=== PATIENT | female | born 2000 | race Caucasian/White ===

== ENCOUNTER 2023-02-16 02:18 | Emergency (ER) | payer OTHER, SELFPAY ==
--- NOTE | ~2023-02-16 | XR_ITS ---
Portable chest x-ray Comparison: None Clinical History: Chest pain Findings: Lungs are clear, without focal consolidation or pleural effusion. Cardiomediastinal silho uette is unremarkable. Bones and soft tissues are unremarkable. Impression: Normal chest. Reviewed, dictated and finalized at location M. Impression: Normal chest.
[2023-02-16 02:20] VITALS: BP 134/74; PULSE 92; RESP 20; TEMP 37; O2SAT 100
[2023-02-16 02:29] VITALS: BP 122/85; PULSE 96; RESP 15; O2SAT 99
[2023-02-16 02:31] LABS: Glucose Point of Care 70 mg/dl (65-105)
--- NOTE | 2023-02-16 02:34 | ECG_ITS ---
Measurements Intervals [place] Rate: 90 P: 50 HI: 112 QRS: 29 QRSD: 97 T: 31 QT: 399 QTc: 490 Interpretive Statements SINUS RHYTHM WITH SHORT HI INTERVAL NO PREVIOUS ECG AVAILABLE FOR COMPARISON Electronically Signed On 02-16-2023 11:20:27 CDT by Trish Garduno M.D.
[2023-02-16 03:04] LABS: Basophils Percent Auto 0.4 % (0.2-1.2); Eosinophils Absolute Auto 0.2 K/mm3 (0-0.3); Eosinophils Percent Auto 1.9 % (0-4.4); Hematocrit 38.3 % (37.0-47.0); Hemoglobin 12.9 g/dL (12.0-15.0); Immature Granulocyte Absolute 0.02 K/mm3 (0.00-0.031); Immature Granulocyte Percent A 0.2 % (0-0.5); Lymphocytes Absolute Auto 2.07 K/mm3 (0.9-3.2); Lymphocytes Percent Auto 25.7 % (18.3-44.2); Mean Corpuscular HGB Conc 33.7 g/dl (32-36); Mean Corpuscular Hemoglobin 29.7 pg (26-34); Mean Corpuscular Volume 88.2 fl (80-100); Mean Platelet Volume 10.8 fl (7.4-10.4); Monocytes Percent Auto 12.2 % (2.6-8.5); Neutrophils Absolute Auto 4.8 K/mm3 (1.3-6.7); Neutrophils Percent Auto 59.6 % (45.5-73.1); Platelet Count Result 261 k/mm3 (150-375); Red Blood Count 4.34 M/mm3 (4.2-5.4); Red Cell Distribution Width 12.3 % (11.5-14.5)
[2023-02-16 03:16] LABS: Lactic Acid Reflex 2.3 mmol/L (0.7-2.0)
[2023-02-16 03:21] LABS: Alanine Aminotransferase 15 U/L (6-35); Albumin Level 4.3 g/dL (3.5-5.1); Alkaline Phosphatase 78 U/L (38-126); Anion Gap 12 mmol/L (8-16); Aspartate Amino Transferase 23 U/L (14-36); Bilirubin,Total 0.5 mg/dL (0.2-1.3); Blood Urea Nitrogen 5 mg/dL (7-17); Calcium 8.6 mg/dL (8.4-10.2); Carbon Dioxide 20 mmol/L (22-30); Chloride 107 mmol/L (98-107); Estimated CRCL calculation 148 ml/min; Estimated Glomerular Filt Rate > 60; Glucose 61 mg/dL (65-110); Potassium 2.8 mmol/L (3.4-5.0); Sodium 139 mmol/L (137-145)
--- NOTE | 2023-02-16 03:23 | ED.GENADULT ---
HPI - General Adult General Chief complaint: Unspecified Stated complaint: low blood sugar Time Seen by Provider: 02/16/23 02:29 History of Present Illness HPI narrative: Patient is a 23-year-old female who presents the emergency department with chief complaint of hyperglycemia. Patient reports that she has history of type 1 diabetes wears an insulin pump and has a continuous glucose monitor patient reports that she has been running in the 60s today and she will drink a soda. Related Data Allergies Allergy/AdvReac Type Severity Reaction Status Date / Time amoxicillin Allergy Verified 11/30/11 15:01 Review of Systems Review of Systems: A 10 system review of systems was completed on the patient and is negative except for what is stated in the HPI. Nursing and ancillary documentation was reviewed. Exam Narrative: GENERAL: Well-appearing, well-nourished, and in no acute distress. HEAD: Normocephalic, atraumatic. EYES: PERRLA and EOMI. ENT: Nares clear, no rhinorrhea or epistaxis. Mucous membranes moist. NECK: Supple. CHEST: Clear to auscultation. No respiratory distress. HEART: Regular rate and rhythm. No murmur heard. Normal peripheral pulses. ABDOMEN: Soft, nontender, nondistended, normal active bowel sounds. EXTREMITIES: Normal range of motion. No edema. SKIN: Warm, dry, no rash. NEURO: No focal deficits. Alert and oriented x3. PSYCH: Normal mood and affect. Course Vital Signs Vital signs: Vital Signs Temperature 37.0 C 02/16/23 02:20 Pulse Rate 92 02/16/23 02:20 Respiratory Rate 20 02/16/23 02:20 Blood Pressure 134/74 02/16/23 02:20 Pulse Oximetry 100 02/16/23 02:20 Temperature 37.0 C 02/16/23 02:20 Pulse Rate 88 02/16/23 04:16 Respiratory Rate 26 H 02/16/23 04:16 Blood Pressure 131/86 02/16/23 04:16 Pulse Oximetry 99 02/16/23 04:16 Medical Decision Making [facility] Narrative Medical decision making narrative: Differential diagnosis includes indiscretion, infection, electrolyte abnormality The patient was monitored in the emergency department blood sugars have improved with additional dextrose your potassium was 2.8 that was replaced in the emergency department and urinalysis showed evidence of UTI. Patient was negative for COVID and flu Chest x-ray was negative. Vital Signs Vital Signs: Vital Signs Temperature 37.0 C 02/16/23 02:20 Pulse Rate 92 02/16/23 02:20 Respiratory Rate 20 02/16/23 02:20 Blood Pressure 134/74 02/16/23 02:20 Pulse Oximetry 100 02/16/23 02:20 Temperature 37.0 C 02/16/23 02:20 Pulse Rate 88 02/16/23 04:16 Respiratory Rate 26 H 02/16/23 04:16 Blood Pressure 131/86 02/16/23 04:16 Pulse Oximetry 99 02/16/23 04:16 Lab Data 02/16/23 02:59 02/16/23 02:59 Labs: Lab Results 02/16/23 02/16/23 02/16/23 Range/Units 02:27 02:57 02:59 WBC 8.0 (4.5-10.0) K/mm3 RBC 4.34 (4.2-5.4) M/mm3 Hgb 12.9 (12.0-15.0) g/dL Hct 38.3 (37.0-47.0) % MCV 88.2 (80-100) fl MCH 29.7 (26-34) pg MCHC 33.7 (32-36) g/dl RDW 12.3 (11.5-14.5) % Plt Count 261 (150-375) k/mm3 MPV 10.8 H (7.4-10.4) fl Immature Gran % (Auto) 0.2 (0-0.5) % Neut % (Auto) 59.6 (45.5-73.1) % Lymph % (Auto) 25.7 (18.3-44.2) % Bureau % (Auto) 12.2 H (2.6-8.5) % Eos % (Auto) 1.9 (0-4.4) % Baso % (Auto) 0.4 (0.2-1.2) % Lymph # (Auto) 2.07 (0.9-3.2) K/mm3 Bureau # (Auto) 1.0 H (0.1-0.6) K/mm3 Eos # (Auto) 0.2 (0-0.3) K/mm3 Baso # (Auto) 0.0 (0.0-0.1) K/mm3 Abs Immat Gran (auto) 0.02 (0.00-0.031) K/mm3 Absolute Neuts (auto) 4.8 (1.3-6.7) K/mm3 Absolute Nucleated RBC 0.0 (0.0-0.012) K/mm3 Nucleated RBC % 0.0 (0.0-0.2) % Sodium 139 (137-145) mmol/L Potassium 2.8 L* (3.4-5.0) mmol/L Chloride 107 (98-107) mmol/L Carbon Dioxide 20 L (22-30) mmol/L Anion Gap 12 (8-16) mmol/
[2023-02-16] MEDS: POTASSIUM CHLORIDE 20 MEQ PACKET (FOR LIQUID) 40 MEQ PO (03:28)
[2023-02-16 03:33] LABS: Magnesium 2.2 mg/dL (1.6-2.3)
[2023-02-16 03:36] LABS: Appearance Urine Cloudy (Clear); Bacteria Urine 4+ /hpf; Bilirubin Urine Negative (Negative); Blood Urine Trace (Negative); Color Urine Yellow (Yellow); Glucose Urine UA 2+ mg/dL (Negative); Ketones Urine Negative (Negative); Leukocyte Esterase Ur 1+ LEU/UL (Negative); Nitrate Urine Positive (Negative); Non Pathogenic Casts 0-2; Protein Urine Trace mg/dL (Negative); RBC Urine 0-2 /hpf (0-2); Specific Grav Ur 1.019 (1.001-1.035); Squamous Epithelial Cell Urine None seen /hpf (Few); Urobilinogen Urine 0.2 mg/dL (<2.0); WBC Urine 21-50 /hpf
[2023-02-16 03:46] VITALS: BP 134/79; PULSE 91; RESP 18; O2SAT 100
[2023-02-16] MEDS: KCL 20 MEQ/SW 100 ML 100 ML 50 MEQ IVPB (03:56)
[2023-02-16 03:57] LABS: Add Urine Microscopic? YES
[2023-02-16] MEDS: SODIUM CHLORIDE 0.9% IV 1,000 ML 150 ML IV CONT (04:00)
[2023-02-16 04:01] VITALS: BP 137/89; PULSE 99; RESP 28; O2SAT 100
[2023-02-16 04:02] LABS: Glucose Point of Care 64 mg/dl (65-105)
[2023-02-16 04:10] LABS: Influenza A QL RT-PCR Negative (Negative); Influenza B QL RT-PCR Negative (Negative); SARS-CoV-2 RNA PCR Negative (Negative)
[2023-02-16 04:16] VITALS: BP 131/86; PULSE 88; RESP 26; O2SAT 99
[2023-02-16] MEDS: DEXTROSE 10% 500 ML 250 ML IV CONT (04:33)
[2023-02-16 05:51] LABS: Glucose Point of Care 221 mg/dl (65-105)
[2023-02-16 06:02] LABS: Reflex Lactic Acid Yes or No Add Lactic
[2023-02-16 06:32] VITALS: BP 123/87; PULSE 92; RESP 16; O2SAT 100
== END 2023-02-16 06:47 | disposition home or self-care (01) ==
PROVIDERS: Emergency Provider Emergency Medicine
DX: E10.649 Type 1 diabetes mellitus with hypoglycemia without coma (principal); N39.0 Urinary tract infection, site not specified; E87.6 Hypokalemia; Z11.52 Encounter for screening for COVID-19; Z96.41 Presence of insulin pump (external) (internal); Z79.4 Long term (current) use of insulin
CPT/HCPCS: 36415; 71045; 80053; 81001; 81025; 82948; 83605; 83735; 85025; 87077; 87086; 87186; 87636; 93005; 96361; 96365; 96366; 96374; 99284; A9270; J1815; J3480; J7030

== ENCOUNTER 2023-02-16 08:22 | Emergency (ER) | payer OTHER, SELFPAY ==
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
== END 2023-02-16 08:35 | disposition left against medical advice (07) ==
LOC: ANHED 09:14
DX: E16.2 Hypoglycemia, unspecified (principal)
CPT/HCPCS: 99199

== ENCOUNTER 2023-02-16 15:44 | Emergency (ER) | payer OTHER, SELFPAY ==
[2023-02-16 15:45] VITALS: BP 136/92; PULSE 103; RESP 30; TEMP 36.6; O2SAT 100
[2023-02-16 15:55] LABS: Glucose Point of Care > 500 mg/dl (65-105)
[2023-02-16] MEDS: SODIUM CHLORIDE 0.9% IV 1,000 ML 999 ML IV CONT ×2 (16:10→16:17)
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
[2023-02-16] MEDS: INSULIN HUMAN REGULAR (*BKC) 100 UNITS/ML 6 UNITS IV PUSH (16:18)
[2023-02-16 16:59] LABS: Hemoglobin 13.3 g/dL (12.0-15.0); Mean Corpuscular HGB Conc 33.3 g/dl (32-36); Mean Corpuscular Hemoglobin 30.2 pg (26-34); Mean Corpuscular Volume 90.7 fl (80-100); Mean Platelet Volume 11.3 fl (7.4-10.4); Platelet Count Result 264 k/mm3 (150-375); Red Blood Count 4.41 M/mm3 (4.2-5.4); Red Cell Distribution Width 12.5 % (11.5-14.5); White Blood Count 13.7 K/mm3 (4.5-10.0)
[2023-02-16 17:11] LABS: Lactic Acid Reflex 2.3 mmol/L (0.7-2.0)
[2023-02-16 17:13] LABS: Alanine Aminotransferase 19 U/L (6-35); Alkaline Phosphatase 110 U/L (38-126); Anion Gap 17 mmol/L (8-16); Aspartate Amino Transferase 22 U/L (14-36); Blood Urea Nitrogen 9 mg/dL (7-17); Calcium 8.1 mg/dL (8.4-10.2); Carbon Dioxide 11 mmol/L (22-30); Chloride 107 mmol/L (98-107); Estimated CRCL calculation 122 ml/min; Estimated Glomerular Filt Rate > 60; Glucose 451 mg/dL (65-110); Potassium 4.1 mmol/L (3.4-5.0); Sodium 135 mmol/L (137-145)
[2023-02-16 17:13] LABS: Glucose Point of Care 384 mg/dl (65-105)
[2023-02-16 17:22] LABS: Band Neutrophils Percent 2 % (0-6); Lymphocytes Absolute Manual 0.27 K/mm3 (1.1-4.5); Monocytes Absolute Manual 0.27 K/mm3 (0.1-0.90); Monocytes Percent Manual 2 % (3-9); Neutrophils Absolute Manual 13.15 K/mm3 (1.7-7.2); Neutrophils Percent Manual 94 % (46-73); Platelet Estimate Adequate (Adequate); Schistocytes None Seen (NORMAL); Total Cells Counted 100
[2023-02-16 18:20] LABS: Glucose Point of Care 268 mg/dl (65-105)
[2023-02-16 18:35] VITALS: BP 111/76; PULSE 105; RESP 18; O2SAT 100
[2023-02-16 19:56] LABS: Reflex Lactic Acid Yes or No Add Lactic
== END 2023-02-16 18:40 | disposition home or self-care (01) ==
PROVIDERS: Emergency Provider Emergency Medicine
DX: E10.65 Type 1 diabetes mellitus with hyperglycemia (principal); Z76.0 Encounter for issue of repeat prescription; Z79.4 Long term (current) use of insulin; Z96.41 Presence of insulin pump (external) (internal)
CPT/HCPCS: 36415; 80053; 82948; 83605; 85025; 96361; 96374; 99284; J1815; J7030

== ENCOUNTER 2023-02-16 19:42 | Emergency (ER) | payer OTHER, SELFPAY ==
[2023-02-16 19:45] VITALS: BP 129/78; PULSE 123; RESP 32; TEMP 36.3; O2SAT 100
[2023-02-16 19:50] LABS: Glucose Point of Care 312 mg/dl (65-105)
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
== END 2023-02-16 20:15 | disposition left against medical advice (07) ==
DX: F44.9 Dissociative and conversion disorder, unspecified (principal)
CPT/HCPCS: 82948; 99199

== ENCOUNTER 2023-02-28 10:01 | Emergency (ER) | payer OTHER, SELFPAY ==
--- NOTE | 2023-02-28 10:04 | ED.FEMALEGU ---
HPI - Female Genitourinary General Chief complaint: Urogenital-Female Stated complaint: UTI Time Seen by Provider: 02/28/23 10:05 Source: patient Mode of arrival: ambulatory Limitations: no limitations History of Present Illness HPI Narrative: Patient is a 23-year-old female who presents with concern for UTI. Patient was diagnosed with UTI roughly week ago and only finished 4 days of antibiotics due to being admitted into the hospital. Patient states she told the hospital and they did not finish the rest of her antibiotics. Patient also rule has concern for yeast infection. Patient is a type 1 diabetic and gets yeast infections frequently. Reports irritation and slight white thick discharge. MD elicited complaint: dysuria Related Data Home Medications Medication Instructions Recorded Confirmed blood-glucose sensor (Dexcom G6 02/28/23 02/28/23 Sensor device) blood-glucose transmitter (Dexcom 02/28/23 02/28/23 G6 Transmitter device) glucagon 1 mg/0.2 mL subcutaneous 1 mg subcut DIRECTED 02/28/23 02/28/23 auto-injector (Gvoke HypoPen 1-Pack) insulin glargine 100 unit/mL 45 unit subcut DIRECTED 02/28/23 02/28/23 subcutaneous solution (Lantus U-100 Insulin) insulin pump cart,automated,BT 02/28/23 02/28/23 (Omnipod 5 G6 Pods (Gen 5) subcutaneous cartridge) Allergies Allergy/AdvReac Type Severity Reaction Status Date / Time amoxicillin Allergy Hives Verified 02/28/23 10:05 Review of Systems Review of Systems: All systems reviewed & are unremarkable except as noted in HPI and below Constitutional: Constitutional: Denies chills, Denies fever(s), Denies headache(s), Denies malaise and Denies weakness Eyes: Eyes: Denies change in vision, Denies eye discharge and Denies irritation ENT: Denies otalgia, Denies headache(s), Denies nasal congestion, Denies nasal discharge, Denies sinus pain and Denies sore throat Cardiovascular: Cardiovascular: Denies chest pain, Denies edema, Denies palpitations and Denies dyspnea Respiratory: Respiratory: Denies cough and Denies dyspnea Gastrointestinal: Gastrointestinal: Denies abdominal pain, Denies diarrhea, Denies nausea and Denies vomiting Genitourinary: Genitourinary: Denies hematuria, Reports nocturia, Reports genital pruritis, Reports dysuria, Denies flank pain, Reports urinary urgency and Reports vaginal discharge Musculoskeletal: Musculoskeletal: Denies back pain and Denies numbness Integumentary/Breasts: Skin/Breast: Denies pruritus and Denies rash Neurologic: Denies headache(s), Denies numbness and Denies weakness Psychiatric: Psychiatric: Reports no additional psychiatric complaints Endocrine: Endocrine: Denies palpitations PMFSH Comments At time of signature, agree with nursing past medical, surgical, social and family history. There is no relevant family history pertinent to the presenting complaint. Exam Const: General: cooperative, healthy appearing, comfortable, no acute distress and well nourished Nutritional Appearance: well nourished Orientation/consciousness: patient oriented x3 HENMT: Head: normocephalic and atraumatic Ears: external ears normal Face/Nose/Sinus: Normal external nose present, Normal nares present and normal facial exam Face and sinus: normal facial exam Eyes: General: appearance normal, both eyes and all related structures Pupils: Equal, round and reactive pupils present EOM: EOMs intact bilaterally Neck: Neck: normal visual inspection, full ROM and supple Chest: Chest palpation & inspection: normal inspection of the chest Resp: Effort & Inspection: normal respiratory effort and able to speak in complete sentences Cardio: Rate: regular rate Rhythm: regular rhythm GI: Inspection: normal to inspection GI Palp: No abdominal tenderness and Yes Soft to palpation : General: Yes no CVA tenderness Back/Spine/Pelvis: Back: no CVA tenderness Skin: General skin exam: normal color and no rashes or les
[2023-02-28 10:13] VITALS: BP 130/80; PULSE 90; RESP 16; TEMP 36.9; O2SAT 100
== END 2023-02-28 11:00 | disposition home or self-care (01) ==
PROVIDERS: Emergency Provider Nurse Practitioner Family; PCP Nurse Practitioner Family
DX: B37.31 Acute candidiasis of vulva and vagina (principal); N30.00 Acute cystitis without hematuria; E10.9 Type 1 diabetes mellitus without complications
CPT/HCPCS: 81003; 81025; 87086; 87147; 87181; 87186; 99213; G0463

== ENCOUNTER 2024-09-21 14:18 | Emergency (ER) | payer OTHER, BC, SELFPAY ==
--- OUTSIDE RECORDS SUMMARY | 2024-09-21 14:21 | XMS_ITS | Patient Health Record ---
Author Organization Count includes the [facility] Address [address] [place] [address] Care Team Providers Care Cab Starter Name Role Phone Rebecca Osei Primary Care Provider Allergies Allergen (clinical drug ingredient) Drug/Non Drug Allergy documented on EMR Reaction Allergy Type Onset Date Status amoxicillin Amoxicillin Unknown Drug Allergy Act abdon Reason For Referral No Information Medications Medication SIG (Take, Route, Fr equency, Duration) Notes Start Date End Date Status lamoTRIgine 100 MG 1 tablet Orally Once a day- start after completed 25 mg script for 30 days 07/19/2022 Active lamoTRIgine 25 MG as directed Orally O nce daily for 2 weeks then increase to two tablets once daily for 28 days 07/19/2022 Active cloNIDine HCl 0.1 MG 1 tablet at night a s needed Orally Once a day for 30 days 07/19/2022 Ac tive HumaLOG Active NovoLOG Active Social History Tobacco Use: Social History Observation Description Date Details (start date - stop date) Former Smoker NA - NA Dont use, Tobacco Use/Smoking Question Answer Notes Are you a former smoker How long has it been since you last smoked? 1-5 years Problems Problem Type SNOMED Code ICD Code Onset Dates Problem Status W/U Status Risk Notes Problem Generalized anxiety disorder (14576877) Generalized anxiety disorder (F41.1) Active confirmed Problem Posttraumatic stress disorder (67910393) PTSD (post-traumati c stress disorder) (F43.10) Active confirmed Problem Bipolar affective disorder (78696209) Bipolar affective disorder (F31.9) Active confirmed likely type 1 Problem Cannabis abuse (48616464) Cannabis abuse (F12.10) Active confirmed Problem Sleep disturbance (04655954) Sleep disturbance, unspecified (G47.9) Active confirmed Plan Of Treatment No Information Insurance Providers Payer Name Payer Address Payer Phone Subscriber Number Group Number Insured Name Patient Relationship to Insured Coverage Start Date Coverage End Date [facility] Att Claims Department [address] [place] [address] [phone] [id number] Luciana Nelson Self - patient is the insured [facility] [address] [place] [address] [phone] [id number] Luciana Nelson Self - patient is the insured 3 Medical (General) History Medical History History ICD Code type I diabetes Surgical History Surgery Date(Month/Year) ablation Hospitalization History Reason Date(Month/Year) diabetic
--- OUTSIDE RECORDS SUMMARY | 2024-09-21 14:23 | XMS_ITS | Encounter Summary ---
Author Organization [facility] Address [address] [place] [address] Care Team Providers Care Water/Wastewater Project Manager Name Role Phone Cee Sharpe MD Primary Care Provider Frances Vazquez Primary Care Provider Cee Sharpe MD Primary Care Provider Frances Vazquez Primary Care Provider Graciela Marin MD Primary Care Provider Quyen Vance MD Primary Care Provider [phone] Graciela Marin MD Unavailable [phone] Encounter Details Date Type Department Care Team (Late st Contact Info) Description 04/05/2019 Telephone [facility] - Diabetes [address] [address] Demetri Longo APRN-CNP [address] [place] [address] Social History Tobacco Use Types Packs/Day Years Used Date Smoking Tobacco: Passive Smo ke Exposure - Never Smoker Smokeless Tobacco: Never Alcohol Use Standard Drinks/Week Comments No 0 (1 standard drink = 0.6 oz pur e alcohol) Comments No Sex and Gender Information Value Date Recorded Sex Assigned at Not on file Legal Sex Female 5:42 AM FIBERGLASS SKI MAKER Gender Identity Not on file Sexual Orientation Not on file documented as of this encounter Functional Status * Is person deaf or have serious hearing difficulty? Answer Date of Assessment Author No 07/21/2015 8:00 PM Andria Gonzalez RN * Is person blind or have serious difficulty seeing? Answer Date of Assessment Author No 07/21/2015 8:00 PM Andria Gonzalez RN * Does person have serious difficulty walking/climbing stairs? Answer Date of Assessment Author No 07/21/2015 8:00 PM Andria Gonzalez RN * Does person have difficulty dressing/bathing? Answer Date of Assessment Author No 07/21/2015 8:00 PM Andria Gonzalez RN * Does person have difficulty doing errands alone? Answer Date of Assessment Author No 07/21/2015 8:00 PM Andria Gonzalez RN documented as of this encounter Mental Status * Does person have difficulty concentrating/remembering/making decisions? Answer Entry Date Author No 07/21/2015 8:00 PM Andria Gonzalez RN documented in this encounter Miscellaneous Notes * Telephone Encounter - Rebecca Doshi RN - 04/05/2019 10:34 AM CST Mom called stating Luciana recently started seeing a new primary care physician ([facility], Frances Osuna MD- [phone]). When she was seen they were told about a [employer]B program that would assist her in getting lower cost medical supplies on insulin and CGM's. Mom said there is a form/letter that needs to be completed by our office to facilitate being apart of this program. I have reached out to the PCP office to see if they could fax us the form that needed to be completed. The office said we just need to write her prescriptions to [facility] and [facility] in [place], [place]. RGLASS SKI MAKER documented in this encounter Plan of Treatment Not on file documented as of this encounter Visit Diagnoses Not on filedocumented in this encounter Additional Health Concerns Infection Onset Date Last Indicated Resolved Time COVID-19 Under Investigation 03/02/2024 03/03/2024 03/03/2024 1:53 AM FIBERGLASS SKI MAKER COVID-19 Under Investigation 03/03/2024 03/03/2024 03/03/2024 2:08 PM FIBERGLASS SKI MAKER documented as of this encounter Care Teams Water/Wastewater Project Manager Relationship Specialty Start Date End Date Cee Sharpe MD [address] [place] [address] PCP - General Pediatrics 01/24/12 07/31/19 Frances Vazquez APRN-DANCE THERAPIST [address] [place], [place] [id number] PCP - General Nurse Practitioner Family 08/01/1907/24 Cee Sharpe MD [address] [place] [address] PCP - General 08/09/19 09/09/19 Frances Vazquez APRN-DANCE THERAPIST [address] [place], [place] [id number] PCP - General 07/06/22 11/21/23 Graciela Marin MD [address] [place] [id number] PCP - General Internal Medicine 11/22/23 01/09/24 Quyen Vance MD [address] DIV OF [facility] [address] [place] [phone] PCP - General Internal Medicine 01/10/24 Graciela Marin MD [address] [place] [address] Physician Internal Medicine 01/10/24 documented as of this encounter
--- OUTSIDE RECORDS SUMMARY | 2024-09-21 14:23 | XMS_ITS | Encounter Summary ---
Author Organization [facility] Address [address] [place] [address] Care Team Providers Care Diesel Trailer Mechanic Name Role Phone Frances Vazquez Primary Care Provider Graciela Marin MD Primary Care Provider [phone] Quyen Vance MD Primary Care Provider [phone]- [phone] Graciela Marin MD Unavailable [phone] Reason for Visit * Reason Comments Refill Request Encounter Details Date Type Department Care Team (Late st Contact Info) Description 12/12/2019 Refill [facility] Pediatrics - Diabetes [address] [place] [address] Demetri Longo APRN-CNP [address] [place] [address] Refill Request Social History Tobacco Use Types Packs/Day Years Used Date Smoking Tobacco: Passive Smo ke Exposure - Never Smoker Smokeless Tobacco: Never Alcohol Use Standard Drinks/Week Comments No 0 (1 standard drink = 0.6 oz pur e alcohol) Comments No Sex and Gender Information Value Date Recorded Sex Assigned at Not on file Legal Sex Female 5:42 AM VALET RUNNER Gender Identity Not on file Sexual Orientation Not on file documented as of this encounter Functional Status * Is person deaf or have serious hearing difficulty? Answer Date of Assessment Author No 08/01/2019 4:54 PM Sheyla Bolanos RN * Is person blind or have serious difficulty seeing? Answer Date of Assessment Author No 08/01/2019 4:54 PM Sheyla Bolanos RN * Does person have serious difficulty walking/climbing stairs? Answer Date of Assessment Author No 08/01/2019 4:54 PM Sheyla Bolanos RN * Does person have difficulty dressing/bathing? Answer Date of Assessment Author No 08/01/2019 4:54 PM Sheyla Bolanos RN * Does person have difficulty doing errands alone? Answer Date of Assessment Author No 08/01/2019 4:54 PM Sheyla Bolanos RN documented as of this encounter Mental Status * Does person have difficulty concentrating/remembering/making decisions? Answer Entry Date Author No 08/01/2019 4:54 PM Sheyla Bolanos RN documented in this encounter Plan of Treatment Not on file documented as of this encounter Visit Diagnoses Not on filedocumented in this encounter Additional Health Concerns Infection Onset Date Last Indicated Resolved Time COVID-19 Under Investigation 03/02/2024 03/03/2024 03/03/2024 1:53 AM VALET RUNNER COVID-19 Under Investigation 03/03/2024 03/03/2024 03/03/2024 2:08 PM VALET RUNNER documented as of this encounter Care Teams Diesel Trailer Mechanic Relationship Specialty Start Date End Date Frances Vazquez APRN-BILINGUAL SPEECH LANGUAGE PATHOLOGIST [address] [place] [phone] PCP - General 07/06/22 11/21/23 Graciela Marin MD [address] DIV OF [facility] [address] PCP - General Internal Medicine 11/22/23 01/09/24 Quyen Vance MD [address] OF [address] [address] PCP - General Internal Medicine 01/10/24 Graciela Marin MD [address] [place] [address] Physician Internal Medicine 01/10/24 documented as of this encounter
--- OUTSIDE RECORDS SUMMARY | 2024-09-21 14:23 | XMS_ITS | Encounter Summary ---
Author Organization [facility] Address [address] [place] [address] Care Team Providers Care Correctional Maintenance Technician Name Role Phone Cee Sharpe MD Primary Care Provider Frances Vazquez Primary Care Provider Cee Sharpe MD Primary Care Provider Frances Vazquez Primary Care Provider Graciela Marin MD Primary Care Provider Quyen Vance MD Primary Care Provider [phone]- [phone] Graciela Marin MD Unavailable [phone] Reason for Visit * Reason Onset Date Comments MEDICATION REFILL 08/03/2016 Encounter Details Date Type Department Care Team (Late st Contact Info) Description 08/03/2016 Refill [facility] Pediatrics - Endocrinology [address] [place] [address] Demetri Longo APRN-CNP [address] [place] [address] MEDICATION REFILL Social History Tobacco Use Types Packs/Day Years Used Date Smoking Tobacco: Passive Smo ke Exposure - Never Smoker Alcohol Use Standard Drinks/Week Comments No 0 (1 standard drink = 0.6 oz pur e alcohol) Comments No Sex and Gender Information Value Date Recorded Sex Assigned at Not on file Legal Sex Female 5:42 AM MACHINERY MOVER Gender Identity Not on file Sexual Orientation [...] Andria Gonzalez RN documented in this encounter Plan of Treatment Not on file documented as of this encounter Visit Diagnoses Not on filedocumented in this encounter Additional Health Concerns Infection Onset Date Last Indicated Resolved Time COVID-19 Under Investigation 03/02/2024 03/03/2024 03/03/2024 1:53 AM MACHINERY MOVER COVID-19 Under Investigation 03/03/2024 03/03/2024 03/03/2024 2:08 PM MACHINERY MOVER documented as of this encounter Care Teams Correctional Maintenance Technician Relationship Specialty Start Date End Date Cee Sharpe MD [address] [place] [id number] PCP - General Pediatrics 01/24/12 07/31/19 Frances Vazquez APRN-SUSPENSION CORD TIER [address] [place] [id number] PCP - General Nurse Practitioner Family 08/01/1907/24 Cee Sharpe MD [address] [place] [address] PCP - General 08/09/19 09/09/19 Frances Vazquez APRN-SUSPENSION CORD TIER [address] [id number] PCP - General 07/06/22 11/21/23 Graciela Marin MD [address] [place] [address] PCP - General Internal Medicine 11/22/23 01/09/24 Quyen Vance MD [address] [phone] PCP - General Internal Medicine 01/10/24 Graciela Marin MD [address] [place] [phone] Physician Internal Medicine 01/10/24 documented as of this encounter
--- OUTSIDE RECORDS SUMMARY | 2024-09-21 14:23 | XMS_ITS | Clinical Summary ---
Author Organization [facility] Address [address] [place] [address] Care Team Providers Care Clerk Supervisor Name Role Phone Quyen Vance MD Primary Care Provider [phone] Graciela Marin MD Unavailable Source Comments [facility],non-owned Affiliates and Associated Physician Practices is amultiple site organization consisting of ambulatory clinics and hospital sitesin [place], [place], [place] and [place]. This disclosure is being madepursuant to the Care Everywhere program and may not contain all information available regarding this patient. Last updated 18.[facility] Allergies Active Allergy Reactions Criticality Noted Date Comments Amoxicillin Urticaria 01/24/2012 Medications * Be aware that medications may not be up to date on this document. Alwaysverify current medications with the patient. B-D ULTRA-FINE 33 LANCETS MISCIndications: Type 1 diabetes mellitus without complication (HCC) Use for blood glucose monitoring 5-9 times/day. 200 Each 05/20/19 17 Active blood glucose (ONETOUCH ULTRA TEST STRIPS) test stripIndications :Type 1 diabetes mellitus without complication (HCC) Use to check blood sugars 5-9 times daily 250 strip 07/02/19 21 Active Insulin Pen Needle (BD PEN NEEDLE MARY U/F) 32G X 4 MM MISCIndications: Type 1 diabetes mellitus without complication (HCC) Use 1 Each as directed Use for injections 4-6 times daily. 200 Each 07/02/19 21 Active hydrOXYzine HCl (Atarax) 25 MG tablet Take 1 (one) tablet by mouth 3 times daily as needed (anxiety) Active Continuous Glucose Sensor (Dexcom G6 Sensor) MISCIndications: Type 1 diabetes mellitus without complication (HCC) Use 1 Each every 10 days 3 Each 4 11/28/19 24 Active Continuous Glucose Transmitter (Dexcom G6 Transmitter) MISCIndications: Type 1 diabetes mellitus without complication (HCC) Use 1 Each Every 90 days 1 Each 3 11/28/19 24 Active insulin aspart (NovoLOG) vialIndications: Type 1 diabetes mellitus without complication (HCC) Inject 200 (two hundred) Units subcutaneously every 2 days 30 mL 4 11/28/19 24 Active Insulin Disposable Pump (Omnipod 5 G6 Pods, Gen 5,) MISCIndications: Type 1 diabetes mellitus without complication (HCC) Use 1 Each every 3 days 10 Each 11 12/28/19 24 Active pantoprazole EC (Protonix) 40 MG tablet Take 1 (one) tablet by mouth once daily 02/20/20 24 Active insulin glargine (Lantus/Semglee) 100 units/mL penIndications:T ype 1 diabetes mellitus without complication (HCC) Inject 20 (twenty) Units subcutaneously at bedtime 03/06/20 24 Active Active Problems Problem Noted Date Diagnosed Date Hypokalemia 03/05/2024 Diabetic ketoacidosis withou t coma associated with other specified diabetes mellitus 03/03/2024 Type 1 diabetes mellitus with ketoacidosis witho ut coma 03/03/2024 Rhinovirus 03/03/2024 High anion gap metabolic acidosis 03/03/2024 Hypovolemia 03/03/2024 Chronic anemia 03/03/2024 Anxiety 11/08/2023 Hypophosphatemia 11/08/2023 Abdominal pain 11/08/2023 Hyperkalemia 11/08/2023 Lactic acidosis 11/08/2023 Elevated liver enzymes 11/08/2023 Nausea and vomiting, unspecified vomiting type 0 11/07/2023 Diabetic ketoacidosis withou t coma associated with type 1 diabetes mellitus 03/04/2020 Type 1 diabetes mellitus without complication Overview (09/10/2019): Diagnosed antibody positive 07/22/15 Assessment & Plan (02/08/2019 9:18 AM CDT): 1) check blood sugar 4 times daily 2) take correction doses when blood sugar is high, and always take your insulin for carbs you plan to eat 3) call when switched to [employer] insurance 4) return in 3 months Assessment & Plan (10/24/2018 1:02 PM CDT): 1) must check blood sugar upon waking and at least every 4 hours until bedtime 2) must take insulin before eating 3) call in blood sugars in one week 4) return in [address] Dozier 5) schedule appointment with adult dermatology Assessment & Plan (03/13/2018 3:01 PM SEDIMENTATIONIST): 1) no changes today 2) keep up the good work 3) call as needed to review blood sugars 4) return in [address] Dozier Assessment & Plan (11/11/2017 8:15 AM CDT): 1) increase humalog to 1 unit per 5 grams carb 2) call as needed to review blood sugars 3) return in 4 months for Loraine Assessment & Plan (02/24/2017 8:05 AM CDT): 1) no changes at this time 2) call as needed to review blood sugars 3) return in 3 months for loraine Assessment & Plan (04/30/2016 8:42 AM SEDIMENTATIONIST): 1)no changes at this time 2) keep up the good work 3) call as needed to review blood sugars Assessment & Plan (12/23/2015 1:42 PM CDT): 1) no changes 2) call as needed to review blood sugars 3) return in [address] Dozier Assessment & Plan (08/11/2015 2:34 PM CDT): 1) Decrease Lantus 31 2) decrease Humalog to 1:6 3) call in blood sugars on Tuesday 4) keep up the good work Assessment & Plan (07/23/2015 9:38 AM CDT): Assessment: Luciana is a 15 year old female who presents with new onset DM. Type 1 vs 2. C peptide 0.85 and antibody pending. Initial ED blood surgar 900. Day 2. Plan: Endocrine: - continue blood glucose checks TID before meals, qHS, 2am - Lantus 27u at bedtime - Humalog 1 per 8 CHO with meals - Humalog correction of 1u for every 50 over 150 - Continue diabetic teaching today - ketones qvoid until negative - C peptide- 0.85 -Ab testing pending FEN/GI: - encourage fluid PO intake - carb counting diet CV/Resp: - stable on room air Neuro: - no deficits, no acute issues. Assessment & Plan (07/22/2015 11:46 AM CDT): Assessment: Luciana is a 15 year old female who presents with new onset DM. Type 1 vs 2. C peptide and antibody pending. Initial ED blood surgar 900. AM glucose 255. Plan: Endocrine: - continue blood glucose checks TID before meals, qHS, 2am - Lantus 25u at bedtime - Humalog 1 per 10 CHO with meals - Humalog correction of 1u for every 50 over 150 - Start diabetic teaching today - BMP in am - ketones qvoid until negative - C peptides and Ab testing pending FEN/GI: - encourage fluid PO intake - carb counting diet CV/Resp: - stable on room air Neuro: - no deficits, no acute issues. Assessment & Plan (07/21/2015 9:05 PM CDT): 15 yo F w/ PMH borderline elevated cholesterol presents with polydipsia, polyuria, polyphagia, and weight loss, glucose 900 on BMP, normal gap. Likely type 1 DM, new onset R/o steroid disorders and hereditary hypercholesterolemia Interactive and asymptomatic apart from above symptoms PLAN -admit to Dr. Jacoby flores, -vitals w/ bedside glucose five times a day/before meals -activity as tolerated -carb counting, I/Os, daily weights, diabetes education, notfications for lab abnormalities, hypoglycemia tx protocol -diet carb count -saline lock IV, continue in case BMP becomes abnormal, for example drop in K -glargine 25 U qhs, -lispro 1 U : 10 g carbs, 1 unit for every 50 > 150 up to 5 U -C peptide pending (drawn prior to insulin) -Ketones UA -consider repeat BMP tomorrow PM Resolved Problems Problem Noted Date Diagnosed Date Resolved Date Gastroenteritis 03/03/2024 03/17/2024 Hyperglycemia 11/07/2023 03/03/2024 High blood sugar 03/04/2020 03/06/2020 Nonadherence to medication 03/04/2020 0 08/04/2020 Diabetic ketoacidosis withou t coma associated with type 1 diabetes mellitus 07/31/2019 08/01/2019 Assessment & Plan (08/01/2019 4:19 PM CDT): Assessment: Luciana is a 19 year old female with history of type 1 diabetes mellitus who presents in diabetic ketoacidosis from OSH in the setting of nausea and emesis. Labs including hyperglycemia, high anion gap metabolic acidosis and ketonuria consistent with DKA. Exam reassuring and patient awake and alert. Patient requires admission for close monitoring and management of DKA. Plan: FEN/GI/ENDO: - Allow carbohydrate counting diet - Transitioned to Lantus BID, received 27 U this AM, will receive Humalog 1 u per 5 g carb (giorgio: 2 u per 50 mg/dL over 150 mg/dL) - Off insulin gtt. - glucose check q1h - BMP q4 - Urine ketones qvoid - SW consult - Diabetes education consult - Nutrition consult - HbA1c in process ID: - afebrile - CBC in process - follow urine culture Cardio/Resp: - Vitals q2 - CR monitors Neuro/Pain: - Tylenol mg q4 PRN for pain - neuro checks q2 Access: Assessment & Plan (07/31/2019 3:51 PM CDT): Assessment: Luciana is a 19 year old female with history of type 1 diabetes mellitus who presents in diabetic ketoacidosis from OSH in the setting of nausea and emesis. Labs including hyperglycemia, high anion gap metabolic acidosis and ketonuria consistent with DKA. Exam reassuring and patient awake and alert. Patient requires admission for close monitoring and management of DKA. Plan: - Admit to blue team - Endocrine, Dr. 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 (F LUZONE; FLULAVAL; FLUARIX; AFLURIA QUADRIVALENT; 6MO+), 0.5 ML (IIV4) 01/15/2022 MENINGOCOCCAL ACWY (MCV4P) VAC IM 12/09/2017,01/2013 MMR VACCINE 08/09/2005,01/10/2002 PNEUMOCOCCAL PCV7 CONJ, PEDS 2001,05/26/19 02 POLIO IPV 08/09/2005, 2,2001,03/20 TDAP (7yrs+) 09/11/2021 TDAP, HISTORIC VACCINE 10/02/2012 VARICELLA 11/16/2006,05/19/2004 Family History Medical History Relation Name Comments Clotting Disorder Brother von carley rands Hyperlipidemia Maternal Grandfather Lupus Maternal Grandfather Hyperlipidemia Maternal Grandmother Hyperlipidemia Mother Genetic/Metabolic Disease Other co usin w/ infantile refsum disease Thyroid Disease Other hypothyroid in cousin Type 2 Diabetes Mellitus Other evan john great grandmother, diet controlled Relation Name Status Comments Brother Maternal Grandfather Maternal Grandmother Mother Other Social History Tobacco Use Types Packs/Day Years Used Date Smoking Tobacco: Never Passive Smoke Exposure: Yes Smokeless Tobacco: Never Tobacco Cessation:Counseling Given: No Alcohol Use Standard Drinks/Week Comments No 0 (1 standard drink = 0.6 oz pur e alcohol) AUDIT-C Answer Date Recorded Q1: How often do you have a drink containing alc ohol? Patient declined 03/03/2024 Q2: How many drinks containi ng alcohol do you have on a typical day when you are drinking? Patient declined 03/03/2024 Q3: How often do you have si x or more drinks on one occasion? Patient declined 03/03/2024 Overall Financial Resource Strain (CARDIA) Answe r Date Recorded How hard is it for you to pa y for the very basics like food, housing, medical care, and heating? Not very hard 03/03/2024 [facility] - Occupational Stress Questionnaire Answer Date Recorded Do you feel stress - tense, restless, nervous, or anxious, or unable to sleep at night because your mind is troubled all the time - these days? Only a little 03/03/2024 Hunger Vital Sign Answer Date Recorded Within the past 12 months, y ou worried that your food would run out before you got the money to buy more. Never true 03/03/20 24 Within the past 12 months, t he food you bought just didn't last and you didn't have money to get more. Never true 03/03/2024 PRAPARE - Transportation Answer Date Re corded In the past 12 months, has l ack of transportation kept you from medical appointments or from getting medications? Yes 12/2023 In the past 12 months, has l ack of transportation kept you from meetings, work, or from getting things needed for daily living? No 03/03/2024 Housing Stability Vital Sign Answer Nawaf e Recorded In the last 12 months, was t here a time when you were not able to pay the mortgage or rent on time? No 11/08/2023 In the last 12 months, how many places have you lived? 1 11/08/2023 In the last 12 months, was t here a time when you did not have a steady place to sleep or slept in a detention (including now)? No 11/08/2023 Housing Stability Vital Sign Answer Nawaf e Recorded In the last 12 months, was t here a time when you were not able to pay the mortgage or rent on time? No 03/03/2024 In the past 12 months, how m any times have you moved where you were living? 1 03/03/2024 At any time in the past 12 m [facility], were you homeless or living in a detention (including now)? No 03/03/2024 Comments No Sex and Gender Information Value Date Recorded Sex Assigned at Not on file Legal Sex Female 5:42 AM SEDIMENTATIONIST Gender Identity Not on file Sexual Orientation Not on file Last Filed Vital Signs Vital Sign Reading Time Taken Comments Blood Pressure 117/86 05/15/2024 6:21 AM SEDIMENTATIONIST Pulse 81 05/15/2024 6:21 AM SEDIMENTATIONIST Temperature 36.1 C (97 F) 05/15/2024 6:21 AM SEDIMENTATIONIST Respiratory Rate 18 05/15/2024 6:21 AM SEDIMENTATIONIST Oxygen Saturation 97% 05/15/2024 6:21 AM SEDIMENTATIONIST Inhaled Oxygen Concentration - - Weight 63.8 kg (140 lb 10.5 oz) 03/05/2024 4:00 AM SEDIMENTATIONIST Height 160 cm (5' 3) 03/03/2024 6:36 AM SEDIMENTATIONIST Body Mass Index 24.92 03/03/2024 6:36 AM SEDIMENTATIONIST Plan of Treatment Health Maintenance Due Date Last Done Comments PNEUMOCOCCAL VACCINE (1 of 1 - PPSV23) 2007 2001, 2001 DIABETES RETINOPATHY SCREENING 08/08/2015 MENINGOCOCCAL (Group B) VACC INE SHARED DECISION-MAKING (1 of 2 - Standard) 2017 DIABETES-FOOT EXAM WITH MONOFILAMENT 05/12/2021 05/12/2020 COVID-19 VACCINE (2 - 2023-2 5 season) 2023 09/29/2021 DEPRESSION SCREENING 04/25/2024 DIABETES - URINE PROTEIN SCREENING 04/25/2024 09/21/2023, 01/20/2023, 12/30/2022, Additional history exists DIABETES-HGB A1C 06/05/2024 03/05/2024, , 01/17/2024, Additional history exists CHLAMYDIA/GONORRHEA SCREENING 08/06/2024, 09/07/2022, 07/05/2022, Additional history exists DIABETES-SERUM CREATININE 05/15/20252024, 03/06/2024, 03/05/2024, Additional history exists PAP SMEAR 09/07/2025 09/07/2022 DTAP/TDAP/TD VACCINES (8 - T d or Tdap) 09/12/2031 09/11/2021, 10/02/2012, 08/09/2005, Additional history exists ZOSTER VACCINE (1 of 2) 2051 HEPATITIS B VACCINE Completed 01/10/2002, 2001, 2001 HIB VACCINE Completed 01/10/2002, 05/2001, 2001, Additional history exists HPV VACCINE Completed 04/04/2013, 11/23, 10/02/2012 MENINGOCOCCAL GROUPS A/C/Y/W VACCINE Completed 12/09/2017, 10/02/2012 HIV SCREENING Completed 03/04/2020 HEPATITIS C SCREENING Completed 12/04/2021, 022 INFLUENZA VACCINE Completed 02/16/2024, 01/15/2022 Procedures Procedure Name Priority Date/Time Associated Diagnosis Comments COMPREHENSIVE METABOLIC PANEL STAT 05/15/2024 4:59 AM SEDIMENTATIONIST HEMOGLOBIN A1C Routine 03/05/2024 5:51 PM SEDIMENTATIONIST HIV-1 HIV-2 ANTIGEN/ANTIBODY STAT 03/04/2020 11:44 AM SEDIMENTATIONIST CHLAMYDIA + GC AMPLIFIED PROBE Routine 08/01/2019 2:33 PM CDT MICROALB/CREAT RATIO URINE RANDOM PANEL Routine 07/24/2018 9:12 AM CDT Type 1 diabetes mellitus without complication from Last 3 Months or Most Recently Relevant to Health Maintenance Results * (ABNORMAL) COMPREHENSIVE METABOLIC PANEL (05/15/2024 4:59 AM SEDIMENTATIONIST) BUN 13 7 - 26 mg/dL 05/15/2024 6:29 AM [facility] Creatinine 0.36(L) 0.56 - 0.96 mg/dL 05/15/2024 6:29 AM [facility] Sodium 120(LL) 136 - 145 mmol/L 05/15/2024 6:29 AM [facility] Potassium 5.0(H) 3.5 - 4.5 mmol/L 05/15/2024 6:29 AM [facility] Chloride 93(L) 98 - 107 mmol/L 05/15/2024 6:29 AM [facility] CO2 18(L) 22 - 29 mmol/L 05/15/2024 6:29 AM [facility] Glucose 962(HH) 70 - 99 mg/dL 05/15/2024 6:29 AM [facility] Calcium 8.3(L) 8.4 - 10.2 mg/dL 05/15/2024 6:29 AM [facility] Protein Total 6.9 6.0 - 8.3 g/dL 05/15/2024 6:29 AM [facility] Albumin 3.4 3.4 - 5.0 g/dL 05/15/2024 6:29 AM [facility] Bilirubin Total 0.3 0.2 - 1.2 mg/dL 05/15/2024 6:29 AM [facility] Alkaline Phosphatase 121 40 - 150 U/L 05/15/2024 6:29 AM [facility] ALT 15 5 - 55 U/L 05/15/2024 6:29 AM [facility] AST 15 5 - 34 U/L 05/15/2024 6:29 AM [facility] Anion Gap 9 6 - 16 05/15/2024 6:29 AM [facility] BUN/Creatinine Ratio 36(H) 7 - 23 05/15/2024 6:29 AM [facility] Osmolality Calculated 298(H) 275 - 295 mOsm/kg 05/15/2024 6:29 AM [facility] Albumin/Globulin Ratio 1.0(L) 1.1 - 2.3 05/15/2024 6:29 AM [facility] eGFR by CKD-EPI >90 >=90 mL/min/1.7 3 m2 05/15/2024 6:29 AM [facility] Blood BLOOD SPECIMEN / Unknown Venipuncture / Unknown 05/15/2024 4:59 AM SEDIMENTATIONIST 05/15/2024 5:11 AM SEDIMENTATIONIST Sky Kimbrough MD LAB - CHEMISTRY ORDERABLES Final Result Performing Organization Address City/[facility]/ZIP Co de Phone Number [address] [address], [facility] [phone] * (ABNORMAL) HEMOGLOBIN A1C (03/05/2024 5:51 PM SEDIMENTATIONIST) Hemoglobin A1c 10.9(H) <=5.6 % 03/06/2024 8:24 AM [facility] Estimated Average Glucose 266 mg/dL 03/06/2024 8:24 AM [facility] Comment: HbA1c Interpretation: Normal : < 5.7% Pre-diabetes: 5.7-6.4% Diabetes: Equal to or greater than 6.5% Test results diagnostic of diabetes should be repeated for confirmation. Treatment target values recommended by ADA and other clinical organizations should be used to evaluate metabolic control in patients. Reference: [place] Diabetes Association, Standards of Care in Diabetes -2020 In patients 70 years and older consider HbA1c target range of 7.0-7.5% (Reference: Warren Coleman et al. JAMDA. 2012) The Sebia assay for the measurement of HbA1c is a National Glycohemoglobin Standardization Program (NGSP) certified method. Blood BLOOD SPECIMEN / Unknown Venipuncture / Unknown 03/05/2024 5:51 PM SEDIMENTATIONIST 03/05/2024 5:56 PM SEDIMENTATIONIST us Derik Raya DO LAB - CHEMISTRY ORDERABLES Final Result Performing Organization Address City/[facility]/ZIP Co de Phone Number [address] [address], [place] [phone] * HIV-1 HIV-2 ANTIGEN/ANTIBODY (03/04/2020 11:44 AM SEDIMENTATIONIST) HIV Antigen/Antibod y 1 & 2 Non-reacti ve Non-react abdon 03/04/2020 1:31 PM SEDIMENTATIONIST [facility] Comment:Neither HIV-1 p24 An tigen nor HIV-1/HIV-2 Antibodies are detected. Blood BLOOD SPECIMEN / Unknown Venipuncture / Unknown 03/04/2020 11:44 AM SEDIMENTATIONIST 03/04/2020 12:59 PM SEDIMENTATIONIST us Jay Singh MD LAB - HEMATOLOGY ORDERA BLES Final Result Performing Organization Address City/[facility]/ZIP Co de Phone Number [facility] [address] [place] [address], [facility] [phone] * CHLAMYDIA + GC AMPLIFIED PROBE (STL) (08/01/2019 2:33 PM CDT) Chlamydia Amplified Probe Negative Negative 08/02/2019 1:50 PM CDT [facility] GC Amplified Probe Negative Negative 08/02/2019 1:50 PM CDT [facility] Microbiology URINE / Unknown Collection / Unknown 08/01/2019 2:33 PM CDT 08/01/2019 5:21 PM CDT Narrative [facility] - 08/02/2019 1:50 PM CDT Results based on detection/no detection of ribosomal RNA by amplified method. us Katie Lundberg MD LAB - MICROBIOLOGY ORDERABLES F inal Result Performing Organization Address City/[facility] Co de Phone Number [facility] [address] [place] [address], [facility] [phone] * (ABNORMAL) MICROALB/CREAT RATIO URINE RANDOM PANEL (07/24/2018 9:12 AM CDT) Creatinine Urine 398.60 mg/dL 07/25/19 19 10:02 AM CDT [facility] Microalbumin Urine 2.3(H) <1.7 mg/dL 07/24/2018 10:02 AM CDT [facility] Microalbumin/Crea tinine Ratio 6 <30 mg/g 07/24/2018 10:02 AM CDT [facility] Urine URINE SPECIMEN OBTAINED BY CLEAN CATCH PROCEDURE / Unknown Collection / Unknown 07/24/2018 9:12 AM CDT 07/24/2018 9:35 AM CDT Mikal López MD LAB - URINE CHEMISTRY ORDERA VERNON Final Result [facility] [place] [address] from Last 3 Months or Most Recently Relevant to Health Maintenance Insurance MEDICAID - [place] [employer] Advance Directives * Full Code (Latest Code Status on File) Date Activated Date Inactivated Comments 03/03/2024 6:43 AM 03/06/2024 3:22 PM * Full Code Date Activated Date Inactivated Comments 03/05/2020 5:32 PM 03/07/2020 4:55 PM * Full Code Date Activated Date Inactivated Comments 08/01/2019 11:44 AM 08/01/2019 6:31 PM * Full Code Date Activated Date Inactivated Comments 07/31/2019 5:13 PM 08/01/2019 11:44 AM * Full Code Date Activated Date Inactivated Comments 07/21/2015 7:52 PM 07/24/2015 12:50 PM Care Teams Clerk Supervisor Relationship Specialty Start Date End Date Quyen Vance MD [address] OF [address] [phone] PCP - General Internal Medicine 01/10/24 Graciela Marin MD [address] [facility] [address] DIV [place] [address] Physician Internal Medicine 01/10/24
--- OUTSIDE RECORDS SUMMARY | 2024-09-21 14:23 | XMS_ITS | Encounter Summary ---
Author Organization [facility] Address [address] [place] [address] Care Team Providers Care Barrel Cooper Name Role Phone Cee Sharpe MD Primary Care Provider Frances Vazquez Primary Care Provider Cee Sharpe MD Primary Care Provider Frances Vazquez Primary Care Provider Graciela Marin MD Primary Care Provider Quyen Vance MD Primary Care Provider [phone] Graciela Marin MD Unavailable [phone] Reason for Visit * Reason Onset Date Comments MEDICATION REFILL 04/06/2019 Encounter Details Date Type Department Care Team (Late st Contact Info) Description 04/06/2019 Refill [facility] Pediatrics - Diabetes [facility] [address] [place] [address] Demetri Longo APRN-CNP [address] [place] [address] MEDICATION REFILL Social History Tobacco Use Types Packs/Day Years Used Date Smoking Tobacco: Passive Smo ke Exposure - Never Smoker Smokeless Tobacco: Never Alcohol Use Standard Drinks/Week Comments No 0 (1 standard drink = 0.6 oz pur e alcohol) Comments No Sex and Gender Information Value Date Recorded Sex Assigned at Not on file Legal Sex Female 5:42 AM BIT SANDER Gender Identity Not on file Sexual Orientation [...] Telephone Encounter - Rebecca Doshi RN - 04/06/2019 12:32 PM CST Pharmacist called from [facility] stating the admelog prescription that was placed is not the preferred brand of insulin under the 340B program she has been enlisted in. The prescription has been changed to Humalog. SANDER documented in this encounter Plan of Treatment Not on file documented as of this encounter Visit Diagnoses Not on filedocumented in this encounter Additional Health Concerns Infection Onset Date Last Indicated Resolved Time COVID-19 Under Investigation 03/02/2024 03/03/2024 03/03/2024 1:53 AM BIT SANDER COVID-19 Under Investigation 03/03/2024 03/03/2024 03/03/2024 2:08 PM BIT SANDER documented as of this encounter Care Teams Barrel Cooper Relationship Specialty Start Date End Date Cee Sharpe MD [address] [place] [address] PCP - General Pediatrics 01/24/12 07/31/19 Frances Vazquez APRN-BRANCH RENTAL MANAGER [address] [place], [place] [phone] PCP - General Nurse Practitioner Family 08/01/1907/24 Cee Sharpe MD [facility] [place] [address] PCP - General 08/09/19 09/09/19 Frances Vazquez APRN-BRANCH RENTAL MANAGER [address] [place], [place] [phone] PCP - General 07/06/22 11/21/23 Graciela Marin MD [address] [place] [address] PCP - General Internal Medicine 11/22/23 01/09/24 Quyen Vance MD [address] DIV OF INT MED [address] [place] [address] PCP - General Internal Medicine 01/10/24 Graciela Marin MD [address] [place] [address] Physician Internal Medicine 01/10/24 documented as of this encounter
--- OUTSIDE RECORDS SUMMARY | 2024-09-21 14:23 | XMS_ITS | Encounter Summary ---
Author Organization [facility] Address [address] [place] [address] Care Team Providers Care Sugar Laboratory Assistant Name Role Phone Cee Sharpe MD Primary Care Provider Frances Vazquez Primary Care Provider Cee Sharpe MD Primary Care Provider Frances Vazquez Primary Care Provider Graciela Marin MD Primary Care Provider [phone] Quyen Vance MD Primary Care Provider +- [phone] Graciela Marin MD Unavailable [phone] Encounter Details Date Type Department Care Team (Late st Contact Info) Description 03/31/2018 Telephone [facility] - Diabetes [address] [address] Barbara Mas RN Social History Tobacco Use Types Packs/Day Years Used Date Smoking Tobacco: Passive Smo ke Exposure - Never Smoker Smokeless Tobacco: Never Alcohol Use Standard Drinks/Week Comments No 0 (1 standard drink = 0.6 oz pur e alcohol) Comments No Sex and Gender Information Value Date Recorded Sex Assigned at Not on file Legal Sex Female 5:42 AM HEALTH CARE FACILITIES INSPECTOR Gender Identity Not on file Sexual Orientation Not on file documented as of this encounter Functional Status * Is person deaf or have serious hearing difficulty? Answer Date of Assessment Author No 07/21/2015 8:00 PM CDT Andria Montgomery RN * Is person blind or have [...] Under Investigation 03/02/2024 03/03/2024 03/03/2024 1:53 AM HEALTH CARE FACILITIES INSPECTOR COVID-19 Under Investigation 03/03/2024 03/03/2024 03/03/2024 2:08 PM HEALTH CARE FACILITIES INSPECTOR documented as of this encounter Care Teams Sugar Laboratory Assistant Relationship Specialty Start Date End Date Cee Sharpe MD [facility] [place] [address] PCP - General Pediatrics 01/24/12 07/31/19 Frances Vazquez APRN-LIFE SCIENCE TECHNICIAN [address] [id number] PCP - General Nurse Practitioner Family 08/01/1907/24 Cee Sharpe MD [address] [place] [address] PCP - General 08/09/19 09/09/19 George FrancesKARISHMA-LIFE SCIENCE TECHNICIAN [address] [place] [phone] PCP - General 07/06/22 11/21/23 Graciela Marin MD [address] [place] [id number] PCP - General Internal Medicine 11/22/23 01/09/24 Quyen Vance MD [address] [phone] PCP - General Internal Medicine 01/10/24 Graciela Marin MD [address] [place] [phone] Physician Internal Medicine 01/10/24 documented as of this encounter
--- OUTSIDE RECORDS SUMMARY | 2024-09-21 14:23 | XMS_ITS | Encounter Summary ---
Author Organization [facility] Address [address] [place] [address] Care Team Providers Care Cotton Farmer Name Role Phone Frances Vazquez Primary Care Provider Cee Sharpe MD Primary Care Provider Frances Vazquez Primary Care Provider Graciela Marin MD Primary Care Provider Quyen Vance MD Primary Care Provider + [phone] Graciela Marin MD Unavailable [phone] Reason for Visit * Reason Onset Date Comments Blood Sugar Problem 08/02/2019 Encounter Details Date Type Department Care Team (Late st Contact Info) Description 08/02/2019 Telephone [facility] - Diabetes [address] [address] Demetri Longo APRN-CNP [address] [place] [id number] Blood Sugar Problem Social History Tobacco Use Types Packs/Day Years Used Date Smoking Tobacco: Passive Smo ke Exposure - Never Smoker Smokeless Tobacco: Never Alcohol Use Standard Drinks/Week Comments No 0 (1 standard drink = 0.6 oz pur e alcohol) Comments No Sex and Gender Information Value Date Recorded Sex Assigned at Not on file Legal Sex Female 5:42 AM IT AUDIT MANAGER Gender Identity Not on file Sexual Orientation Not on file documented as of this encounter Functional Status * Is person deaf or have serious hearing difficulty? Answer Date of Assessment Author No 08/01/2019 4:54 PM CDT Sheyla Alfaro RN * Is person blind or have serious difficulty seeing? Answer Date of Assessment Author No 08/01/2019 4:54 PM CDT Sheyla Alfaro RN * Does person have serious difficulty walking/climbing stairs? Answer Date of Assessment Author No 08/01/2019 4:54 PM CDT Sheyla Alfaro RN * Does person have difficulty dressing/bathing? Answer Date of Assessment Author No 08/01/2019 4:54 PM CDT Sheyla Alfaro RN * Does person have difficulty doing errands alone? Answer Date of Assessment Author No 08/01/2019 4:54 PM CDT Sheyla Alfaro RN documented as of this encounter Mental Status * Does person have difficulty concentrating/remembering/making decisions? Answer Entry Date Author No 08/01/2019 4:54 PM CDT Sheyla Alfaro RN documented in this encounter Progress Notes * Olivia Van DO - 08/05/2019 12:46 PM CDT Mom called to review blood sugars: ?? 08/03 08/04 breakfast ?? 124 (no dose or food) lunch ?? 112 dinner 58, no dose, 286 - took correcton ?? bedtime 210 I recommended no change to the lantus of 45 units I recommended to decrease carb ratios to 1:7 for all meals * Olivia Van DO - 08/04/2019 12:20 PM CDT Mom called through exchange to review blood sugars: 08/02 08/03 breakfast 64, took 15 grams, 111 lunch 120 dinner 64 (no dose) bedtime 151 I recommended to decrease lantus dose tonight to 45 units. Mom VU and questions were answered. documented in this encounter Miscellaneous Notes * Telephone Encounter - Barbara Mas RN - 08/17/2019 1:41 PM CDT Mother called to review bgs. See doc flowsheet No changes per injection protocol. Was able to connect to dexcom Cycle. Mother to continue to monitor and call for assistance. * Telephone Encounter - Radha Hurd RN - 08/13/2019 2:36 PM CDT I called Luciana's mother to inquire about blood sugars and overall how she is doing. Luciana is still staying with her mother at this time. I gave mother the information for call line communicated from [employer]. Luciana started to wear her Dexcom G6 that mother was able to get through 340 B plan (reports having enough supplies for 3 months) I did invite to use [employer] ([email or web address]) Mother said that Luciana was walking at time of phone call. Mother reports improved blood sugars. I asked that mother call back on Tuesday to review blood sugars or sooner if needed. * Telephone Encounter - Barbara Mas RN - 08/07/2019 2:01 PM CDT Mother called to review bgs. See doc flowsheet No changes per injection protocol. * Telephone Encounter - Rebecca Doshi RN - 08/03/2019 4:06 PM CDT I spoke with Luciana Nelson's mom [phone] who called to report blood glucose logs. Please see doc flowsheet. Per protocol I have decreased her Lantus dose to 50 units. I told them to call back for further review tomorrow through the exchange. Current doses: Lantus 50 units Breakfast 1:5 Lunch 1:5 Dinner 1:5 * Telephone Encounter - Amadou Herzog RN - 08/02/2019 3:16 PM CDT I returned patient's call, she reports she is doing well, has not missed any insulin. She is not home and odesn't have bgs with her- reports they have been high 90's-212, feels good. She agreed to call back later today or tomorrow to read us the bgs. documented in this encounter Plan of Treatment Not on file documented as of this encounter Visit Diagnoses Not on filedocumented in this encounter Additional Health Concerns Infection Onset Date Last Indicated Resolved Time COVID-19 Under Investigation 03/02/2024 03/03/2024 03/03/2024 1:53 AM IT AUDIT MANAGER COVID-19 Under Investigation 03/03/2024 03/03/2024 03/03/2024 2:08 PM IT AUDIT MANAGER documented as of this encounter Care Teams Cotton Farmer Relationship Specialty Start Date End Date Frances Vazquez APRN-CNP [address] [place] [phone] PCP - General Nurse Practitioner Family 08/01/1907/24 Cee Sharpe MD [facility] [place] [address] PCP - General 08/09/19 09/09/19 Frances Vazquez APRN-CNP [address] [place] [phone] PCP - General 07/06/22 11/21/23 Graciela Marin MD [address] OF [facility] [place] [address] PCP - General Internal Medicine 11/22/23 01/09/24 Quyen Vance MD [address] DIV OF INT MED [address] [place] [phone] PCP - General Internal Medicine 01/10/24 Graciela Marin MD [address] [place] [address] Physician Internal Medicine 01/10/24 documented as of this encounter
--- OUTSIDE RECORDS SUMMARY | 2024-09-21 14:23 | XMS_ITS | Encounter Summary ---
Author Organization [facility] Address [address] [facility] [place] [address] Care Team Providers Care Liquid Floor And Wall Applier Name Role Phone Cee Sharpe MD Primary Care Provider Frances Vazquez Primary Care Provider Cee Sharpe MD Primary Care Provider Frances Vazquez Primary Care Provider Graciela Marin MD Primary Care Provider Quyen Vance MD Primary Care Provider [phone] Graciela Marin MD Unavailable [phone] Encounter Details Date Type Department Care Team (Late st Contact Info) Description 11/09/2018 Telephone [facility] - Diabetes [address] [address] Demetri Longo APRN-CNP [address] [place] [address] Social History Tobacco Use Types Packs/Day Years Used Date Smoking Tobacco: Passive Smo ke Exposure - Never Smoker Smokeless Tobacco: Never Alcohol Use Standard Drinks/Week Comments No 0 (1 standard drink = 0.6 oz pur e alcohol) Comments No Sex and Gender Information Value Date Recorded Sex Assigned at Not on file Legal Sex Female 5:42 AM HAND ORNAMENT MAKER Gender Identity Not on file Sexual Orientation Not on file documented as of this encounter Functional Status * Is person deaf or have serious hearing difficulty? Answer Date of Assessment Author No 07/21/2015 8:00 PM CDT Andria Montgomery RN * Is person blind or have serious difficulty seeing? Answer Date of Assessment Author No 07/21/2015 8:00 PM CDT Andria Montgomery RN * Does person have serious difficulty walking/climbing stairs? Answer Date of Assessment Author No 07/21/2015 8:00 PM CDT Andria Montgomery RN * Does person have difficulty dressing/bathing? Answer Date of Assessment Author No 07/21/2015 8:00 PM CDT Andria Montgomery RN * Does person have difficulty doing errands alone? Answer Date of Assessment Author No 07/21/2015 8:00 PM LAMONTT Andria Montgomery RN documented as of this encounter Mental Status * Does person have difficulty concentrating/remembering/making decisions? Answer Entry Date Author No 07/21/2015 8:00 PM LAMONTT Andria Montgomery RN documented in this encounter Miscellaneous Notes * Telephone Encounter - Barbara Mas RN - 01/10/2019 3:30 PM CDT Diabetes Sick Call Patient: Luciana Nelson Date: 01/10/2019 Current Blood Glucose: unsure Current Ketone result: attempting to check Symptoms: hot, skaky, shaky voice Luciana called to report symptoms. She does not have access to her bg monitor to know if bg is highor low. She does have ketostix. I asked her to check ketones and if she feels faint to eat/drink something as we can fix a high bg but cannot help if she has a severe low. She agreed. She stated that boyfriend was present with her. She was vague in her comments. Stated though, that she can't remember taking her night time insulin. She has taken her short acting today. Gave her instructions that if she cannot get the testing materials she needs to help determine what is wrong, she needs to seek medical attention immediately. She should be taken to ER or call EMS if need be. She agreed. * Telephone Encounter - Rebecca Doshi RN - 11/09/2018 12:10 PM CDT Diabetes Sick Call Patient: Luciana Nelson Date: 11/09/2018 Forgot to take Lantus last night at 9:30 pm -- normally takes 55 units. Current Blood Glucose: 281 Current Ketone result: large Last insulin given: yesterday at noon 5 units Symptoms: nausea and stomach pain Plan: Give 3 units now with syringe. Push sugar free fluid. Recheck blood glucose and urine ketones in two hours -- call back if ketones are moderate to large. Give 55 of Lantus now -- we will work with her on a schedule to get it back to the 9:30 pm timing. documented in this encounter Plan of Treatment Not on file documented as of this encounter Visit Diagnoses Not on filedocumented in this encounter Additional Health Concerns Infection Onset Date Last Indicated Resolved Time COVID-19 Under Investigation 03/02/2024 03/03/2024 03/03/2024 1:53 AM HAND ORNAMENT MAKER COVID-19 Under Investigation 03/03/2024 03/03/2024 03/03/2024 2:08 PM HAND ORNAMENT MAKER documented as of this encounter Care Teams Liquid Floor And Wall Applier Relationship Specialty Start Date End Date Cee Sharpe MD [address] [place] [address] PCP - General Pediatrics 01/24/12 07/31/19 Frances Vazquez APRN-MESSENGER OFFICE [address] [phone] PCP - General Nurse Practitioner Family 08/01/1907/24 Cee Sharpe MD [address] [place] [id number] PCP - General 08/09/19 09/09/19 George FrancesKARISHMA-MESSENGER OFFICE [address] [place] [phone] PCP - General 07/06/22 11/21/23 Graciela Marin MD [address] [place] [phone] PCP - General Internal Medicine 11/22/23 01/09/24 Quyen Vance MD [address] [place] [address] [phone] PCP - General Internal Medicine 01/10/24 Graciela Marin MD [address] [place] [phone] Physician Internal Medicine 01/10/24 documented as of this encounter
--- OUTSIDE RECORDS SUMMARY | 2024-09-21 14:23 | XMS_ITS | Encounter Summary ---
Author Organization [facility] Address [address] [facility] [place] [address] Care Team Providers Care Nib Assembler Name Role Phone Cee Sharpe MD Primary Care Provider Frances Vazquez Primary Care Provider Cee Sharpe MD Primary Care Provider Frances Vazquez Primary Care Provider Graciela Marin MD Primary Care Provider [phone] Quyen Vance MD Primary Care Provider [phone]- [phone] Graciela Marin MD Unavailable [phone] Encounter Details Date Type Department Care Team (Late st Contact Info) Description 10/12/2018 Telephone [facility] Pediatrics - Diabetes [address] [address] Mikal López MD [address] [place] [address] Social History Tobacco Use Types Packs/Day Years Used Date Smoking Tobacco: Passive Smo ke Exposure - Never Smoker Smokeless Tobacco: Never Alcohol Use Standard Drinks/Week Comments No 0 (1 standard drink = 0.6 oz pur e alcohol) Comments No Sex and Gender Information Value Date Recorded Sex Assigned at Not on file Legal Sex Female 5:42 AM LABOR UNION BUSINESS REPRESENTATIVE Gender Identity Not on file Sexual Orientation [...] 07/21/2015 8:00 PM CDT Andria Montgomery RN documented as of this encounter Mental Status * Does person have difficulty concentrating/remembering/making decisions? Answer Entry Date Author No 07/21/2015 8:00 PM CDT Andria Montgomery RN documented in this encounter Miscellaneous Notes * Telephone Encounter - Rebecca Doshi RN - 10/12/2018 12:58 PM CDT I called to follow up with Luciana per Dr. López's request as she was in the ED last evening forelevated blood sugars. LMOM for family to call back. documented in this encounter Plan of Treatment Not on file documented as of this encounter Visit Diagnoses Not on filedocumented in this encounter Additional Health Concerns Infection Onset Date Last Indicated Resolved Time COVID-19 Under Investigation 03/02/2024 03/03/2024 03/03/2024 1:53 AM LABOR UNION BUSINESS REPRESENTATIVE COVID-19 Under Investigation 03/03/2024 03/03/2024 03/03/2024 2:08 PM LABOR UNION BUSINESS REPRESENTATIVE documented as of this encounter Care Teams Nib Assembler Relationship Specialty Start Date End Date Cee Sharpe MD [address] [place] [address] PCP - General Pediatrics 01/24/12 07/31/19 Frances Vazquez APRN-SAXOPHONE PLAYER [address] [place], [place] [phone] PCP - General Nurse Practitioner Family 08/01/1907/24 Cee Sharpe MD [address] [place] [address] PCP - General 08/09/19 09/09/19 Frances Vazquez APRN-SAXOPHONE PLAYER [address] [place], [place] [phone] PCP - General 07/06/22 11/21/23 Graciela Marin MD [address] DIV [place] [address] PCP - General Internal Medicine 11/22/23 01/09/24 Quyen Vance MD [address] [address] PCP - General Internal Medicine 01/10/24 Graciela Marin MD [address] DIV [place] [address] Physician Internal Medicine 01/10/24 documented as of this encounter
--- OUTSIDE RECORDS SUMMARY | 2024-09-21 14:23 | XMS_ITS | Encounter Summary ---
Author Organization [facility] Address [address] [facility] [place] [address] Care Team Providers Care Warehouse Receiving Clerk Name Role Phone Quyen Vance MD Primary Care Provider [phone] Graciela Marin MD Unavailable [phone] Reason for Visit * Reason Onset Date Comments Question 05/17/2024 Encounter Details Date Type Department Care Team (Late st Contact Info) Description 05/17/2024 Telephone [facility] - Endocrinology [address] [place] [address] Roshni Franco APRN-SCALDER [address] [place] [address] Question Social History Tobacco Use Types Packs/Day Years Used Date Smoking Tobacco: Never Passive Smoke Exposure: Yes Smokeless Tobacco: Never Alcohol Use Standard Drinks/Week [...] care, and heating? Not very hard 03/03/2024 [facility] - Occupational Stress [...] any time in the past 12 [facility], were you homeless or living in a detention (including now)? No 03/03/2024 Comments No Sex and Gender Information Value Date Recorded Sex Assigned at Not on file Legal Sex Female 5:42 AM FUNERAL PROFESSIONAL Gender Identity Not on file Sexual Orientation Not on file documented as of this encounter Functional Status * Is person deaf or have serious hearing difficulty? Answer Date of Assessment Author No 03/03/2024 8:15 PM Chika Bearden RN * Is person blind or have serious difficulty seeing? Answer Date of Assessment Author No 03/03/2024 8:15 PM FUNERAL PROFESSIONAL Chika Garcia RN * Does person have serious difficulty walking/climbing stairs? Answer Date of Assessment Author No 03/03/2024 8:15 PM FUNERAL PROFESSIONAL Chika Garcia RN * Does person have difficulty dressing/bathing? Answer Date of Assessment Author No 03/03/2024 8:15 PM Chika Bearden RN * Does person have difficulty doing errands alone? Answer Date of Assessment Author No 03/03/2024 8:15 PM FUNERAL PROFESSIONAL Chika Garcia RN documented as of this encounter Mental Status * Does person have difficulty concentrating/remembering/making decisions? Answer Entry Date Author No 03/03/2024 8:15 PM Cihka Bearden RN documented in this encounter Miscellaneous Notes * Telephone Encounter - Nany Mueller - 05/17/2024 11:25 AM CST Called pt to reschedule 05/22/2024 appt. No asnwer left vm. RAL PROFESSIONAL documented in this encounter Plan of Treatment Not on file documented as of this encounter Visit Diagnoses Not on filedocumented in this encounter Care Teams Warehouse Receiving Clerk Relationship Specialty Start Date End Date Quyen Vance MD [address] OF [address] MED [address] [place] [address] PCP - General Internal Medicine 01/10/24 Graciela Marin MD [address] [place] [address] Physician Internal Medicine 01/10/24 documented as of this encounter
--- OUTSIDE RECORDS SUMMARY | 2024-09-21 14:24 | XMS_ITS | Encounter Summary ---
Author Organization [facility] Address [address] [place] [address] Care Team Providers Care Commercial Lease Administrator Name Role Phone Frances Vazquez Primary Care Provider Graciela Marin MD Primary Care Provider [phone] Quyen Vance MD Primary Care Provider [phone]- [phone] Graciela Marin MD Unavailable [phone] Encounter Details Date Type Department Care Team (Late st Contact Info) Description 12/12/[address] [address] Olivia Van DO [address] [place] [id number] Social History Tobacco Use Types Packs/Day Years Used Date Smoking Tobacco: Passive Smo ke Exposure - Never Smoker Smokeless Tobacco: Never Alcohol Use Standard Drinks/Week Comments No 0 (1 standard drink = 0.6 oz pur e alcohol) Comments No Sex and Gender Information Value Date Recorded Sex Assigned at Not on file 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 Answer Date of Assessment Author No 08/01/2019 4:54 PM CDT Sheyla Alfaro RN documented as of this encounter Mental Status * Does person have difficulty concentrating/remembering/making decisions? Answer Entry Date Author No 08/01/2019 4:54 PM CDT Sheyla Alfaro RN documented in this encounter Miscellaneous Notes * Telephone Encounter - Olivia Van DO - 12/12/2019 11:43 PM CDT Luciana called through the after hours exchange. Reason for Call: ketones Information provided: Luciana was hospitalized recently for DKA and discharge yesterday. She did not check her ketones until now, checked because back is hurting. Her ketones are the darkest purple. Blood sugar is 184. Last ademlog was at 9:30 PM for a meal (just over 2 hours ago) and she took lantus at that time as well. 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 If ketones are still large, call back. documented in this encounter Plan of Treatment Not on file documented as of this encounter Visit Diagnoses Not on filedocumented in this encounter Additional Health Concerns Infection Onset Date Last Indicated Resolved Time COVID-19 Under Investigation 03/02/2024 03/03/2024 03/03/2024 1:53 AM PR[employer] DE[employer]RER COVID-19 Under Investigation 03/03/2024 03/03/2024 03/03/2024 2:08 PM PR[employer] DEBURRER documented as of this encounter Care Teams Commercial Lease Administrator Relationship Specialty Start Date End Date Frances Vazquez APRN-MEENAKSHI [address] [place] [phone] PCP - General 07/06/22 11/21/23 Graciela Marin MD [address] [place] [phone] PCP - General Internal Medicine 11/22/23 01/09/24 Quyen Vance MD [address] OF [address] [phone] PCP - General Internal Medicine 01/10/24 Graciela Marin MD [address] DIV OF [facility] [place] [phone] Physician Internal Medicine 01/10/24 documented as of this encounter
--- OUTSIDE RECORDS SUMMARY | 2024-09-21 14:24 | XMS_ITS | Encounter Summary ---
Author Organization [facility] Address [address] [place] [address] Care Team Providers Care Worship Pastor Name Role Phone Cee Sharpe MD Primary Care Provider Frances Vazquez Primary Care Provider Cee Sharpe MD Primary Care Provider Frances Vazquez Primary Care Provider Graciela Marin MD Primary Care Provider Quyen Vance MD Primary Care Provider [phone]- [phone] Graciela Marin MD Unavailable [phone] Reason for Visit * Reason Onset Date Comments MEDICATION REFILL 07/22/2015 Encounter Details Date Type Department Care Team (Late st Contact Info) Description 07/22/2015 Refill [facility] Pediatrics - Diabetes Mgmt [address] [place] [address] Rosalie Dozier MD [address] [place] [phone] MEDICATION REFILL Social History Tobacco Use Types Packs/Day Years Used Date Smoking Tobacco: Passive Smo ke Exposure - Never Smoker Alcohol Use Standard Drinks/Week Comments No 0 (1 standard drink = 0.6 oz pur e alcohol) Comments No Sex and Gender Information Value Date Recorded Sex Assigned at Not on file 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 Gender Identity Not on file Sexual Orientation [...] Under Investigation 03/02/2024 03/03/2024 03/03/2024 1:53 AM LINOLEUM FLOOR LAYER COVID-19 Under Investigation 03/03/2024 03/03/2024 03/03/2024 2:08 PM LINOLEUM FLOOR LAYER documented as of this encounter Care Teams Worship Pastor Relationship Specialty Start Date End Date Cee Sharpe MD [address] [place] [phone] PCP - General Pediatrics 01/24/12 07/31/19 Frances Vazquez APRN-DAIRY FARMWORKER [address] [place] [phone] PCP - General Nurse Practitioner Family 08/01/1907/24 Cee Sharpe MD [address] [place] [address] PCP - General 08/09/19 09/09/19 Frances Vazquez APRN-DAIRY FARMWORKER [address] [phone] PCP - General 07/06/22 11/21/23 Graciela Marin MD [address] DIV [place] [address] PCP - General Internal Medicine 11/22/23 01/09/24 Quyen Vance MD [address] OF [address] [phone] PCP - General Internal Medicine 01/10/24 Graciela Marin MD [address] [place] [phone] Physician Internal Medicine 01/10/24 documented as of this encounter
--- OUTSIDE RECORDS SUMMARY | 2024-09-21 14:24 | XMS_ITS | Encounter Summary ---
Author Organization [facility] Address [address] [facility] [place] [address] Care Team Providers Care Atm Servicer Name Role Phone Cee Sharpe MD Primary Care Provider Frances Vazquez Primary Care Provider Cee Sharpe MD Primary Care Provider Frances Vazquez Primary Care Provider Graciela Marin MD Primary Care Provider [phone] Quyen Vance MD Primary Care Provider [phone]- [phone] Graciela Marin MD Unavailable [phone] Reason for Visit * Reason Onset Date Comments MEDICATION REFILL 07/22/2015 Encounter Details Date Type Department Care Team (Late st Contact Info) Description 07/22/2015 Refill [facility] Pediatrics - Diabetes Mgmt [address] [place] [phone] Rosalie Dozier MD [address] [place] [phone] MEDICATION REFILL Social History Tobacco Use Types Packs/Day Years Used Date Smoking Tobacco: Passive Smo ke Exposure - Never Smoker Alcohol Use Standard Drinks/Week Comments No 0 (1 standard drink = 0.6 oz pur e alcohol) Comments No Sex and Gender Information Value Date Recorded Sex Assigned at Not on file Legal Sex Female 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 Gender Identity Not on file Sexual Orientation [...] Under Investigation 03/02/2024 03/03/2024 03/03/2024 1:53 AM CREDIT RISK ANALYST COVID-19 Under Investigation 03/03/2024 03/03/2024 03/03/2024 2:08 PM CREDIT RISK ANALYST documented as of this encounter Care Teams Atm Servicer Relationship Specialty Start Date End Date Cee Sharpe MD [address] [place] [phone] PCP - General Pediatrics 01/24/12 07/31/19 Frances Vazquez APRN-COAT REPAIR INSPECTOR [address] [place] [phone] PCP - General Nurse Practitioner Family 08/01/1907/24 Cee Sharpe MD [address] [place] [address] PCP - General 08/09/19 09/09/19 Frances Vazquez APRN-COAT REPAIR INSPECTOR [address] [phone] PCP - General 07/06/22 11/21/23 Graciela Marin MD [address] [place] [address] PCP - General Internal Medicine 11/22/23 01/09/24 Quyen Vance MD [address] OF [address] [phone] PCP - General Internal Medicine 01/10/24 Graciela Marin MD [address] [place] [phone] Physician Internal Medicine 01/10/24 documented as of this encounter
--- OUTSIDE RECORDS SUMMARY | 2024-09-21 14:24 | XMS_ITS | Referral Summary ---
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 CDT MAGNESIUM Timed 08/09/2024 4:08 AM CDT BASIC METABOLIC PANEL Timed 08/09/2024 4:08 AM CDT URINALYSIS AND REFLEX TO MICROSCOPIC AND CULTURE STAT 08/09/2024 4:08 AM CDT XR CHEST 1 VIEW ED 08/09/2024 3:57 AM CDT POCT GLUCOSE DEVICE Routine 08/09/2024 3 :27 AM CDT POC BLOOD GAS AND CHEMISTRIES, VENOUS Routine 08/09/2024 2:29 AM CDT MAGNESIUM STAT 08/09/2024 2:24 AM CDT PHOSPHORUS STAT 08/09/2024 2:24 AM CDT EGFR STAT 08/09/2024 2:24 AM CDT ETHANOL STAT 08/09/2024 2:24 AM CDT DIFFERENTIAL AUTO STAT 08/09/2024 2:2 4 AM CDT HEMOGLOBIN A1C Add-On 08/09/2024 2:24 AM CDT SEPSIS LACTATE WITH REFLEX STAT 08/09/2024 2:24 AM CDT BETA-HYDROXYBUTYRATE STAT 08/09/2024 2:24 AM CDT LIPASE STAT 08/09/2024 2:24 AM CDT COMPREHENSIVE METABOLIC PANEL STAT 08/09/2024 2:24 AM CDT CBC WITH AUTO DIFFERENTIAL STAT 08/09/2024 2:24 AM CDT POCT GLUCOSE DEVICE Routine 08/09/2024 2 :11 AM CDT HEPATITIS C ANTIBODY Routine 12/27/2023 3:46 AM CDT LIPID PANEL Timed 12/16/2023 9:33 PM CDT from Last 3 Months or Most Recently Relevant to Health Maintenance Results * POCT glucose (09/06/2024 11:18 AM CDT) Glucose, POC 88 70 - 199 mg/dL Glucose comment 1 RN/MD Notified [facility] Blood 09/06/2024 11:1 8 AM CDT 09/06/2024 11:18 AM CDT us Mykel Barajas DO LAB POCT ORDERABLES - DEVICE Fin al Result Performing Organization Address [facility] Co de Phone Number [address] [place] [address] * POCT glucose (09/06/2024 7:29 AM CDT) Glucose, POC 151 70 - 199 mg/dL Glucose comment 1 RN/MD Notified DANIELLA Blood 09/06/2024 7:29 AM CDT 09/06/2024 7:29 AM CDT us Mykel Barajas DO LAB POCT ORDERABLES - DEVICE Fin al Result Performing Organization Address City/[facility]/ZIP Co de Phone Number [address] [place] [address] * POCT glucose (09/06/2024 4:38 AM CDT) Glucose, POC 181 70 - 199 mg/dL Glucose comment 1 RN/MD Notified [facility] Blood 09/06/2024 4:38 AM CDT 09/06/2024 4:38 AM CDT Mykel Barajas DO LAB POCT ORDERABLES - DEVICE Fin al Result Performing Organization Address [facility] Co de Phone Number [address] [place] [address] * POCT glucose (09/06/2024 12:01 AM CDT) Glucose, POC 130 70 - 199 mg/dL Glucose comment 1 RN/MD Notified [facility] Blood 09/06/2024 12:0 1 AM CDT 09/06/2024 12:01 AM CDT Mykel Barajas PWA LAB POCT ORDERABLES - DEVICE Fin al Result Performing Organization Address [facility] Co de Phone Number [address] [place] [address] * (ABNORMAL) POCT glucose (09/05/2024 8:33 PM CDT) Glucose, POC 212(H) 70 - 199 mg/dL Glucose comment 1 RN/MD Notified [facility] Blood 09/05/2024 8:33 PM CDT 09/05/2024 8:33 PM CDT Mykel Barajas DO LAB POCT ORDERABLES - DEVICE Fin al Result Performing Organization Address [facility] Co de Phone Number [address] [place] [address] * (ABNORMAL) POCT glucose (09/05/2024 4:43 PM CDT) Glucose, POC 242(H) 70 - 199 mg/dL Glucose comment 1 RN/MD Notified DANIELLA Blood 09/05/2024 4:43 PM CDT 09/05/2024 4:43 PM CDT Mykel Barajas DO LAB POCT ORDERABLES - DEVICE Fin al Result Performing Organization Address [facility] Co de Phone Number [address] [place] [address] * POCT glucose (09/05/2024 11:35 AM CDT) Glucose, POC 141 70 - 199 mg/dL Glucose comment 1 RN/MD Notified [facility] Blood 09/05/2024 11:3 5 AM CDT 09/05/2024 11:35 AM CDT Mykel Dooleym DO LAB POCT ORDERABLES - DEVICE Fin al Result Performing Organization Address [facility] de Phone Number [address] [place] [address] * POCT glucose (09/05/2024 7:25 AM CDT) Glucose, POC 127 70 - 199 mg/dL Glucose comment 1 RN/MD Notified DANIELLA Blood 09/05/2024 7:25 AM CDT 09/05/2024 7:25 AM CDT Mykel Barajas DO LAB POCT ORDERABLES - DEVICE Fin al Result Performing Organization Address [facility] de Phone Number [address] [place] [address] * eGFR (09/05/2024 5:42 AM CDT) Pathologist [facility] eGFR >90 >=60 mL/min/1. 73 m2 Comment: Interpretive Data Reference Interval Normal >/= 90 mL/min/1.73m2 Mildly decreased* 60 - 89 mL/min/1.73m2 Mildly to moderately decreased 45 - 59 mL/min/1.73m2 Moderately to severely decreased 30 - 44 mL/min/1.73m2 Severely decreased 15 - 29 mL/min/1.73m2 Kidney Failure < 15 mL/min/1.73m2 *Relative to young adult level Estimated glomerular filtration rate is determined by the 2020 CKD-EPI equation recommended by the National Kid[employer] (A Unifying Approach to GFR Estimation: Recommendations of the NKF-ASK Task Force on Reassessing the Inclusion of Race in Diagnosing Kidney Disease, JASN 2020). The CKD-EPI equation should not be used for patients with unstable renal function and has not been validated in children and those over 70. Current interpretive data was last reviewed 2021. Blood 09/05/2024 5:42 AM CDT 09/05/2024 6:06 AM CDT us Nolberto Montalvo NP LAB BLOOD ORDERABLES Final R esult [facility] [address] [facility] [place] [address] * Differential, auto (09/05/2024 5:42 AM CDT) Pathologist [facility] Neutrophil abs 2.00 1.50 - 6.50 K/cumm Imm gran abs 0.04 0.00 - 0.10 K/cumm [facility] Lymphocyte abs 2.56 0.80 - 3.30 K/cumm [facility] Monocyte abs 0.70 0.20 - 0.80 K/cumm [facility] Eosinophil abs 0.06 0.00 - 0.50 K/cumm [facility] Basophil abs 0.04 0.00 - 0.10 K/cumm [facility] Neutrophil pct 37.1 % [facility] Comment: Interpretive Data Percent cell count reference ranges are not reported, since discordance with absolute values may lead to misinterpretation of CBC data. Current Interpretive Data was last revised on 2017. Imm gran pct 0.7 % [facility] Comment: Interpretive Data Percent cell count reference ranges are not reported, since discordance with absolute values may lead to misinterpretation of CBC data. Current Interpretive Data was last revised on 2017. Lymphocyte pct 47.4 % [facility] Comment: Interpretive Data Percent cell count reference ranges are not reported, since discordance with absolute values may lead to misinterpretation of CBC data. Current Interpretive Data was last revised on 2017. Monocyte pct 13.0 % [facility] Comment: Interpretive Data Percent cell count reference ranges are not reported, since discordance with absolute values may lead to misinterpretation of CBC data. Current Interpretive Data was last revised on 2017. Eosinophil pct 1.1 % [facility] Comment: Interpretive Data Percent cell count reference ranges are not reported, since discordance with absolute values may lead to misinterpretation of CBC data. Current Interpretive Data was last revised on 2017. Basophil pct 0.7 % [facility] Comment: Interpretive Data Percent cell count reference ranges are not reported, since discordance with absolute values may lead to misinterpretation of CBC data. Current Interpretive Data was last revised on 2017. Blood 09/05/2024 5:42 AM CDT 09/05/2024 6:06 AM CDT us Nolberto Montalvo NP LAB BLOOD ORDERABLES Final R esult [facility] [address] [facility] Department [place] [address] * (ABNORMAL) CBC with auto differential (09/05/2024 5:42 AM CDT) WBC 5.40 3.80 - 9.90 K/cumm Hgb 12.1 11.9 - 15.5 g/dL [facility] Hct 38.3 35.6 - 45.5 % [facility] Plt 298 150 - 400 K/cumm [facility] MPV 9.7 9.1 - 12.3 fL [facility] RBC 4.55 3.90 - 5.20 M/cumm [facility] MCV 84.2 81.3 - 96.4 fL [facility] MCH 26.6(L) 27.1 - 33.3 pg [facility] MCHC 31.6(L) 32.3 - 35.7 g/dL [facility] RDW CV 15.4(H) 11.1 - 14.9 % [facility] RDW SD 47.0 35.7 - 48.1 fL [facility] NRBC abs 0.00 0.00 - 0.01 K/cumm [facility] Blood 09/05/2024 5:42 AM CDT 09/05/2024 6:06 AM CDT [facility] 09/05/2024 6:14 AM CDT Unable to obtain 2x per Notasha Stunson 09/04/2024 14:45:59 CDT [id number] us Nolberto Montalvo [employer] LAB BLOOD ORDERABLES Final R esult Performing Organization Address City/[facility] Co de Phone Number [address] [place] [address] * (ABNORMAL) Phosphorus (09/05/2024 5:42 AM CDT) Phosphorus, pl 1.9(L) 2.3 - 4.5 mg/dL Blood 09/05/2024 5:42 AM CDT 09/05/2024 6:06 AM CDT [facility] 09/05/2024 6:40 AM CDT Unable to obtain 2x per Notasha Stunson 09/04/2024 14:45:59 CDT [id number] Nolberto Montalvo [employer] LAB BLOOD ORDERABLES Final R esult Performing Organization Address City/[facility] Co de Phone Number [address] [place] [address] * Magnesium (09/05/2024 5:42 AM CDT) Magnesium 1.7 1.4 - 2.5 mg/dL Blood 09/05/2024 5:42 AM CDT 09/05/2024 6:06 AM CDT [facility] 09/05/2024 6:40 AM CDT Unable to obtain 2x per Radha Bates 09/04/2024 14:45:59 CDT [id number] us Nolberto Montalvo NP LAB BLOOD ORDERABLES Final R esult [facility] [address] [facility] Department [place] [address] * (ABNORMAL) Comprehensive metabolic panel (09/05/2024 5:42 AM CDT) Sodium 134(L) 135 - 145 mmol/L Potassium, pl 3.3 3.3 - 4.9 mmol/L [facility] Chloride 106 97 - 110 mmol/L [facility] CO2 15(L) 22 - 32 mmol/L [facility] Anion gap 13 2 - 15 mmol/L [facility] BUN 3(L) 6 - 25 mg/dL [facility] Creatinine 0.37(L) 0.60 - 1.10 mg/dL [facility] Glucose 175 70 - 199 mg/dL [facility] Comment: Interpretive Data Fasting glucose >/= 126 mg/dl is diagnostic for diabetes. Fasting is defined as no caloric intake for at least 8 hours. Fasting glucose between 100 mg/dl to 125 mg/dl is diagnostic of prediabetes. In a patient with classic symptoms of hyperglycemia or hyperglycemic crisis, a random glucose >/= 200 mg/dl is diagnostic for diabetes. In the absence of unequivocal hyperglycemia, results should be confirmed by repeat testing. The classification and Diagnosis of Diabetes Diabetes Care 2021; 46: S19-S40. Current interpretive data was last revised 2022. Calcium 8.4(L) 8.5 - 10.3 mg/dL [facility] Bilirubin, total 0.4 0.1 - 1.2 mg/dL [facility] Protein, pl 6.3(L) 6.5 - 8.5 g/dL [facility] Albumin 3.3(L) 3.5 - 5.0 g/dL [facility] Alk phos 94 40 - 130 Units/L [facility] ALT 15 7 - 45 Units/L [facility] AST 19 10 - 45 Units/L [facility] Blood 09/05/2024 5:42 AM CDT 09/05/2024 6:06 AM CDT Narrative DANIELLA - 09/05/2024 6:40 AM CDT Unable to obtain 2x per Radha Regaladoray 09/04/2024 14:45:59 CDT [id number] Nolberto Montalvo [employer] LAB BLOOD ORDERABLES Final R esult Performing Organization Address [facility] Co de Phone Number [address] [place] [address] * POCT glucose (09/05/2024 4:10 AM CDT) Glucose, POC 189 70 - 199 mg/dL Blood 09/05/2024 4:10 AM CDT 09/05/2024 4:10 AM CDT Mykel Barajas DO LAB POCT ORDERABLES - DEVICE Fin al Result Performing Organization Address [facility] Co de Phone Number [address] [place] [address] * POCT glucose (09/04/2024 11:44 PM CDT) Glucose, POC 160 70 - 199 mg/dL Blood 09/04/2024 11:4 4 PM CDT 09/04/2024 11:44 PM CDT Mykel Barajas DO LAB POCT ORDERABLES - DEVICE Fin al Result Performing Organization Address [facility] Co de Phone Number [address] [place] [address] * POCT glucose (09/04/2024 9:33 PM CDT) Glucose, POC 139 70 - 199 mg/dL Blood 09/04/2024 9:33 PM CDT 09/04/2024 9:33 PM CDT us Mykel Barajas DO LAB POCT ORDERABLES - DEVICE Fin al Result Performing Organization Address [facility] de Phone Number DANIELLA [address] [address] * POCT glucose (09/04/2024 8:26 PM CDT) Glucose, POC 96 70 - 199 mg/dL Blood 09/04/2024 8:26 PM CDT 09/04/2024 8:26 PM CDT us Mykel Barajas DO LAB POCT ORDERABLES - DEVICE Fin al Result Performing Organization Address [facility] de Phone Number DANIELLA [address] [place] [address] * POCT glucose (09/04/2024 4:46 PM CDT) Glucose, POC 182 70 - 199 mg/dL Glucose comment 1 RN/MD Notified DANIELLA Blood 09/04/2024 4:46 PM CDT 09/04/2024 4:46 PM CDT us Mykel Barajas DO LAB POCT ORDERABLES - DEVICE Fin al Result Performing Organization Address [facility] de Phone Number MICHEL[address] [address] * CT Abdomen Pelvis WO Contrast (09/04/2024 1:37 PM CDT) Anatomical Region Laterality Modality Body N/A Computed Tomogra phy 09/04/2024 2:41 PM CDT Narrative 09/04/2024 2:44 PM CDT EXAM DESCRIPTION: CT ABDOMEN PELVIS WO CONTRAST REASON FOR STUDY: Abdominal pain, acute, nonlocalized Abdominal pain, acute, nonlocalized TECHNIQUE: CT scan of the abdomen and pelvis performed without intravenous and without oral contrast using helical scanning technique. Reconstructed coronal and sagittal MPR images reviewed. All images stored on PACS. Automated exposure control was used as a dose optimization technique for this examination. COMPARISON: CT chest abdomen and pelvis 08/31/2024 FINDINGS: The sensitivity for detection of visceral lesions is diminished without the use of intravenous contrast. LOWER CHEST: No acute findings. LIVER: Normal length. GALLBLADDER: No radiodense gallstones. SPLEEN: Normal length. PANCREAS: No peripancreatic inflammation or fluid collection. ADRENALS: No adrenal mass. KIDNEYS/URINARY TRACT: No hydronephrosis. No urolithiasis. GI: No bowel obstruction. Normal appendix. PERITONEUM: Moderate free pelvic fluid. No free intraperitoneal air. VASCULATURE: No abdominal aortic aneurysm. MUSCULOSKELETAL: No acute skeletal abnormality. OTHER: No other abnormality. IMPRESSION: Moderate free pelvic fluid which is nonspecific and could be from a ruptured ovarian cyst or follicle. Otherwise no acute findings. THIS IS AN ELECTRONICALLY VERIFIED FINAL REPORT 09/04/2024 2:44 PM - Electronically signed by Campbell Prasad M.D. JR T: Report ID: [id number] Reading Location: [place] [address] Procedure Note Campbell Prasad MD - 09/04/2024 EXAM DESCRIPTION: CT ABDOMEN PELVIS WO CONTRAST REASON FOR STUDY: Abdominal pain, acute, nonlocalized Abdominal pain, acute, nonlocalized TECHNIQUE: CT scan of the abdomen and pelvis performed without intravenousand without oral contrast using helical scanning technique. Reconstructed coronal and sagittal MPR images reviewed. All images stored on PACS. Automated exposure control was used as a dose optimization technique forthis examination. COMPARISON: CT chest abdomen and pelvis 08/31/2024 FINDINGS: The sensitivity for detection of visceral lesions is diminished without the use of intravenous contrast. LOWER CHEST: No acute findings. LIVER: Normal length. GALLBLADDER: No radiodense gallstones. SPLEEN: Normal length. PANCREAS: No peripancreatic inflammation or fluid collection. ADRENALS: No adrenal mass. KIDNEYS/URINARY TRACT: No hydronephrosis. No urolithiasis. GI: No bowel obstruction. Normal appendix. PERITONEUM: Moderate free pelvic fluid. No free intraperitoneal air. VASCULATURE: No abdominal aortic aneurysm. MUSCULOSKELETAL: No acute skeletal abnormality. OTHER: No other abnormality. IMPRESSION: Moderate free pelvic fluid which is nonspecific and could befrom a ruptured ovarian cyst or follicle. Otherwise no acute findings. THIS IS AN ELECTRONICALLY VERIFIED FINAL REPORT 09/04/2024 2:44 PM - Electronically signed by Campbell Prasad M.D., JR T: Report ID: [id number] Reading Location: [place] [address] Mykel Barajas DO IMG CT PROCEDURES Final Result * (ABNORMAL) POCT glucose (09/04/2024 12:10 PM CDT) Glucose, POC 321(H) 70 - 199 mg/dL Glucose comment 1 RN/MD Notified [facility] Blood 09/04/2024 12:1 0 PM CDT 09/04/2024 12:10 PM CDT Mykel Barajas LAB POCT ORDERABLES - DEVICE Fin al Result Performing Organization Address [facility] Co de Phone Number [address] [place] [address] * POCT glucose (09/04/2024 7:49 AM CDT) Glucose, POC 145 70 - 199 mg/dL Glucose comment 1 RN/MD Notified [facility] Blood 09/04/2024 7:49 AM CDT 09/04/2024 7:49 AM CDT Mykel [facility] LAB POCT ORDERABLES - DEVICE Fin al Result [address] [place] [address] * (ABNORMAL) POCT glucose (09/04/2024 4:30 AM CDT) Glucose, POC 256(H) 70 - 199 mg/dL Glucose comment 1 RN/MD Notified [facility] Blood 09/04/2024 4:30 AM CDT 09/04/2024 4:30 AM CDT us Kendrick Go MD LAB POCT ORDERABLES - DEVICE Final Result DANIELLA RDZ [address] [facility] [place] [address] * (ABNORMAL) Urinalysis reflex to microscopic and culture Urine (09/04/2024 4:06 AM CDT) Color, ur Yellow Yellow Clarity, ur Clear Clear [facility] Specific gravity, ur 1.023 1.003 - 1.030 [facility] pH, urine 5.0 [facility] Comment: Interpretive Data U rine pH is affected by diet, medications, systemic acid-base disturbances, and renal tubular function. pH may affect urinary stone formation. For example, urine pH below 6.0 may help reduce the tendency for calcium phosphate stones and pH greater than 6.0 may reduce the tendency for uric acid stone formation. Source: [facility] Current Interpretive Data was last revised on 2017 Protein, ur ql Negative Negative [facility] Glucose, ur ql 4+(A) Negative [facility] Ketones, ur 4+(A) Negative [facility] Bilirubin, ur Negative Negative [facility] Blood, ur Negative Negative [facility] Urobilinogen, ur <2.0 <2.0 mg/dL [facility] Nitrite, ur Negative Negative [facility] Leukocyte esterase, ur Negative Negative [facility] UA reflex comment Reflex conditions for microscopic UA and culture not met. [facility] Urine 09/04/2024 4:06 AM CDT 09/04/2024 4:14 AM CDT us Nolberto Montalvo NP LAB MICROBIOLOGY - GENERAL O RDERABLES Final Result DANIELLA RDZ [address] [facility] [place] [address] * (ABNORMAL) POCT glucose (09/04/2024 12:33 AM CDT) Glucose, POC 212(H) 70 - 199 mg/dL Glucose comment 1 RN/MD Notified DANIELLA Blood 09/04/2024 12:3 3 AM CDT 09/04/2024 12:33 AM CDT Kendrick Go MD LAB POCT ORDERABLES - DEVICE Final Result Performing Organization Address [facility] Co de Phone Number [address] [place] [address] * (ABNORMAL) POCT glucose (09/03/2024 10:12 PM CDT) Glucose, POC 322(H) 70 - 199 mg/dL Glucose comment 1 RN/ Notified [facility] Blood 09/03/2024 10:1 2 PM CDT 09/03/2024 10:12 PM CDT Kendrick Go MD LAB POCT ORDERABLES - DEVICE Final Result Performing Organization Address [facility] Co de Phone Number [address] [place] [address] * POCT glucose (09/03/2024 4:52 PM CDT) Glucose, POC 132 70 - 199 mg/dL Glucose comment 1 RN/ Notified [facility] Blood 09/03/2024 4:52 PM CDT 09/03/2024 4:52 PM CDT Kendrick Go MD LAB POCT ORDERABLES - DEVICE Final Result Performing Organization Address City/[facility] Co de Phone Number [address] [place] [address] * POCT glucose (09/03/2024 4:29 PM CDT) Glucose, POC 145 70 - 199 mg/dL Glucose comment 1 Use This Result [facility] Glucose comment 2 RN/MD Notified [facility] Blood 09/03/2024 4:29 PM CDT 09/03/2024 4:29 PM CDT Kendrick Go MD LAB POCT ORDERABLES - DEVICE Final Result Performing Organization Address [facility] Co de Phone Number DANIELLA [address] [address] * POCT glucose (09/03/2024 3:24 PM CDT) Glucose, POC 158 70 - 199 mg/dL Glucose comment 1 Use This Result [facility] Glucose comment 2 RN/MD Notified [facility] Blood 09/03/2024 3:24 PM CDT 09/03/2024 3:24 PM CDT Kendrick Go MD LAB POCT ORDERABLES - DEVICE Final Result Performing Organization Address [facility] Co de Phone Number MICHEL[address] [address] * (ABNORMAL) POCT glucose (09/03/2024 2:01 PM CDT) Glucose, POC 248(H) 70 - 199 mg/dL Glucose comment 1 Use This Result [facility] Glucose comment 2 RN/MD Notified DANIELLA Blood 09/03/2024 2:01 PM CDT 09/03/2024 2:01 PM CDT Kendrick Go MD LAB POCT ORDERABLES - DEVICE Final Result Performing Organization Address City/[facility] Co de Phone Number [address] [address] * (ABNORMAL) POCT glucose (09/03/2024 12:46 PM CDT) Glucose, POC 269(H) 70 - 199 mg/dL Glucose comment 1 Use This Result [facility] Glucose comment 2 RN/MD Notified [facility] Blood 09/03/2024 12:4 6 PM CDT 09/03/2024 12:46 PM CDT us Ken Braxton MD LAB POCT ORDERABLES - DEVICE Fin al Result Performing Organization Address City/[facility] Co de Phone Number DANIELLA [address] [place] [address] * (ABNORMAL) POCT glucose (09/03/2024 11:47 AM CDT) Pathologist [facility] Glucose, POC 213(H) 70 - 199 mg/dL Blood 09/03/2024 11:4 7 AM CDT 09/03/2024 11:47 AM CDT Ken Braxton MD LAB POCT ORDERABLES - DEVICE Fin al Result Performing Organization Address [facility] de Phone Number [address] [place] [address] * POCT hCG, urine (09/03/2024 10:03 AM CDT) Pathologist [facility] HCG, ur, POC Negative Negative Lot Number [id number] QC Backgroud Clear Acceptable QC Control Line Acceptable Urine 09/03/2024 10:0 3 AM CDT Ken Braxton MD POINT OF CARE TEST ORDERABLES Fi nal Result * (ABNORMAL) POC Blood Gas and Chemistries, Venous - (09/03/2024 9:33 AM CDT) pH,nas POC 7.42 7.32 - 7.43 pCO2, nas POC 28(L) 40 - 50 mmHg DANIELLA pO2,nas POC 25 mmHg DANIELLA Comment: Interpretive Data No reference range established. Current interpretive data was last revised 2019. HCO3, nas (Calc) POC 18(L) 20 - 30 mmol/L DANIELLA Base excess, nas POC -5 mmol/L DANIELLA Comment: Interpretive Data No reference range established. Current interpretive data was last revised 2019. Oxy Hgb, nas POC 37.0(L) 90.0 - 95.0 % [facility] Met Hgb, nas POC 0.9 0.0 - 1.9 % [facility] Carboxy Hgb, nas POC 0.5 0.0 - 2.9 % [facility] Hemoglobin, nas POC 13.4 11.9 - 15.5 g/dL [facility] Sodium, nas POC 133(L) 135 - 145 mmol/L [facility] Potassium, nas POC 4.0 3.3 - 4.9 mmol/L [facility] Comment: Interpretive Data This method is not able to assess for hemolysis, which may falsely increase potassium concentrations. If further testing is needed to evaluate this result, consider in-laboratory plasma potassium. Current Interpretive Data was last revised on 2022. Glucose, nas POC 220(H) 70 - 199 mg/dL [facility] Ionized Calcium, nas POC 4.83 4.50 - 5.10 mg/dL [facility] Lactate, nas POC 1.6 0.7 - 2.0 mmol/L [facility] Blood 09/03/2024 9:33 AM CDT 09/03/2024 9:33 AM CDT us Notinfile Unknown LAB POCT ORDERABLES - DEVICE F inal Result [facility] [address] [facility] Department [place] [address] * eGFR (09/03/2024 9:32 AM CDT) eGFR >90 >=60 mL/min/1. 73 m2 Comment: Interpretive Data Reference Interval Normal >/= 90 mL/min/1.73m2 Mildly decreased* 60 - 89 mL/min/1.73m2 Mildly to moderately decreased 45 - 59 mL/min/1.73m2 Moderately to severely decreased 30 - 44 mL/min/1.73m2 Severely decreased 15 - 29 mL/min/1.73m2 Kidney Failure < 15 mL/min/1.73m2 *Relative to young adult level Estimated glomerular filtration rate is determined by the 2020 CKD-EPI equation recommended by the National Kidney Foundation (A Unifying Approach to GFR Estimation: Recommendations of the NKF-ASK Task Force on Reassessing the Inclusion of Race in Diagnosing Kidney Disease, JASN 2020). The CKD-EPI equation should not be used for patients with unstable renal function and has not been validated in children and those over 70. Current interpretive data was last reviewed 2021. Blood 09/03/2024 9:32 AM CDT 09/03/2024 9:34 AM CDT us Ken Braxton MD LAB BLOOD ORDERABLES Final Resul t [facility] [address] [facility] [place] [address] * (ABNORMAL) Differential, auto (09/03/2024 9:32 AM CDT) Neutrophil abs 7.81(H) 1.50 - 6.50 K/cumm Imm gran abs 0.04 0.00 - 0.10 K/cumm [facility] Lymphocyte abs 1.33 0.80 - 3.30 K/cumm [facility] Monocyte abs 0.84(H) 0.20 - 0.80 K/cumm [facility] Eosinophil abs 0.01 0.00 - 0.50 K/cumm [facility] Basophil abs 0.02 0.00 - 0.10 K/cumm [facility] Neutrophil pct 77.7 % [facility] Comment: Interpretive Data Percent cell count reference ranges are not reported, since discordance with absolute values may lead to misinterpretation of CBC data. Current Interpretive Data was last revised on 2017. Imm gran pct 0.4 % [facility] Comment: Interpretive Data Percent cell count reference ranges are not reported, since discordance with absolute values may lead to misinterpretation of CBC data. Current Interpretive Data was last revised on 2017. Lymphocyte pct 13.2 % [facility] Comment: Interpretive Data Percent cell count reference ranges are not reported, since discordance with absolute values may lead to misinterpretation of CBC data. Current Interpretive Data was last revised on 2017. Monocyte pct 8.4 % [facility] Comment: Interpretive Data Percent cell count reference ranges are not reported, since discordance with absolute values may lead to misinterpretation of CBC data. Current Interpretive Data was last revised on 2017. Eosinophil pct 0.1 % [facility] Comment: Interpretive Data Percent cell count reference ranges are not reported, since discordance with absolute values may lead to misinterpretation of CBC data. Current Interpretive Data was last revised on 2017. Basophil pct 0.2 % [facility] Comment: Interpretive Data Percent cell count reference ranges are not reported, since discordance with absolute values may lead to misinterpretation of CBC data. Current Interpretive Data was last revised on 2017. Blood 09/03/2024 9:32 AM CDT 09/03/2024 9:34 AM CDT Ken Braxton MD LAB BLOOD ORDERABLES Final Resul t Performing Organization Address [facility] de Phone Number [address] [address] * (ABNORMAL) Beta-hydroxybutyrate (09/03/2024 9:32 AM CDT) Pathologist [facility] Beta-Hydroxybut yrate 3.9(H) <=0.5 mmol/L Blood 09/03/2024 9:32 AM CDT 09/03/2024 9:51 AM CDT Ken Braxton MD LAB BLOOD ORDERABLES Final Resul t Performing Organization Address [facility] de Phone Number [address] [address] * (ABNORMAL) CBC with auto differential (09/03/2024 9:32 AM CDT) Pathologist [facility] WBC 10.05(H) 3.80 - 9.90 K/cumm Hgb 13.4 11.9 - 15.5 g/dL [facility] Hct 41.6 35.6 - 45.5 % [facility] Plt 357 150 - 400 K/cumm [facility] MPV 10.6 9.1 - 12.3 fL [facility] RBC 4.98 3.90 - 5.20 M/cumm [facility] MCV 83.5 81.3 - 96.4 fL [facility] MCH 26.9(L) 27.1 - 33.3 pg [facility] MCHC 32.2(L) 32.3 - 35.7 g/dL [facility] RDW CV 15.1(H) 11.1 - 14.9 % [facility] RDW SD 46.1 35.7 - 48.1 fL [facility] NRBC abs 0.00 0.00 - 0.01 K/cumm [facility] Blood Venous blood specimen / Unknown 09/03/2024 9:32 AM CDT 09/03/2024 9:34 AM CDT Ken Braxton MD LAB BLOOD ORDERABLES Final Resul t Performing Organization Address [facility] Co de Phone Number [address] [place] [address] * Lipase (09/03/2024 9:32 AM CDT) Pathologist [facility] Lipase 12 10 - 99 Units/L Blood Venous blood specimen / Unknown 09/03/2024 9:32 AM CDT 09/03/2024 9:34 AM CDT Ken Braxton MD LAB BLOOD ORDERABLES Final Resul t Performing Organization Address [facility] de Phone Number [address] [address] * (ABNORMAL) Comprehensive metabolic panel (09/03/2024 9:32 AM CDT) [facility] Sodium 134(L) 135 - 145 mmol/L Potassium, pl 3.7 3.3 - 4.9 mmol/L [facility] Chloride 98 97 - 110 mmol/L [facility] CO2 18(L) 22 - 32 mmol/L [facility] Anion gap 18(H) 2 - 15 mmol/L [facility] BUN 5(L) 6 - 25 mg/dL [facility] Creatinine 0.36(L) 0.60 - 1.10 mg/dL [facility] Glucose 216(H) 70 - 199 mg/dL [facility] Comment: Interpretive Data Fasting glucose >/= 126 mg/dl is diagnostic for diabetes. Fasting is defined as no caloric intake for at least 8 hours. Fasting glucose between 100 mg/dl to 125 mg/dl is diagnostic of prediabetes. In a patient with classic symptoms of hyperglycemia or hyperglycemic crisis, a random glucose >/= 200 mg/dl is diagnostic for diabetes. In the absence of unequivocal hyperglycemia, results should be confirmed by repeat testing. The classification and Diagnosis of Diabetes Diabetes Care 2021; 46: S19-S40. Current interpretive data was last revised 2022. Calcium 9.3 8.5 - 10.3 mg/dL [facility] Bilirubin, total 0.4 0.1 - 1.2 mg/dL [facility] Protein, pl 7.7 6.5 - 8.5 g/dL [facility] Albumin 4.1 3.5 - 5.0 g/dL [facility] Alk phos 108 40 - 130 Units/L [facility] ALT 23 7 - 45 Units/L [facility] AST 21 10 - 45 Units/L [facility] Blood 09/03/2024 9:32 AM CDT 09/03/2024 9:34 AM CDT us Ken Braxton MD LAB BLOOD ORDERABLES Final Resul t Performing Organization Address City/[facility]/ZIP Co de Phone Number [place] [address] [facility] Department [place] [address] * (ABNORMAL) POCT glucose (09/03/2024 8:59 AM CDT) [facility] Signature Glucose, POC 223(H) 70 - 199 mg/dL Glucose comment 1 RN/ Notified [facility] Blood 09/03/2024 8:59 AM CDT 09/03/2024 8:59 AM CDT us Notinfile Unknown LAB POCT ORDERABLES - DEVICE F inal Result [facility] [address] [facility] [place] [address] * POCT glucose (09/02/2024 7:44 PM CDT) Glucose, POC 167 70 - 199 mg/dL Blood 09/02/2024 7:44 PM CDT 09/02/2024 7:44 PM CDT Notinfile Unknown LAB POCT ORDERABLES - DEVICE F inal Result Performing Organization Address [facility] Co de Phone Number [facility] [address] [place] [address] * (ABNORMAL) Urinalysis reflex to microscopic and culture Urine (09/02/2024 3:28 PM CDT) Color, ur Yellow Yellow Clarity, ur Clear Clear [facility] Specific gravity, ur 1.024 1.003 - 1.030 [facility] pH, urine 6.5 [facility] Comment: Interpretive Data U rine pH is affected by diet, medications, systemic acid-base disturbances, and renal tubular function. pH may affect urinary stone formation. For example, urine pH below 6.0 may help reduce the tendency for calcium phosphate stones and pH greater than 6.0 may reduce the tendency for uric acid stone formation. Source: [facility] Current Interpretive Data was last revised on 2017 Protein, ur ql Negative Negative [facility] Glucose, ur ql 4+(A) Negative [facility] Ketones, ur 4+(A) Negative [facility] Bilirubin, ur Negative Negative [facility] Blood, ur Negative Negative [facility] Urobilinogen, ur <2.0 <2.0 mg/dL [facility] Nitrite, ur Negative Negative [facility] Leukocyte esterase, ur Negative Negative [facility] UA reflex comment Reflex conditions for microscopic UA and culture not met. [facility] Urine 09/02/2024 3:28 PM CDT 09/02/2024 3:31 PM CDT Daina BEAVERS LAB MICROBIOLOGY - GENERAL OR DERABLES Final Result DANIELLA [facility] Department [place] [address] * POCT hCG, urine (09/02/2024 3:28 PM CDT) HCG, ur, POC Negative Negative Lot Number 0 QC Backgroud Clear Acceptable QC Control Line Acceptable Urine 09/02/2024 3:28 PM CDT Daina BEAVERS POINT OF CARE TEST ORDERABLES Final Result * eGFR (09/02/2024 3:22 PM CDT) eGFR >90 >=60 mL/min/1. 73 m2 Comment: Interpretive Data Reference Interval Normal >/= 90 mL/min/1.73m2 Mildly decreased* 60 - 89 mL/min/1.73m2 Mildly to moderately decreased 45 - 59 mL/min/1.73m2 Moderately to severely decreased 30 - 44 mL/min/1.73m2 Severely decreased 15 - 29 mL/min/1.73m2 Kidney Failure < 15 mL/min/1.73m2 *Relative to young adult level Estimated glomerular filtration rate is determined by the 2020 CKD-EPI equation recommended by the National Kidney Foundation (A Unifying Approach to GFR Estimation: Recommendations of the NKF-ASK Task Force on Reassessing the Inclusion of Race in Diagnosing Kidney Disease, JASN 2020). The CKD-EPI equation should not be used for patients with unstable renal function and has not been validated in children and those over 70. Current interpretive data was last reviewed 2021. Blood 09/02/2024 3:22 PM CDT 09/02/2024 3:31 PM CDT Daina BEAVERS LAB BLOOD ORDERABLES Final Re sult DANIELLA [address] [facility] Department [place] [address] * (ABNORMAL) Differential, auto (09/02/2024 3:22 PM CDT) Neutrophil abs 3.02 1.50 - 6.50 K/cumm Imm gran abs 0.00 0.00 - 0.10 K/cumm [facility] Lymphocyte abs 0.57(L) 0.80 - 3.30 K/cumm [facility] Monocyte abs 0.35 0.20 - 0.80 K/cumm [facility] Eosinophil abs 0.00 0.00 - 0.50 K/cumm [facility] Basophil abs 0.01 0.00 - 0.10 K/cumm [facility] Neutrophil pct 76.4 % [facility] Comment: Interpretive Data Percent cell count reference ranges are not reported, since discordance with absolute values may lead to misinterpretation of CBC data. Current Interpretive Data was last revised on 2017. Imm gran pct 0.0 % [facility] Comment: Interpretive Data Percent cell count reference ranges are not reported, since discordance with absolute values may lead to misinterpretation of CBC data. Current Interpretive Data was last revised on 2017. Lymphocyte pct 14.4 % [facility] Comment: Interpretive Data Percent cell count reference ranges are not reported, since discordance with absolute values may lead to misinterpretation of CBC data. Current Interpretive Data was last revised on 2017. Monocyte pct 8.9 % [facility] Comment: Interpretive Data Percent cell count reference ranges are not reported, since discordance with absolute values may lead to misinterpretation of CBC data. Current Interpretive Data was last revised on 2017. Eosinophil pct 0.0 % [facility] Comment: Interpretive Data Percent cell count reference ranges are not reported, since discordance with absolute values may lead to misinterpretation of CBC data. Current Interpretive Data was last revised on 2017. Basophil pct 0.3 % [facility] Comment: Interpretive Data Percent cell count reference ranges are not reported, since discordance with absolute values may lead to misinterpretation of CBC data. Current Interpretive Data was last revised on 2017. Blood 09/02/2024 3:22 PM CDT 09/02/2024 3:31 PM CDT Daina BEAVERS LAB BLOOD ORDERABLES Final Re sult Performing Organization Address [facility]/ZIP Co de Phone Number DANIELLA [facility] [place] [address] * POCT glucose (09/02/2024 3:22 PM CDT) [facility] Glucose, POC 174 70 - 199 mg/dL Blood 09/02/2024 3:22 PM CDT 09/02/2024 3:22 PM CDT us Notinfile Unknown LAB POCT ORDERABLES - DEVICE F inal Result Performing Organization Address [facility] Co de Phone Number DANIELLA [facility] [place] [address] * (ABNORMAL) CBC with auto differential (09/02/2024 3:22 PM CDT) [facility] WBC 3.95 3.80 - 9.90 K/cumm Hgb 12.8 11.9 - 15.5 g/dL [facility] Hct 40.2 35.6 - 45.5 % [facility] Plt 308 150 - 400 K/cumm [facility] MPV 10.8 9.1 - 12.3 fL [facility] RBC 4.75 3.90 - 5.20 M/cumm [facility] MCV 84.6 81.3 - 96.4 fL [facility] MCH 26.9(L) 27.1 - 33.3 pg [facility] MCHC 31.8(L) 32.3 - 35.7 g/dL [facility] RDW CV 15.1(H) 11.1 - 14.9 % [facility] RDW SD 46.2 35.7 - 48.1 fL [facility] NRBC abs 0.00 0.00 - 0.01 K/cumm [facility] Blood Venous blood specimen / Unknown 09/02/2024 3:22 PM CDT 09/02/2024 3:31 PM CDT us Daina BEAVERS LAB BLOOD ORDERABLES Final Re sult Performing Organization Address [facility]/ZIP Co de Phone Number [place] [address] [facility] [place] [address] * Lipase (09/02/2024 3:22 PM CDT) Pathologist [facility] Lipase 14 10 - 99 Units/L Comment:Hemolyzed; result mi ght be falsely decreased Blood Venous blood specimen / Unknown 09/02/2024 3:22 PM CDT 09/02/2024 3:31 PM CDT Daina BEAVERS LAB BLOOD ORDERABLES Final Re sult [address] [address] * (ABNORMAL) Comprehensive metabolic panel (09/02/2024 3:22 PM CDT) [facility] Sodium 135 135 - 145 mmol/L Potassium, pl See Comment 3.3 - 4.9 [facility] Comment:Credited; Hemolyzed Specimen Chloride 101 97 - 110 mmol/L [facility] CO2 20(L) 22 - 32 mmol/L [facility] Anion gap 14 2 - 15 mmol/L [facility] BUN 6 6 - 25 mg/dL [facility] Creatinine 0.35(L) 0.60 - 1.10 mg/dL [facility] Glucose 190 70 - 199 mg/dL [facility] Comment: Delta - Results Reviewed Interpretive Data Fasting glucose >/= 126 mg/dl is diagnostic for diabetes. Fasting is defined as no caloric intake for at least 8 hours. Fasting glucose between 100 mg/dl to 125 mg/dl is diagnostic of prediabetes. In a patient with classic symptoms of hyperglycemia or hyperglycemic crisis, a random glucose >/= 200 mg/dl is diagnostic for diabetes. In the absence of unequivocal hyperglycemia, results should be confirmed by repeat testing. The classification and Diagnosis of Diabetes Diabetes Care 202; 46: S19-S40. Current interpretive data was last revised 2022. Calcium 8.3(L) 8.5 - 10.3 mg/dL [facility] Bilirubin, total 0.3 0.1 - 1.2 mg/dL [facility] Protein, pl 7.0 6.5 - 8.5 g/dL [facility] Albumin 3.5 3.5 - 5.0 g/dL [facility] Alk phos 97 40 - 130 Units/L [facility] ALT See Comment [facility] Comment:Credited; Hemolyzed Specimen AST See Comment [facility] Comment:Credited; Hemolyzed Specimen Blood 09/02/2024 3:22 PM CDT 09/02/2024 3:31 PM CDT Daina BEAVERS LAB BLOOD ORDERABLES Final Re sult Performing Organization Address City/[facility]/ZIP Co de Phone Number [address] [address] * (ABNORMAL) POCT glucose (09/02/2024 3:40 AM CDT) [facility] Glucose, POC 216(H) 70 - 199 mg/dL Blood 09/02/2024 3:40 AM CDT 09/02/2024 3:40 AM CDT Hung Cooper MD LAB POCT ORDERABLES - PIPER CE Final Result Performing Organization Address [facility] Co de Phone Number [address] [address] * Influenza A/B, RSV, and COVID-19 PCR Nasopharyngeal (09/02/2024 3:27 AM CDT) [facility] COVID-19 RNA Negative Negative Influenza A RNA Negative Negative [facility] Influenza B RNA Negative Negative [facility] RSV RNA Negative Negative [facility] Comment: Interpretive data: Testing performed by [facility]. This test is performed using the [employer] Xpert Xpress CoV-2/Flu/RSV plus assay. This is a multiplex, real-time reverse transcriptase PCR assay intended for the qualitative detection of nucleic acid from SARS-CoV-2, influenza A, influenza B, and respiratory syncytial virus. This assay has been cleared by the [place] Food and Drug administration. The performance characteristics have been verified by the [facility]. Results must be considered in the clinical context, and a negative result does not rule out infection. Interpretive Data last revised 2023 Nasopharyngeal 09/02/2024 3: 27 AM CDT 09/02/2024 3:32 AM CDT Narrative DANIELLA - 09/02/2024 4:12 AM CDT Is the Patient experiencing symptoms consistent with COVID?->Unknown Hung Cooper MD LAB MICROBIOLOGY - GENERAL ORDERABLES Final Result Performing Organization Address [facility] Co de Phone Number [address] [address] * (ABNORMAL) Beta-hydroxybutyrate (09/02/2024 3:27 AM CDT) Pathologist [facility] Beta-Hydroxybut yrate 1.1(H) <=0.5 mmol/L Blood 09/02/2024 3:27 AM CDT 09/02/2024 3:32 AM CDT Hung Cooper MD LAB BLOOD ORDERABLES Final Result Performing Organization Address [facility] Co de Phone Number [address] [address] * Creatine kinase (CK), total (09/02/2024 3:27 AM CDT) Pathologist [facility] CK 33 30 - 200 Units/L Blood 09/02/2024 3:27 AM CDT 09/02/2024 3:32 AM CDT Hung Cooper MD LAB BLOOD ORDERABLES Final Result Performing Organization Address [facility] Co de Phone Number [address] [address] * Sepsis Lactate w/ Reflex (09/02/2024 2:38 AM CDT) Pathologist [facility] Sepsis Lactate 1.8 0.7 - 2.0 mmol/L Blood 09/02/2024 2:38 AM CDT 09/02/2024 2:46 AM CDT us Hung Cooper MD LAB BLOOD ORDERABLES Final Result Performing Organization Address [facility] Co de Phone Number DANIELLA [address] [address] * eGFR (09/02/2024 2:38 AM CDT) Pathologist [facility] eGFR >90 >=60 mL/min/1. 73 m2 Comment: Interpretive Data Reference Interval Normal >/= 90 mL/min/1.73m2 Mildly decreased* 60 - 89 mL/min/1.73m2 Mildly to moderately decreased 45 - 59 mL/min/1.73m2 Moderately to severely decreased 30 - 44 mL/min/1.73m2 Severely decreased 15 - 29 mL/min/1.73m2 Kidney Failure < 15 mL/min/1.73m2 *Relative to young adult level Estimated glomerular filtration rate is determined by the 2020 CKD-EPI equation recommended by the National Kidney Foundation (A Unifying Approach to GFR Estimation: Recommendations of the NKF-ASK Task Force on Reassessing the Inclusion of Race in Diagnosing Kidney Disease, JASN 2020). The CKD-EPI equation should not be used for patients with unstable renal function and has not been validated in children and those over 70. Current interpretive data was last reviewed 2021. Blood 09/02/2024 2:38 AM CDT 09/02/2024 2:46 AM CDT us Annie BEAVERS LAB BLOOD ORDERABLES Final Resul t Performing Organization Address City/[facility]/ZIP Co de Phone Number MIC[address] [address] * Differential, auto (09/02/2024 2:38 AM CDT) [facility] Neutrophil abs 3.95 1.50 - 6.50 K/cumm Imm gran abs 0.02 0.00 - 0.10 K/cumm [facility] Lymphocyte abs 1.55 0.80 - 3.30 K/cumm [facility] Monocyte abs 0.80 0.20 - 0.80 K/cumm [facility] Eosinophil abs 0.03 0.00 - 0.50 K/cumm [facility] Basophil abs 0.03 0.00 - 0.10 K/cumm [facility] Neutrophil pct 61.9 % [facility] Comment: Interpretive Data Percent cell count reference ranges are not reported, since discordance with absolute values may lead to misinterpretation of CBC data. Current Interpretive Data was last revised on 2017. Imm gran pct 0.3 % [facility] Comment: Interpretive Data Percent cell count reference ranges are not reported, since discordance with absolute values may lead to misinterpretation of CBC data. Current Interpretive Data was last revised on 2017. Lymphocyte pct 24.3 % [facility] Comment: Interpretive Data Percent cell count reference ranges are not reported, since discordance with absolute values may lead to misinterpretation of CBC data. Current Interpretive Data was last revised on 2017. Monocyte pct 12.5 % [facility] Comment: Interpretive Data Percent cell count reference ranges are not reported, since discordance with absolute values may lead to misinterpretation of CBC data. Current Interpretive Data was last revised on 2017. Eosinophil pct 0.5 % [facility] Comment: Interpretive Data Percent cell count reference ranges are not reported, since discordance with absolute values may lead to misinterpretation of CBC data. Current Interpretive Data was last revised on 2017. Basophil pct 0.5 % [facility] Comment: Interpretive Data Percent cell count reference ranges are not reported, since discordance with absolute values may lead to misinterpretation of CBC data. Current Interpretive Data was last revised on 2017. Blood 09/02/2024 2:38 AM CDT 09/02/2024 2:46 AM CDT us Annie BEAVERS LAB BLOOD ORDERABLES Final Resul t [facility] [address] [facility] Department [place] [address] * (ABNORMAL) Urinalysis reflex to microscopic and culture Urine (09/02/2024 2:38 AM CDT) Color, ur Yellow Yellow Clarity, ur Clear Clear [facility] Specific gravity, ur 1.034(H) 1.003 - 1.030 [facility] pH, urine 7.5 [facility] Comment: Interpretive Data U rine pH is affected by diet, medications, systemic acid-base disturbances, and renal tubular function. pH may affect urinary stone formation. For example, urine pH below 6.0 may help reduce the tendency for calcium phosphate stones and pH greater than 6.0 may reduce the tendency for uric acid stone formation. Source: [facility] Current Interpretive Data was last revised on 2017 Protein, ur ql Negative Negative [facility] Glucose, ur ql 4+(A) Negative [facility] Ketones, ur 3+(A) Negative [facility] Bilirubin, ur Negative Negative [facility] Blood, ur Negative Negative [facility] Urobilinogen, ur <2.0 <2.0 mg/dL [facility] Nitrite, ur Negative Negative [facility] Leukocyte esterase, ur Negative Negative [facility] UA reflex comment Reflex conditions for microscopic UA and culture not met. [facility] Urine 09/02/2024 2:38 AM CDT 09/02/2024 2:46 AM CDT Hung Cooper MD LAB MICROBIOLOGY - GENERAL ORDERABLES Final Result [facility] [address] [facility] Department [place] [address] * (ABNORMAL) CBC with auto differential (09/02/2024 2:38 AM CDT) Pathologist [facility] WBC 6.38 3.80 - 9.90 K/cumm Hgb 11.4(L) 11.9 - 15.5 g/dL [facility] Hct 36.0 35.6 - 45.5 % [facility] Plt 255 150 - 400 K/cumm [facility] MPV 11.0 9.1 - 12.3 fL [facility] RBC 4.27 3.90 - 5.20 M/cumm [facility] MCV 84.3 81.3 - 96.4 fL [facility] MCH 26.7(L) 27.1 - 33.3 pg [facility] MCHC 31.7(L) 32.3 - 35.7 g/dL [facility] RDW CV 15.3(H) 11.1 - 14.9 % [facility] RDW SD 47.0 35.7 - 48.1 fL [facility] NRBC abs 0.00 0.00 - 0.01 K/cumm [facility] Blood 09/02/2024 2:38 AM CDT 09/02/2024 2:46 AM CDT us Annie BEAVERS LAB BLOOD ORDERABLES Final Resul t DANIELLA [address] [facility] Department [place] [address] * (ABNORMAL) Drugs of Abuse Screen, Urine without Confirmation (09/02/2024 2:38 AM CDT) Pathologist [facility] Amphetamine, ur Not Detected CutOff 500ng/mL Comment: Interpretive Data - Amphetamines: Samples containing greater than 500 ng/mL d-methamphetamine or other cross-reacting amphetamine compounds are reported as positive. Amphetamine immunoassays are subject to significant false positive rates due to cross-reactivity of non-amphetamine drugs. Confirmatory testing required for definitive results. Current Interpretive Data was last reviewed 2022. Barbiturates, ur Not Detected CutOff 200ng/mL [facility] Comment: Interpretive Data - Barbiturates: Samples containing greater than 200 ng/mL secobarbital or other cross-reacting barbiturate compounds are reported as positive. False positive and false negative results are possible. Confirmatory testing required for definitive results. Current Interpretive Data was last reviewed 2022. Benzodiazepines, ur Not Detected CutOff 100ng/mL [facility] Comment: Interpretive Data - Benzodiazepines: Samples containing greater than 100 ng/mL nordiazepam or other cross-reacting compounds are reported as positive. False positive and false negative results are possible. Confirmatory testing required for definitive results. Current Interpretive Data was last reviewed 2022. Cannabinoids, ur Screen Positive, presumptive (A) CutOff 50 ng/mL [facility] Comment: Interpretive Data - Cannabinoids: Samples containing greater than 50 ng/mL delta-9 THC -COOH or other cross- reacting compounds are reported as positive. False positive and false negative results are possible. Confirmatory testing required for definitive results. Current Interpretive Data was last reviewed 2022. Cocaine, ur Not Detected CutOff 150ng/mL [facility] Comment: Interpretive Data - Cocaine: Samples containing greater than 150 ng/mL benzoylecgonine or other cross- reacting compounds are reported as positive. False positive and false negative results are possible. Confirmatory testing required for definitive results. Current Interpretive Data was last reviewed 2022. Fentanyl, Ur Not Detected CutOff 5 ng/mL [facility] Comment: Interpretive Data - Fentanyl: Samples containing greater than 5 ng/mL norfentanyl, fentanyl, or other cross-reacting fentanyl compounds are reported as positive. False positive and false negative results are possible. Confirmatory testing required for definitive results. Current Interpretive Data was last reviewed 2023. Methadone, ur Not Detected CutOff 300ng/mL [facility] Comment: Interpretive Data - Methadone: Samples containing greater than 300 ng/mL d,l-methadone or other cross-reacting compounds are reported as positive. False positive and false negative results are possible. Confirmatory testing required for definitive results. Current Interpretive Data was last reviewed 2022. Opiates, ur Not Detected CutOff 300ng/mL [facility] Comment: Interpretive Data - Opiates: Samples containing greater than 300 ng/mL morphine or other cross-reacting compounds are reported as positive. False positive and false negative results are possible. Confirmatory testing required for definitive results. Current Interpretive Data was last reviewed 2022. Oxycodone, ur Not Detected CutOff 100ng/mL [facility] Comment: Interpretive Data - Oxycodone: Samples containing greater than 100 ng/mL oxycodone or other cross-reacting compounds are reported as positive. False positive and false negative results are possible. Confirmatory testing required for definitive results. Current Interpretive Data was last reviewed 2022. Phencyclidine, ur Not Detected CutOff 25 ng/mL [facility] Comment: Interpretive Data - Phencyclidine: Samples containing greater than 25 ng/mL phencyclidine or other cross-reacting compounds are reported as positive. False positive and false negative results are possible. Confirmatory testing required for definitive results. Current Interpretive Data was last reviewed 2022. Urine Creatinine 46 mg/dL [facility] Comment: Interpretive Data Urine Creatinine: < 10 mg/dL is extremely dilute = or > 10 but < 20 mg/dL is dilute = or > 20 mg/dL is normal Current Interpretive Data was last revised on 2017. Urine 09/02/2024 2:38 AM CDT 09/02/2024 2:46 AM CDT Narrative DANIELLA - 09/02/2024 3:43 AM CDT Drug of Abuse screening is performed by immunoassay for medical purposes only. This is not to be used for Pain Management purposes. Hung Cooper MD LAB URINE ORDERABLES Final Result Performing Organization Address [facility] Co de Phone Number [address] [place] [address] * Phosphorus (09/02/2024 2:38 AM CDT) Phosphorus, pl 3.5 2.3 - 4.5 mg/dL Blood 09/02/2024 2:38 AM CDT 09/02/2024 2:46 AM CDT Hung Cooper MD LAB BLOOD ORDERABLES Final Result Performing Organization Address [facility] de Phone Number [address] [place] [place] [address] * Magnesium (09/02/2024 2:38 AM CDT) Magnesium 1.7 1.4 - 2.5 mg/dL Blood 09/02/2024 2:38 AM CDT 09/02/2024 2:46 AM CDT Hung Cooper MD LAB BLOOD ORDERABLES Final Result Performing Organization Address [facility] Co de Phone Number [address] [place] [place] [address] * (ABNORMAL) Comprehensive metabolic panel (09/02/2024 2:38 AM CDT) Sodium 134(L) 135 - 145 mmol/L Potassium, pl See Comment 3.3 - 4.9 [facility] Comment:Credited; Hemolyzed Specimen Chloride 100 97 - 110 mmol/L [facility] CO2 20(L) 22 - 32 mmol/L [facility] Anion gap 14 2 - 15 mmol/L [facility] BUN 9 6 - 25 mg/dL [facility] Creatinine 0.36(L) 0.60 - 1.10 mg/dL [facility] Glucose 304(H) 70 - 199 mg/dL [facility] Comment: Interpretive Data Fasting glucose >/= 126 mg/dl is diagnostic for diabetes. Fasting is defined as no caloric intake for at least 8 hours. Fasting glucose between 100 mg/dl to 125 mg/dl is diagnostic of prediabetes. In a patient with classic symptoms of hyperglycemia or hyperglycemic crisis, a random glucose >/= 200 mg/dl is diagnostic for diabetes. In the absence of unequivocal hyperglycemia, results should be confirmed by repeat testing. The classification and Diagnosis of Diabetes Diabetes Care 2021; 46: S19-S40. Current interpretive data was last revised 2022. Calcium 8.7 8.5 - 10.3 mg/dL [facility] Bilirubin, total 0.3 0.1 - 1.2 mg/dL [facility] Protein, pl 6.4(L) 6.5 - 8.5 g/dL [facility] Albumin 3.3(L) 3.5 - 5.0 g/dL [facility] Alk phos 88 40 - 130 Units/L [facility] ALT See Comment 7 - 45 [facility] Comment:Credited; Hemolyzed Specimen AST See Comment 10 - 45 [facility] Comment:Credited; Hemolyzed Specimen Blood 09/02/2024 2:38 AM CDT 09/02/2024 2:46 AM CDT us Annie BEAVERS LAB BLOOD ORDERABLES Final Resul t [facility] [address] [facility] Department [place] [address] * ECG 12 lead (09/02/2024 1:53 AM CDT) [facility] Ventricular Rate EKG/Min 86 BPM [facility] Atrial Rate 86 BPM [facility] AZ-Interval (MSEC) 130 ms [facility] QRS-Interval (MSEC) 82 ms [facility] QT-Interval (MSEC) 360 ms [facility] QTc 430 ms [facility] P Divide 53 degrees [facility] R Divide 25 degrees [facility] T Divide 35 degrees [facility] Diagnosis Normal sinus rhythm Possible Left atrial enlargement Septal infarct , age undetermined Abnormal ECG When compared with ECG of 31-AUG-2024 09:58, No significant change was found Confirmed by MEHDI SERNA M.D. ([id number]) on 09/02/2024 1:58:31 PM [facility] 09/02/2024 1:53 AM CDT 09/02/2024 1:58 PM CDT us Hung Cooper MD ECG ORDERABLES Final Resu lt Performing Organization Address City/[facility] Co de Phone Number [facility] * POCT hCG, urine (09/02/2024 1:03 AM CDT) [facility] HCG, ur, POC Negative Negative Lot Number [id number] QC Backgroud Clear Acceptable QC Control Line Acceptable Urine 09/02/2024 1:03 AM CDT Annie BEAVERS POINT OF CARE TEST ORDERABLES Fi nal Result * (ABNORMAL) POCT glucose (09/02/2024 12:46 AM CDT) [facility] Glucose, POC 251(H) 70 - 199 mg/dL Glucose comment 1 RN/MD Notified DANIELLA RDZ Blood 09/02/2024 12:4 6 AM CDT 09/02/2024 12:46 AM CDT us Notinfile Unknown LAB POCT ORDERABLES - DEVICE F inal Result Performing Organization Address City/[facility] Co de Phone Number [address] [address] * POCT glucose (09/01/2024 2:00 PM CDT) Glucose, POC 107 70 - 199 mg/dL Blood 09/01/2024 2:00 PM CDT 09/01/2024 2:00 PM CDT Vaishnavi Noble MD LAB POCT ORDERABLES - DEVICE Fin al Result Performing Organization Address City/[facility] Co de Phone Number MICHEL[address] [address] * POCT glucose (09/01/2024 11:44 AM CDT) Glucose, POC 114 70 - 199 mg/dL Glucose comment 1 Use This Result [facility] Glucose comment 2 RN/MD Notified DANIELLA Blood 09/01/2024 11:4 4 AM CDT 09/01/2024 11:44 AM CDT Vaishnavi Noble MD LAB POCT ORDERABLES - DEVICE Fin al Result Performing Organization Address [facility] Co de Phone Number [address] [address] * POCT glucose (09/01/2024 11:25 AM CDT) Glucose, POC 81 70 - 199 mg/dL Glucose comment 1 Use This Result [facility] Glucose comment 2 RN/MD Notified DANIELLA Blood 09/01/2024 11:2 5 AM CDT 09/01/2024 11:25 AM CDT Vaishnavi Noble MD LAB POCT ORDERABLES - DEVICE Fin al Result [address] [address] * (ABNORMAL) POCT glucose (09/01/2024 7:48 AM CDT) Glucose, POC 242(H) 70 - 199 mg/dL Glucose comment 1 Use This Result [facility] Glucose comment 2 RN/MD Notified DANIELLA Blood 09/01/2024 7:48 AM CDT 09/01/2024 7:48 AM CDT Vaishnavi Noble MD LAB POCT ORDERABLES - DEVICE Fin al Result Performing Organization Address [facility] de Phone Number DANIELLA [address] [place] [address] * eGFR (09/01/2024 4:26 AM CDT) [facility] eGFR >90 >=60 mL/min/1. 73 m2 Comment: Interpretive Data Reference Interval Normal >/= 90 mL/min/1.73m2 Mildly decreased* 60 - 89 mL/min/1.73m2 Mildly to moderately decreased 45 - 59 mL/min/1.73m2 Moderately to severely decreased 30 - 44 mL/min/1.73m2 Severely decreased 15 - 29 mL/min/1.73m2 Kidney Failure < 15 mL/min/1.73m2 *Relative to young adult level Estimated glomerular filtration rate is determined by the 2020 CKD-EPI equation recommended by the National Kidney [employer] (A Unifying Approach to GFR Estimation: Recommendations of the NKF-ASK Task Force on Reassessing the Inclusion of Race in Diagnosing Kidney Disease, JASN 2020). The CKD-EPI equation should not be used for patients with unstable renal function and has not been validated in children and those over 70. Current interpretive data was last reviewed 2021. Blood 09/01/2024 4:26 AM CDT 09/01/2024 5:13 AM CDT Vaishnavi Noble MD LAB BLOOD ORDERABLES Final Resul t Performing Organization Address [facility] Co de Phone Number DANIELLA [address] [place] [address] * Differential, auto (09/01/2024 4:26 AM CDT) Pathologist [facility] Neutrophil abs 2.15 1.50 - 6.50 K/cumm Imm gran abs 0.01 0.00 - 0.10 K/cumm [facility] Lymphocyte abs 2.42 0.80 - 3.30 K/cumm [facility] Monocyte abs 0.61 0.20 - 0.80 K/cumm [facility] Eosinophil abs 0.14 0.00 - 0.50 K/cumm [facility] Basophil abs 0.03 0.00 - 0.10 K/cumm [facility] Neutrophil pct 40.1 % [facility] Comment: Interpretive Data Percent cell count reference ranges are not reported, since discordance with absolute values may lead to misinterpretation of CBC data. Current Interpretive Data was last revised on 2017. Imm gran pct 0.2 % [facility] Comment: Interpretive Data Percent cell count reference ranges are not reported, since discordance with absolute values may lead to misinterpretation of CBC data. Current Interpretive Data was last revised on 2017. Lymphocyte pct 45.1 % [facility] Comment: Interpretive Data Percent cell count reference ranges are not reported, since discordance with absolute values may lead to misinterpretation of CBC data. Current Interpretive Data was last revised on 2017. Monocyte pct 11.4 % [facility] Comment: Interpretive Data Percent cell count reference ranges are not reported, since discordance with absolute values may lead to misinterpretation of CBC data. Current Interpretive Data was last revised on 2017. Eosinophil pct 2.6 % [facility] Comment: Interpretive Data Percent cell count reference ranges are not reported, since discordance with absolute values may lead to misinterpretation of CBC data. Current Interpretive Data was last revised on 2017. Basophil pct 0.6 % [facility] Comment: Interpretive Data Percent cell count reference ranges are not reported, since discordance with absolute values may lead to misinterpretation of CBC data. Current Interpretive Data was last revised on 2017. Blood 09/01/2024 4:26 AM CDT 09/01/2024 5:13 AM CDT Vaishnavi Noble MD LAB BLOOD ORDERABLES Final Resul t [address] [place] [address] * (ABNORMAL) CBC with auto differential (09/01/2024 4:26 AM CDT) [facility] WBC 5.36 3.80 - 9.90 K/cumm Hgb 11.9 11.9 - 15.5 g/dL [facility] Hct 37.5 35.6 - 45.5 % [facility] Plt 253 150 - 400 K/cumm [facility] MPV 11.2 9.1 - 12.3 fL [facility] RBC 4.34 3.90 - 5.20 M/cumm [facility] MCV 86.4 81.3 - 96.4 fL [facility] MCH 27.4 27.1 - 33.3 pg [facility] MCHC 31.7(L) 32.3 - 35.7 g/dL [facility] RDW CV 15.5(H) 11.1 - 14.9 % [facility] RDW SD 49.1(H) 35.7 - 48.1 fL [facility] NRBC abs 0.00 0.00 - 0.01 K/cumm [facility] Blood 09/01/2024 4:26 AM CDT 09/01/2024 5:13 AM CDT Vaishnavi Noble MD LAB BLOOD ORDERABLES Final Resul t Performing Organization Address [facility] Co de Phone Number [address] Department [place] [address] * (ABNORMAL) Renal function panel (09/01/2024 4:26 AM CDT) [facility] Sodium 136 135 - 145 mmol/L Potassium, pl 3.7 3.3 - 4.9 mmol/L [facility] Chloride 104 97 - 110 mmol/L [facility] CO2 22 22 - 32 mmol/L [facility] Anion gap 10 2 - 15 mmol/L [facility] BUN 9 6 - 25 mg/dL [facility] Creatinine 0.37(L) 0.60 - 1.10 mg/dL [facility] Glucose 232(H) 70 - 199 mg/dL [facility] Comment: Delta - Results Reviewed Interpretive Data Fasting glucose >/= 126 mg/dl is diagnostic for diabetes. Fasting is defined as no caloric intake for at least 8 hours. Fasting glucose between 100 mg/dl to 125 mg/dl is diagnostic of prediabetes. In a patient with classic symptoms of hyperglycemia or hyperglycemic crisis, a random glucose >/= 200 mg/dl is diagnostic for diabetes. In the absence of unequivocal hyperglycemia, results should be confirmed by repeat testing. The classification and Diagnosis of Diabetes Diabetes Care 202; 46: S19-S40. Current interpretive data was last revised 2022. Calcium 8.6 8.5 - 10.3 mg/dL [facility] Phosphorus, pl 3.8 2.3 - 4.5 mg/dL [facility] Albumin 3.0(L) 3.5 - 5.0 g/dL [facility] Blood 09/01/2024 4:26 AM CDT 09/01/2024 5:13 AM CDT Vaishnavi Noble MD LAB BLOOD ORDERABLES Final Resul t Performing Organization Address City/[facility]/ZIP Co de Phone Number [address] [place], [place] [id number] * (ABNORMAL) POCT glucose (09/01/2024 2:00 AM CDT) Glucose, POC 260(H) 70 - 199 mg/dL Blood 09/01/2024 2:00 AM CDT 09/01/2024 2:00 AM CDT Vaishnavi Noble MD LAB POCT ORDERABLES - DEVICE Fin al Result Performing Organization Address City/[facility]/ZIP Co de Phone Number [address] [place] [address] * POCT glucose (08/31/2024 7:50 PM CDT) Glucose, POC 115 70 - 199 mg/dL Blood 08/31/2024 7:50 PM CDT 08/31/2024 7:50 PM CDT Vaishnavi Noble MD LAB POCT ORDERABLES - DEVICE Fin al Result Performing Organization Address City/[facility] Co de Phone Number DANIELLA [address] [place] [address] * eGFR (08/31/2024 7:39 PM CDT) eGFR >90 >=60 mL/min/1. 73 m2 Comment: Interpretive Data Reference Interval Normal >/= 90 mL/min/1.73m2 Mildly decreased* 60 - 89 mL/min/1.73m2 Mildly to moderately decreased 45 - 59 mL/min/1.73m2 Moderately to severely decreased 30 - 44 mL/min/1.73m2 Severely decreased 15 - 29 mL/min/1.73m2 Kidney Failure < 15 mL/min/1.73m2 *Relative to young adult level Estimated glomerular filtration rate is determined by the 2020 CKD-EPI equation recommended by the National Kidney Foundation (A Unifying Approach to GFR Estimation: Recommendations of the NKF-ASK Task Force on Reassessing the Inclusion of Race in Diagnosing Kidney Disease, JASN 2020). The CKD-EPI equation should not be used for patients with unstable renal function and has not been validated in children and those over 70. Current interpretive data was last reviewed 2021. Blood 08/31/2024 7:39 PM CDT 08/31/2024 7:47 PM CDT Vaishnavi Noble MD LAB BLOOD ORDERABLES Final Resul t Performing Organization Address City/[facility] Co de Phone Number DANIELLA [address] [place] [address] * Magnesium (08/31/2024 7:39 PM CDT) Magnesium 1.7 1.4 - 2.5 mg/dL Blood 08/31/2024 7:39 PM CDT 08/31/2024 7:47 PM CDT Mykel Diehl DO LAB BLOOD ORDERABLES Final Result Performing Organization Address [facility]/ZIP Co de Phone Number [address] [place] [address] * (ABNORMAL) Renal function panel (08/31/2024 7:39 PM CDT) Sodium 136 135 - 145 mmol/L Potassium, pl 3.9 3.3 - 4.9 mmol/L [facility] Chloride 102 97 - 110 mmol/L [facility] CO2 23 22 - 32 mmol/L [facility] Anion gap 11 2 - 15 mmol/L [facility] BUN 11 6 - 25 mg/dL [facility] Creatinine 0.34(L) 0.60 - 1.10 mg/dL [facility] Glucose 126 70 - 199 mg/dL [facility] Comment: Interpretive Data Fasting glucose >/= 126 mg/dl is diagnostic for diabetes. Fasting is defined as no caloric intake for at least 8 hours. Fasting glucose between 100 mg/dl to 125 mg/dl is diagnostic of prediabetes. In a patient with classic symptoms of hyperglycemia or hyperglycemic crisis, a random glucose >/= 200 mg/dl is diagnostic for diabetes. In the absence of unequivocal hyperglycemia, results should be confirmed by repeat testing. The classification and Diagnosis of Diabetes Diabetes Care 202; 46: S19-S40. Current interpretive data was last revised 2022. Calcium 8.3(L) 8.5 - 10.3 mg/dL [facility] Phosphorus, pl 3.5 2.3 - 4.5 mg/dL [facility] Albumin 3.1(L) 3.5 - 5.0 g/dL [facility] Blood 08/31/2024 7:39 PM CDT 08/31/2024 7:47 PM CDT Vaishnavi Noble MD LAB BLOOD ORDERABLES Final Resul t Performing Organization Address City/[facility]/ZIP Co de Phone Number MIC[address] [place] [address] * CT Chest PE (CTA) Abdomen Pelvis W Contrast (08/31/2024 6:40 PM CDT) Anatomical Region Laterality Modality Body N/A Computed Tomogra phy 08/31/2024 7:30 PM CDT Narrative 08/31/2024 7:48 PM CDT EXAM DESCRIPTION: CT CHEST PE (CTA) ABDOMEN PELVIS W CONTRAST REASON FOR STUDY: chest pain/tachycardia/abdominal pain/N/V/elevated lactate TECHNIQUE: CT angiogram of the chest with routine abdomen and pelvis performed with intravenous and without oral contrast using helical scanning technique with dynamic intravenous contrast injection. Reconstructed coronal and sagittal MPR images reviewed. All images stored on PACS. 3D MIP images of the chest rendered on scanning unit and reviewed at time of interpretation. Automated exposure control was used as a dose optimization technique for this examination. CONTRAST TYPE/DOSE: 100mL of IOVERSOL 350 MG IODINE/ML INTRAVENOUS SYRINGE injected via intravenous COMPARISON: CT abdomen pelvis 06/02/2024 FINDINGS: CHEST CHEST VASCULATURE: No acute pulmonary thromboembolism. LUNGS: No nodules or masses. No pneumonia. PLEURA: No effusion. No pneumothorax. MEDIASTINUM/CRISTINA: No identified masses or abnormal nodes. HEART: Heart size is enlarged with no pericardial effusion. AXILLA: No adenopathy. CHEST WALL: No masses. No subcutaneous air. HARDWARE/LINES/TUBES: None. MUSCULOSKELETAL CHEST: No significant abnormality. ABDOMEN/PELVIS LIVER: Normal size. No identified cystic or solid masses. GALLBLADDER: No stones, wall thickening or pericholecystic fluid BILE DUCTS: No intrahepatic or extrahepatic ductal dilatation. SPLEEN: Normal size. No focal lesions. PANCREAS: No identified cystic or solid masses. No significant calcifications. No adjacent inflammation or peripancreatic fluid collections. Pancreatic duct not dilated. ADRENALS: Normal. KIDNEYS/URINARY TRACT: No identified significant cystic or solid masses. No visualized stones. No hydronephrosis or hydroureter. Symmetric enhancement. Distended urinary bladder with circumferential wall thickening. GI: No dilated bowel loops. No obvious wall thickening. Normal appendix. No significant diverticular disease. PERITONEUM: Small free-fluid in the pelvis. No free air. RETROPERITONEUM: No mass or adenopathy. REPRODUCTIVE: No significant abnormality. VASCULATURE ABDOMEN: No abdominal aortic aneurysm. MUSCULOSKELETAL ABDOMEN PELVIS: No acute finding. OTHER: No significant abnormality. IMPRESSION: No evidence of acute pulmonary embolism. No acute findings in the chest. Circumferential wall thickening of the urinary bladder may represent acute cystitis. Correlate with urinalysis. Small free-fluid in the pelvis. THIS IS AN ELECTRONICALLY VERIFIED FINAL REPORT 08/31/2024 7:48 PM - Electronically signed by Shea Ca M.D. FT T: Report ID: [id number] Reading Location: [place] [address] Procedure Note Shea Ro MD - 08/31/2024 EXAM DESCRIPTION: CT CHEST PE (CTA) ABDOMEN PELVIS W CONTRAST REASON FOR STUDY: chest pain/tachycardia/abdominal pain/N/V/elevatedlactate TECHNIQUE: CT angiogram of the chest with routine abdomen and pelvisperformed with intravenous and without oral contrast using helical scanningtechnique with dynamic intravenous contrast injection. Reconstructed coronal and sagittal MPR images reviewed. All images stored on PACS. 3D MIP images ofthe chest rendered on scanning unit and reviewed at time of interpretation. Automated exposure control was used as a dose optimization technique forthis examination. CONTRAST TYPE/DOSE: 100mL of IOVERSOL 350 MG IODINE/ML INTRAVENOUS SYRINGE injected via intravenous COMPARISON: CT abdomen pelvis 06/02/2024 FINDINGS: CHEST CHEST VASCULATURE: No acute pulmonary thromboembolism. LUNGS: No nodules or masses. No pneumonia. PLEURA: No effusion. No pneumothorax. MEDIASTINUM/CRISTINA: No identified masses or abnormal nodes. HEART: Heart size is enlarged with no pericardial effusion. AXILLA: No adenopathy. CHEST WALL: No masses. No subcutaneous air. HARDWARE/LINES/TUBES: None. MUSCULOSKELETAL CHEST: No significant abnormality. ABDOMEN/PELVIS LIVER: Normal size. No identified cystic or solid masses. GALLBLADDER: No stones, wall thickening or pericholecystic fluid BILE DUCTS: No intrahepatic or extrahepatic ductal dilatation. SPLEEN: Normal size. No focal lesions. PANCREAS: No identified cystic or solid masses. No significant calcifications. No adjacent inflammation or peripancreatic fluidcollections. Pancreatic duct not dilated. ADRENALS: Normal. KIDNEYS/URINARY TRACT: No identified significant cystic or solid masses.No visualized stones. No hydronephrosis or hydroureter. Symmetricenhancement. Distended urinary bladder with circumferential wall thickening. GI: No dilated bowel loops. No obvious wall thickening. Normal appendix.No significant diverticular disease. PERITONEUM: Small free-fluid in the pelvis. No free air. RETROPERITONEUM: No mass or adenopathy. REPRODUCTIVE: No significant abnormality. VASCULATURE ABDOMEN: No abdominal aortic aneurysm. MUSCULOSKELETAL ABDOMEN PELVIS: No acute finding. OTHER: No significant abnormality. IMPRESSION: No evidence of acute pulmonary embolism. No acute findings in the chest. Circumferential wall thickening of the urinary bladder may representacute cystitis. Correlate with urinalysis. Small free-fluid in the pelvis. THIS IS AN ELECTRONICALLY VERIFIED FINAL REPORT 08/31/2024 7:48 PM - Electronically signed by Shea Ca M.D. FT T: Report ID: [id number] Reading Location: [place] [address] [facility] [address] PROCEDURES Final Resul t * Sepsis Lactate w/ Reflex (08/31/2024 5:21 PM CDT) Sepsis Lactate 1.2 0.7 - 2.0 mmol/L Blood 08/31/2024 5:21 PM CDT 08/31/2024 5:28 PM CDT Mykel Diehl DO LAB BLOOD ORDERABLES Final Result [facility] [address] [facility] Department [place] [address] * eGFR (08/31/2024 5:21 PM CDT) eGFR >90 >=60 mL/min/1. 73 m2 Comment: Interpretive Data Reference Interval Normal >/= 90 mL/min/1.73m2 Mildly decreased* 60 - 89 mL/min/1.73m2 Mildly to moderately decreased 45 - 59 mL/min/1.73m2 Moderately to severely decreased 30 - 44 mL/min/1.73m2 Severely decreased 15 - 29 mL/min/1.73m2 Kidney Failure < 15 mL/min/1.73m2 *Relative to young adult level Estimated glomerular filtration rate is determined by the 2020 CKD-EPI equation recommended by the National Kidney Foundation (A Unifying Approach to GFR Estimation: Recommendations of the NKF-ASK Task Force on Reassessing the Inclusion of Race in Diagnosing Kidney Disease, JASN 202). The CKD-EPI equation should not be used for patients with unstable renal function and has not been validated in children and those over 70. Current interpretive data was last reviewed 2021. Blood 08/31/2024 5:21 PM CDT 08/31/2024 5:28 PM CDT [facility] LAB BLOOD ORDERABLES Final Re sult Performing Organization Address [facility]/ZIP Co de Phone Number [address] [place] [address] * Magnesium (08/31/2024 5:21 PM CDT) Pathologist [facility] Magnesium 1.6 1.4 - 2.5 mg/dL Blood 08/31/2024 5:21 PM CDT 08/31/2024 5:28 PM CDT Mykel Diehl DO LAB BLOOD ORDERABLES Final Result Performing Organization Address [facility] Co de Phone Number [address] [address] * (ABNORMAL) Basic metabolic panel (08/31/2024 5:21 PM CDT) Sodium 137 135 - 145 mmol/L Potassium, pl 3.7 3.3 - 4.9 mmol/L [facility] Chloride 101 97 - 110 mmol/L [facility] CO2 23 22 - 32 mmol/L [facility] Anion gap 13 2 - 15 mmol/L [facility] BUN 12 6 - 25 mg/dL [facility] Creatinine 0.35(L) 0.60 - 1.10 mg/dL [facility] Glucose 207(H) 70 - 199 mg/dL [facility] Comment: Interpretive Data Fasting glucose >/= 126 mg/dl is diagnostic for diabetes. Fasting is defined as no caloric intake for at least 8 hours. Fasting glucose between 100 mg/dl to 125 mg/dl is diagnostic of prediabetes. In a patient with classic symptoms of hyperglycemia or hyperglycemic crisis, a random glucose >/= 200 mg/dl is diagnostic for diabetes. In the absence of unequivocal hyperglycemia, results should be confirmed by repeat testing. The classification and Diagnosis of Diabetes Diabetes Care 202; 46: S19-S40. Current interpretive data was last revised 2022. Calcium 8.2(L) 8.5 - 10.3 mg/dL [facility] Blood 08/31/2024 5:21 PM CDT 08/31/2024 5:28 PM CDT Mykel Diehl LAB BLOOD ORDERABLES Final Result [facility] [address] [facility] Department [place] [address] * (ABNORMAL) Urinalysis reflex to microscopic and culture Urine, bladder (08/31/2024 4:44 PM CDT) Color, ur Yellow Yellow Clarity, ur Clear Clear [facility] Specific gravity, ur 1.030 1.003 - 1.030 [facility] pH, urine 7.5 [facility] Comment: Interpretive Data U rine pH is affected by diet, medications, systemic acid-base disturbances, and renal tubular function. pH may affect urinary stone formation. For example, urine pH below 6.0 may help reduce the tendency for calcium phosphate stones and pH greater than 6.0 may reduce the tendency for uric acid stone formation. Source: [facility] Current Interpretive Data was last revised on 2017 Protein, ur ql Negative Negative [facility] Glucose, ur ql 4+(A) Negative [facility] Ketones, ur 4+(A) Negative [facility] Bilirubin, ur Negative Negative [facility] Blood, ur Negative Negative [facility] Urobilinogen, ur <2.0 <2.0 mg/dL [facility] Nitrite, ur Negative Negative [facility] Leukocyte esterase, ur Negative Negative [facility] UA reflex comment Reflex conditions for microscopic UA and culture not met. [facility] Urine, bladder 08/31/2024 4: 44 PM CDT 08/31/2024 4:52 PM CDT [facility] LAB MICROBIOLOGY - GENERAL OR DERABLES Final Result [facility]A [address] [facility] Department [place] [address] * (ABNORMAL) Drugs of Abuse Screen, Urine without Confirmation (08/31/2024 4:44 PM CDT) Amphetamine, ur Not Detected CutOff 500ng/mL Comment: Interpretive Data - Amphetamines: Samples containing greater than 500 ng/mL d-methamphetamine or other cross-reacting amphetamine compounds are reported as positive. Amphetamine immunoassays are subject to significant false positive rates due to cross-reactivity of non-amphetamine drugs. Confirmatory testing required for definitive results. Current Interpretive Data was last reviewed 2022. Barbiturates, ur Not Detected CutOff 200ng/mL [facility] Comment: Interpretive Data - Barbiturates: Samples containing greater than 200 ng/mL secobarbital or other cross-reacting barbiturate compounds are reported as positive. False positive and false negative results are possible. Confirmatory testing required for definitive results. Current Interpretive Data was last reviewed 2022. Benzodiazepines, ur Not Detected CutOff 100ng/mL [facility] Comment: Interpretive Data - Benzodiazepines: Samples containing greater than 100 ng/mL nordiazepam or other cross-reacting compounds are reported as positive. False positive and false negative results are possible. Confirmatory testing required for definitive results. Current Interpretive Data was last reviewed 2022. Cannabinoids, ur Screen Positive, presumptive (A) CutOff 50 ng/mL [facility] Comment: Interpretive Data - Cannabinoids: Samples containing greater than 50 ng/mL delta-9 THC -COOH or other cross- reacting compounds are reported as positive. False positive and false negative results are possible. Confirmatory testing required for definitive results. Current Interpretive Data was last reviewed 2022. Cocaine, ur Not Detected CutOff 150ng/mL [facility] Comment: Interpretive Data - Cocaine: Samples containing greater than 150 ng/mL benzoylecgonine or other cross- reacting compounds are reported as positive. False positive and false negative results are possible. Confirmatory testing required for definitive results. Current Interpretive Data was last reviewed 2022. Fentanyl, Ur Screen Positive, presumptive (A) CutOff 5 ng/mL [facility] Comment: Interpretive Data - Fentanyl: Samples containing greater than 5 ng/mL norfentanyl, fentanyl, or other cross-reacting fentanyl compounds are reported as positive. False positive and false negative results are possible. Confirmatory testing required for definitive results. Current Interpretive Data was last reviewed 2023. Methadone, ur Not Detected CutOff 300ng/mL [facility] Comment: Interpretive Data - Methadone: Samples containing greater than 300 ng/mL d,l-methadone or other cross-reacting compounds are reported as positive. False positive and false negative results are possible. Confirmatory testing required for definitive results. Current Interpretive Data was last reviewed 2022. Opiates, ur Screen Positive, presumptive (A) CutOff 300ng/mL [facility] Comment: Interpretive Data - Opiates: Samples containing greater than 300 ng/mL morphine or other cross-reacting compounds are reported as positive. False positive and false negative results are possible. Confirmatory testing required for definitive results. Current Interpretive Data was last reviewed 2022. Oxycodone, ur Not Detected CutOff 100ng/mL [facility] Comment: Interpretive Data - Oxycodone: Samples containing greater than 100 ng/mL oxycodone or other cross-reacting compounds are reported as positive. False positive and false negative results are possible. Confirmatory testing required for definitive results. Current Interpretive Data was last reviewed 2022. Phencyclidine, ur Not Detected CutOff 25 ng/mL [facility] Comment: Interpretive Data - Phencyclidine: Samples containing greater than 25 ng/mL phencyclidine or other cross-reacting compounds are reported as positive. False positive and false negative results are possible. Confirmatory testing required for definitive results. Current Interpretive Data was last reviewed 2022. Urine Creatinine 85 mg/dL [facility] Comment: Interpretive Data Urine Creatinine: < 10 mg/dL is extremely dilute = or > 10 but < 20 mg/dL is dilute = or > 20 mg/dL is normal Current Interpretive Data was last revised on 2017. Urine 08/31/2024 4:44 PM CDT 08/31/2024 4:52 PM CDT Narrative [facility] - 08/31/2024 5:22 PM CDT Drug of Abuse screening is performed by immunoassay for medical purposes only. This is not to be used for Pain Management purposes. Mykel Diehl DO LAB URINE ORDERABLES Final Result Performing Organization Address [facility] de Phone Number [address] [address] * (ABNORMAL) POCT glucose (08/31/2024 4:19 PM CDT) Glucose, POC 202(H) 70 - 199 mg/dL Glucose comment 1 RN/MD Notified [facility] Glucose comment 2 Use This Result [facility] Blood 08/31/2024 4:19 PM CDT 08/31/2024 4:19 PM CDT Vaishnavi Noble MD LAB POCT ORDERABLES - DEVICE Fin al Result Performing Organization Address [facility] de Phone Number [address] [address] * (ABNORMAL) POCT glucose (08/31/2024 3:44 PM CDT) Glucose, POC 202(H) 70 - 199 mg/dL Glucose comment 1 RN/MD Notified [facility] Blood 08/31/2024 3:44 PM CDT 08/31/2024 3:44 PM CDT Vaishnavi Noble MD LAB POCT ORDERABLES - DEVICE Fin al Result Performing Organization Address [facility] de Phone Number [address] [place] [address] * POCT glucose (08/31/2024 3:00 PM CDT) Glucose, POC 186 70 - 199 mg/dL Glucose comment 1 RN/MD Notified [facility] Blood 08/31/2024 3:00 PM CDT 08/31/2024 3:00 PM CDT Vaishnavi Noble MD LAB POCT ORDERABLES - DEVICE Fin al Result Performing Organization Address [facility]/ZIP Co de Phone Number [address] [place] [address] * POCT glucose (08/31/2024 2:26 PM CDT) [facility] Glucose, POC 199 70 - 199 mg/dL Glucose comment 1 RN/MD Notified [facility] Blood 08/31/2024 2:26 PM CDT 08/31/2024 2:26 PM CDT Vaishnavi Noble MD LAB POCT ORDERABLES - DEVICE Fin al Result Performing Organization Address [facility] de Phone Number [address] [place] [address] * Troponin T high-sensitivity 4-hour (08/31/2024 2:03 PM CDT) [facility] Trop T hs <6 <=14 ng/L Comment: Interpretive Data For further hscTnT resources including the diagnostic algorithm and an aid in interpretation, copy and paste this link: https://nrl.testcatalog.org/show/hsTrop Current Interpretive Data last revised 2020. Trop T hs delta 0 ng/L [facility] Trop T hs interp Insignificant [facility] Blood 08/31/2024 2:03 PM CDT 08/31/2024 2:09 PM CDT Mykel Diehl DO LAB BLOOD ORDERABLES Final Result Performing Organization Address [facility]/ZIP Co de Phone Number [address] [place] [address] * eGFR (08/31/2024 2:03 PM CDT) [facility] eGFR >90 >=60 mL/min/1. 73 m2 Comment: Interpretive Data Reference Interval Normal >/= 90 mL/min/1.73m2 Mildly decreased* 60 - 89 mL/min/1.73m2 Mildly to moderately decreased 45 - 59 mL/min/1.73m2 Moderately to severely decreased 30 - 44 mL/min/1.73m2 Severely decreased 15 - 29 mL/min/1.73m2 Kidney Failure < 15 mL/min/1.73m2 *Relative to young adult level Estimated glomerular filtration rate is determined by the 2020 CKD-EPI equation recommended by the National Kidney Foundation (A Unifying Approach to GFR Estimation: Recommendations of the NKF-ASK Task Force on Reassessing the Inclusion of Race in Diagnosing Kidney Disease, JASN 2020). The CKD-EPI equation should not be used for patients with unstable renal function and has not been validated in children and those over 70. Current interpretive data was last reviewed 2021. Blood 08/31/2024 2:03 PM CDT 08/31/2024 2:09 PM CDT us [facility] LAB BLOOD ORDERABLES Final Re sult [facility] [address] [facility] Department [place] [address] * (ABNORMAL) Basic metabolic panel (08/31/2024 2:03 PM CDT) Pathologist [facility] Sodium 138 135 - 145 mmol/L Potassium, pl 3.3 3.3 - 4.9 mmol/L [facility] Chloride 99 97 - 110 mmol/L [facility] CO2 22 22 - 32 mmol/L [facility] Anion gap 17(H) 2 - 15 mmol/L [facility] BUN 12 6 - 25 mg/dL [facility] Creatinine 0.39(L) 0.60 - 1.10 mg/dL [facility] Glucose 216(H) 70 - 199 mg/dL [facility] Comment: Interpretive Data Fasting glucose >/= 126 mg/dl is diagnostic for diabetes. Fasting is defined as no caloric intake for at least 8 hours. Fasting glucose between 100 mg/dl to 125 mg/dl is diagnostic of prediabetes. In a patient with classic symptoms of hyperglycemia or hyperglycemic crisis, a random glucose >/= 200 mg/dl is diagnostic for diabetes. In the absence of unequivocal hyperglycemia, results should be confirmed by repeat testing. The classification and Diagnosis of Diabetes Diabetes Care 2021; 46: S19-S40. Current interpretive data was last revised 2022. Calcium 8.4(L) 8.5 - 10.3 mg/dL [facility] Blood 08/31/2024 2:03 PM CDT 08/31/2024 2:09 PM CDT [facility] LAB BLOOD ORDERABLES Final Re sult Performing Organization Address City/[facility] Co de Phone Number [address] [place] [address] * (ABNORMAL) POCT glucose (08/31/2024 1:44 PM CDT) Glucose, POC 218(H) 70 - 199 mg/dL Glucose comment 1 RN/MD Notified [facility] Blood 08/31/2024 1:44 PM CDT 08/31/2024 1:44 PM CDT Keenan Palacios MD LAB POCT ORDERABLES - DE VICE Final Result Performing Organization Address [facility] Co de Phone Number [address] [place] [address] * (ABNORMAL) POCT glucose (08/31/2024 12:27 PM CDT) Glucose, POC 228(H) 70 - 199 mg/dL Blood 08/31/2024 12:2 7 PM CDT 08/31/2024 12:27 PM CDT Keenan Palacios MD LAB POCT ORDERABLES - DE VICE Final Result Performing Organization Address [facility] Co de Phone Number [address] [address] * Troponin T high-sensitivity 2-hour (08/31/2024 11:48 AM CDT) Trop T hs <6 <=14 ng/L Comment: Interpretive Data For further hscTnT resources including the diagnostic algorithm and an aid in interpretation, copy and paste this link: https://nrl.testcatalog.org/show/hsTrop Current Interpretive Data last revised 2020. Trop T hs delta 0 ng/L [facility] Trop T hs interp Insignificant [facility] Blood 08/31/2024 11:4 8 AM CDT 08/31/2024 11:54 AM CDT Mykel Choudhury [facility] LAB BLOOD ORDERABLES Final Result Performing Organization Address City/[facility]/ZIP Co de Phone Number [address] [place] [address] * (ABNORMAL) Lactate (08/31/2024 11:48 AM CDT) [facility] Lactate 2.5(H) 0.7 - 2.0 mmol/L Blood 08/31/2024 11:4 8 AM CDT 08/31/2024 11:53 AM CDT Mykel [facility] LAB BLOOD ORDERABLES Final Result Performing Organization Address [facility] Co de Phone Number [address] [address] * eGFR (08/31/2024 11:48 AM CDT) [facility] eGFR >90 >=60 mL/min/1. 73 m2 Comment: Interpretive Data Reference Interval Normal >/= 90 mL/min/1.73m2 Mildly decreased* 60 - 89 mL/min/1.73m2 Mildly to moderately decreased 45 - 59 mL/min/1.73m2 Moderately to severely decreased 30 - 44 mL/min/1.73m2 Severely decreased 15 - 29 mL/min/1.73m2 Kidney Failure < 15 mL/min/1.73m2 *Relative to young adult level Estimated glomerular filtration rate is determined by the 2020 CKD-EPI equation recommended by the National Kidney Foundation (A Unifying Approach to GFR Estimation: Recommendations of the NKF-ASK Task Force on Reassessing the Inclusion of Race in Diagnosing Kidney Disease, JASN 202). The CKD-EPI equation should not be used for patients with unstable renal function and has not been validated in children and those over 70. Current interpretive data was last reviewed 2021. Blood 08/31/2024 11:4 8 AM CDT 08/31/2024 11:54 AM CDT Mykel Choudhury [facility] LAB BLOOD ORDERABLES Final Result Performing Organization Address [facility] Co de Phone Number [address] [address] * (ABNORMAL) Beta-hydroxybutyrate (08/31/2024 11:48 AM CDT) Beta-Hydroxybut yrate 1.7(H) <=0.5 mmol/L Blood 08/31/2024 11:4 8 AM CDT 08/31/2024 11:54 AM CDT Mykel Choudhury Diehl DO LAB BLOOD ORDERABLES Final Result Performing Organization Address [facility] de Phone Number [address] [address] * (ABNORMAL) Phosphorus (08/31/2024 11:48 AM CDT) Phosphorus, pl 2.2(L) 2.3 - 4.5 mg/dL Blood 08/31/2024 11:4 8 AM CDT 08/31/2024 11:54 AM CDT [facility] Final Result Performing Organization Address [facility] Co de Phone Number MICHEL[address] [address] * Magnesium (08/31/2024 11:48 AM CDT) Magnesium 2.1 1.4 - 2.5 mg/dL Blood 08/31/2024 11:4 8 AM CDT 08/31/2024 11:54 AM CDT Mykel Choudhury [facility] LAB BLOOD ORDERABLES Final Result Performing Organization Address [facility] de Phone Number MICHEL[address] [address] * (ABNORMAL) Hemoglobin A1c (08/31/2024 11:48 AM CDT) [facility] Hgb A1C 14.7(H) 4.0 - 5.6 % Estimated Average Glucose 375 mg/dL [facility] Comment: The ADA recommends reporting an estimated Average Glucose (eAG) with all Hemoglobin A1c results using the equation derived from a study of 507 normal and diabetic adults. Minority populations were underrepresented and children were not included. (Diabetes Care 31:0930-1728, 2008). The eAG is not equivalent to a fasting glucose. Blood 08/31/2024 11:4 8 AM CDT 08/31/2024 11:54 AM CDT [facility] Final Result Performing Organization Address [facility] de Phone Number [address] [address] * (ABNORMAL) Basic metabolic panel (08/31/2024 11:48 AM CDT) [facility] Sodium 138 135 - 145 mmol/L Potassium, pl 3.3 3.3 - 4.9 mmol/L [facility] Chloride 99 97 - 110 mmol/L [facility] CO2 23 22 - 32 mmol/L [facility] Anion gap 16(H) 2 - 15 mmol/L [facility] BUN 13 6 - 25 mg/dL [facility] Creatinine 0.36(L) 0.60 - 1.10 mg/dL [facility] Glucose 210(H) 70 - 199 mg/dL [facility] Comment: Interpretive Data Fasting glucose >/= 126 mg/dl is diagnostic for diabetes. Fasting is defined as no caloric intake for at least 8 hours. Fasting glucose between 100 mg/dl to 125 mg/dl is diagnostic of prediabetes. In a patient with classic symptoms of hyperglycemia or hyperglycemic crisis, a random glucose >/= 200 mg/dl is diagnostic for diabetes. In the absence of unequivocal hyperglycemia, results should be confirmed by repeat testing. The classification and Diagnosis of Diabetes Diabetes Care 2021; 46: S19-S40. Current interpretive data was last revised 2022. Calcium 9.0 8.5 - 10.3 mg/dL DANIELLA Blood 08/31/2024 11:4 8 AM CDT 08/31/2024 11:54 AM CDT [facility] BLOOD ORDERABLES Final Result Performing Organization Address [facility]/ZIP Co de Phone Number [address] [place] [address] * (ABNORMAL) POC Blood Gas and Chemistries, Venous - (08/31/2024 10:59 AM CDT) pH,nas POC 7.40 7.32 - 7.43 pCO2, nas POC 37(L) 40 - 50 mmHg [facility] pO2,nas POC 50 mmHg [facility] Comment: Interpretive Data No reference range established. Current interpretive data was last revised 2019. HCO3, nas (Calc) POC 23 20 - 30 mmol/L [facility] Base excess, nas POC -2 mmol/L [facility] Comment: Interpretive Data No reference range established. Current interpretive data was last revised 2019. Blood 08/31/2024 10:5 9 AM CDT 08/31/2024 10:59 AM CDT Mykel Diehl LAB POCT ORDERABLES - DEVIC E Final Result Performing Organization Address [facility]/ZIP Co de Phone Number [address] [address] * XR Chest 1 Vw Portable (08/31/2024 10:08 AM CDT) Anatomical Region Laterality Modality Body, Chest N/A Computed Radiogr aphy 08/31/2024 11:1 0 AM CDT Narrative 08/31/2024 11:11 AM CDT EXAM DESCRIPTION: XR CHEST 1 VIEW REASON FOR STUDY: Abdominal pain, acute, nonlocalized Pt with onset last evening of mid upper abdo pain with nausea, weakness TECHNIQUE: Single frontal radiographic view(s) of the chest. COMPARISON: 08/09/2024 FINDINGS: The heart, mediastinum, and pulmonary vasculature are grossly stable. There is no definite evidence of a pneumothorax. There is no definite evidence of a focal consolidation or pleural effusion. The osseous structures are acutely grossly stable. IMPRESSION: No acute cardiopulmonary abnormality. THIS IS AN ELECTRONICALLY VERIFIED FINAL REPORT 08/31/2024 11:11 AM - Electronically signed by Patrick Nuñez D.O. PS T: Report ID: [id number] Reading Location: [id number] Procedure Note Patrick Nuñez DO - 08/31/2024 EXAM DESCRIPTION: XR CHEST 1 VIEW REASON FOR STUDY: Abdominal pain, acute, nonlocalized Pt with onset last evening of mid upper abdo pain with nausea, weakness TECHNIQUE: Single frontal radiographic view(s) of the chest. COMPARISON: 08/09/2024 FINDINGS: The heart, mediastinum, and pulmonary vasculature are grossly stable. There is no definite evidence of a pneumothorax. There is no definite evidence of a focal consolidation or pleural effusion. The osseous structures are acutely grossly stable. IMPRESSION: No acute cardiopulmonary abnormality. THIS IS AN ELECTRONICALLY VERIFIED FINAL REPORT 08/31/2024 11:11 AM - Electronically signed by Patrick Nuñez D.O. PS T: Report ID: [id number] Reading Location: [id number] Mykel Diehl DO IMG XR PROCEDURES Final Res ult * ECG 12 lead (08/31/2024 9:58 AM CDT) Ventricular Rate EKG/Min 82 BPM [facility] Atrial Rate 82 BPM [facility] AZ-Interval (MSEC) 122 ms [facility] QRS-Interval (MSEC) 88 ms [facility] QT-Interval (MSEC) 402 ms [facility] QTc 469 ms [facility] P Divide 66 degrees [facility] R Divide 72 degrees [facility] T Divide 64 degrees [facility] Diagnosis Normal sinus rhythm Nonspecific T wave abnormality Prolonged QT Abnormal ECG When compared with ECG of 09-AUG-2024 06:01, Nonspecific T wave abnormality now evident in Anterolateral leads Confirmed by JEIMY MIGUEL M.D. ([id number]) on 09/01/2024 8:15:14 AM [facility] 08/31/2024 9:58 AM CDT 09/01/2024 8:15 AM CDT Mykel Diehl DO ECG ORDERABLES Final Resul t Performing Organization Address City/[facility]/ZIP Co de Phone Number [facility] * Troponin T high-sensitivity series (baseline, 2hr, 4hr, 6hr) (08/31/2024 9:43 AM CDT) [facility] Trop T hs <6 <=14 ng/L Comment: Interpretive Data For further hscTnT resources including the diagnostic algorithm and an aid in interpretation, copy and paste this link: [email or web address] Current Interpretive Data last revised 2020. Blood 08/31/2024 9:43 AM CDT 08/31/2024 9:51 AM CDT Mykel Kei Diehl DO LAB BLOOD ORDERABLES Final Result DANIELLA [address] [facility] [place] [address] * (ABNORMAL) Sepsis Lactate w/ Reflex (08/31/2024 9:43 AM CDT) [facility] Sepsis Lactate 6.6(C) 0.7 - 2.0 mmol/L Comment:Critical Result call ed to and read back by [email or web address], DATE: 2024-08-31 10:10:25 BY: [id number] Blood 08/31/2024 9:43 AM CDT 08/31/2024 9:50 AM CDT Mykel Diehl DO LAB BLOOD ORDERABLES Final Result Performing Organization Address City/[facility] Co de Phone Number [address] [place] [address] * eGFR (08/31/2024 9:43 AM CDT) [facility] eGFR >90 >=60 mL/min/1. 73 m2 Comment: Interpretive Data Reference Interval Normal >/= 90 mL/min/1.73m2 Mildly decreased* 60 - 89 mL/min/1.73m2 Mildly to moderately decreased 45 - 59 mL/min/1.73m2 Moderately to severely decreased 30 - 44 mL/min/1.73m2 Severely decreased 15 - 29 mL/min/1.73m2 Kidney Failure < 15 mL/min/1.73m2 *Relative to young adult level Estimated glomerular filtration rate is determined by the 2020 CKD-EPI equation recommended by the National Kidney Foundation (A Unifying Approach to GFR Estimation: Recommendations of the NKF-ASK Task Force on Reassessing the Inclusion of Race in Diagnosing Kidney Disease, JASN 202). The CKD-EPI equation should not be used for patients with unstable renal function and has not been validated in children and those over 70. Current interpretive data was last reviewed 2021. Blood 08/31/2024 9:43 AM CDT 08/31/2024 9:51 AM CDT Mykel Kei Renehu DO LAB BLOOD ORDERABLES Final Result Performing Organization Address City/[facility] Co de Phone Number [address] [place] [address] * Differential, auto (08/31/2024 9:43 AM CDT) Neutrophil abs 5.47 1.50 - 6.50 K/cumm Imm gran abs 0.02 0.00 - 0.10 K/cumm [facility] Lymphocyte abs 1.41 0.80 - 3.30 K/cumm [facility] Monocyte abs 0.54 0.20 - 0.80 K/cumm [facility] Eosinophil abs 0.09 0.00 - 0.50 K/cumm [facility] Basophil abs 0.03 0.00 - 0.10 K/cumm [facility] Neutrophil pct 72.3 % [facility] Comment: Interpretive Data Percent cell count reference ranges are not reported, since discordance with absolute values may lead to misinterpretation of CBC data. Current Interpretive Data was last revised on 2017. Imm gran pct 0.3 % [facility] Comment: Interpretive Data Percent cell count reference ranges are not reported, since discordance with absolute values may lead to misinterpretation of CBC data. Current Interpretive Data was last revised on 2017. Lymphocyte pct 18.7 % [facility] Comment: Interpretive Data Percent cell count reference ranges are not reported, since discordance with absolute values may lead to misinterpretation of CBC data. Current Interpretive Data was last revised on 2017. Monocyte pct 7.1 % [facility] Comment: Interpretive Data Percent cell count reference ranges are not reported, since discordance with absolute values may lead to misinterpretation of CBC data. Current Interpretive Data was last revised on 2017. Eosinophil pct 1.2 % [facility] Comment: Interpretive Data Percent cell count reference ranges are not reported, since discordance with absolute values may lead to misinterpretation of CBC data. Current Interpretive Data was last revised on 2017. Basophil pct 0.4 % [facility] Comment: Interpretive Data Percent cell count reference ranges are not reported, since discordance with absolute values may lead to misinterpretation of CBC data. Current Interpretive Data was last revised on 2017. Blood 08/31/2024 9:43 AM CDT 08/31/2024 9:50 AM CDT Mykel Diehl DO LAB BLOOD ORDERABLES Final Result [address] [place] [address] * (ABNORMAL) Beta-hydroxybutyrate (08/31/2024 9:43 AM CDT) [facility] Beta-Hydroxybut yrate 2.7(H) <=0.5 mmol/L Blood 08/31/2024 9:43 AM CDT 08/31/2024 11:12 AM CDT Mykel Diehl LAB BLOOD ORDERABLES Final Result Performing Organization Address City/[facility]/ZIP Co de Phone Number [address] [address] * (ABNORMAL) CBC with auto differential (08/31/2024 9:43 AM CDT) [facility] WBC 7.56 3.80 - 9.90 K/cumm Hgb 14.1 11.9 - 15.5 g/dL [facility] Hct 43.6 35.6 - 45.5 % [facility] Plt 336 150 - 400 K/cumm [facility] MPV 11.0 9.1 - 12.3 fL [facility] RBC 5.26(H) 3.90 - 5.20 M/cumm [facility] MCV 82.9 81.3 - 96.4 fL [facility] MCH 26.8(L) 27.1 - 33.3 pg [facility] MCHC 32.3 32.3 - 35.7 g/dL [facility] RDW CV 15.5(H) 11.1 - 14.9 % [facility] RDW SD 46.0 35.7 - 48.1 fL [facility] NRBC abs 0.00 0.00 - 0.01 K/cumm [facility] Blood 08/31/2024 9:43 AM CDT 08/31/2024 9:50 AM CDT Mykel Diehl LAB BLOOD ORDERABLES Final Result Performing Organization Address City/[facility]/ZIP Co de Phone Number [address] [place] [address] * hCG, blood, quantitative (08/31/2024 9:43 AM CDT) Pathologist [facility] hCG, quant <5.0 0.0 - 5.0 IUnits/L Comment: Interpretive Data Male: < 5 IU/L Non- premenopausal Female: <5 IU/L The [employer] hCG Beta Quant assay procedure was used. Results from different manufacturers or methods may not be comparable. Serial testing should be performed using the same method. Interpretive Data was last revised on 2023 Blood 08/31/2024 9:43 AM CDT 08/31/2024 9:51 AM CDT [facility] BLOOD [facility]LES Final Result Performing Organization Address [facility] Co de Phone Number [address] [address] * Creatine kinase (CK), total (08/31/2024 9:43 AM CDT) [facility] CK 41 30 - 200 Units/L Blood 08/31/2024 9:43 AM CDT 08/31/2024 9:51 AM CDT [facility] BLOOD ORDERABLES Final Result Performing Organization Address City/[facility] Co de Phone Number [address] [address] * Ethanol (08/31/2024 9:43 AM CDT) [facility] Ethanol <10 <=10 mg/dL Comment: Interpretive Data Legal limit of intoxication > or = 80 mg/dL Levels > or = 400 mg/dL are potentially TOXIC. Current interpretive data was last revised on 2018. Blood 08/31/2024 9:43 AM CDT 08/31/2024 9:51 AM CDT us [facility] BLOOD ORDERABLES Final Result [facility] [address] [facility] Department [place] [address] * (ABNORMAL) Comprehensive metabolic panel (08/31/2024 9:43 AM CDT) Sodium 138 135 - 145 mmol/L Potassium, pl 3.5 3.3 - 4.9 mmol/L [facility] Comment:Hemolyzed; Potassium value may be falsely elevated by as much as 1.0 mmol/L. Suggest redraw and reanalysis. Chloride 93(L) 97 - 110 mmol/L [facility] CO2 20(L) 22 - 32 mmol/L [facility] Anion gap 25(H) 2 - 15 mmol/L [facility] BUN 14 6 - 25 mg/dL [facility] Creatinine 0.45(L) 0.60 - 1.10 mg/dL [facility] Glucose 282(H) 70 - 199 mg/dL [facility] Comment: Interpretive Data Fasting glucose >/= 126 mg/dl is diagnostic for diabetes. Fasting is defined as no caloric intake for at least 8 hours. Fasting glucose between 100 mg/dl to 125 mg/dl is diagnostic of prediabetes. In a patient with classic symptoms of hyperglycemia or hyperglycemic crisis, a random glucose >/= 200 mg/dl is diagnostic for diabetes. In the absence of unequivocal hyperglycemia, results should be confirmed by repeat testing. The classification and Diagnosis of Diabetes Diabetes Care 2021; 46: S19-S40. Current interpretive data was last revised 2022. Calcium 10.3 8.5 - 10.3 mg/dL [facility] Bilirubin, total 0.3 0.1 - 1.2 mg/dL [facility] Protein, pl 8.0 6.5 - 8.5 g/dL [facility] Albumin 4.2 3.5 - 5.0 g/dL [facility] Alk phos 124 40 - 130 Units/L [facility] ALT 37 7 - 45 Units/L [facility] AST See Comment 10 - 45 [facility] Comment:Credited; Hemolyzed Specimen Blood 08/31/2024 9:43 AM CDT 08/31/2024 9:51 AM CDT Mykel Kei Diehl DO LAB BLOOD ORDERABLES Final Result Performing Organization Address [facility] Co de Phone Number [address] [address] * eGFR (08/10/2024 12:13 PM CDT) eGFR >90 >=60 mL/min/1. 73 m2 Comment: Interpretive Data Reference Interval Normal >/= 90 mL/min/1.73m2 Mildly decreased* 60 - 89 mL/min/1.73m2 Mildly to moderately decreased 45 - 59 mL/min/1.73m2 Moderately to severely decreased 30 - 44 mL/min/1.73m2 Severely decreased 15 - 29 mL/min/1.73m2 Kidney Failure < 15 mL/min/1.73m2 *Relative to young adult level Estimated glomerular filtration rate is determined by the 2020 CKD-EPI equation recommended by the National Kidney Foundation (A Unifying Approach to GFR Estimation: Recommendations of the NKF-ASK Task Force on Reassessing the Inclusion of Race in Diagnosing Kidney Disease, JASN 2020). The CKD-EPI equation should not be used for patients with unstable renal function and has not been validated in children and those over 70. Current interpretive data was last reviewed 2021. Blood 08/10/2024 12:1 3 PM CDT 08/10/2024 12:25 PM CDT Mykel BEAVERS LAB BLOOD ORDERABLES Fi nal Result Performing Organization Address [facility]/ZIP Co de Phone Number DANIELLA [address] [place] [address] * Phosphorus (08/10/2024 12:13 PM CDT) Phosphorus, pl 2.5 2.3 - 4.5 mg/dL Blood 08/10/2024 12:1 3 PM CDT 08/10/2024 12:25 PM CDT Mykel BEAVERS LAB BLOOD ORDERABLES Fi nal Result Performing Organization Address City/[facility]/ZIP Co de Phone Number [facility] [address] [place] [address] * Magnesium (08/10/2024 12:13 PM CDT) [facility] Magnesium 1.7 1.4 - 2.5 mg/dL Blood 08/10/2024 12:1 3 PM CDT 08/10/2024 12:25 PM CDT Mykel Philippe Manning [place] LAB BLOOD ORDERABLES Fi nal Result Performing Organization Address [facility] de Phone Number [address] [address] * (ABNORMAL) Basic metabolic panel (08/10/2024 12:13 PM CDT) [facility] Sodium 136 135 - 145 mmol/L Potassium, pl 3.4 3.3 - 4.9 mmol/L [facility] Chloride 105 97 - 110 mmol/L [facility] CO2 21(L) 22 - 32 mmol/L [facility] Anion gap 10 2 - 15 mmol/L [facility] BUN 9 6 - 25 mg/dL [facility] Creatinine 0.38(L) 0.60 - 1.10 mg/dL [facility] Glucose 262(H) 70 - 199 mg/dL [facility] Comment: Interpretive Data Fasting glucose >/= 126 mg/dl is diagnostic for diabetes. Fasting is defined as no caloric intake for at least 8 hours. Fasting glucose between 100 mg/dl to 125 mg/dl is diagnostic of prediabetes. In a patient with classic symptoms of hyperglycemia or hyperglycemic crisis, a random glucose >/= 200 mg/dl is diagnostic for diabetes. In the absence of unequivocal hyperglycemia, results should be confirmed by repeat testing. The classification and Diagnosis of Diabetes Diabetes Care 2021; 46: S19-S40. Current interpretive data was last revised 2022. Calcium 9.0 8.5 - 10.3 mg/dL [facility] Blood 08/10/2024 12:1 3 PM CDT 08/10/2024 12:25 PM CDT Mykel BEAVERS LAB BLOOD ORDERABLES Fi nal Result Performing Organization Address [facility] Co de Phone Number [address] [address] * (ABNORMAL) POCT glucose (08/10/2024 11:00 AM CDT) Glucose, POC 237(H) 70 - 199 mg/dL Glucose comment 1 Use This Result [facility] Glucose comment 2 RN/MD Notified [facility] Blood 08/10/2024 11:0 0 AM CDT 08/10/2024 11:00 AM CDT Carroll Tony MD LAB POCT ORDERABLES - DEVICE Final Result Performing Organization Address [facility] Co de Phone Number [address] [place] [address] * POCT glucose (08/10/2024 7:57 AM CDT) [facility] Glucose, POC 170 70 - 199 mg/dL Glucose comment 1 Use This Result [facility] Glucose comment 2 RN/MD Notified [facility] Blood 08/10/2024 7:57 AM CDT 08/10/2024 7:57 AM CDT Carroll Tony MD LAB POCT ORDERABLES - DEVICE Final Result Performing Organization Address [facility] Co de Phone Number [address] [place] [address] * eGFR (08/10/2024 7:46 AM CDT) Pathologist [facility] eGFR >90 >=60 mL/min/1. 73 m2 Comment: Interpretive Data Reference Interval Normal >/= 90 mL/min/1.73m2 Mildly decreased* 60 - 89 mL/min/1.73m2 Mildly to moderately decreased 45 - 59 mL/min/1.73m2 Moderately to severely decreased 30 - 44 mL/min/1.73m2 Severely decreased 15 - 29 mL/min/1.73m2 Kidney Failure < 15 mL/min/1.73m2 *Relative to young adult level Estimated glomerular filtration rate is determined by the 2020 CKD-EPI equation recommended by the National Kidney Foundation (A Unifying Approach to GFR Estimation: Recommendations of the NKF-ASK Task Force on Reassessing the Inclusion of Race in Diagnosing Kidney Disease, JASN 2020). The CKD-EPI equation should not be used for patients with unstable renal function and has not been validated in children and those over 70. Current interpretive data was last reviewed 2021. Blood 08/10/2024 7:46 AM CDT 08/10/2024 7:52 AM CDT Mykel BEAVERS LAB BLOOD ORDERABLES Fi nal Result Performing Organization Address [facility] Co de Phone Number [address] [place] [address] * Phosphorus (08/10/2024 7:46 AM CDT) Phosphorus, pl 2.4 2.3 - 4.5 mg/dL Blood 08/10/2024 7:46 AM CDT 08/10/2024 7:52 AM CDT Mykel BEAVERS LAB BLOOD ORDERABLES Fi nal Result Performing Organization Address City/[facility] Co de Phone Number [address] [place] [address] * Magnesium (08/10/2024 7:46 AM CDT) Magnesium 1.7 1.4 - 2.5 mg/dL Blood 08/10/2024 7:46 AM CDT 08/10/2024 7:52 AM CDT Mykel BEAVERS LAB BLOOD ORDERABLES Fi nal Result Performing Organization Address [facility]/ZIP Co de Phone Number DANIELLA [address] [place] [address] * (ABNORMAL) Basic metabolic panel (08/10/2024 7:46 AM CDT) [facility] Sodium 137 135 - 145 mmol/L Potassium, pl 3.6 3.3 - 4.9 mmol/L [facility] Chloride 107 97 - 110 mmol/L [facility] CO2 21(L) 22 - 32 mmol/L [facility] Anion gap 9 2 - 15 mmol/L [facility] BUN 8 6 - 25 mg/dL [facility] Creatinine 0.37(L) 0.60 - 1.10 mg/dL [facility] Glucose 185 70 - 199 mg/dL [facility] Comment: Interpretive Data Fasting glucose >/= 126 mg/dl is diagnostic for diabetes. Fasting is defined as no caloric intake for at least 8 hours. Fasting glucose between 100 mg/dl to 125 mg/dl is diagnostic of prediabetes. In a patient with classic symptoms of hyperglycemia or hyperglycemic crisis, a random glucose >/= 200 mg/dl is diagnostic for diabetes. In the absence of unequivocal hyperglycemia, results should be confirmed by repeat testing. The classification and Diagnosis of Diabetes Diabetes Care 2021; 46: S19-S40. Current interpretive data was last revised 2022. Calcium 8.9 8.5 - 10.3 mg/dL [facility] Blood 08/10/2024 7:46 AM CDT 08/10/2024 7:52 AM CDT Mykel BEAVERS LAB BLOOD ORDERABLES Fi nal Result Performing Organization Address [facility] Co de Phone Number MICHEL[address] [place] [address] * eGFR (08/10/2024 4:14 AM CDT) [facility] eGFR >90 >=60 mL/min/1. 73 m2 Comment: Interpretive Data Reference Interval Normal >/= 90 mL/min/1.73m2 Mildly decreased* 60 - 89 mL/min/1.73m2 Mildly to moderately decreased 45 - 59 mL/min/1.73m2 Moderately to severely decreased 30 - 44 mL/min/1.73m2 Severely decreased 15 - 29 mL/min/1.73m2 Kidney Failure < 15 mL/min/1.73m2 *Relative to young adult level Estimated glomerular filtration rate is determined by the 2020 CKD-EPI equation recommended by the National Kidney Foundation (A Unifying Approach to GFR Estimation: Recommendations of the NKF-ASK Task Force on Reassessing the Inclusion of Race in Diagnosing Kidney Disease, JASN 2020). The CKD-EPI equation should not be used for patients with unstable renal function and has not been validated in children and those over 70. Current interpretive data was last reviewed 2021. Blood 08/10/2024 4:14 AM CDT 08/10/2024 4:50 AM CDT us Demetrio Nichols MD LAB BLOOD ORDERABLES Final R esult [place] [id number] [facility] [place] [address] * Differential, auto (08/10/2024 4:14 AM CDT) Pathologist [facility] Neutrophil abs 2.31 1.50 - 6.50 K/cumm Imm gran abs 0.01 0.00 - 0.10 K/cumm [facility] Lymphocyte abs 1.70 0.80 - 3.30 K/cumm [facility] Monocyte abs 0.45 0.20 - 0.80 K/cumm [facility] Eosinophil abs 0.08 0.00 - 0.50 K/cumm [facility] Basophil abs 0.02 0.00 - 0.10 K/cumm [facility] Neutrophil pct 50.6 % [facility] Comment: Interpretive Data Percent cell count reference ranges are not reported, since discordance with absolute values may lead to misinterpretation of CBC data. Current Interpretive Data was last revised on 2017. Imm gran pct 0.2 % [facility] Comment: Interpretive Data Percent cell count reference ranges are not reported, since discordance with absolute values may lead to misinterpretation of CBC data. Current Interpretive Data was last revised on 2017. Lymphocyte pct 37.2 % [facility] Comment: Interpretive Data Percent cell count reference ranges are not reported, since discordance with absolute values may lead to misinterpretation of CBC data. Current Interpretive Data was last revised on 2017. Monocyte pct 9.8 % [facility] Comment: Interpretive Data Percent cell count reference ranges are not reported, since discordance with absolute values may lead to misinterpretation of CBC data. Current Interpretive Data was last revised on 2017. Eosinophil pct 1.8 % [facility] Comment: Interpretive Data Percent cell count reference ranges are not reported, since discordance with absolute values may lead to misinterpretation of CBC data. Current Interpretive Data was last revised on 2017. Basophil pct 0.4 % [facility] Comment: Interpretive Data Percent cell count reference ranges are not reported, since discordance with absolute values may lead to misinterpretation of CBC data. Current Interpretive Data was last revised on 2017. Blood 08/10/2024 4:14 AM CDT 08/10/2024 4:50 AM CDT Mykel BEAVERS LAB BLOOD ORDERABLES Fi nal Result Performing Organization Address City/[facility]/ZIP Co de Phone Number [address] [address] * Thyroid Function [place] (08/10/2024 4:14 AM CDT) Pathologist [facility] TSH 1.66 0.30 - 4.20 mcIUnit/mL Blood 08/10/2024 4:14 AM CDT 08/10/2024 4:50 AM CDT Carroll Tony MD LAB BLOOD ORDERABLES Final Result Performing Organization Address City/[facility]/ZIP Co de Phone Number [address] [address] * Calcium, ionized (08/10/2024 4:14 AM CDT) Pathologist [facility] Calcium, Ionized 4.85 4.50 - 5.10 mg/dL Blood 08/10/2024 4:14 AM CDT 08/10/2024 4:50 AM CDT Mykel BEAVERS LAB BLOOD ORDERABLES Fi nal Result Performing Organization Address [facility] Co de Phone Number [facility] [address] [place] [address] * (ABNORMAL) CBC with auto differential (08/10/2024 4:14 AM CDT) [facility] WBC 4.57 3.80 - 9.90 K/cumm Hgb 11.9 11.9 - 15.5 g/dL [facility] Comment:This result [place] been called [place] [id number] by [email or web address] on 08/10/2024 05:08:04. Results Called. Hct 37.4 35.6 - 45.5 % [facility] Plt 260 150 - 400 K/cumm [facility] MPV 11.0 9.1 - 12.3 fL [facility] RBC 4.47 3.90 - 5.20 M/cumm [facility] MCV 83.7 81.3 - 96.4 fL [facility] MCH 26.6(L) 27.1 - 33.3 pg [facility] MCHC 31.8(L) 32.3 - 35.7 g/dL [facility] RDW CV 14.2 11.1 - 14.9 % [facility] RDW SD 43.1 35.7 - 48.1 fL [facility] NRBC abs 0.00 0.00 - 0.01 K/cumm [facility] Blood 08/10/2024 4:14 AM CDT 08/10/2024 4:50 AM CDT Mykel BEAVERS LAB BLOOD ORDERABLES Fi nal Result Performing Organization Address City/[facility]/ZIP Co de Phone Number [facility] [address] [place] [address] * Phosphorus (08/10/2024 4:14 AM CDT) [facility] Phosphorus, pl 2.4 2.3 - 4.5 mg/dL Blood 08/10/2024 4:14 AM CDT 08/10/2024 4:50 AM CDT Mykel Philippe Manning [place] LAB BLOOD ORDERABLES Fi nal Result Performing Organization Address [facility] de Phone Number [address] [place] [address] * Magnesium (08/10/2024 4:14 AM CDT) [facility] Magnesium 1.7 1.4 - 2.5 mg/dL Blood 08/10/2024 4:14 AM CDT 08/10/2024 4:50 AM CDT [facility]kel [facility] LAB BLOOD ORDERABLES Fi nal Result Performing Organization Address [facility] Phone Number [address] [address] * (ABNORMAL) Basic metabolic panel (08/10/2024 4:14 AM CDT) [facility] Sodium 135 135 - 145 mmol/L Potassium, pl 3.8 3.3 - 4.9 mmol/L [facility] Chloride 106 97 - 110 mmol/L [facility] CO2 19(L) 22 - 32 mmol/L [facility] Anion gap 10 2 - 15 mmol/L [facility] BUN 10 6 - 25 mg/dL [facility] Creatinine 0.39(L) 0.60 - 1.10 mg/dL [facility] Glucose 233(H) 70 - 199 mg/dL [facility] Comment: Interpretive Data Fasting glucose >/= 126 mg/dl is diagnostic for diabetes. Fasting is defined as no caloric intake for at least 8 hours. Fasting glucose between 100 mg/dl to 125 mg/dl is diagnostic of prediabetes. In a patient with classic symptoms of hyperglycemia or hyperglycemic crisis, a random glucose >/= 200 mg/dl is diagnostic for diabetes. In the absence of unequivocal hyperglycemia, results should be confirmed by repeat testing. The classification and Diagnosis of Diabetes Diabetes Care 2021; 46: S19-S40. Current interpretive data was last revised 2022. Calcium 8.7 8.5 - 10.3 mg/dL DANIELLA Blood 08/10/2024 4:14 AM CDT 08/10/2024 4:50 AM CDT Mykel BEAVERS LAB BLOOD ORDERABLES Fi nal Result Performing Organization Address [facility]/ZIP Co de Phone Number [address] [place] [address] * eGFR (08/09/2024 11:46 PM CDT) eGFR >90 >=60 mL/min/1. 73 m2 Comment: Interpretive Data Reference Interval Normal >/= 90 mL/min/1.73m2 Mildly decreased* 60 - 89 mL/min/1.73m2 Mildly to moderately decreased 45 - 59 mL/min/1.73m2 Moderately to severely decreased 30 - 44 mL/min/1.73m2 Severely decreased 15 - 29 mL/min/1.73m2 Kidney Failure < 15 mL/min/1.73m2 *Relative to young adult level Estimated glomerular filtration rate is determined by the 2020 CKD-EPI equation recommended by the National Kidney Foundation (A Unifying Approach to GFR Estimation: Recommendations of the NKF-ASK Task Force on Reassessing the Inclusion of Race in Diagnosing Kidney Disease, JASN 2020). The CKD-EPI equation should not be used for patients with unstable renal function and has not been validated in children and those over 70. Current interpretive data was last reviewed 2021. Blood 08/09/2024 11:4 6 PM CDT 08/09/2024 11:58 PM CDT Demetrio Nichols MD LAB BLOOD ORDERABLES Final R esult Performing Organization Address City/[facility]/ZIP Co de Phone Number [address] [place] [address] * Phosphorus (08/09/2024 11:46 PM CDT) [facility] Phosphorus, pl 2.8 2.3 - 4.5 mg/dL Blood 08/09/2024 11:4 6 PM CDT 08/09/2024 11:58 PM CDT Mykel Manning [place] LAB BLOOD ORDERABLES Fi nal Result Performing Organization Address [facility] de Phone Number [address] [place] [address] * Magnesium (08/09/2024 11:46 PM CDT) [facility] Magnesium 1.9 1.4 - 2.5 mg/dL Blood 08/09/2024 11:4 6 PM CDT 08/09/2024 11:58 PM CDT Mykel Manning [place] LAB BLOOD ORDERABLES Fi nal Result Performing Organization Address [facility] Phone Number [address] [place] [address] * (ABNORMAL) Basic metabolic panel (08/09/2024 11:46 PM CDT) [facility] Sodium 135 135 - 145 mmol/L Potassium, pl 4.2 3.3 - 4.9 mmol/L [facility] Chloride 106 97 - 110 mmol/L [facility] CO2 19(L) 22 - 32 mmol/L [facility] Anion gap 10 2 - 15 mmol/L [facility] BUN 10 6 - 25 mg/dL [facility] Creatinine 0.47(L) 0.60 - 1.10 mg/dL [facility] Glucose 270(H) 70 - 199 mg/dL [facility] Comment: Delta - Results Reviewed Interpretive Data Fasting glucose >/= 126 mg/dl is diagnostic for diabetes. Fasting is defined as no caloric intake for at least 8 hours. Fasting glucose between 100 mg/dl to 125 mg/dl is diagnostic of prediabetes. In a patient with classic symptoms of hyperglycemia or hyperglycemic crisis, a random glucose >/= 200 mg/dl is diagnostic for diabetes. In the absence of unequivocal hyperglycemia, results should be confirmed by repeat testing. The classification and Diagnosis of Diabetes Diabetes Care 202; 46: S19-S40. Current interpretive data was last revised 2022. Calcium 8.8 8.5 - 10.3 mg/dL MICHELLANA Blood 08/09/2024 11:4 6 PM CDT 08/09/2024 11:58 PM CDT us Mykel BEAVERS LAB BLOOD ORDERABLES Fi nal Result Performing Organization Address [facility]/ZIP Co de Phone Number [facility] [address] [facility] [place] [address] * eGFR (08/09/2024 9:11 PM CDT) eGFR >90 >=60 mL/min/1. 73 m2 Comment: Interpretive Data Reference Interval Normal >/= 90 mL/min/1.73m2 Mildly decreased* 60 - 89 mL/min/1.73m2 Mildly to moderately decreased 45 - 59 mL/min/1.73m2 Moderately to severely decreased 30 - 44 mL/min/1.73m2 Severely decreased 15 - 29 mL/min/1.73m2 Kidney Failure < 15 mL/min/1.73m2 *Relative to young adult level Estimated glomerular filtration rate is determined by the 2020 CKD-EPI equation recommended by the National Kidney Foundation (A Unifying Approach to GFR Estimation: Recommendations of the NKF-ASK Task Force on Reassessing the Inclusion of Race in Diagnosing Kidney Disease, JASN 2020). The CKD-EPI equation should not be used for patients with unstable renal function and has not been validated in children and those over 70. Current interpretive data was last reviewed 2021. Blood 08/09/2024 9:11 PM CDT 08/09/2024 9:18 PM CDT Demetrio Nichols MD LAB BLOOD ORDERABLES Final R esult Performing Organization Address City/[facility]/ZIP Co de Phone Number [address] [address] * Phosphorus (08/09/2024 9:11 PM CDT) [facility] Phosphorus, pl 2.6 2.3 - 4.5 mg/dL Blood 08/09/2024 9:11 PM CDT 08/09/2024 9:18 PM CDT Mykel BEAVERS LAB BLOOD ORDERABLES Fi nal Result Performing Organization Address City/[facility] Co de Phone Number [address] [address] * Magnesium (08/09/2024 9:11 PM CDT) [facility] Magnesium 1.8 1.4 - 2.5 mg/dL Blood 08/09/2024 9:11 PM CDT 08/09/2024 9:18 PM CDT Mykel BEAVERS LAB BLOOD ORDERABLES Fi nal Result Performing Organization Address City/[facility] Co de Phone Number [address] [address] * (ABNORMAL) Basic metabolic panel (08/09/2024 9:11 PM CDT) [facility] Sodium 137 135 - 145 mmol/L Potassium, pl 4.3 3.3 - 4.9 mmol/L [facility] Chloride 108 97 - 110 mmol/L [facility] CO2 17(L) 22 - 32 mmol/L [facility] Anion gap 12 2 - 15 mmol/L [facility] BUN 9 6 - 25 mg/dL [facility] Creatinine 0.51(L) 0.60 - 1.10 mg/dL [facility] Glucose 164 70 - 199 mg/dL [facility] Comment: Interpretive Data Fasting glucose >/= 126 mg/dl is diagnostic for diabetes. Fasting is defined as no caloric intake for at least 8 hours. Fasting glucose between 100 mg/dl to 125 mg/dl is diagnostic of prediabetes. In a patient with classic symptoms of hyperglycemia or hyperglycemic crisis, a random glucose >/= 200 mg/dl is diagnostic for diabetes. In the absence of unequivocal hyperglycemia, results should be confirmed by repeat testing. The classification and Diagnosis of Diabetes Diabetes Care 2021; 46: S19-S40. Current interpretive data was last revised 2022. Calcium 8.6 8.5 - 10.3 mg/dL [facility] Blood 08/09/2024 9:11 PM CDT 08/09/2024 9:18 PM CDT Mykel BEAVERS LAB BLOOD ORDERABLES Fi nal Result Performing Organization Address [facility] Co de Phone Number [address] [place] [address] * POCT glucose (08/09/2024 7:45 PM CDT) Glucose, POC 171 70 - 199 mg/dL Glucose comment 1 Use This Result [facility] Glucose comment 2 RN/MD Notified [facility] Blood 08/09/2024 7:45 PM CDT 08/09/2024 7:45 PM CDT Kinga Hayes MD LAB POCT ORDERABLES - DEV ICE Final Result Performing Organization Address [facility] de Phone Number [address] [address] * (ABNORMAL) POCT glucose (08/09/2024 6:04 PM CDT) Glucose, POC 203(H) 70 - 199 mg/dL Glucose comment 1 RN/MD Notified [facility] Blood 08/09/2024 6:04 PM CDT 08/09/2024 6:04 PM CDT Mykel Alvarez MD LAB POCT ORDERABLES - DEVICE Fi nal Result Performing Organization Address [facility] de Phone Number [address] [address] * eGFR (08/09/2024 4:04 PM CDT) eGFR >90 >=60 mL/min/1. 73 m2 Comment: Interpretive Data Reference Interval Normal >/= 90 mL/min/1.73m2 Mildly decreased* 60 - 89 mL/min/1.73m2 Mildly to moderately decreased 45 - 59 mL/min/1.73m2 Moderately to severely decreased 30 - 44 mL/min/1.73m2 Severely decreased 15 - 29 mL/min/1.73m2 Kidney Failure < 15 mL/min/1.73m2 *Relative to young adult level Estimated glomerular filtration rate is determined by the 2020 CKD-EPI equation recommended by the National Kidney Foundation (A Unifying Approach to GFR Estimation: Recommendations of the NKF-ASK Task Force on Reassessing the Inclusion of Race in Diagnosing Kidney Disease, JASN 2020). The CKD-EPI equation should not be used for patients with unstable renal function and has not been validated in children and those over 70. Current interpretive data was last reviewed 2021. Blood 08/09/2024 4:04 PM CDT 08/09/2024 4:17 PM CDT us Demetrio Nichols MD LAB BLOOD ORDERABLES Final R esult [address] [address] * (ABNORMAL) Phosphorus (08/09/2024 4:04 PM CDT) Pathologist [facility] Phosphorus, pl 1.9(L) 2.3 - 4.5 mg/dL Blood 08/09/2024 4:04 PM CDT 08/09/2024 4:17 PM CDT Mykel BEAVERS LAB BLOOD ORDERABLES Fi nal Result [address] [place] [address] * Magnesium (08/09/2024 4:04 PM CDT) [facility] Magnesium 2.1 1.4 - 2.5 mg/dL Blood 08/09/2024 4:04 PM CDT 08/09/2024 4:17 PM CDT Mykel BEAVERS LAB BLOOD ORDERABLES Fi nal Result [facility] [address] [facility] Department [place] [address] * (ABNORMAL) Basic metabolic panel (08/09/2024 4:04 PM CDT) [facility] Sodium 133(L) 135 - 145 mmol/L Potassium, pl 3.4 3.3 - 4.9 mmol/L [facility] Chloride 108 97 - 110 mmol/L [facility] CO2 17(L) 22 - 32 mmol/L [facility] Anion gap 8 2 - 15 mmol/L [facility] BUN 6 6 - 25 mg/dL [facility] Creatinine 0.42(L) 0.60 - 1.10 mg/dL [facility] Glucose 110 70 - 199 mg/dL [facility] Comment: Interpretive Data Fasting glucose >/= 126 mg/dl is diagnostic for diabetes. Fasting is defined as no caloric intake for at least 8 hours. Fasting glucose between 100 mg/dl to 125 mg/dl is diagnostic of prediabetes. In a patient with classic symptoms of hyperglycemia or hyperglycemic crisis, a random glucose >/= 200 mg/dl is diagnostic for diabetes. In the absence of unequivocal hyperglycemia, results should be confirmed by repeat testing. The classification and Diagnosis of Diabetes Diabetes Care 2021; 46: S19-S40. Current interpretive data was last revised 2022. Calcium 8.7 8.5 - 10.3 mg/dL [facility] Blood 08/09/2024 4:04 PM CDT 08/09/2024 4:17 PM CDT Mykel BEAVERS LAB BLOOD ORDERABLES Fi nal Result [place] [address] [place] [address] * POCT glucose (08/09/2024 4:01 PM CDT) [facility] Glucose, POC 128 70 - 199 mg/dL Glucose comment 1 Will Repeat Test [facility] Blood 08/09/2024 4:01 PM CDT 08/09/2024 4:01 PM CDT Mykel Alvarez MD LAB POCT ORDERABLES - DEVICE Fi nal Result Performing Organization Address [facility] de Phone Number [address] [address] * N. gonorrhoeae/C. trachomatis Amplification Urine (08/09/2024 1:45 PM CDT) [facility] C. trachomatis Not Detected Not Detected N. gonorrhoeae Not Detected Not Detected [facility] Comment: Interpretive Data This assay detects Chlamydia trachomatis and Neisseria gonorrhoeae by nucleic acid amplification testing (NAAT). This assay has been cleared by the [place] Food and Drug administration. The performance characteristics of this test have been verified by the [facility]. The performance characteristics of this test have not been evaluated in individuals less than 14 years of age. Current Interpretive Data last revised 2023. Urine (None) 08/09/2024 1:45 PM CDT 08/09/2024 2:22 PM CDT Mykel BEAVERS LAB MICROBIOLOGY - GENE RAL ORDERABLES Final Result Performing Organization Address City/[facility] Co de Phone Number [place] [address] [place] [address] * Trichomonas vaginalis PCR Urine (08/09/2024 1:45 PM CDT) [facility] Trichomonas DNA Not Detected Not Detected Urine 08/09/2024 1:45 PM CDT 08/09/2024 2:22 PM CDT Narrative DANIELLA - 08/09/2024 3:35 PM CDT Interpretive Data: This assay detects Trichomonas vaginalis by nucleic acid amplification testing (NAAT). This assay has been cleared by the [place] Food and Drug administration. The performance characteristics of this test have been verified by the [facility] laboratory. Excess blood in specimens may be inhibitory and result in false negative results. The performance of this test has not been evaluated in women or individuals less than 18 years of age. Mykel BEAVERS LAB MICROBIOLOGY - GENE RAL ORDERABLES Final Result Performing Organization Address City/[facility]/ZIP Co de Phone Number [address] [address] * POCT glucose (08/09/2024 1:06 PM CDT) Pathologist [facility] Glucose, POC 176 70 - 199 mg/dL Blood 08/09/2024 1:06 PM CDT 08/09/2024 1:06 PM CDT Mykel Alvarez MD LAB POCT ORDERABLES - DEVICE Fi nal Result Performing Organization Address [facility] Co de Phone Number [address] [address] * eGFR (08/09/2024 12:00 PM CDT) [facility] eGFR >90 >=60 mL/min/1. 73 m2 Comment: Interpretive Data Reference Interval Normal >/= 90 mL/min/1.73m2 Mildly decreased* 60 - 89 mL/min/1.73m2 Mildly to moderately decreased 45 - 59 mL/min/1.73m2 Moderately to severely decreased 30 - 44 mL/min/1.73m2 Severely decreased 15 - 29 mL/min/1.73m2 Kidney Failure < 15 mL/min/1.73m2 *Relative to young adult level Estimated glomerular filtration rate is determined by the 2020 CKD-EPI equation recommended by the National Kidney Foundation (A Unifying Approach to GFR Estimation: Recommendations of the NKF-ASK Task Force on Reassessing the Inclusion of Race in Diagnosing Kidney Disease, JASN 2020). The CKD-EPI equation should not be used for patients with unstable renal function and has not been validated in children and those over 70. Current interpretive data was last reviewed 2021. Blood 08/09/2024 12:0 0 PM CDT 08/09/2024 12:05 PM CDT Demetrio Nichols MD LAB BLOOD ORDERABLES Final R esult Performing Organization Address City/[facility] Co de Phone Number [address] [place] [address] * (ABNORMAL) Phosphorus (08/09/2024 12:00 PM CDT) Phosphorus, pl 1.5(L) 2.3 - 4.5 mg/dL Blood 08/09/2024 12:0 0 PM CDT 08/09/2024 12:05 PM CDT Mykel BEAVERS LAB BLOOD ORDERABLES Fi nal Result Performing Organization Address [facility] Co de Phone Number [address] [place] [address] * Magnesium (08/09/2024 12:00 PM CDT) Magnesium 1.7 1.4 - 2.5 mg/dL Blood 08/09/2024 12:0 0 PM CDT 08/09/2024 12:05 PM CDT Mykel BEAVERS LAB BLOOD ORDERABLES Fi nal Result Performing Organization Address City/[facility] Co de Phone Number [address] [place] [place] [address] * (ABNORMAL) Basic metabolic panel (08/09/2024 12:00 PM CDT) Sodium 131(L) 135 - 145 mmol/L Potassium, pl 3.4 3.3 - 4.9 mmol/L [facility] Chloride 104 97 - 110 mmol/L [facility] CO2 14(L) 22 - 32 mmol/L [facility] Anion gap 13 2 - 15 mmol/L [facility] BUN 6 6 - 25 mg/dL [facility] Creatinine 0.32(L) 0.60 - 1.10 mg/dL [facility] Glucose 204(H) 70 - 199 mg/dL [facility] Comment: Interpretive Data Fasting glucose >/= 126 mg/dl is diagnostic for diabetes. Fasting is defined as no caloric intake for at least 8 hours. Fasting glucose between 100 mg/dl to 125 mg/dl is diagnostic of prediabetes. In a patient with classic symptoms of hyperglycemia or hyperglycemic crisis, a random glucose >/= 200 mg/dl is diagnostic for diabetes. In the absence of unequivocal hyperglycemia, results should be confirmed by repeat testing. The classification and Diagnosis of Diabetes Diabetes Care 2021; 46: S19-S40. Current interpretive data was last revised 2022. Calcium 7.7(L) 8.5 - 10.3 mg/dL [facility] Blood 08/09/2024 12:0 0 PM CDT 08/09/2024 12:05 PM CDT Mykel BEAVERS LAB BLOOD ORDERABLES Fi nal Result Performing Organization Address [facility]/ZIP Co de Phone Number [address] [place] [address] * POCT glucose (08/09/2024 11:56 AM CDT) [facility] Glucose, POC 182 70 - 199 mg/dL Glucose comment 1 Will Repeat Test [facility] Blood 08/09/2024 11:5 6 AM CDT 08/09/2024 11:56 AM CDT Mykel Alvarez MD LAB POCT ORDERABLES - DEVICE Fi nal Result Performing Organization Address City/[facility] Co de Phone Number CERNER MH [address] [place] [address] [place] [address] * POCT glucose (08/09/2024 11:05 AM CDT) Glucose, POC 198 70 - 199 mg/dL Glucose comment 1 Will Repeat Test [facility] Blood 08/09/2024 11:0 5 AM CDT 08/09/2024 11:05 AM CDT us Mykel Alvarez MD LAB POCT ORDERABLES - DEVICE Fi nal Result Performing Organization Address City/[facility]/ZIP Co de Phone Number [address] [address] * (ABNORMAL) POCT glucose (08/09/2024 10:10 AM CDT) Glucose, POC 209(H) 70 - 199 mg/dL Glucose comment 1 Will Repeat Test [facility] Blood 08/09/2024 10:1 0 AM CDT 08/09/2024 10:10 AM CDT us Mykel Alvarez MD LAB POCT ORDERABLES - DEVICE Fi nal Result Performing Organization Address [facility] Center/[facility] Co de Phone Number [address] [place] [address] * POCT glucose (08/09/2024 9:04 AM CDT) Glucose, POC 133 70 - 199 mg/dL Glucose comment 1 Will Repeat Test [facility] Blood 08/09/2024 9:04 AM CDT 08/09/2024 9:04 AM CDT us Mykel Alvarez MD LAB POCT ORDERABLES - DEVICE Fi nal Result Performing Organization Address City/[facility]/ZIP Co de Phone Number [address] [place] [address] * POCT glucose (08/09/2024 8:07 AM CDT) Pathologist [facility] Glucose, POC 158 70 - 199 mg/dL Blood 08/09/2024 8:07 AM CDT 08/09/2024 8:07 AM CDT Mykel Alvarez MD LAB POCT ORDERABLES - DEVICE Fi nal Result Performing Organization Address City/[facility] Co de Phone Number DANIELLA [address] [place] [address] * eGFR (08/09/2024 7:44 AM CDT) [facility] eGFR >90 >=60 mL/min/1. 73 m2 Comment: Interpretive Data Reference Interval Normal >/= 90 mL/min/1.73m2 Mildly decreased* 60 - 89 mL/min/1.73m2 Mildly to moderately decreased 45 - 59 mL/min/1.73m2 Moderately to severely decreased 30 - 44 mL/min/1.73m2 Severely decreased 15 - 29 mL/min/1.73m2 Kidney Failure < 15 mL/min/1.73m2 *Relative to young adult level Estimated glomerular filtration rate is determined by the 2020 CKD-EPI equation recommended by the National Kidney Foundation (A Unifying Approach to GFR Estimation: Recommendations of the NKF-ASK Task Force on Reassessing the Inclusion of Race in Diagnosing Kidney Disease, JASN 2020). The CKD-EPI equation should not be used for patients with unstable renal function and has not been validated in children and those over 70. Current interpretive data was last reviewed 2021. Blood 08/09/2024 7:44 AM CDT 08/09/2024 7:55 AM CDT us Demetrio Nichols MD LAB BLOOD ORDERABLES Final R esult Performing Organization Address City/[facility]/ZIP Co de Phone Number DANIELLA [address] [place] [address] * Phosphorus (08/09/2024 7:44 AM CDT) [facility] Phosphorus, pl 3.0 2.3 - 4.5 mg/dL Blood 08/09/2024 7:44 AM CDT 08/09/2024 7:55 AM CDT Mykel Philippe Manning [place] LAB BLOOD ORDERABLES Fi nal Result Performing Organization Address [facility] Co de Phone Number [address] [address] * Magnesium (08/09/2024 7:44 AM CDT) [facility] Magnesium 2.3 1.4 - 2.5 mg/dL Blood 08/09/2024 7:44 AM CDT 08/09/2024 7:55 AM CDT Mykel Philippe Nigel [place] LAB BLOOD ORDERABLES Fi nal Result Performing Organization Address [facility] de Phone Number [address] [address] * (ABNORMAL) Basic metabolic panel (08/09/2024 7:44 AM CDT) [facility] Sodium 135 135 - 145 mmol/L Potassium, pl 4.1 3.3 - 4.9 mmol/L [facility] Chloride 106 97 - 110 mmol/L [facility] CO2 6(L) 22 - 32 mmol/L [facility] Anion gap 23(H) 2 - 15 mmol/L [facility] BUN 11 6 - 25 mg/dL [facility] Creatinine 0.42(L) 0.60 - 1.10 mg/dL [facility] Glucose 170 70 - 199 mg/dL [facility] Comment: Interpretive Data Fasting glucose >/= 126 mg/dl is diagnostic for diabetes. Fasting is defined as no caloric intake for at least 8 hours. Fasting glucose between 100 mg/dl to 125 mg/dl is diagnostic of prediabetes. In a patient with classic symptoms of hyperglycemia or hyperglycemic crisis, a random glucose >/= 200 mg/dl is diagnostic for diabetes. In the absence of unequivocal hyperglycemia, results should be confirmed by repeat testing. The classification and Diagnosis of Diabetes Diabetes Care 202; 46: S19-S40. Current interpretive data was last revised 2022. Calcium 8.4(L) 8.5 - 10.3 mg/dL DANIELLA RDZ Blood 08/09/2024 7:44 AM CDT 08/09/2024 7:55 AM CDT Mykel BEAVERS LAB BLOOD ORDERABLES Fi nal Result DANIELLA RDZ [address] [facility] [place] [address] * Critical Care (08/09/2024 7:42 AM CDT) Narrative Mykel Alvarez MD - 08/09/2024 7:42 AM CDT Mykel Alvarez MD 08/09/2024 6:10 PM Critical Care Performed by: Mykel Manning PA Authorized by: Mykel Manning PA CRITICAL CARE: Team: [facility] Shift: AM Level of Billing: Critical Care My time spent with this patient was 45 minutes: Critical Provider Statement: I have seen and examined the patient on this day of service. I have reviewed and confirmed the history, physical exam, laboratory and radiologic data as documented in the signed ICU note. I have reviewed and discussed my treatment plan with the ICU team and other medical/sap consultant staff, making frequent assessments and decisions regarding this patient's complex medical care. Critical Care time was exclusive of time spent performing separately billed procedures, treating other patients, and teaching. This time was in addition to and separate from critical care provided by other practitioners in my group on this day of service. Critical Care was necessary to treat or prevent imminent or life-threatening deterioration of the following conditions: Mykel BEAVERS IN CLINIC/BEDSIDE ORDER ALEA Final Result * POCT glucose (08/09/2024 7:09 AM CDT) Glucose, POC 171 70 - 199 mg/dL Blood 08/09/2024 7:09 AM CDT 08/09/2024 7:09 AM CDT Mykel Alvarez MD LAB POCT ORDERABLES - DEVICE Fi nal Result Performing Organization Address City/[facility]/ZIP Co de Phone Number [address] [place] [address] * POCT glucose (08/09/2024 6:07 AM CDT) [facility] Glucose, POC 159 70 - 199 mg/dL Glucose comment 1 RN/MD Notified [facility] Blood 08/09/2024 6:07 AM CDT 08/09/2024 6:07 AM CDT Demetrio Nichols MD LAB POCT ORDERABLES - DEVICE Final Result Performing Organization Address [facility] de Phone Number [address] [address] * ECG 12 lead (08/09/2024 6:01 AM CDT) [facility] Ventricular Rate EKG/Min 112 BPM [facility] Atrial Rate 112 BPM [facility] [place]-Interval (MSEC) 128 ms [facility] QRS-Interval (MSEC) 80 ms [facility] QT-Interval (MSEC) 370 ms [facility] QTc 505 ms [facility] P Divide 65 degrees [facility] R Divide 20 degrees [facility] T Divide 66 degrees [facility] Diagnosis Sinus tachycardia Otherwise normal ECG When compared with ECG of 02-JUN-2024 21:45, No significant change was found Confirmed by NICHOLAS SCHWARTZ M.D. ([id number]) on 08/09/2024 11:14:19 AM [facility] 08/09/2024 6:01 AM CDT 08/09/2024 11:14 AM CDT Demetrio Nichols MD ECG ORDERABLES Final Result Performing Organization Address [facility] Co de Phone Number [facility] * Infection Prevention MRSA Only (Staphylococcus aureus) PCR Nasal (08/09/2024 5:27 AM CDT) [facility] PCR Scrn, Methicillin resistant Staphylococcus aureus (MRSA) Not Detected Not Detected Comment: Interpretive Data Testing performed using Nucleic Acid Amplification with the [employer] Xpert MRSA NxG Assay. This assay detects target DNA from mecA, mecC and the SCCmec insertion site of Staphylococcus aureus using Real-Time PCR and has been cleared by the FDA. Performance characteristics have been verified by the [facility]. Current Interpretive Data was last revised on 2022 Nasal 08/09/2024 5:27 AM CDT 08/09/2024 5:29 AM CDT Demetrio Nichols MD LAB MICROBIOLOGY - GENERAL O RDERABLES Final Result Performing Organization Address City/[facility]/ZIP Co de Phone Number [address] [place] [address] * (ABNORMAL) POCT glucose (08/09/2024 4:58 AM CDT) [facility] Glucose, POC 213(H) 70 - 199 mg/dL Glucose comment 1 RN/MD Notified [facility] Blood 08/09/2024 4:58 AM CDT 08/09/2024 4:58 AM CDT Demetrio Nichols MD LAB POCT ORDERABLES - DEVICE Final Result Performing Organization Address City/[facility]/ZIP Co de Phone Number [address] [place] [address] * Critical Care (08/09/2024 4:57 AM CDT) Narrative Demetrio Nichols MD - 08/09/2024 4:57 AM CDT Demetrio Nichols MD 08/09/2024 5:44 AM Critical Care Performed by: Demetrio Nichols MD Authorized by: Demetrio Nichols MD CRITICAL CARE: Team: [facility] Shift: PM Level of Billing: Critical Care My time spent with this patient was 30 minutes: Critical Provider Statement: I have seen and examined the patient on this day of service. I have reviewed and confirmed the history, physical exam, laboratory and radiologic data as documented in the signed ICU note. I have reviewed and discussed my treatment plan with the ICU team and other medical/sap consultant staff, making frequent assessments and decisions regarding this patient's complex medical care. Critical Care time was exclusive of time spent performing separately billed procedures, treating other patients, and teaching. This time was in addition to and separate from critical care provided by other practitioners in my group on this day of service. Critical Care was necessary to treat or prevent imminent or life-threatening deterioration of the following conditions: Diabetic Ketoacidosis and Acid-base disturbance This time was spent by me doing the following: Resuscitation with fluids Glycemic control I spent time reviewing and interpreting data from bedside monitors, laboratory results, and imaging, I spent time documenting in the medical record and I spent time discussing the management of this critically ill patient with consultants and the medical staff us Demetrio Nichols MD IN CLINIC/BEDSIDE ORDERABLES Final Result * eGFR (08/09/2024 4:08 AM CDT) eGFR >90 >=60 mL/min/1. 73 m2 Comment: Interpretive Data Reference Interval Normal >/= 90 mL/min/1.73m2 Mildly decreased* 60 - 89 mL/min/1.73m2 Mildly to moderately decreased 45 - 59 mL/min/1.73m2 Moderately to severely decreased 30 - 44 mL/min/1.73m2 Severely decreased 15 - 29 mL/min/1.73m2 Kidney Failure < 15 mL/min/1.73m2 *Relative to young adult level Estimated glomerular filtration rate is determined by the 2020 CKD-EPI equation recommended by the National Kidney Foundation (A Unifying Approach to GFR Estimation: Recommendations of the NKF-ASK Task Force on Reassessing the Inclusion of Race in Diagnosing Kidney Disease, JASN 202). The CKD-EPI equation should not be used for patients with unstable renal function and has not been validated in children and those over 70. Current interpretive data was last reviewed 2021. Blood 08/09/2024 4:08 AM CDT 08/09/2024 4:14 AM CDT us Nicholas BEAVERS LAB BLOOD ORDERABLES Final R esult DANIELLA RDZ [address] [facility] [place] [address] * (ABNORMAL) Urinalysis reflex to microscopic and culture Urine (08/09/2024 4:08 AM CDT) Color, ur Yellow Yellow Clarity, ur Clear Clear [facility] Specific gravity, ur 1.026 1.003 - 1.030 [facility] pH, urine 5.5 [facility] Comment: Interpretive Data U rine pH is affected by diet, medications, systemic acid-base disturbances, and renal tubular function. pH may affect urinary stone formation. For example, urine pH below 6.0 may help reduce the tendency for calcium phosphate stones and pH greater than 6.0 may reduce the tendency for uric acid stone formation. Source: [facility] Current Interpretive Data was last revised on 2017 Protein, ur ql 2+(A) Negative [facility] Glucose, ur ql 4+(A) Negative [facility] Ketones, ur 4+(A) Negative [facility] Bilirubin, ur Negative Negative [facility] Blood, ur Negative Negative [facility] Urobilinogen, ur <2.0 <2.0 mg/dL [facility] Nitrite, ur Negative Negative [facility] Leukocyte esterase, ur Negative Negative [facility] UA reflex comment Reflex to microscopic UA will be performed. [facility] Urine 08/09/2024 4:08 AM CDT 08/09/2024 4:14 AM CDT Demetrio Nichols MD LAB MICROBIOLOGY - GENERAL O RDERABLES Final Result DANIELLA RDZ [address] [facility] Department [place] [address] * (ABNORMAL) Drugs of Abuse Screen, Urine without Confirmation (08/09/2024 4:08 AM CDT) Amphetamine, ur Not Detected CutOff 500ng/mL Comment: Interpretive Data - Amphetamines: Samples containing greater than 500 ng/mL d-methamphetamine or other cross-reacting amphetamine compounds are reported as positive. Amphetamine immunoassays are subject to significant false positive rates due to cross-reactivity of non-amphetamine drugs. Confirmatory testing required for definitive results. Current Interpretive Data was last reviewed 2022. Barbiturates, ur Not Detected CutOff 200ng/mL [facility] Comment: Interpretive Data - Barbiturates: Samples containing greater than 200 ng/mL secobarbital or other cross-reacting barbiturate compounds are reported as positive. False positive and false negative results are possible. Confirmatory testing required for definitive results. Current Interpretive Data was last reviewed 2022. Benzodiazepines, ur Not Detected CutOff 100ng/mL [facility] Comment: Interpretive Data - Benzodiazepines: Samples containing greater than 100 ng/mL nordiazepam or other cross-reacting compounds are reported as positive. False positive and false negative results are possible. Confirmatory testing required for definitive results. Current Interpretive Data was last reviewed 2022. Cannabinoids, ur Screen Positive, presumptive (A) CutOff 50 ng/mL [facility] Comment: Interpretive Data - Cannabinoids: Samples containing greater than 50 ng/mL delta-9 THC -COOH or other cross- reacting compounds are reported as positive. False positive and false negative results are possible. Confirmatory testing required for definitive results. Current Interpretive Data was last reviewed 2022. Cocaine, ur Screen Positive, presumptive (A) CutOff 150ng/mL [facility] Comment: Interpretive Data - Cocaine: Samples containing greater than 150 ng/mL benzoylecgonine or other cross- reacting compounds are reported as positive. False positive and false negative results are possible. Confirmatory testing required for definitive results. Current Interpretive Data was last reviewed 2022. Fentanyl, Ur Not Detected CutOff 5 ng/mL [facility] Comment: Interpretive Data - Fentanyl: Samples containing greater than 5 ng/mL norfentanyl, fentanyl, or other cross-reacting fentanyl compounds are reported as positive. False positive and false negative results are possible. Confirmatory testing required for definitive results. Current Interpretive Data was last reviewed 2023. Methadone, ur Not Detected CutOff 300ng/mL [facility] Comment: Interpretive Data - Methadone: Samples containing greater than 300 ng/mL d,l-methadone or other cross-reacting compounds are reported as positive. False positive and false negative results are possible. Confirmatory testing required for definitive results. Current Interpretive Data was last reviewed 2022. Opiates, ur Screen Positive, presumptive (A) CutOff 300ng/mL DANIELLA Comment: Interpretive Data - Opiates: Samples containing greater than 300 ng/mL morphine or other cross-reacting compounds are reported as positive. False positive and false negative results are possible. Confirmatory testing required for definitive results. Current Interpretive Data was last reviewed 2022. Oxycodone, ur Not Detected CutOff 100ng/mL [facility] Comment: Interpretive Data - Oxycodone: Samples containing greater than 100 ng/mL oxycodone or other cross-reacting compounds are reported as positive. False positive and false negative results are possible. Confirmatory testing required for definitive results. Current Interpretive Data was last reviewed 2022. Phencyclidine, ur Not Detected CutOff 25 ng/mL DANIELLA Comment: Interpretive Data - Phencyclidine: Samples containing greater than 25 ng/mL phencyclidine or other cross-reacting compounds are reported as positive. False positive and false negative results are possible. Confirmatory testing required for definitive results. Current Interpretive Data was last reviewed 2022. Urine Creatinine 23 mg/dL DANIELLA Comment: Interpretive Data Urine Creatinine: < 10 mg/dL is extremely dilute = or > 10 but < 20 mg/dL is dilute = or > 20 mg/dL is normal Current Interpretive Data was last revised on 2017. Urine 08/09/2024 4:08 AM CDT 08/09/2024 4:14 AM CDT Narrative [facility] - 08/09/2024 4:49 AM CDT Drug of Abuse screening is performed by immunoassay for medical purposes only. This is not to be used for Pain Management purposes. us Nicholas BEAVERS LAB URINE ORDERABLES Final R esult DANIELLA [address] [facility] Department [place] [address] * (ABNORMAL) Urinalysis, microscopic only (08/09/2024 4:08 AM CDT) WBC, ur 0-5 0 - 5 /HPF RBC, ur 0-2 0 - 2 /HPF [facility] Epithelial cells, squamous, ur 1-5 0 - 5 /HPF [facility] Mucous, ur Present(A) [facility] Hyaline casts, ur 1-5 0 - 10 /LPF [facility] Culture Reflex Comment Reflex conditions for urine culture (WBC >10) not met. [facility] Urine 08/09/2024 4:08 AM CDT 08/09/2024 4:15 AM CDT Arvin Iglesias Jr., MD LAB URINE ORDERABLES Fi nal Result Performing Organization Address [facility] [place] [place] de Phone Number [address] [address] * hCG, blood, quantitative (08/09/2024 4:08 AM CDT) hCG, quant <5.0 0.0 - 5.0 IUnits/L Comment: Interpretive Data Male: < 5 IU/L Non- premenopausal Female: <5 IU/L The [employer] hCG Beta Quant assay procedure was used. Results from different manufacturers or methods may not be comparable. Serial testing should be performed using the same method. Interpretive Data was last revised on 2023 Blood 08/09/2024 4:08 AM CDT 08/09/2024 5:46 AM CDT Demetrio Nichols MD LAB BLOOD ORDERABLES Final R esult Performing Organization Address City/[facility] Co de Phone Number [address] [place] [address] * Phosphorus (08/09/2024 4:08 AM CDT) Phosphorus, pl 3.1 2.3 - 4.5 mg/dL Blood 08/09/2024 4:08 AM CDT 08/09/2024 4:14 AM CDT Nicholas BEAVERS LAB BLOOD ORDERABLES Final R esult Performing Organization Address City/[facility] Co de Phone Number MICHEL[address] [place] [address] * (ABNORMAL) Magnesium (08/09/2024 4:08 AM CDT) Pathologist [facility] Magnesium 3.0(H) 1.4 - 2.5 mg/dL Blood 08/09/2024 4:08 AM CDT 08/09/2024 4:14 AM CDT Nicholas Raphael Amos [place] LAB BLOOD ORDERABLES Final R esult Performing Organization Address [facility] de Phone Number MICHEL[address] [address] * (ABNORMAL) Basic metabolic panel (08/09/2024 4:08 AM CDT) [facility] Sodium 135 135 - 145 mmol/L Potassium, pl 3.8 3.3 - 4.9 mmol/L [facility] Chloride 105 97 - 110 mmol/L [facility] CO2 6(L) 22 - 32 mmol/L [facility] Anion gap 24(H) 2 - 15 mmol/L [facility] BUN 12 6 - 25 mg/dL [facility] Creatinine 0.46(L) 0.60 - 1.10 mg/dL [facility] Glucose 252(H) 70 - 199 mg/dL [facility] Comment: Delta - Results Reviewed Interpretive Data Fasting glucose >/= 126 mg/dl is diagnostic for diabetes. Fasting is defined as no caloric intake for at least 8 hours. Fasting glucose between 100 mg/dl to 125 mg/dl is diagnostic of prediabetes. In a patient with classic symptoms of hyperglycemia or hyperglycemic crisis, a random glucose >/= 200 mg/dl is diagnostic for diabetes. In the absence of unequivocal hyperglycemia, results should be confirmed by repeat testing. The classification and Diagnosis of Diabetes Diabetes Care 2021; 46: S19-S40. Current interpretive data was last revised 2022. Calcium 8.3(L) 8.5 - 10.3 mg/dL [facility] Blood 08/09/2024 4:08 AM CDT 08/09/2024 4:14 AM CDT us Nicholas BEAVERS LAB BLOOD ORDERABLES Final R esult CERNER MH [address] [facility] Department [place] [address] * XR Chest 1 Vw Portable (08/09/2024 3:57 AM CDT) Anatomical Region Laterality Modality Body, Chest N/A Computed Radiogr aphy 08/09/2024 4:14 AM CDT Narrative 08/09/2024 4:16 AM CDT EXAM DESCRIPTION: XR CHEST 1 VIEW REASON FOR STUDY: dyspnea 24 y.o. female past medical history of type 1 diabetes, SVT presenting to the ED c/o hyperglycemia. Patient believes she is in DKA. Patient last took her insulin yesterday morning around 10:00 a.m.. Patient states she was at a [employer] last night and was not feeling well. She endorses nausea and vomiting and pain from head to toe. TECHNIQUE: Single radiographic view of the chest. COMPARISON: Chest x-ray of June 02, 2024. FINDINGS: LUNGS/PLEURA: No focal consolidation or pneumothorax. No pleural effusion. There is no significant change as compared to previous study. HEART/MEDIASTINUM: Cardiac silhouette is normal. Remaining mediastinal silhouettes are unremarkable. HARDWARE/LINES/TUBES: EKG leads overlie the film. BONES: No acute findings. IMPRESSION: No acute cardiopulmonary abnormality. THIS IS AN ELECTRONICALLY VERIFIED FINAL REPORT 08/09/2024 4:16 AM - Electronically signed by Shu Gong M.D. SN T: Report ID: [id number] Reading Location: [id number] Procedure Note Shu Gong MD - 08/09/2024 EXAM DESCRIPTION: XR CHEST 1 VIEW REASON FOR STUDY: dyspnea 24 y.o. female past medical history of type 1 diabetes, SVT presenting tothe ED c/o hyperglycemia. Patient believes she is in DKA. Patient last tookher insulin yesterday morning around 10:00 a.m.. Patient states she was at [employer] last night and was not feeling well. She endorses nausea and vomitingand pain from head to toe. TECHNIQUE: Single radiographic view of the chest. COMPARISON: Chest x-ray of June 02, 2024. FINDINGS: LUNGS/PLEURA: No focal consolidation or pneumothorax. Nopleural effusion. There is no significant change as compared to previous study. HEART/MEDIASTINUM: Cardiac silhouette is normal. Remaining mediastinal silhouettes are unremarkable. HARDWARE/LINES/TUBES: EKG leads overlie the film. BONES: No acute findings. IMPRESSION: No acute cardiopulmonary abnormality. THIS IS AN ELECTRONICALLY VERIFIED FINAL REPORT 08/09/2024 4:16 AM - Electronically signed by Shu Gong M.D. SN T: Report ID: [id number] Reading Location: [place] [address] Nicholas BEAVERS IMG XR PROCEDURES Final Resu lt * (ABNORMAL) POCT glucose (08/09/2024 3:27 AM CDT) Glucose, POC 349(H) 70 - 199 mg/dL Glucose comment 1 Use This Result DANIELLA Glucose comment 2 RN/MD Notified DANIELLA Glucose comment 3 Follow Protocol DANIELLA Blood 08/09/2024 3:27 AM CDT 08/09/2024 3:27 AM CDT Notinfile Unknown LAB POCT ORDERABLES - DEVICE F inal Result DANIELLA [address] [facility] Department [place] [address] * (ABNORMAL) POC Blood Gas and Chemistries, Venous - (08/09/2024 2:29 AM CDT) pH,nas POC 7.02(C) 7.32 - 7.43 pCO2, nas POC 23(L) 40 - 50 mmHg DANIELLA pO2,nas POC 27 mmHg [facility] Comment: Interpretive Data No reference range established. Current interpretive data was last revised 2019. HCO3, nas (Calc) POC 6(C) 20 - 30 mmol/L [facility] Base excess, nas POC -24 mmol/L [facility] Comment: Interpretive Data No reference range established. Current interpretive data was last revised 2019. Oxy Hgb, nas POC 39.7(L) 90.0 - 95.0 % [facility] Met Hgb, nas POC 0.9 0.0 - 1.9 % [facility] Carboxy Hgb, nas POC 0.3 0.0 - 2.9 % [facility] Hemoglobin, nas POC 16.3(H) 11.9 - 15.5 g/dL [facility] Sodium, nas POC 130(L) 135 - 145 mmol/L [facility] Potassium, nas POC 5.2(H) 3.3 - 4.9 mmol/L [facility] Comment: Interpretive Data This method is not able to assess for hemolysis, which may falsely increase potassium concentrations. If further testing is needed to evaluate this result, consider in-laboratory plasma potassium. Current Interpretive Data was last revised on 2022. Glucose, nas POC Incalculable 70 - 199 mg/dL [facility] Ionized Calcium, nas POC 4.82 4.50 - 5.10 mg/dL [facility] Lactate, nas POC 1.8 0.7 - 2.0 mmol/L [facility] Blood 08/09/2024 2:29 AM CDT 08/09/2024 2:29 AM CDT us Notinfile Unknown LAB POCT ORDERABLES - DEVICE F inal Result [facility] [address] [facility] Department [place] [address] * Sepsis Lactate w/ Reflex (08/09/2024 2:24 AM CDT) Sepsis Lactate 1.7 0.7 - 2.0 mmol/L Blood 08/09/2024 2:24 AM CDT 08/09/2024 2:35 AM CDT us Demetrio Nichols MD LAB BLOOD ORDERABLES Final R esult Performing Organization Address [facility] de Phone Number DANIELLA [address] [place] [address] * eGFR (08/09/2024 2:24 AM CDT) Pathologist [facility] eGFR >90 >=60 mL/min/1. 73 m2 Comment: Interpretive Data Reference Interval Normal >/= 90 mL/min/1.73m2 Mildly decreased* 60 - 89 mL/min/1.73m2 Mildly to moderately decreased 45 - 59 mL/min/1.73m2 Moderately to severely decreased 30 - 44 mL/min/1.73m2 Severely decreased 15 - 29 mL/min/1.73m2 Kidney Failure < 15 mL/min/1.73m2 *Relative to young adult level Estimated glomerular filtration rate is determined by the 2020 CKD-EPI equation recommended by the National Kidney Foundation (A Unifying Approach to GFR Estimation: Recommendations of the NKF-ASK Task Force on Reassessing the Inclusion of Race in Diagnosing Kidney Disease, JASN 2020). The CKD-EPI equation should not be used for patients with unstable renal function and has not been validated in children and those over 70. Current interpretive data was last reviewed 2021. Blood 08/09/2024 2:24 AM CDT 08/09/2024 3:07 AM CDT Nicholas BEAVERS LAB BLOOD ORDERABLES Final R esult Performing Organization Address City/[facility] Co de Phone Number DANIELLA [address] Department [place] [address] * Differential, auto (08/09/2024 2:24 AM CDT) Pathologist [facility] Neutrophil abs 5.48 1.50 - 6.50 K/cumm Imm gran abs 0.07 0.00 - 0.10 K/cumm [facility] Lymphocyte abs 0.91 0.80 - 3.30 K/cumm [facility] Monocyte abs 0.31 0.20 - 0.80 K/cumm [facility] Eosinophil abs 0.01 0.00 - 0.50 K/cumm [facility] Basophil abs 0.04 0.00 - 0.10 K/cumm [facility] Neutrophil pct 80.5 % [facility] Comment: Interpretive Data Percent cell count reference ranges are not reported, since discordance with absolute values may lead to misinterpretation of CBC data. Current Interpretive Data was last revised on 2017. Imm gran pct 1.0 % [facility] Comment: Interpretive Data Percent cell count reference ranges are not reported, since discordance with absolute values may lead to misinterpretation of CBC data. Current Interpretive Data was last revised on 2017. Lymphocyte pct 13.3 % [facility] Comment: Interpretive Data Percent cell count reference ranges are not reported, since discordance with absolute values may lead to misinterpretation of CBC data. Current Interpretive Data was last revised on 2017. Monocyte pct 4.5 % [facility] Comment: Interpretive Data Percent cell count reference ranges are not reported, since discordance with absolute values may lead to misinterpretation of CBC data. Current Interpretive Data was last revised on 2017. Eosinophil pct 0.1 % [facility] Comment: Interpretive Data Percent cell count reference ranges are not reported, since discordance with absolute values may lead to misinterpretation of CBC data. Current Interpretive Data was last revised on 2017. Basophil pct 0.6 % [facility] Comment: Interpretive Data Percent cell count reference ranges are not reported, since discordance with absolute values may lead to misinterpretation of CBC data. Current Interpretive Data was last revised on 2017. Blood 08/09/2024 2:24 AM CDT 08/09/2024 2:35 AM CDT us Nicholas BEAVERS LAB BLOOD ORDERABLES Final R esult DANIELLA RDZ [address] [facility] Department [place] [address] * Beta-hydroxybutyrate (08/09/2024 2:24 AM CDT) Beta-Hydroxybut yrate 10.02 <=0.5 mmol/L Comment: Dilution of 1:6 08/09/2024 04:08:03 CDT by [email or web address] Blood 08/09/2024 2:24 AM CDT 08/09/2024 2:35 AM CDT Nicholas BEAVERS LAB BLOOD ORDERABLES Final R esult Performing Organization Address City/[facility]/ZIP Co de Phone Number [address] [address] * (ABNORMAL) CBC with auto differential (08/09/2024 2:24 AM CDT) WBC 6.82 3.80 - 9.90 K/cumm Hgb 15.7(H) 11.9 - 15.5 g/dL [facility] Hct 53.0(H) 35.6 - 45.5 % [facility] Plt 507(H) 150 - 400 K/cumm [facility] MPV 10.9 9.1 - 12.3 fL [facility] RBC 6.04(H) 3.90 - 5.20 M/cumm [facility] MCV 87.7 81.3 - 96.4 fL [facility] MCH 26.0(L) 27.1 - 33.3 pg [facility] MCHC 29.6(L) 32.3 - 35.7 g/dL [facility] RDW CV 14.3 11.1 - 14.9 % [facility] RDW SD 45.3 35.7 - 48.1 fL [facility] NRBC abs 0.00 0.00 - 0.01 K/cumm [facility] Blood 08/09/2024 2:24 AM CDT 08/09/2024 2:35 AM CDT Nicholas BEAVERS LAB BLOOD ORDERABLES Final R esult Performing Organization Address City/[facility]/ZIP Co de Phone Number DANIELLA [address] [place] [address] * (ABNORMAL) Phosphorus (08/09/2024 2:24 AM CDT) [facility] Phosphorus, pl 5.1(H) 2.3 - 4.5 mg/dL Blood 08/09/2024 2:24 AM CDT 08/09/2024 2:35 AM CDT Nicholas BEAVERS LAB BLOOD ORDERABLES Final R esult Performing Organization Address City/[facility] Co de Phone Number [address] [place] [address] * Magnesium (08/09/2024 2:24 AM CDT) [facility] Magnesium 1.9 1.4 - 2.5 mg/dL Blood 08/09/2024 2:24 AM CDT 08/09/2024 2:35 AM CDT Nicholas BEAVERS LAB BLOOD ORDERABLES Final R esult Performing Organization Address City/[facility] de Phone Number [address] [place] [address] * Lipase (08/09/2024 2:24 AM CDT) [facility] Lipase 13 10 - 99 Units/L Blood 08/09/2024 2:24 AM CDT 08/09/2024 2:35 AM CDT Nicholas BEAVERS LAB BLOOD ORDERABLES Final R esult Performing Organization Address [facility] de Phone Number [address] [place] [address] * (ABNORMAL) Hemoglobin A1c (08/09/2024 2:24 AM CDT) [facility] Hgb A1C 13.5(H) 4.0 - 5.6 % Estimated Average Glucose 341 mg/dL [facility] Comment: The ADA recommends reporting an estimated Average Glucose (eAG) with all Hemoglobin A1c results using the equation derived from a study of 507 normal and diabetic adults. Minority populations were underrepresented and children were not included. (Diabetes Care 31:4874-5468, 2008). The eAG is not equivalent to a fasting glucose. Blood 08/09/2024 2:24 AM CDT 08/09/2024 2:40 AM CDT Nicholas BEAVERS LAB BLOOD ORDERABLES Final R esult Performing Organization Address [facility] de Phone Number MICHEL[address] [place] [address] * Ethanol (08/09/2024 2:24 AM CDT) Pathologist [facility] Ethanol <10 <=10 mg/dL Comment: Interpretive Data Legal limit of intoxication > or = 80 mg/dL Levels > or = 400 mg/dL are potentially TOXIC. Current interpretive data was last revised on 2018. Blood 08/09/2024 2:24 AM CDT 08/09/2024 3:07 AM CDT Nicholas BEAVERS LAB BLOOD ORDERABLES Final R [facility] Performing Organization Address [facility] de Phone Number [address] [address] * (ABNORMAL) Comprehensive metabolic panel (08/09/2024 2:24 AM CDT) Sodium 131(L) 135 - 145 mmol/L Potassium, pl 5.2(H) 3.3 - 4.9 mmol/L [facility] Chloride 93(L) 97 - 110 mmol/L [facility] CO2 5(C) 22 - 32 mmol/L [facility] Comment:Critical Result call ed to and read back by [email or web address], DATE: 2024-08-09 04:06:30 BY: [email or web address] Anion gap 33(H) 2 - 15 mmol/L [facility] BUN 12 6 - 25 mg/dL [facility] Creatinine 0.57(L) 0.60 - 1.10 mg/dL [facility] Glucose 502(C) 70 - 199 mg/dL [facility] Comment: Critical Result called to and read back by [id number], DATE: 2024-08-09 04:06:30 BY: [email or web address] Interpretive Data Fasting glucose >/= 126 mg/dl is diagnostic for diabetes. Fasting is defined as no caloric intake for at least 8 hours. Fasting glucose between 100 mg/dl to 125 mg/dl is diagnostic of prediabetes. In a patient with classic symptoms of hyperglycemia or hyperglycemic crisis, a random glucose >/= 200 mg/dl is diagnostic for diabetes. In the absence of unequivocal hyperglycemia, results should be confirmed by repeat testing. The classification and Diagnosis of Diabetes Diabetes Care 2021; 46: S19-S40. Current interpretive data was last revised 2022. Calcium 9.8 8.5 - 10.3 mg/dL [facility] Bilirubin, total 0.4 0.1 - 1.2 mg/dL [facility] Protein, pl 9.9(H) 6.5 - 8.5 g/dL [facility] Albumin 5.0 3.5 - 5.0 g/dL [facility] Alk phos 190(H) 40 - 130 Units/L [facility] ALT 27 7 - 45 Units/L [facility] AST 30 10 - 45 Units/L [facility] Blood 08/09/2024 2:24 AM CDT 08/09/2024 2:35 AM CDT us Nicholas BEAVERS LAB BLOOD ORDERABLES Final R esult Performing Organization Address City/[facility]/ZIP Co de Phone Number [facility] [address] [facility] Department [place] [address] * (ABNORMAL) POCT glucose (08/09/2024 2:11 AM CDT) [facility] Glucose, POC 436(H) 70 - 199 mg/dL Glucose comment 1 RN/MD Notified [facility] Glucose comment 2 Will Repeat Test [facility] Blood 08/09/2024 2:11 AM CDT 08/09/2024 2:11 AM CDT us Notinfile Unknown LAB POCT ORDERABLES - DEVICE F inal Result DANIELLA [address] [facility] [place] [address] * Hepatitis C antibody Blood (12/27/2023 3:46 AM CDT) Hep C Ab Nonreactive Nonreactive Comment: Antibodies to HCV not detected. Does NOT exclude the possibility of recent exposure to HCV. Current interpretive data was last revised on 21 Interpretive Data Nonreactive: Antibodies to HCV not detected. Does NOT exclude the possibility of recent exposure to HCV. Equivocal: Equivocal for HCV antibodies. Supplemental molecular testing will be automatically performed to determine infection status in accordance with current CDC screening recommendations. Reactive: Positive for HCV antibodies. This may represent current or past HCV infection. Supplemental molecular testing will be automatically performed to determine current infection status in accordance with current CDC screening recommendations. Interpretive data was last revised on 2019. Blood 12/27/2023 3:46 AM CDT 12/27/2023 3:54 AM CDT Richard BEAVERS LAB MICROBIOLOGY - GENERAL ORDERABLES Final Result Performing Organization Address [facility] Co de Phone Number DANIELLA [facility] [place] [address] * Lipid panel (12/16/2023 9:33 PM CDT) Cholesterol 173 30 - 199 mg/dL Comment: Interpretive Data Ages < or = 19 years Acceptable: <170 mg/dL Borderline high: 170-199 mg/dL High: >or= 200 mg/dL Ages > or = 20 years Desirable: <200 mg/dL Borderline high: 200-239 mg/dL High: >or= 240 mg/dL Literature References: 1. Expert Panel on Integrated Guidelines for Cardiovascular Health and Risk Reduction in Children and Adolescents. Pediatrics 2011;128:S213 2. NCEP Expert Panel. Circulation 2004;110:227 Current Interpretive Data was last revised on 2017. Triglycerides 75 <=149 mg/dL DANIELLA [facility] Comment: Interpretive Data Ages < or = 9 years Acceptable: <75 mg/dL Borderline high: 75-99 mg/dL High: >or= 100 mg/dL Ages 10 to 20 years Acceptable: <90 mg/dL Borderline high: 90-129 mg/dL High: >or= 130 mg/dL Ages > or = 20 years Desirable: <150 mg/dL Borderline high: 150-199 mg/dL High: 200-499 mg/dL Very high: >or= 499 mg/dL Literature References: 1. Expert Panel on Integrated Guidelines for Cardiovascular Health and Risk Reduction in Children and Adolescents. Pediatrics 2011;128:S213 2. NCEP Expert Panel. Circulation 2004;110:227 Current Interpretive Data was last revised on 2017. HDL 51 >=40 mg/dL [facility] Comment: Interpretive Data Ages < or = 19 years Acceptable: >45 mg/dL Borderline low: 40-45 mg/dL Low: <40 mg/dL Ages > or = 20 years Desirable: >or= 60 mg/dL Low: <40 mg/dL Literature References: 1. Expert Panel on Integrated Guidelines for Cardiovascular Health and Risk Reduction in Children and Adolescents. Pediatrics 2011;128:S213 2. NCEP Expert Panel. Circulation 2004;110:227 Current Interpretive Data was last revised on 2017. LDL, calculated 108 <=129 mg/dL [facility] Comment: Interpretive Data Ages < or = 19 years Acceptable: <110 mg/dL Borderline high: 110-129 mg/dL High: >or= 130 mg/dL Ages > or = 20 years Optimal: <100 mg/dL Near optimal: 100-129 mg/dL Borderline high: 130-159 mg/dL High: >160 mg/dL Calculated using the Aldo LDL-C estimating equation. This equation was implemented on 2023. Prior to this date LDL-C was estimated using the Friedewald equation. Literature References: 1. Expert Panel on Integrated Guidelines for Cardiovascular Health and Risk Reduction in Children and Adolescents. Pediatrics 2011;128:S213 2. NCEP Expert Panel. Circulation 2004;110:227 3. Aldo Pond al. SHARLA Cardiol. 2020 August 23;5(5):540-548. doi: 10.1001/[email or web address].2020.0013 Current Interpretive Data was last revised on 2023. Non-HDL Cholesterol 122 mg/dL [facility] Comment: Interpretive Data Ages < or = 19 years Acceptable: <120 mg/dL Borderline high: 120-144 mg/dL High: >145 mg/dL Ages > or = 20 years When triglycerides are >200 mg/dL, Non-HDL cholesterol is a secondary target of therapy with treatment goals that are 30 mg/dL greater than the LDL cholesterol target. Literature References: 1. Expert Panel on Integrated Guidelines for Cardiovascular Health and Risk Reduction in Children and Adolescents. Pediatrics 2011;128:S213 2. NCEP Expert Panel. Circulation 2004;110:227 Current Interpretive Data was last revised on 2017. Chol/HDL ratio 3 [facility] Blood 12/16/2023 9:33 PM CDT 12/16/2023 9:45 PM CDT Narrative [facility] - 12/17/2023 8:09 AM CDT Reflex us Yoli Christensen MD LAB BLOOD ORDERABLES Fin al Result [facility] Department of Laboratories [place], [place] [id number] from Last 3 Months or Most Recently Relevant to Health Maintenance Insurance [employer] OPEN [place] [address] Member Subscriber Plan / Payer (Ef fective 2022-Present) Name:Luciana Holloway Relation to Subscriber:Self Name:Luciana Holloway Payer ID:[id number] (NAIC) Group ID:Not on file Type:MEDICAID RISK OTHER Address: ATTN: CLAIMS DEPT [address] [place] [id number] [employer] OPEN ACCESS [employer] OPEN ACCESS Member Subscriber Plan / Payer (Ef fective 2021-Present) Name:Luciana Holloway Relation to Subscriber:Child Name:JAREK HOLLOWAY Date of :1898 (Home) Address: [address] [place] [id number] Payer ID:[id number] Type:[employer] HMO/PPO Address: [address] PLAN NIMESH RAMIREZ [address] Advance Directives For more information, please contact: [phone] * Full Code (Latest Code Status on File) Date Activated Date Inactivated Comments 09/03/2024 5:13 PM 09/06/2024 6:55 PM * Full Code Date Activated Date Inactivated Comments 08/31/2024 4:18 PM 09/01/2024 7:57 PM * Full Code Date Activated Date Inactivated Comments 08/09/2024 5:24 AM 08/10/2024 5:59 PM * Full Code Date Activated Date Inactivated Comments 01/17/2024 1:41 PM 01/19/2024 9:31 PM * Full Code Date Activated Date Inactivated Comments 12/26/2023 3:24 PM 12/28/2023 6:16 PM Care Teams Photo Equipment Technician Relationship Specialty Start Date End Date Vianca Rosario NP [facility] [place] [address] PCP - General Family Medicine 08/29/24 Rolan Mello MD [address] [place] [address] [place] [address] Consulting Physician Endocrinology Diabetes & Metabolism 06/20/22 [place] [address] [place] [address] [address] [place] [address] Consulting Physician Endocrinology Diabetes & Metabolism 09/06/24
--- OUTSIDE RECORDS SUMMARY | 2024-09-21 14:25 | XMS_ITS | Clinical Summary ---
Author Organization [place] [address] [facility] Address [address] [place] [address] Care Team Providers Care Sales And Marketing Specialist Name Role Phone Funmilayo Rolan Khan MD Unavailable [phone] Vianca Rosario NP Primary Care Provider [phone] Philly Calderon MD Unavailable Allergies Active Allergy Reactions Criticality Noted Date [...] a day for 14 days 28 tablet Active ondansetron ODT (ZOFRAN-ODT) 4 mg disintegrating [...] and 9:00 p.m. daily 45 mL 3 2024 Discontinued insulin lispro (HumaLOG, ADMELOG) 100 [...] units daily as needed 30 mL 3 2024 Discontinued PARoxetine (PAXIL) 10 mg tabletIndication s:Generalized Anxiety Disorder Take 1 tablet (10 mg total) by mouth every morning 30 tablet 3 2024 Discontinued(T herapy completed) glucagon 1 mg kitIndications:H ypoglycemia associated type 1 diabetes mellitus Inject 1 mL (1 mg total) under the skin as needed (Hypoglycemia with blood sugar less than 70) Inject 1 mL subcutaneously as needed for low blood sugar if less than 70 1 kit 3 2024 Discontinued insulin glargine 100 unit/mL (3 [...] Discontinued(A lternate therapy) blood-glucose,re ceiver,cont (Dexcom G7 It Sales Representative) miscIndications: Type 1 diabetes mellitus without complication (HCC) Dexcom G7 clinical account manager use daily to monitor blood sugar. 1 [...] 2023 per the patient. She has her sail maker at [facility] with the scheduled appointment on December [...] diet - Follow up with endocrinology at [facility] as scheduled on 12/29/2023 10:00 [...] labs for K alone. Cough 09/22/2011 12/26/2023 Encounters Date Type Department Care Team Description 09/05/[address] [phone] Vianca Rosario NP MANJIT Questions 09/03/2024 9:41 AM CDT - 09/06/2024 2:40 PM CDT Hospital Encounter [address] [address] Ken Braxton MD Potluri, MD Ethan Montreroso Bushra, MD Pham, Kevin, DO Nausea and vomiting, unspecified vomiting type (Primary Dx); Type 1 diabetes mellitus with other specified complication (HCC) Discharge Disposition: Discharge to home or self care 09/03/2024 Nurse Triage [address] [address] Vianca oRsario NP 09/02/2024 4:42 PM CDT - 09/02/2024 9:19 PM CDT Emergency [address] [address] Abdominal pain (Primary Dx); Nausea and vomiting, unspecified vomiting type Discharge Disposition: Discharge to home or self care 09/02/2024 1:42 AM CDT - 09/02/2024 4:51 AM CDT Emergency [address] [address] Hung Cooper MD Type 1 diabetes mellitus with hyperglycemia (HCC) (Primary Dx); Abdominal pain; Marijuana use Discharge Disposition: Discharge to home or self care 08/31/2024 9:38 AM CDT - 09/01/2024 3:52 PM CDT Hospital Encounter [address] [address] Mykel Diehl DO Kurtz, Brendan Joseph, MD Lun, Yu, MD Hyperglycemia (Primary Dx); Narrow anion gap; Nausea and vomiting, unspecified vomiting type Discharge Disposition: Discharge to home or self care 08/29/2024 12:30 PM CDT Office Visit [facility] [address] [place] [phone] Vianca Rosario NP Type 1 diabetes mellitus without complication (HCC) (Primary Dx); Nonadherence to medication; Toenail deformity; Annual physical exam; PTSD (post-traumatic stress disorder); YESY (generalized anxiety disorder); Bipolar affective disorder, remission status unspecified (HCC); Recurrent major depressive disorder, in partial remission; Schizophrenia, unspecified type (HCC); Illicit drug use 08/09/2024 2:34 AM CDT - 08/10/2024 1:53 PM CDT Hospital Encounter [address] [address] Demetrio Nichols MD Yuan, Kevin Z., MD [...] or self care from Last 3 Months Immunizations Immunization Administration Dates Next Due Tdap 09/11/2021 Surgical History Surgery Date Site/Laterality Comments OR ABLATE HEART DYSRHYTHM FOCUS Cath Ablation Arrhythmogenic Bypass Tracts - RF - Echo Guidance - (Added by TW Conv) Medical History Medical History Date Comments Diabetes mellitus (HCC) SVT (supraventricular tachycardia) Family History Medical History Relation Name Comments COPD Father No Known Problems Mother Relation Name Status Comments Father Alive Mother Alive Social History Tobacco Use Types Packs/Day Years Used Date Smoking Tobacco: Former Cigarettes 0.3 2 Smokeless Tobacco: Never Tobacco Cessation:Counseling Given: Not Answered Alcohol Use Standard Drinks/Week Comments Not Currently 0 (1 standard drink = 0.6 oz pur e alcohol) [facility] Utilities Answer Date Recorded In the past 12 months has th e electric, gas, oil, or water [employer] threatened to shut off services in your [...] often do you attend chur ch or sabianist services? Never 09/04/2024 Do you belong to any clubs o r organizations such as buddhism groups, unions, fraternal or athletic groups, or [...] place to sleep or slept in a half-way (including now)? No 10/04/2022 PHQ-9 Answer Date [...] any time in the past 12 m [facility], were you homeless or living in a half-way (including now)? Yes 09/04/2024 Personal Safety Answer Date Recorded Have you ever been in or are you currently in a harmful physical or emotional relationship or is someone making you feel afraid or unsafe? 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 Not on file Not on file Obstetrics History Last Filed Vital Signs Vital Sign Reading [...] 09/03/2024 4:49 PM CDT Plan of Treatment Health Maintenance Due Date Last Done Comments Albumin Creatinine Ratio, Urine 2001 Foot Exam 2001 Pneumococcal vaccine <65 (1 of 1 - PPSV23) 2007 2001, 2001 Dilated Eye Exam 2011 Meningococcal B Vaccine (1 o f 2 - Standard) 2017 Regular Well Visit/Exam 18-64 2019 Cervical Cancer Screening 09/08/2023 09/07/2022 Lipid Panel 12/15/2024 12/16/2023, 11/23, 02/17/2023, Additional history exists Hemoglobin A1C 03/03/2025 08/31/2024, 07/24, 06/03/2024, Additional history exists TSH Level 08/10/2025 08/10/2024, 01/24, 12/08/2023, Additional history exists Depression Screening 09/03/2025 09/03/2024, 09/03/2024, 08/09/2024, Additional history exists eGFR 09/05/2025 09/05/2024, 08/23, 09/02/2024, Additional history exists DTaP/Tdap/Td Vaccine (8 - Td or Tdap) 09/12/2031 09/11/2021, 10/02/2012, 08/09/2005, Additional history exists Varicella Vaccines Completed 11/16/2006, 05/19/2004 HPV Vaccines Completed 04/04/2013, 11/23, 10/02/2012 Hepatitis B Screening Completed 12/04/2021 , 01/10/2002, 2001, Additional history exists Hepatitis C Screening Completed 12/27/2023, 022 Influenza Vaccine Completed 02/16/2024, , 02/02/2020, Additional history exists Procedures Procedure Name Priority Date/Time Associated Diagnosis [...] PM CDT POCT GLUCOSE DEVICE Routine 08/31/2024 4 :19 PM CDT POCT GLUCOSE DEVICE Routine 08/31/2024 [...] 199 mg/dL Glucose comment 1 RN/MD Notified [facility] Blood 09/06/2024 11:1 8 AM CDT 09/06/2024 11:18 AM CDT Mykel Barajas DO LAB POCT ORDERABLES - DEVICE Fin al Result Performing Organization Address [facility]/ZIP Co de Phone Number [address] [place] [place] [place] [address] * POCT glucose (09/06/2024 7:29 AM CDT) Glucose, POC 151 70 - 199 mg/dL Glucose comment 1 RN/MD Notified [facility] Blood 09/06/2024 7:29 AM CDT 09/06/2024 7:29 AM CDT Mykel Barajas DO LAB POCT ORDERABLES - DEVICE Fin al Result Performing Organization Address [facility]/ZIP Co de Phone Number [address] [place] [employer] [place] [address] * POCT glucose (09/06/2024 4:38 AM CDT) Glucose, POC 181 70 - 199 mg/dL Glucose comment 1 RN/MD Notified [facility] Blood 09/06/2024 4:38 AM CDT 09/06/2024 4:38 AM CDT Mykel Barajas DO LAB POCT ORDERABLES - DEVICE Fin al Result Performing Organization Address [facility] Co de Phone Number [address] [place] [employer] [place] [address] * POCT glucose (09/06/2024 12:01 AM CDT) Glucose, POC 130 70 - 199 mg/dL Glucose comment 1 RN/MD Notified [facility] Blood 09/06/2024 12:0 1 AM CDT 09/06/2024 12:01 AM CDT Mykel Barajas DO LAB POCT ORDERABLES - DEVICE Fin al Result Performing Organization Address [facility] de Phone Number [address] [place] [employer] [place] [address] * (ABNORMAL) POCT glucose (09/05/2024 8:33 PM CDT) Glucose, POC 212(H) 70 - 199 mg/dL Glucose comment 1 RN/MD Notified [facility] Blood 09/05/2024 8:33 PM CDT 09/05/2024 8:33 PM CDT Mykel Barajas DO LAB POCT ORDERABLES - DEVICE Fin al Result Performing Organization Address [facility] de Phone Number [address] [place] [employer] [place] [address] * (ABNORMAL) POCT glucose (09/05/2024 4:43 PM CDT) Glucose, POC 242(H) 70 - 199 mg/dL Glucose comment 1 RN/MD Notified [facility] Blood 09/05/2024 4:43 PM CDT 09/05/2024 4:43 PM CDT Mykel Barajas DO LAB POCT ORDERABLES - DEVICE Fin al Result Performing Organization Address [facility] de Phone Number DANIELLA [address] [place] [employer] [place] [address] * POCT glucose (09/05/2024 11:35 AM CDT) Glucose, POC 141 70 - 199 mg/dL Glucose comment 1 RN/MD Notified [facility] Blood 09/05/2024 11:3 5 AM CDT 09/05/2024 11:35 AM CDT Mykel Barajas DO LAB POCT ORDERABLES - DEVICE Fin al Result Performing Organization Address [facility] de Phone Number [address] [place] [employer] [place] [address] * POCT glucose (09/05/2024 7:25 AM CDT) Glucose, POC 127 70 - 199 mg/dL Glucose comment 1 RN/MD Notified [facility] Blood 09/05/2024 7:25 AM CDT 09/05/2024 7:25 AM CDT Mykel Barajas DO LAB POCT ORDERABLES - DEVICE Fin al Result Performing Organization Address [facility] de Phone Number [address] [place] [employer] [place] [address] * eGFR (09/05/2024 5:42 AM CDT) eGFR >90 >=60 mL/min/1. 73 [...] NP LAB BLOOD ORDERABLES Final R esult [facility] [address] [place] [address] * Differential, auto (09/05/2024 5:42 AM CDT) Pathologist [facility] Neutrophil abs 2.00 1.50 - 6.50 K/cumm Imm gran abs 0.04 0.00 - 0.10 K/cumm [facility] Lymphocyte abs 2.56 0.80 - 3.30 K/cumm [facility] Monocyte abs 0.70 0.20 - 0.80 K/cumm [facility] Eosinophil abs 0.06 0.00 - 0.50 K/cumm [facility] Basophil abs 0.04 0.00 - 0.10 K/cumm [facility] Neutrophil pct 37.1 % [facility] Comment: Interpretive Data Percent cell count reference ranges are not reported, since discordance with absolute values may lead to misinterpretation of CBC data. Current Interpretive Data was last revised on 2017. Imm gran pct 0.7 % [facility] Comment: Interpretive Data Percent cell count reference ranges are not reported, since discordance with absolute values may lead to misinterpretation of CBC data. Current Interpretive Data was last revised on 2017. Lymphocyte pct 47.4 % [facility] Comment: Interpretive Data Percent cell count reference ranges are not reported, since discordance with absolute values may lead to misinterpretation of CBC data. Current Interpretive Data was last revised on 2017. Monocyte pct 13.0 % [facility] Comment: Interpretive Data Percent cell count reference ranges are not reported, since discordance with absolute values may lead to misinterpretation of CBC data. Current Interpretive Data was last revised on 2017. Eosinophil pct 1.1 % [facility] Comment: Interpretive Data Percent cell count reference ranges are not reported, since discordance with absolute values may lead to misinterpretation of CBC data. Current Interpretive Data was last revised on 2017. Basophil pct 0.7 % [facility] Comment: Interpretive Data Percent cell count reference ranges are not reported, since discordance with absolute values may lead to misinterpretation of CBC data. Current Interpretive Data was last revised on 2017. Blood 09/05/2024 5:42 AM CDT 09/05/2024 6:06 AM CDT us Nolberto Montalvo CLINICAL SOCIAL WORKER LAB BLOOD ORDERABLES Final R esult [facility] [address] Department [place] [address] * (ABNORMAL) CBC with auto differential (09/05/2024 5:42 AM CDT) WBC 5.40 3.80 - 9.90 K/cumm Hgb 12.1 11.9 - 15.5 g/dL [facility] Hct 38.3 35.6 - 45.5 % [facility] Plt 298 150 - 400 K/cumm [facility] MPV 9.7 9.1 - 12.3 fL [facility] RBC 4.55 3.90 - 5.20 M/cumm [facility] MCV 84.2 81.3 - 96.4 fL [facility] MCH 26.6(L) 27.1 - 33.3 pg [facility] MCHC 31.6(L) 32.3 - 35.7 g/dL [facility] RDW CV 15.4(H) 11.1 - 14.9 % [facility] RDW SD 47.0 35.7 - 48.1 fL [facility] NRBC abs 0.00 0.00 - 0.01 K/cumm [facility] Blood 09/05/2024 5:42 AM CDT 09/05/2024 6:06 AM CDT Narrative [facility] - 09/05/2024 6:14 AM CDT Unable to obtain 2x per Notasha Stunson 09/04/2024 14:45:59 CDT [id number] Nolberto Montalvo CLINICAL SOCIAL WORKER LAB BLOOD ORDERABLES Final R esult Performing Organization Address City/[facility] Co de Phone Number [address] [place] [address] * (ABNORMAL) Phosphorus (09/05/2024 5:42 AM CDT) Phosphorus, pl 1.9(L) 2.3 - 4.5 mg/dL Blood 09/05/2024 5:42 AM CDT 09/05/2024 6:06 AM CDT Narrative [facility] 09/05/2024 6:40 AM CDT Unable to obtain 2x per Notasha Stunson 09/04/2024 14:45:59 CDT [id number] Nolberto Montalvo CLINICAL SOCIAL WORKER LAB BLOOD ORDERABLES Final R esult Performing Organization Address [facility] Co de Phone Number [address] [place] [address] * Magnesium (09/05/2024 5:42 AM CDT) Magnesium 1.7 1.4 - 2.5 mg/dL Blood 09/05/2024 5:42 AM CDT 09/05/2024 6:06 AM CDT Hanh [facility] 09/05/2024 6:40 AM CDT Unable to obtain 2x per Notasha Stray 09/04/2024 14:45:59 CDT [id number] us Nolberto Montalvo NP LAB BLOOD ORDERABLES Final R esult [facility] [address] [place] [address] * (ABNORMAL) Comprehensive metabolic panel (09/05/2024 5:42 AM CDT) Sodium 134(L) 135 - 145 mmol/L Potassium, pl 3.3 3.3 - 4.9 mmol/L [facility] Chloride 106 97 - 110 mmol/L [facility] CO2 15(L) 22 - 32 mmol/L [facility] Anion gap 13 2 - 15 mmol/L [facility] BUN 3(L) 6 - 25 mg/dL [facility] Creatinine 0.37(L) 0.60 - 1.10 mg/dL [facility] Glucose 175 70 - 199 mg/dL [facility] Comment: Interpretive Data Fasting glucose >/= 126 [...] 2022. Calcium 8.4(L) 8.5 - 10.3 mg/dL [facility] Bilirubin, total 0.4 0.1 - 1.2 mg/dL [facility] Protein, pl 6.3(L) 6.5 - 8.5 g/dL [facility] Albumin 3.3(L) 3.5 - 5.0 g/dL [facility] Alk phos 94 40 - 130 Units/L [facility] ALT 15 7 - 45 Units/L [facility] AST 19 10 - 45 Units/L [facility] Blood 09/05/2024 5:42 AM CDT 09/05/2024 6:06 AM CDT Narrative [facility] - 09/05/2024 6:40 AM CDT Unable to obtain 2x per Radha Rodríguezcamille 09/04/2024 14:45:59 CDT [id number] Nolberto Montalvo CLINICAL SOCIAL WORKER LAB BLOOD ORDERABLES Final R esult Performing Organization Address [facility] Co de Phone Number [address] [place] [employer] [place] [address] * POCT glucose (09/05/2024 4:10 AM CDT) Glucose, POC 189 70 - 199 mg/dL Blood 09/05/2024 4:10 AM CDT 09/05/2024 4:10 AM CDT Mykel Barajas DO LAB POCT ORDERABLES - DEVICE Fin al Result Performing Organization Address [facility] Co de Phone Number [address] [place] [employer] [place] [address] * POCT glucose (09/04/2024 11:44 PM CDT) Glucose, POC 160 70 - 199 mg/dL Blood 09/04/2024 11:4 4 PM CDT 09/04/2024 11:44 PM CDT Mykel Barajas DO LAB POCT ORDERABLES - DEVICE Fin al Result Performing Organization Address [facility] Co de Phone Number [address] [place] [employer] [place] [address] * POCT glucose (09/04/2024 9:33 PM CDT) Glucose, POC 139 70 - 199 mg/dL Blood 09/04/2024 9:33 PM CDT 09/04/2024 9:33 PM CDT Mykel Barajas DO LAB POCT ORDERABLES - DEVICE Fin al Result Performing Organization Address [facility] de Phone Number DANIELLA [address] [place] [employer] [address] * POCT glucose (09/04/2024 8:26 PM CDT) Glucose, POC 96 70 - 199 mg/dL Blood 09/04/2024 8:26 PM CDT 09/04/2024 8:26 PM CDT us Mykel Barajas DO LAB POCT ORDERABLES - DEVICE Fin al Result Performing Organization Address [facility] de Phone Number MICHEL[address] [place] [employer] [address] * POCT glucose (09/04/2024 4:46 PM CDT) Glucose, POC 182 70 - 199 mg/dL Glucose comment 1 RN/MD Notified [facility] Blood 09/04/2024 4:46 PM CDT 09/04/2024 4:46 PM CDT us Mykel Barajas DO LAB POCT ORDERABLES - DEVICE Fin al Result Performing Organization Address [facility] de Phone Number [address] [address] * CT Abdomen Pelvis WO Contrast (09/04/2024 [...] Campbell Prasad M.D. JR T: Report ID: [id number] Reading Location: [place] [address] Procedure Note Campbell Prasad MD - 09/04/2024 [...] Campbell Prasad M.D. JR T: Report ID: [id number] Reading Location: [place] [address] us Mykel Barajas DO IMG CT PROCEDURES Final Result * (ABNORMAL) POCT glucose (09/04/2024 12:10 PM CDT) Glucose, POC 321(H) 70 - 199 mg/dL Glucose comment 1 RN/MD Notified [facility] Blood 09/04/2024 12:1 0 PM CDT 09/04/2024 12:10 PM CDT Mykel Barajas DO LAB POCT ORDERABLES - DEVICE Fin al Result Performing Organization Address [facility] Co de Phone Number [address] [place] [address] * POCT glucose (09/04/2024 7:49 AM CDT) Glucose, POC 145 70 - 199 mg/dL Glucose comment 1 RN/MD Notified [facility] Blood 09/04/2024 7:49 AM CDT 09/04/2024 7:49 AM CDT Mykel Barajas DO LAB POCT ORDERABLES - DEVICE Fin al Result Performing Organization Address [facility] Co de Phone Number [address] [place] [employer] [place] [address] * (ABNORMAL) POCT glucose (09/04/2024 4:30 AM CDT) Glucose, POC 256(H) 70 - 199 mg/dL Glucose comment 1 RN/MD Notified [facility] Blood 09/04/2024 4:30 AM CDT 09/04/2024 4:30 AM CDT us Kendrick Go MD LAB POCT ORDERABLES - DEVICE Final Result DANIELLA RDZ [address] [facility] [place] [address] * (ABNORMAL) Urinalysis reflex to microscopic and culture Urine (09/04/2024 4:06 AM CDT) Color, ur Yellow Yellow Clarity, ur Clear Clear [facility] Specific gravity, ur 1.023 1.003 - 1.030 [facility] pH, urine 5.0 [facility] Comment: Interpretive Data U rine pH is affected by diet, medications, systemic acid-base disturbances, and renal tubular function. pH may affect urinary stone formation. For example, urine pH below 6.0 may help reduce the tendency for calcium phosphate stones and pH greater than 6.0 may reduce the tendency for uric acid stone formation. Source: [facility] Current Interpretive Data was last revised on 2017 Protein, ur ql Negative Negative [facility] Glucose, ur ql 4+(A) Negative [facility] Ketones, ur 4+(A) Negative [facility] Bilirubin, ur Negative Negative [facility] Blood, ur Negative Negative [facility] Urobilinogen, ur <2.0 <2.0 mg/dL [facility] Nitrite, ur Negative Negative [facility] Leukocyte esterase, ur Negative Negative [facility] UA reflex comment Reflex conditions for microscopic UA and culture not met. [facility] Urine 09/04/2024 4:06 AM CDT 09/04/2024 4:14 AM CDT us Nolberto Montalvo NP LAB MICROBIOLOGY - GENERAL O RDERABLES Final Result DANIELLA RDZ [address] [facility] [place] [address] * (ABNORMAL) POCT glucose (09/04/2024 12:33 AM CDT) Glucose, POC 212(H) 70 - 199 mg/dL Glucose comment 1 RN/MD Notified [facility] Blood 09/04/2024 12:3 3 AM CDT 09/04/2024 12:33 AM CDT Kendrick Go MD LAB POCT ORDERABLES - DEVICE Final Result Performing Organization Address [facility] Co de Phone Number [address] [place] [employer] [place] [address] * (ABNORMAL) POCT glucose (09/03/2024 10:12 PM CDT) Glucose, POC 322(H) 70 - 199 mg/dL Glucose comment 1 RN/MD Notified [facility] Blood 09/03/2024 10:1 2 PM CDT 09/03/2024 10:12 PM CDT Kendrick Go MD LAB POCT ORDERABLES - DEVICE Final Result Performing Organization Address [facility] Co de Phone Number [address] [place] [address] * POCT glucose (09/03/2024 4:52 PM CDT) Glucose, POC 132 70 - 199 mg/dL Glucose comment 1 RN/MD Notified [facility] Blood 09/03/2024 4:52 PM CDT 09/03/2024 4:52 PM CDT Kendrick Go MD LAB POCT ORDERABLES - DEVICE Final Result Performing Organization Address City/[facility] Co de Phone Number [address] [place] [employer] [place] [address] * POCT glucose (09/03/2024 4:29 PM CDT) Glucose, POC 145 70 - 199 mg/dL Glucose comment 1 Use This Result [facility] Glucose comment 2 RN/MD Notified [facility] Blood 09/03/2024 4:29 PM CDT 09/03/2024 4:29 PM CDT Kendrick Go MD LAB POCT ORDERABLES - DEVICE Final Result Performing Organization Address [facility] Co de Phone Number [address] [address] * POCT glucose (09/03/2024 3:24 PM CDT) Glucose, POC 158 70 - 199 mg/dL Glucose comment 1 Use This Result [facility] Glucose comment 2 RN/MD Notified [facility] Blood 09/03/2024 3:24 PM CDT 09/03/2024 3:24 PM CDT Kendrick Go MD LAB POCT ORDERABLES - DEVICE Final Result Performing Organization Address [facility] Co de Phone Number [address] [place] [employer] [address] * (ABNORMAL) POCT glucose (09/03/2024 2:01 PM CDT) Glucose, POC 248(H) 70 - 199 mg/dL Glucose comment 1 Use This Result [facility] Glucose comment 2 RN/MD Notified [facility] Blood 09/03/2024 2:01 PM CDT 09/03/2024 2:01 PM CDT Kendrick Go MD LAB POCT ORDERABLES - DEVICE Final Result Performing Organization Address City/[facility] Co de Phone Number [address] [place] [employer] [place] [address] * (ABNORMAL) POCT glucose (09/03/2024 12:46 PM CDT) Glucose, POC 269(H) 70 - 199 mg/dL Glucose comment 1 Use This Result [facility] Glucose comment 2 RN/MD Notified [facility] Blood 09/03/2024 12:4 6 PM CDT 09/03/2024 12:46 PM CDT Ken Braxton MD LAB POCT ORDERABLES - DEVICE Fin al Result Performing Organization Address City/[facility] Co de Phone Number [address] [place] [employer] [place] [address] * (ABNORMAL) POCT glucose (09/03/2024 11:47 AM CDT) Pathologist [facility] Glucose, POC 213(H) 70 - 199 mg/dL Blood 09/03/2024 11:4 7 AM CDT 09/03/2024 11:47 AM CDT Ken Braxton MD LAB POCT ORDERABLES - DEVICE Fin al Result Performing Organization Address [facility] de Phone Number [address] [place] [address] * POCT hCG, urine (09/03/2024 10:03 AM CDT) [facility] HCG, ur, POC Negative Negative Lot Number [id number] QC Backgroud Clear Acceptable QC Control Line Acceptable Urine 09/03/2024 10:[address] [facility] Ken Braxton MD POINT OF CARE TEST [...] nas POC 37.0(L) 90.0 - 95.0 % [facility] Met Hgb, nas POC 0.9 0.0 - 1.9 % [facility] Carboxy Hgb, nas POC 0.5 0.0 - 2.9 % [facility] Hemoglobin, nas POC 13.4 11.9 - 15.5 g/dL [facility] Sodium, nas POC 133(L) 135 - 145 mmol/L [facility] Potassium, nas POC 4.0 3.3 - 4.9 mmol/L [facility] Comment: Interpretive Data This method is not able to assess for hemolysis, which may falsely increase potassium concentrations. If further testing is needed to evaluate this result, consider in-laboratory plasma potassium. Current Interpretive Data was last revised on 2022. Glucose, nas POC 220(H) 70 - 199 mg/dL [facility] Ionized Calcium, nas POC 4.83 4.50 - 5.10 mg/dL [facility] Lactate, nas POC 1.6 0.7 - 2.0 mmol/L [facility] Blood 09/03/2024 9:33 AM CDT 09/03/2024 9:33 AM CDT us Notinfile Unknown LAB POCT ORDERABLES - DEVICE F inal Result DANIELLA [address] [facility] Department [place] [address] * eGFR (09/03/2024 9:32 AM CDT) eGFR [...] MD LAB BLOOD ORDERABLES Final Resul t [facility] [address] [facility] [place] [address] * (ABNORMAL) Differential, auto (09/03/2024 9:32 AM CDT) Neutrophil abs 7.81(H) 1.50 - 6.50 K/cumm Imm gran abs 0.04 0.00 - 0.10 K/cumm [facility] Lymphocyte abs 1.33 0.80 - 3.30 K/cumm [facility] Monocyte abs 0.84(H) 0.20 - 0.80 K/cumm [facility] Eosinophil abs 0.01 0.00 - 0.50 K/cumm [facility] Basophil abs 0.02 0.00 - 0.10 K/cumm [facility] Neutrophil pct 77.7 % [facility] Comment: Interpretive Data Percent cell count reference ranges are not reported, since discordance with absolute values may lead to misinterpretation of CBC data. Current Interpretive Data was last revised on 2017. Imm gran pct 0.4 % [facility] Comment: Interpretive Data Percent cell count reference ranges are not reported, since discordance with absolute values may lead to misinterpretation of CBC data. Current Interpretive Data was last revised on 2017. Lymphocyte pct 13.2 % [facility] Comment: Interpretive Data Percent cell count reference ranges are not reported, since discordance with absolute values may lead to misinterpretation of CBC data. Current Interpretive Data was last revised on 2017. Monocyte pct 8.4 % [facility] Comment: Interpretive Data Percent cell count reference ranges are not reported, since discordance with absolute values may lead to misinterpretation of CBC data. Current Interpretive Data was last revised on 2017. Eosinophil pct 0.1 % [facility] Comment: Interpretive Data Percent cell count reference ranges are not reported, since discordance with absolute values may lead to misinterpretation of CBC data. Current Interpretive Data was last revised on 2017. Basophil pct 0.2 % [facility] Comment: Interpretive Data Percent cell count reference ranges are not reported, since discordance with absolute values may lead to misinterpretation of CBC data. Current Interpretive Data was last revised on 2017. Blood 09/03/2024 9:32 AM CDT 09/03/2024 9:34 AM CDT Ken Braxton MD LAB BLOOD ORDERABLES Final Resul t Performing Organization Address [facility] de Phone Number [address] [address] * (ABNORMAL) Beta-hydroxybutyrate (09/03/2024 9:32 AM CDT) Pathologist [facility] Beta-Hydroxybut yrate 3.9(H) <=0.5 mmol/L Blood 09/03/2024 9:32 AM CDT 09/03/2024 9:51 AM CDT Ken Braxton MD LAB BLOOD ORDERABLES Final Resul t Performing Organization Address [facility] de Phone Number [address] [address] * (ABNORMAL) CBC with auto differential (09/03/2024 9:32 AM CDT) WBC 10.05(H) 3.80 - 9.90 K/cumm Hgb 13.4 11.9 - 15.5 g/dL [facility] Hct 41.6 35.6 - 45.5 % [facility] Plt 357 150 - 400 K/cumm [facility] MPV 10.6 9.1 - 12.3 fL [facility] RBC 4.98 3.90 - 5.20 M/cumm [facility] MCV 83.5 81.3 - 96.4 fL [facility] MCH 26.9(L) 27.1 - 33.3 pg [facility] MCHC 32.2(L) 32.3 - 35.7 g/dL [facility] RDW CV 15.1(H) 11.1 - 14.9 % [facility] RDW SD 46.1 35.7 - 48.1 fL [facility] NRBC abs 0.00 0.00 - 0.01 K/cumm [facility] Blood Venous blood specimen / Unknown 09/03/2024 9:32 AM CDT 09/03/2024 9:34 AM CDT Ken Braxton MD LAB BLOOD ORDERABLES Final Resul t Performing Organization Address [facility] Co de Phone Number [address] [place] [address] * Lipase (09/03/2024 9:32 AM CDT) Pathologist [facility] Lipase 12 10 - 99 Units/L Blood Venous blood specimen / Unknown 09/03/2024 9:32 AM CDT 09/03/2024 9:34 AM CDT Ken Braxton MD LAB BLOOD ORDERABLES Final Resul t Performing Organization Address [facility] de Phone Number [address] [place] [employer] [place] [address] * (ABNORMAL) Comprehensive metabolic panel (09/03/2024 9:32 AM CDT) Pathologist [facility] Sodium 134(L) 135 - 145 mmol/L Potassium, pl 3.7 3.3 - 4.9 mmol/L [facility] Chloride 98 97 - 110 mmol/L [facility] CO2 18(L) 22 - 32 mmol/L [facility] Anion gap 18(H) 2 - 15 mmol/L [facility] BUN 5(L) 6 - 25 mg/dL [facility] Creatinine 0.36(L) 0.60 - 1.10 mg/dL [facility] Glucose 216(H) 70 - 199 mg/dL [facility] Comment: Interpretive Data Fasting glucose >/= 126 [...] 2022. Calcium 9.3 8.5 - 10.3 mg/dL [facility] Bilirubin, total 0.4 0.1 - 1.2 mg/dL [facility] Protein, pl 7.7 6.5 - 8.5 g/dL [facility] Albumin 4.1 3.5 - 5.0 g/dL [facility] Alk phos 108 40 - 130 Units/L [facility] ALT 23 7 - 45 Units/L [facility] AST 21 10 - 45 Units/L [facility] Blood 09/03/2024 9:32 AM CDT 09/03/2024 9:34 AM CDT us Ken Braxton MD LAB BLOOD ORDERABLES Final Resul t Performing Organization Address City/[facility] Co de Phone Number [address] [place] [address] * (ABNORMAL) POCT glucose (09/03/2024 8:59 AM CDT) [facility] Signature Glucose, POC 223(H) 70 - 199 mg/dL Glucose comment 1 RN/MD Notified [facility] Blood 09/03/2024 8:59 AM CDT 09/03/2024 8:59 AM CDT us Notinfile Unknown LAB POCT ORDERABLES - DEVICE F inal Result Performing Organization Address City/[facility] Co de Phone Number CERNER [address] [place] [address] * POCT glucose (09/02/2024 7:44 PM CDT) Glucose, POC 167 70 - 199 mg/dL Blood 09/02/2024 7:44 PM CDT 09/02/2024 7:44 PM CDT Notinfile Unknown LAB POCT ORDERABLES - DEVICE F inal Result Performing Organization Address [facility] Co de Phone Number [address] [address] * (ABNORMAL) Urinalysis reflex to microscopic and culture Urine (09/02/2024 3:28 PM CDT) Color, ur Yellow Yellow Clarity, ur Clear Clear [facility] Specific gravity, ur 1.024 1.003 - 1.030 [facility] pH, urine 6.5 [facility] Comment: Interpretive Data U rine pH is affected by diet, medications, systemic acid-base disturbances, and renal tubular function. pH may affect urinary stone formation. For example, urine pH below 6.0 may help reduce the tendency for calcium phosphate stones and pH greater than 6.0 may reduce the tendency for uric acid stone formation. Source: [facility] Current Interpretive Data was last revised on 2017 Protein, ur ql Negative Negative [facility] Glucose, ur ql 4+(A) Negative [facility] Ketones, ur 4+(A) Negative [facility] Bilirubin, ur Negative Negative [facility] Blood, ur Negative Negative [facility] Urobilinogen, ur <2.0 <2.0 mg/dL [facility] Nitrite, ur Negative Negative [facility] Leukocyte esterase, ur Negative Negative [facility] UA reflex comment Reflex conditions for microscopic UA and culture not met. [facility] Urine 09/02/2024 3:28 PM CDT 09/02/2024 3:31 PM CDT Daina BEAVERS LAB MICROBIOLOGY - GENERAL OR DERABLES Final Result Performing Organization Address City/[facility]/ZIP Co de Phone Number DANIELLA [address] [facility] Department [place] [address] * POCT hCG, urine (09/02/2024 3:28 PM CDT) [facility] HCG, ur, POC Negative Negative Lot Number [id number] QC Backgroud Clear Acceptable QC Control Line Acceptable Urine 09/02/2024 3:28 PM CDT Daina BEAVERS POINT OF CARE TEST ORDERABLES Final Result * eGFR (09/02/2024 3:22 PM CDT) [facility] eGFR >90 >=60 mL/min/1. 73 m2 Comment: [...] BLOOD ORDERABLES Final Re sult DANIELLA [address] [facility] Department [place] [address] * (ABNORMAL) Differential, auto (09/02/2024 3:22 PM CDT) Neutrophil abs 3.02 1.50 - 6.50 K/cumm Imm gran abs 0.00 0.00 - 0.10 K/cumm [facility] Lymphocyte abs 0.57(L) 0.80 - 3.30 K/cumm [facility] Monocyte abs 0.35 0.20 - 0.80 K/cumm [facility] Eosinophil abs 0.00 0.00 - 0.50 K/cumm [facility] Basophil abs 0.01 0.00 - 0.10 K/cumm [facility] Neutrophil pct 76.4 % [facility] Comment: Interpretive Data Percent cell count reference ranges are not reported, since discordance with absolute values may lead to misinterpretation of CBC data. Current Interpretive Data was last revised on 2017. Imm gran pct 0.0 % [facility] Comment: Interpretive Data Percent cell count reference ranges are not reported, since discordance with absolute values may lead to misinterpretation of CBC data. Current Interpretive Data was last revised on 2017. Lymphocyte pct 14.4 % [facility] Comment: Interpretive Data Percent cell count reference ranges are not reported, since discordance with absolute values may lead to misinterpretation of CBC data. Current Interpretive Data was last revised on 2017. Monocyte pct 8.9 % [facility] Comment: Interpretive Data Percent cell count reference ranges are not reported, since discordance with absolute values may lead to misinterpretation of CBC data. Current Interpretive Data was last revised on 2017. Eosinophil pct 0.0 % [facility] Comment: Interpretive Data Percent cell count reference ranges are not reported, since discordance with absolute values may lead to misinterpretation of CBC data. Current Interpretive Data was last revised on 2017. Basophil pct 0.3 % [facility] Comment: Interpretive Data Percent cell count reference ranges are not reported, since discordance with absolute values may lead to misinterpretation of CBC data. Current Interpretive Data was last revised on 2017. Blood 09/02/2024 3:22 PM CDT 09/02/2024 3:31 PM CDT Daina BEAVERS LAB BLOOD ORDERABLES Final Re sult DANIELLA [address] [place] [employer] [place] [address] * POCT glucose (09/02/2024 3:22 PM CDT) [facility] Glucose, POC 174 70 - 199 mg/dL Blood 09/02/2024 3:22 PM CDT 09/02/2024 3:22 PM CDT us Notinfile Unknown LAB POCT ORDERABLES - DEVICE F inal Result Performing Organization Address [facility] Co de Phone Number [address] [place] [employer] [place] [address] * (ABNORMAL) CBC with auto differential (09/02/2024 3:22 PM CDT) [facility] WBC 3.95 3.80 - 9.90 K/cumm Hgb 12.8 11.9 - 15.5 g/dL [facility] Hct 40.2 35.6 - 45.5 % [facility] Plt 308 150 - 400 K/cumm [facility] MPV 10.8 9.1 - 12.3 fL [facility] RBC 4.75 3.90 - 5.20 M/cumm [facility] MCV 84.6 81.3 - 96.4 fL [facility] MCH 26.9(L) 27.1 - 33.3 pg [facility] MCHC 31.8(L) 32.3 - 35.7 g/dL [facility] RDW CV 15.1(H) 11.1 - 14.9 % [facility] RDW SD 46.2 35.7 - 48.1 fL [facility] NRBC abs 0.00 0.00 - 0.01 K/cumm [facility] Blood Venous blood specimen / Unknown 09/02/2024 3:22 PM CDT 09/02/2024 3:31 PM CDT us Daina BEAVERS LAB BLOOD ORDERABLES Final Re sult Performing Organization Address City/[facility]/ZIP Co de Phone Number DANIELLA [address] [place] [employer] [place] [address] * Lipase (09/02/2024 3:22 PM CDT) Pathologist [facility] Lipase 14 10 - 99 Units/L Comment:Hemolyzed; result mi ght be falsely decreased Blood Venous blood specimen / Unknown 09/02/2024 3:22 PM CDT 09/02/2024 3:31 PM CDT Daina BEAVERS LAB BLOOD ORDERABLES Final Re sult [place] [id number] [place] [address] * (ABNORMAL) Comprehensive metabolic panel (09/02/2024 3:22 PM CDT) Pathologist [facility] Sodium 135 135 - 145 mmol/L Potassium, pl See Comment 3.3 - 4.9 [facility] Comment:Credited; Hemolyzed Specimen Chloride 101 97 - 110 mmol/L [facility] CO2 20(L) 22 - 32 mmol/L [facility] Anion gap 14 2 - 15 mmol/L [facility] BUN 6 6 - 25 mg/dL [facility] Creatinine 0.35(L) 0.60 - 1.10 mg/dL [facility] Glucose 190 70 - 199 mg/dL [facility] Comment: Delta - Results Reviewed Interpretive Data [...] 2022. Calcium 8.3(L) 8.5 - 10.3 mg/dL [facility] Bilirubin, total 0.3 0.1 - 1.2 mg/dL [facility] Protein, pl 7.0 6.5 - 8.5 g/dL [facility] Albumin 3.5 3.5 - 5.0 g/dL [facility] Alk phos 97 40 - 130 Units/L [facility] ALT See Comment [facility] Comment:Credited; Hemolyzed Specimen AST See Comment [facility] Comment:Credited; Hemolyzed Specimen Blood 09/02/2024 3:22 PM CDT 09/02/2024 3:31 PM CDT Daina BEAVERS LAB BLOOD ORDERABLES Final Re sult Performing Organization Address [facility] Co de Phone Number [address] [address] * (ABNORMAL) POCT glucose (09/02/2024 3:40 AM CDT) [facility] Glucose, POC 216(H) 70 - 199 mg/dL Blood 09/02/2024 3:40 AM CDT 09/02/2024 3:40 AM CDT Hung Cooper MD LAB POCT ORDERABLES - PIPER CE Final Result Performing Organization Address [facility] Co de Phone Number [address] [address] * Influenza A/B, RSV, and COVID-19 PCR Nasopharyngeal (09/02/2024 3:27 AM CDT) [facility] COVID-19 RNA Negative Negative Influenza A RNA Negative Negative [facility] Influenza B RNA Negative Negative [facility] RSV RNA Negative Negative [facility] Comment: Interpretive data: Testing performed by [facility]. This test is performed using the [employer] Xpert Xpress CoV-2/Flu/RSV plus assay. This is a multiplex, real-time reverse transcriptase PCR assay intended for the qualitative detection of nucleic acid from SARS-CoV-2, influenza A, influenza B, and respiratory syncytial virus. This assay has been cleared by the [place] Food and Drug administration. The performance characteristics have been verified by the [facility]. Results must be considered in the clinical context, and a negative result does not rule out infection. Interpretive Data last revised 2023 Nasopharyngeal 09/02/2024 3: 27 AM CDT 09/02/2024 3:32 AM CDT Narrative DANIELLA - 09/02/2024 4:12 AM CDT Is the Patient experiencing symptoms consistent with COVID?->Unknown Hung Cooper MD LAB MICROBIOLOGY - GENERAL ORDERABLES Final Result Performing Organization Address City/[facility] Co de Phone Number [address] [place] [employer] [place] [address] * (ABNORMAL) Beta-hydroxybutyrate (09/02/2024 3:27 AM CDT) Pathologist [facility] Beta-Hydroxybut yrate 1.1(H) <=0.5 mmol/L Blood 09/02/2024 3:27 AM CDT 09/02/2024 3:32 AM CDT Hung Cooper MD LAB BLOOD ORDERABLES Final Result Performing Organization Address [facility] Co de Phone Number [address] [place] [employer] [address] * Creatine kinase (CK), total (09/02/2024 3:27 AM CDT) Pathologist [facility] CK 33 30 - 200 Units/L Blood 09/02/2024 3:27 AM CDT 09/02/2024 3:32 AM CDT Hung Cooper MD LAB BLOOD ORDERABLES Final Result Performing Organization Address [facility] Co de Phone Number [address] [place] [employer] [place] [address] * Sepsis Lactate w/ Reflex (09/02/2024 2:38 AM CDT) Pathologist [facility] Sepsis Lactate 1.8 0.7 - 2.0 mmol/L Blood 09/02/2024 2:38 AM CDT 09/02/2024 2:46 AM CDT Hung Cooper MD LAB BLOOD ORDERABLES Final Result Performing Organization Address [facility] de Phone Number DANIELLA [address] [address] * eGFR (09/02/2024 2:38 AM CDT) Pathologist [...] ORDERABLES Final Resul t Performing Organization Address [facility] Co de Phone Number DANIELLA [address] [place] [employer] [address] * Differential, auto (09/02/2024 2:38 AM CDT) Pathologist [facility] Neutrophil abs 3.95 1.50 - 6.50 K/cumm Imm gran abs 0.02 0.00 - 0.10 K/cumm [facility] Lymphocyte abs 1.55 0.80 - 3.30 K/cumm [facility] Monocyte abs 0.80 0.20 - 0.80 K/cumm [facility] Eosinophil abs 0.03 0.00 - 0.50 K/cumm [facility] Basophil abs 0.03 0.00 - 0.10 K/cumm [facility] Neutrophil pct 61.9 % [facility] Comment: Interpretive Data Percent cell count reference ranges are not reported, since discordance with absolute values may lead to misinterpretation of CBC data. Current Interpretive Data was last revised on 2017. Imm gran pct 0.3 % [facility] Comment: Interpretive Data Percent cell count reference ranges are not reported, since discordance with absolute values may lead to misinterpretation of CBC data. Current Interpretive Data was last revised on 2017. Lymphocyte pct 24.3 % [facility] Comment: Interpretive Data Percent cell count reference ranges are not reported, since discordance with absolute values may lead to misinterpretation of CBC data. Current Interpretive Data was last revised on 2017. Monocyte pct 12.5 % [facility] Comment: Interpretive Data Percent cell count reference ranges are not reported, since discordance with absolute values may lead to misinterpretation of CBC data. Current Interpretive Data was last revised on 2017. Eosinophil pct 0.5 % [facility] Comment: Interpretive Data Percent cell count reference ranges are not reported, since discordance with absolute values may lead to misinterpretation of CBC data. Current Interpretive Data was last revised on 2017. Basophil pct 0.5 % [facility] Comment: Interpretive Data Percent cell count reference ranges are not reported, since discordance with absolute values may lead to misinterpretation of CBC data. Current Interpretive Data was last revised on 2017. Blood 09/02/2024 2:38 AM CDT 09/02/2024 2:46 AM CDT us Annie BEAVERS LAB BLOOD ORDERABLES Final Resul t DANIELLA [address] [facility] [place] [address] * (ABNORMAL) Urinalysis reflex to microscopic and culture Urine (09/02/2024 2:38 AM CDT) Pathologist [facility] Color, ur Yellow Yellow Clarity, ur Clear Clear [facility] Specific gravity, ur 1.034(H) 1.003 - 1.030 [facility] pH, urine 7.5 [facility] Comment: Interpretive Data U rine pH is affected by diet, medications, systemic acid-base disturbances, and renal tubular function. pH may affect urinary stone formation. For example, urine pH below 6.0 may help reduce the tendency for calcium phosphate stones and pH greater than 6.0 may reduce the tendency for uric acid stone formation. Source: [facility] Current Interpretive Data was last revised on 2017 Protein, ur ql Negative Negative [facility] Glucose, ur ql 4+(A) Negative [facility] Ketones, ur 3+(A) Negative [facility] Bilirubin, ur Negative Negative [facility] Blood, ur Negative Negative [facility] Urobilinogen, ur <2.0 <2.0 mg/dL [facility] Nitrite, ur Negative Negative [facility] Leukocyte esterase, ur Negative Negative [facility] UA reflex comment Reflex conditions for microscopic UA and culture not met. [facility] Urine 09/02/2024 2:38 AM CDT 09/02/2024 2:46 AM CDT Hung Cooper MD LAB MICROBIOLOGY - GENERAL ORDERABLES Final Result [facility] [address] [facility] Department [place] [address] * (ABNORMAL) CBC with auto differential (09/02/2024 2:38 AM CDT) [facility] WBC 6.38 3.80 - 9.90 K/cumm Hgb 11.4(L) 11.9 - 15.5 g/dL [facility] Hct 36.0 35.6 - 45.5 % [facility] Plt 255 150 - 400 K/cumm [facility] MPV 11.0 9.1 - 12.3 fL [facility] RBC 4.27 3.90 - 5.20 M/cumm [facility] MCV 84.3 81.3 - 96.4 fL [facility] MCH 26.7(L) 27.1 - 33.3 pg [facility] MCHC 31.7(L) 32.3 - 35.7 g/dL [facility] RDW CV 15.3(H) 11.1 - 14.9 % [facility] RDW SD 47.0 35.7 - 48.1 fL [facility] NRBC abs 0.00 0.00 - 0.01 K/cumm [facility] Blood 09/02/2024 2:38 AM CDT 09/02/2024 2:46 AM CDT us Annie BEAVERS LAB BLOOD ORDERABLES Final Resul t DANIELLA [address] [facility] Department [place] [address] * (ABNORMAL) Drugs of Abuse Screen, Urine [...] 2022. Barbiturates, ur Not Detected CutOff 200ng/mL [facility] Comment: Interpretive Data - Barbiturates: Samples containing greater than 200 ng/mL secobarbital or other cross-reacting barbiturate compounds are reported as positive. False positive and false negative results are possible. Confirmatory testing required for definitive results. Current Interpretive Data was last reviewed 2022. Benzodiazepines, ur Not Detected CutOff 100ng/mL [facility] Comment: Interpretive Data - Benzodiazepines: Samples containing greater than 100 ng/mL nordiazepam or other cross-reacting compounds are reported as positive. False positive and false negative results are possible. Confirmatory testing required for definitive results. Current Interpretive Data was last reviewed 2022. Cannabinoids, ur Screen Positive, presumptive (A) CutOff 50 ng/mL [facility] Comment: Interpretive Data - Cannabinoids: Samples containing greater than 50 ng/mL delta-9 THC -COOH or other cross- reacting compounds are reported as positive. False positive and false negative results are possible. Confirmatory testing required for definitive results. Current Interpretive Data was last reviewed 2022. Cocaine, ur Not Detected CutOff 150ng/mL [facility] Comment: Interpretive Data - Cocaine: Samples containing greater than 150 ng/mL benzoylecgonine or other cross- reacting compounds are reported as positive. False positive and false negative results are possible. Confirmatory testing required for definitive results. Current Interpretive Data was last reviewed 2022. Fentanyl, Ur Not Detected CutOff 5 ng/mL [facility] Comment: Interpretive Data - Fentanyl: Samples containing greater than 5 ng/mL norfentanyl, fentanyl, or other cross-reacting fentanyl compounds are reported as positive. False positive and false negative results are possible. Confirmatory testing required for definitive results. Current Interpretive Data was last reviewed 2023. Methadone, ur Not Detected CutOff 300ng/mL [facility] Comment: Interpretive Data - Methadone: Samples containing greater than 300 ng/mL d,l-methadone or other cross-reacting compounds are reported as positive. False positive and false negative results are possible. Confirmatory testing required for definitive results. Current Interpretive Data was last reviewed 2022. Opiates, ur Not Detected CutOff 300ng/mL [facility] Comment: Interpretive Data - Opiates: Samples containing greater than 300 ng/mL morphine or other cross-reacting compounds are reported as positive. False positive and false negative results are possible. Confirmatory testing required for definitive results. Current Interpretive Data was last reviewed 2022. Oxycodone, ur Not Detected CutOff 100ng/mL [facility] Comment: Interpretive Data - Oxycodone: Samples containing greater than 100 ng/mL oxycodone or other cross-reacting compounds are reported as positive. False positive and false negative results are possible. Confirmatory testing required for definitive results. Current Interpretive Data was last reviewed 2022. Phencyclidine, ur Not Detected CutOff 25 ng/mL [facility] Comment: Interpretive Data - Phencyclidine: Samples containing greater than 25 ng/mL phencyclidine or other cross-reacting compounds are reported as positive. False positive and false negative results are possible. Confirmatory testing required for definitive results. Current Interpretive Data was last reviewed 2022. Urine Creatinine 46 mg/dL [facility] Comment: Interpretive Data Urine Creatinine: < 10 mg/dL is extremely dilute = or > 10 but < 20 mg/dL is dilute = or > 20 mg/dL is normal Current Interpretive Data was last revised on 2017. Urine 09/02/2024 2:38 AM CDT 09/02/2024 2:46 AM CDT Narrative [facility] - 09/02/2024 3:43 AM CDT Drug of Abuse screening is performed by immunoassay for medical purposes only. This is not to be used for Pain Management purposes. Hung Cooper MD LAB URINE ORDERABLES Final Result Performing Organization Address [facility] Co de Phone Number [address] [place] [employer] [place] [address] * Phosphorus (09/02/2024 2:38 AM CDT) Phosphorus, pl 3.5 2.3 - 4.5 mg/dL Blood 09/02/2024 2:38 AM CDT 09/02/2024 2:46 AM CDT Hung Cooper MD LAB BLOOD ORDERABLES Final Result Performing Organization Address [facility] de Phone Number [address] [place] [employer] [place] [address] * Magnesium (09/02/2024 2:38 AM CDT) Magnesium 1.7 1.4 - 2.5 mg/dL Blood 09/02/2024 2:38 AM CDT 09/02/2024 2:46 AM CDT Hung Cooper MD LAB BLOOD ORDERABLES Final Result Performing Organization Address [facility] Co de Phone Number [address] [place] [employer] [place] [address] * (ABNORMAL) Comprehensive metabolic panel (09/02/2024 2:38 AM CDT) Sodium 134(L) 135 - 145 mmol/L Potassium, pl See Comment 3.3 - 4.9 [facility] Comment:Credited; Hemolyzed Specimen Chloride 100 97 - 110 mmol/L [facility] CO2 20(L) 22 - 32 mmol/L [facility] Anion gap 14 2 - 15 mmol/L [facility] BUN 9 6 - 25 mg/dL [facility] Creatinine 0.36(L) 0.60 - 1.10 mg/dL [facility] Glucose 304(H) 70 - 199 mg/dL [facility] Comment: Interpretive Data Fasting glucose >/= 126 [...] 2022. Calcium 8.7 8.5 - 10.3 mg/dL [facility] Bilirubin, total 0.3 0.1 - 1.2 mg/dL [facility] Protein, pl 6.4(L) 6.5 - 8.5 g/dL [facility] Albumin 3.3(L) 3.5 - 5.0 g/dL [facility] Alk phos 88 40 - 130 Units/L [facility] ALT See Comment 7 - 45 [facility] Comment:Credited; Hemolyzed Specimen AST See Comment 10 - 45 [facility] Comment:Credited; Hemolyzed Specimen Blood 09/02/2024 2:38 AM CDT 09/02/2024 2:46 AM CDT us Annie BEAVERS LAB BLOOD ORDERABLES Final Resul t [facility] [address] [facility] Department [place] [address] * ECG 12 lead (09/02/2024 1:53 AM CDT) [facility] Ventricular Rate EKG/Min 86 BPM [facility] Atrial Rate 86 BPM [facility] OR-Interval (MSEC) 130 ms [facility] QRS-Interval (MSEC) 82 ms [facility] QT-Interval (MSEC) 360 ms [facility] QTc 430 ms [facility] P [place] 53 degrees [facility] R [place] 25 degrees [facility] T [place] 35 degrees [facility] Diagnosis Normal sinus rhythm Possible Left atrial enlargement Septal infarct , age undetermined Abnormal ECG When compared with ECG of 31-AUG-2024 09:58, No significant change was found Confirmed by MEHDI SERNA M.D. ([id number]) on 09/02/2024 1:58:31 PM [facility] 09/02/2024 1:53 AM CDT 09/02/2024 1:58 PM CDT us Hung Cooper MD ECG ORDERABLES Final Resu lt Performing Organization Address [facility] Co de Phone Number [facility] * POCT hCG, urine (09/02/2024 1:03 AM CDT) [facility] HCG, ur, POC Negative Negative Lot Number [id number] QC Backgroud Clear Acceptable QC Control Line Acceptable Urine 09/02/2024 1:03 AM CDT Annie BEAVERS POINT OF CARE TEST ORDERABLES Fi nal Result * (ABNORMAL) POCT glucose (09/02/2024 12:46 AM CDT) [facility] Glucose, POC 251(H) 70 - 199 mg/dL Glucose comment 1 RN/MD Notified DANIELLA RDZ Blood 09/02/2024 12:4 6 AM CDT 09/02/2024 12:46 AM CDT us Notinfile Unknown LAB POCT ORDERABLES - DEVICE F inal Result Performing Organization Address [facility] Co de Phone Number DANIELLA RDZ [address] [place] [address] * POCT glucose (09/01/2024 2:00 PM CDT) Glucose, POC 107 70 - 199 mg/dL Blood 09/01/2024 2:00 PM CDT 09/01/2024 2:00 PM CDT Vaishnavi Noble MD LAB POCT ORDERABLES - DEVICE Fin al Result Performing Organization Address City/[facility]/ZIP Co de Phone Number [address] [address] * POCT glucose (09/01/2024 11:44 AM CDT) Glucose, POC 114 70 - 199 mg/dL Glucose comment 1 Use This Result [facility] Glucose comment 2 RN/MD Notified [facility] Blood 09/01/2024 11:4 4 AM CDT 09/01/2024 11:44 AM CDT Vaishnavi Noble MD LAB POCT ORDERABLES - DEVICE Fin al Result Performing Organization Address City/[facility] Co de Phone Number [address] [address] * POCT glucose (09/01/2024 11:25 AM CDT) Glucose, POC 81 70 - 199 mg/dL Glucose comment 1 Use This Result [facility] Glucose comment 2 RN/MD Notified [facility] Blood 09/01/2024 11:2 5 AM CDT 09/01/2024 11:25 AM CDT Vaishnavi Noble MD LAB POCT ORDERABLES - DEVICE Fin al Result Performing Organization Address City/[facility]/ZIP Co de Phone Number [address] [address] * (ABNORMAL) POCT glucose (09/01/2024 7:48 AM CDT) [facility] Glucose, POC 242(H) 70 - 199 mg/dL Glucose comment 1 Use This Result [facility] Glucose comment 2 RN/MD Notified [facility] Blood 09/01/2024 7:48 AM CDT 09/01/2024 7:48 AM CDT Vaishnavi Noble MD LAB POCT ORDERABLES - DEVICE Fin al Result Performing Organization Address [facility] Co de Phone Number [address] [place] [employer] [place] [address] * eGFR (09/01/2024 4:26 AM CDT) [facility] eGFR >90 >=60 mL/min/1. 73 m2 Comment: [...] ORDERABLES Final Resul t Performing Organization Address [facility] Co de Phone Number [address] [place] [employer] [place] [address] * Differential, auto (09/01/2024 4:26 AM CDT) Neutrophil abs 2.15 1.50 - 6.50 K/cumm Imm gran abs 0.01 0.00 - 0.10 K/cumm [facility] Lymphocyte abs 2.42 0.80 - 3.30 K/cumm [facility] Monocyte abs 0.61 0.20 - 0.80 K/cumm [facility] Eosinophil abs 0.14 0.00 - 0.50 K/cumm [facility] Basophil abs 0.03 0.00 - 0.10 K/cumm [facility] Neutrophil pct 40.1 % [facility] Comment: Interpretive Data Percent cell count reference ranges are not reported, since discordance with absolute values may lead to misinterpretation of CBC data. Current Interpretive Data was last revised on 2017. Imm gran pct 0.2 % [facility] Comment: Interpretive Data Percent cell count reference ranges are not reported, since discordance with absolute values may lead to misinterpretation of CBC data. Current Interpretive Data was last revised on 2017. Lymphocyte pct 45.1 % [facility] Comment: Interpretive Data Percent cell count reference ranges are not reported, since discordance with absolute values may lead to misinterpretation of CBC data. Current Interpretive Data was last revised on 2017. Monocyte pct 11.4 % [facility] Comment: Interpretive Data Percent cell count reference ranges are not reported, since discordance with absolute values may lead to misinterpretation of CBC data. Current Interpretive Data was last revised on 2017. Eosinophil pct 2.6 % [facility] Comment: Interpretive Data Percent cell count reference ranges are not reported, since discordance with absolute values may lead to misinterpretation of CBC data. Current Interpretive Data was last revised on 2017. Basophil pct 0.6 % [facility] Comment: Interpretive Data Percent cell count reference ranges are not reported, since discordance with absolute values may lead to misinterpretation of CBC data. Current Interpretive Data was last revised on 2017. Blood 09/01/2024 4:26 AM CDT 09/01/2024 5:13 AM CDT Vaishnavi Noble MD LAB BLOOD ORDERABLES Final Resul t [place] [id number] [facility] [place] [address] * (ABNORMAL) CBC with auto differential (09/01/2024 4:26 AM CDT) [facility] WBC 5.36 3.80 - 9.90 K/cumm Hgb 11.9 11.9 - 15.5 g/dL [facility] Hct 37.5 35.6 - 45.5 % [facility] Plt 253 150 - 400 K/cumm [facility] MPV 11.2 9.1 - 12.3 fL [facility] RBC 4.34 3.90 - 5.20 M/cumm [facility] MCV 86.4 81.3 - 96.4 fL [facility] MCH 27.4 27.1 - 33.3 pg [facility] MCHC 31.7(L) 32.3 - 35.7 g/dL [facility] RDW CV 15.5(H) 11.1 - 14.9 % [facility] RDW SD 49.1(H) 35.7 - 48.1 fL [facility] NRBC abs 0.00 0.00 - 0.01 K/cumm [facility] Blood 09/01/2024 4:26 AM CDT 09/01/2024 5:13 AM CDT Vaishnavi Noble MD LAB BLOOD ORDERABLES Final [facility]ul t [facility] [address] [place] [address] * (ABNORMAL) Renal function panel (09/01/2024 4:26 AM CDT) [facility] Sodium 136 135 - 145 mmol/L Potassium, pl 3.7 3.3 - 4.9 mmol/L [facility] Chloride 104 97 - 110 mmol/L [facility] CO2 22 22 - 32 mmol/L [facility] Anion gap 10 2 - 15 mmol/L [facility] BUN 9 6 - 25 mg/dL [facility] Creatinine 0.37(L) 0.60 - 1.10 mg/dL [facility] Glucose 232(H) 70 - 199 mg/dL [facility] Comment: Delta - Results Reviewed Interpretive Data [...] 2022. Calcium 8.6 8.5 - 10.3 mg/dL [facility] Phosphorus, pl 3.8 2.3 - 4.5 mg/dL [facility] Albumin 3.0(L) 3.5 - 5.0 g/dL [facility] Blood 09/01/2024 4:26 AM CDT 09/01/2024 5:13 AM CDT Vaishnavi Noble MD LAB BLOOD ORDERABLES Final Resul t Performing Organization Address [facility]/ZIP Co de Phone Number [address] [place] [address] * (ABNORMAL) POCT glucose (09/01/2024 2:00 AM CDT) Glucose, POC 260(H) 70 - 199 mg/dL Blood 09/01/2024 2:00 AM CDT 09/01/2024 2:00 AM CDT Vaishnavi Noble MD LAB POCT ORDERABLES - DEVICE Fin al Result Performing Organization Address [facility] Co de Phone Number [address] [place] [address] * POCT glucose (08/31/2024 7:50 PM CDT) Glucose, POC 115 70 - 199 mg/dL Blood 08/31/2024 7:50 PM CDT 08/31/2024 7:50 PM CDT Vaishnavi Noble MD LAB POCT ORDERABLES - DEVICE Fin al Result Performing Organization Address [facility] Co de Phone Number MICHEL[address] [place] [employer] [place] [address] * eGFR (08/31/2024 7:39 PM CDT) eGFR [...] ORDERABLES Final Resul t Performing Organization Address [facility] Co de Phone Number MICHEL[address] [place] [address] * Magnesium (08/31/2024 7:39 PM CDT) Magnesium 1.7 1.4 - 2.5 mg/dL Blood 08/31/2024 7:39 PM CDT 08/31/2024 7:47 PM CDT Mykel Diehl DO LAB BLOOD ORDERABLES Final Result Performing Organization Address City/[facility]/ZIP Co de Phone Number DANIELLA [address] [place] [address] * (ABNORMAL) Renal function panel (08/31/2024 7:39 PM CDT) Sodium 136 135 - 145 mmol/L Potassium, pl 3.9 3.3 - 4.9 mmol/L [facility] Chloride 102 97 - 110 mmol/L [facility] CO2 23 22 - 32 mmol/L [facility] Anion gap 11 2 - 15 mmol/L [facility] BUN 11 6 - 25 mg/dL [facility] Creatinine 0.34(L) 0.60 - 1.10 mg/dL [facility] Glucose 126 70 - 199 mg/dL [facility] Comment: Interpretive Data Fasting glucose >/= 126 [...] 2022. Calcium 8.3(L) 8.5 - 10.3 mg/dL [facility] Phosphorus, pl 3.5 2.3 - 4.5 mg/dL [facility] Albumin 3.1(L) 3.5 - 5.0 g/dL [facility] Blood 08/31/2024 7:39 PM CDT 08/31/2024 7:47 PM CDT us Vaishnavi Noble MD LAB BLOOD ORDERABLES Final Resul t DANIELLA [address] Department [place] [address] * CT Chest PE (CTA) Abdomen Pelvis [...] Shea Ca M.D. FT T: Report ID: [id number] Reading Location: [place] [address] Procedure Note Shea Ro MD - 08/31/2024 [...] Shea Ca M.D. FT T: Report ID: [id number] Reading Location: [place] [address] PROCEDURES Final Resul t * Sepsis Lactate w/ Reflex (08/31/2024 5:21 PM CDT) Sepsis Lactate 1.2 0.7 - 2.0 mmol/L Blood 08/31/2024 5:21 PM CDT 08/31/2024 5:28 PM CDT Mykel Diehl DO LAB BLOOD ORDERABLES Final Result [facility] [address] [facility] Department [place] [address] * eGFR (08/31/2024 5:21 PM [...] ORDERABLES Final Re sult Performing Organization Address City/[facility] Co de Phone Number [address] [place] [employer] [place] [address] * Magnesium (08/31/2024 5:21 PM CDT) Pathologist [facility] Magnesium 1.6 1.4 - 2.5 mg/dL Blood 08/31/2024 5:21 PM CDT 08/31/2024 5:28 PM CDT Mykel Diehl DO LAB BLOOD ORDERABLES Final Result Performing Organization Address [facility] de Phone Number [address] [address] * (ABNORMAL) Basic metabolic panel (08/31/2024 5:21 PM CDT) Pathologist [facility] Sodium 137 135 - 145 mmol/L Potassium, pl 3.7 3.3 - 4.9 mmol/L [facility] Chloride 101 97 - 110 mmol/L [facility] CO2 23 22 - 32 mmol/L [facility] Anion gap 13 2 - 15 mmol/L [facility] BUN 12 6 - 25 mg/dL [facility] Creatinine 0.35(L) 0.60 - 1.10 mg/dL [facility] Glucose 207(H) 70 - 199 mg/dL [facility] Comment: Interpretive Data Fasting glucose >/= 126 [...] 2022. Calcium 8.2(L) 8.5 - 10.3 mg/dL [facility] Blood 08/31/2024 5:21 PM CDT 08/31/2024 5:28 PM CDT Mykel Diehl DO LAB BLOOD ORDERABLES Final Result [facility] [address] [facility] Department [place] [address] * (ABNORMAL) Urinalysis reflex to microscopic and culture Urine, bladder (08/31/2024 4:44 PM CDT) Color, ur Yellow Yellow Clarity, ur Clear Clear [facility] Specific gravity, ur 1.030 1.003 - 1.030 [facility] pH, urine 7.5 [facility] Comment: Interpretive Data U rine pH is affected by diet, medications, systemic acid-base disturbances, and renal tubular function. pH may affect urinary stone formation. For example, urine pH below 6.0 may help reduce the tendency for calcium phosphate stones and pH greater than 6.0 may reduce the tendency for uric acid stone formation. Source: [facility] Current Interpretive Data was last revised on 2017 Protein, ur ql Negative Negative [facility] Glucose, ur ql 4+(A) Negative [facility] Ketones, ur 4+(A) Negative [facility] Bilirubin, ur Negative Negative [facility] Blood, ur Negative Negative [facility] Urobilinogen, ur <2.0 <2.0 mg/dL [facility] Nitrite, ur Negative Negative [facility] Leukocyte esterase, ur Negative Negative [facility] UA reflex comment Reflex conditions for microscopic UA and culture not met. [facility] Urine, bladder 08/31/2024 4: 44 PM CDT 08/31/2024 4:52 PM CDT Sena BEAVERS LAB MICROBIOLOGY - GENERAL OR DERABLES Final Result [facility] [address] [facility] Department [place] [address] * (ABNORMAL) Drugs of Abuse Screen, Urine [...] 2022. Barbiturates, ur Not Detected CutOff 200ng/mL [facility] Comment: Interpretive Data - Barbiturates: Samples containing greater than 200 ng/mL secobarbital or other cross-reacting barbiturate compounds are reported as positive. False positive and false negative results are possible. Confirmatory testing required for definitive results. Current Interpretive Data was last reviewed 2022. Benzodiazepines, ur Not Detected CutOff 100ng/mL [facility] [facility] Comment: Interpretive Data - Benzodiazepines: Samples containing greater than 100 ng/mL nordiazepam or other cross-reacting compounds are reported as positive. False positive and false negative results are possible. Confirmatory testing required for definitive results. Current Interpretive Data was last reviewed 2022. Cannabinoids, ur Screen Positive, presumptive (A) CutOff 50 ng/mL [facility] Comment: Interpretive Data - Cannabinoids: Samples containing greater than 50 ng/mL delta-9 THC -COOH or other cross- reacting compounds are reported as positive. False positive and false negative results are possible. Confirmatory testing required for definitive results. Current Interpretive Data was last reviewed 2022. Cocaine, ur Not Detected CutOff 150ng/mL [facility] Comment: Interpretive Data - Cocaine: Samples containing greater than 150 ng/mL benzoylecgonine or other cross- reacting compounds are reported as positive. False positive and false negative results are possible. Confirmatory testing required for definitive results. Current Interpretive Data was last reviewed 2022. Fentanyl, Ur Screen Positive, presumptive (A) CutOff 5 ng/mL [facility] Comment: Interpretive Data - Fentanyl: Samples containing greater than 5 ng/mL norfentanyl, fentanyl, or other cross-reacting fentanyl compounds are reported as positive. False positive and false negative results are possible. Confirmatory testing required for definitive results. Current Interpretive Data was last reviewed 2023. Methadone, ur Not Detected CutOff 300ng/mL [facility] Comment: Interpretive Data - Methadone: Samples containing greater than 300 ng/mL d,l-methadone or other cross-reacting compounds are reported as positive. False positive and false negative results are possible. Confirmatory testing required for definitive results. Current Interpretive Data was last reviewed 2022. Opiates, ur Screen Positive, presumptive (A) CutOff 300ng/mL [facility] Comment: Interpretive Data - Opiates: Samples containing greater than 300 ng/mL morphine or other cross-reacting compounds are reported as positive. False positive and false negative results are possible. Confirmatory testing required for definitive results. Current Interpretive Data was last reviewed 2022. Oxycodone, ur Not Detected CutOff 100ng/mL [facility] Comment: Interpretive Data - Oxycodone: Samples containing greater than 100 ng/mL oxycodone or other cross-reacting compounds are reported as positive. False positive and false negative results are possible. Confirmatory testing required for definitive results. Current Interpretive Data was last reviewed 2022. Phencyclidine, ur Not Detected CutOff 25 ng/mL [facility] Comment: Interpretive Data - Phencyclidine: Samples containing [...] PM CDT 08/31/2024 4:52 PM CDT Narrative [facility] - 08/31/20[facility] 5:22 PM CDT Drug of Abuse screening is performed by immunoassay for medical purposes only. This is not to be used for Pain Management purposes. Mykel Diehl DO LAB URINE ORDERABLES Final Result Performing Organization Address [facility] de Phone Number [address] [address] * (ABNORMAL) POCT glucose (08/31/2024 4:19 PM CDT) Glucose, POC 202(H) 70 - 199 mg/dL Glucose comment 1 RN/MD Notified [facility] Glucose comment 2 Use This Result [facility] Blood 08/31/2024 4:19 PM CDT 08/31/2024 4:19 PM CDT Vaishnavi Noble MD LAB POCT ORDERABLES - DEVICE Fin al Result Performing Organization Address [facility] de Phone Number [address] [address] * (ABNORMAL) POCT glucose (08/31/2024 3:44 PM CDT) Glucose, POC 202(H) 70 - 199 mg/dL Glucose comment 1 RN/MD Notified [facility] Blood 08/31/2024 3:44 PM CDT 08/31/2024 3:44 PM CDT Vaishnavi Noble MD LAB POCT ORDERABLES - DEVICE Fin al Result Performing Organization Address [facility] de Phone Number [address] [address] * POCT glucose (08/31/2024 3:00 PM CDT) Glucose, POC 186 70 - 199 mg/dL Glucose comment 1 RN/MD Notified [facility] Blood 08/31/2024 3:00 PM CDT 08/31/2024 3:00 PM CDT Vaishnavi Noble MD LAB POCT ORDERABLES - DEVICE Fin al Result Performing Organization Address [facility]/ZIP Co de Phone Number [address] [place] [employer] [place] [address] * POCT glucose (08/31/2024 2:26 PM CDT) [facility] Glucose, POC 199 70 - 199 mg/dL Glucose comment 1 RN/MD Notified [facility] Blood 08/31/2024 2:26 PM CDT 08/31/2024 2:26 PM CDT Vaishnavi Noble MD LAB POCT ORDERABLES - DEVICE Fin al Result Performing Organization Address [facility] Co de Phone Number [address] [address] * Troponin T high-sensitivity 4-hour (08/31/2024 2:03 PM CDT) [facility] Trop T hs <6 <=14 ng/L Comment: Interpretive Data For further hscTnT resources including the diagnostic algorithm and an aid in interpretation, copy and paste this link: https://nrl.testcatalog.org/show/hsTrop Current Interpretive Data last revised 2020. Trop T hs delta 0 ng/L [facility] Trop T hs interp Insignificant [facility] Blood 08/31/2024 2:03 PM CDT 08/31/2024 2:09 PM CDT Mykel Diehl DO LAB BLOOD ORDERABLES Final Result Performing Organization Address City/[facility]/ZIP Co de Phone Number [address] [place] [employer] [place] [address] * eGFR (08/31/2024 2:03 PM CDT) [facility] eGFR >90 >=60 mL/min/1. 73 m2 Comment: [...] [facility] LAB BLOOD ORDERABLES Final Re sult [facility] [address] [facility] Department [place] [address] * (ABNORMAL) Basic metabolic panel (08/31/2024 2:03 PM CDT) Sodium 138 135 - 145 mmol/L Potassium, pl 3.3 3.3 - 4.9 mmol/L [facility] Chloride 99 97 - 110 mmol/L [facility] CO2 22 22 - 32 mmol/L [facility] Anion gap 17(H) 2 - 15 mmol/L [facility] BUN 12 6 - 25 mg/dL [facility] Creatinine 0.39(L) 0.60 - 1.10 mg/dL [facility] Glucose 216(H) 70 - 199 mg/dL [facility] Comment: Interpretive Data Fasting glucose >/= 126 [...] 2022. Calcium 8.4(L) 8.5 - 10.3 mg/dL [facility] Blood 08/31/2024 2:03 PM CDT 08/31/2024 2:09 PM CDT us Sena [facility] LAB BLOOD ORDERABLES Final Re sult Performing Organization Address City/[facility] Co de Phone Number [address] [place] [employer] [place] [address] * (ABNORMAL) POCT glucose (08/31/2024 1:44 PM CDT) Glucose, POC 218(H) 70 - 199 mg/dL Glucose comment 1 RN/MD Notified [facility] Blood 08/31/2024 1:44 PM CDT 08/31/2024 1:44 PM CDT us Keenan Palacios MD LAB POCT ORDERABLES - DE VICE Final Result Performing Organization Address [facility] Co de Phone Number [address] [address] * (ABNORMAL) POCT glucose (08/31/2024 12:27 PM CDT) Glucose, POC 228(H) 70 - 199 mg/dL Blood 08/31/2024 12:2 7 PM CDT 08/31/2024 12:27 PM CDT Keenan Palacios MD LAB POCT ORDERABLES - DE VICE Final Result Performing Organization Address [facility] Co de Phone Number [address] [address] * Troponin T high-sensitivity 2-hour (08/31/2024 11:48 AM CDT) Trop T hs <6 <=14 ng/L Comment: Interpretive Data For further hscTnT resources including the diagnostic algorithm and an aid in interpretation, copy and paste this link: https://nrl.testcatalog.org/show/hsTrop Current Interpretive Data last revised 2020. Trop T hs delta 0 ng/L [facility] Trop T hs interp Insignificant [facility] Blood 08/31/2024 11:4 8 AM CDT 08/31/2024 11:54 AM CDT Mykel Choudhury Diehl DO LAB BLOOD ORDERABLES Final Result Performing Organization Address [facility]/ZIP Co de Phone Number [address] [address] * (ABNORMAL) Lactate (08/31/2024 11:48 AM CDT) Lactate 2.5(H) 0.7 - 2.0 mmol/L Blood 08/31/2024 11:4 8 AM CDT 08/31/2024 11:53 AM CDT [facility] Final Result Performing Organization Address [facility] Co de Phone Number [address] [address] * eGFR (08/31/2024 11:48 AM CDT) eGFR >90 >=60 mL/min/1. 73 [...] AM CDT 08/31/2024 11:54 AM CDT Mykel Renehu DO LAB BLOOD ORDERABLES Final Result Performing Organization Address [facility] Co de Phone Number [address] [place] [employer] [place] [address] * (ABNORMAL) Beta-hydroxybutyrate (08/31/2024 11:48 AM CDT) Beta-Hydroxybut yrate 1.7(H) <=0.5 mmol/L Blood 08/31/2024 11:4 8 AM CDT 08/31/2024 11:54 AM CDT [facility] BLOOD ORDERABLES Final Result Performing Organization Address [facility] de Phone Number [address] [address] * (ABNORMAL) Phosphorus (08/31/2024 11:48 AM CDT) Phosphorus, pl 2.2(L) 2.3 - 4.5 mg/dL Blood 08/31/2024 11:4 8 AM CDT 08/31/2024 11:54 AM CDT [facility] BLOOD ORDERABLES Final Result Performing Organization Address [facility] de Phone Number [address] [place] [employer] [place] [address] * Magnesium (08/31/2024 11:48 AM CDT) Magnesium 2.1 1.4 - 2.5 mg/dL Blood 08/31/2024 11:4 8 AM CDT 08/31/2024 11:54 AM CDT Mykel Choudhury [facility] LAB BLOOD ORDERABLES Final Result Performing Organization Address [facility] de Phone Number DANIELLA [address] [address] * (ABNORMAL) Hemoglobin A1c (08/31/2024 11:48 AM CDT) [facility] Hgb A1C 14.7(H) 4.0 - 5.6 % Estimated Average Glucose 375 mg/dL [facility] Comment: The ADA recommends reporting an estimated Average Glucose (eAG) with all Hemoglobin A1c results using the equation derived from a study of 507 normal and diabetic adults. Minority populations were underrepresented and children were not included. (Diabetes Care 31:5584-9641, 2008). The eAG is not equivalent to a fasting glucose. Blood 08/31/2024 11:4 8 AM CDT 08/31/2024 11:54 AM CDT [facility] BLOOD ORDERABLES Final Result Performing Organization Address [facility] de Phone Number [address] [address] * (ABNORMAL) Basic metabolic panel (08/31/2024 11:48 AM CDT) [facility] Sodium 138 135 - 145 mmol/L Potassium, pl 3.3 3.3 - 4.9 mmol/L [facility] Chloride 99 97 - 110 mmol/L [facility] CO2 23 22 - 32 mmol/L [facility] Anion gap 16(H) 2 - 15 mmol/L [facility] BUN 13 6 - 25 mg/dL [facility] Creatinine 0.36(L) 0.60 - 1.10 mg/dL [facility] Glucose 210(H) 70 - 199 mg/dL [facility] Comment: Interpretive Data Fasting glucose >/= 126 [...] AM CDT 08/31/2024 11:54 AM CDT Mykel Diehl LAB BLOOD ORDERABLES Final Result Performing Organization Address City/[facility]/ZIP Co de Phone Number DANIELLA [address] Department [place] [address] * (ABNORMAL) POC Blood Gas and Chemistries, Venous - (08/31/2024 10:59 AM CDT) pH,nas POC 7.40 7.32 - 7.43 pCO2, nas POC 37(L) 40 - 50 mmHg [facility] pO2,nas POC 50 mmHg [facility] Comment: Interpretive Data No reference range established. Current interpretive data was last revised 2019. HCO3, nas (Calc) POC 23 20 - 30 mmol/L [facility] Base excess, nas POC -2 mmol/L [facility] Comment: Interpretive Data No reference range established. Current interpretive data was last revised 2019. Blood 08/31/2024 10:5 9 AM CDT 08/31/2024 10:59 AM CDT Mykel Diehl DO LAB POCT ORDERABLES - DEVIC E Final Result Performing Organization Address [facility]/ZIP Co de Phone Number DANIELLA [address] Department [place] [address] * XR Chest 1 Vw Portable (08/31/2024 [...] Patrick Nuñez D.O. PS T: Report ID: [id number] Reading Location: [id number] Procedure Note Patrick Nuñez DO - 08/31/2024 [...] Patrick Nuñez D.O. PS T: Report ID: [id number] Reading Location: [id number] Mykel Diehl DO IMG XR PROCEDURES Final Res ult * ECG 12 lead (08/31/2024 9:58 AM CDT) Ventricular Rate EKG/Min 82 BPM [facility] Atrial Rate 82 BPM [facility] OR-Interval (MSEC) 122 ms [facility] QRS-Interval (MSEC) 88 ms [facility] QT-Interval (MSEC) 402 ms [facility] QTc 469 ms [facility] P [place] 66 degrees [facility] R [place] 72 degrees [facility] T [place] 64 degrees [facility] Diagnosis Normal sinus rhythm Nonspecific T wave abnormality Prolonged QT Abnormal ECG When compared with ECG of 09-AUG-2024 06:01, Nonspecific T wave abnormality now evident in Anterolateral leads Confirmed by JEIMY MIGUEL M.D. ([id number]) on 09/01/2024 8:15:14 AM [facility] 08/31/2024 9:58 AM CDT 09/01/2024 8:15 AM CDT Mykel Diehl DO ECG ORDERABLES Final Resul t Performing Organization Address City/[facility]/ZIP Co de Phone Number [facility] * Troponin T high-sensitivity series (baseline, 2hr, 4hr, 6hr) (08/31/2024 9:43 AM CDT) Trop T hs <6 <=14 ng/L Comment: Interpretive Data For further hscTnT resources including the diagnostic algorithm and an aid in interpretation, copy and paste this link: https://nrl.testcatalog.org/show/hsTrop Current Interpretive Data last revised 2020. Blood 08/31/2024 9:43 AM CDT 08/31/2024 9:51 AM CDT Mykel Diehl DO LAB BLOOD ORDERABLES Final Result DANIELLA [address] [facility] Department [place] [address] * (ABNORMAL) Sepsis Lactate w/ Reflex (08/31/2024 9:43 AM CDT) Sepsis Lactate 6.6(C) 0.7 - 2.0 mmol/L Comment:Critical Result call ed to and read back by [id number], DATE: 2024-08-31 10:10:25 BY: [id number] Blood 08/31/2024 9:43 AM CDT 08/31/2024 9:50 AM CDT Mykel Kei Diehl DO LAB BLOOD ORDERABLES Final Result DANIELLA [address] [address] * eGFR (08/31/2024 9:43 AM CDT) eGFR >90 >=60 mL/min/1. 73 [...] AM CDT 08/31/2024 9:51 AM CDT Mykel Diehl DO LAB BLOOD ORDERABLES Final Result DANIELLA [address] [place] [address] * Differential, auto (08/31/2024 9:43 AM CDT) Neutrophil abs 5.47 1.50 - 6.50 K/cumm Imm gran abs 0.02 0.00 - 0.10 K/cumm [facility] Lymphocyte abs 1.41 0.80 - 3.30 K/cumm [facility] Monocyte abs 0.54 0.20 - 0.80 K/cumm [facility] Eosinophil abs 0.09 0.00 - 0.50 K/cumm [facility] Basophil abs 0.03 0.00 - 0.10 K/cumm [facility] Neutrophil pct 72.3 % [facility] Comment: Interpretive Data Percent cell count reference ranges are not reported, since discordance with absolute values may lead to misinterpretation of CBC data. Current Interpretive Data was last revised on 2017. Imm gran pct 0.3 % [facility] Comment: Interpretive Data Percent cell count reference ranges are not reported, since discordance with absolute values may lead to misinterpretation of CBC data. Current Interpretive Data was last revised on 2017. Lymphocyte pct 18.7 % [facility] Comment: Interpretive Data Percent cell count reference ranges are not reported, since discordance with absolute values may lead to misinterpretation of CBC data. Current Interpretive Data was last revised on 2017. Monocyte pct 7.1 % [facility] Comment: Interpretive Data Percent cell count reference ranges are not reported, since discordance with absolute values may lead to misinterpretation of CBC data. Current Interpretive Data was last revised on 2017. Eosinophil pct 1.2 % [facility] Comment: Interpretive Data Percent cell count reference ranges are not reported, since discordance with absolute values may lead to misinterpretation of CBC data. Current Interpretive Data was last revised on 2017. Basophil pct 0.4 % [facility] Comment: Interpretive Data Percent cell count reference ranges are not reported, since discordance with absolute values may lead to misinterpretation of CBC data. Current Interpretive Data was last revised on 2017. Blood 08/31/2024 9:43 AM CDT 08/31/2024 9:50 AM CDT Mykel Diehl DO LAB BLOOD ORDERABLES Final Result DANIELLA [address] [facility] [place] [address] * (ABNORMAL) Beta-hydroxybutyrate (08/31/2024 9:43 AM CDT) Pathologist [facility] Beta-Hydroxybut yrate 2.7(H) <=0.5 mmol/L Blood 08/31/2024 9:43 AM CDT 08/31/2024 11:12 AM CDT [facility] BLOOD ORDERABLES Final Result [address] [address] * (ABNORMAL) CBC with auto differential (08/31/2024 9:43 AM CDT) [facility] WBC 7.56 3.80 - 9.90 K/cumm Hgb 14.1 11.9 - 15.5 g/dL [facility] Hct 43.6 35.6 - 45.5 % [facility] Plt 336 150 - 400 K/cumm [facility] MPV 11.0 9.1 - 12.3 fL [facility] RBC 5.26(H) 3.90 - 5.20 M/cumm [facility] MCV 82.9 81.3 - 96.4 fL [facility] MCH 26.8(L) 27.1 - 33.3 pg [facility] MCHC 32.3 32.3 - 35.7 g/dL [facility] RDW CV 15.5(H) 11.1 - 14.9 % [facility] RDW SD 46.0 35.7 - 48.1 fL [facility] NRBC abs 0.00 0.00 - 0.01 K/cumm [facility] Blood 08/31/2024 9:43 AM CDT 08/31/2024 9:50 AM CDT Mykel Diehl LAB BLOOD ORDERABLES Final Result [facility] [address] [address] * hCG, blood, quantitative (08/31/2024 9:43 AM [...] AM CDT 08/31/2024 9:51 AM CDT Mykel Choudhury [facility] LAB BLOOD ORDERABLES Final Result Performing Organization Address [facility] de Phone Number [address] [place] [employer] [place] [address] * Creatine kinase (CK), total (08/31/2024 9:43 AM CDT) [facility] CK 41 30 - 200 Units/L Blood 08/31/2024 9:43 AM CDT 08/31/2024 9:51 AM CDT Mykel Choudhury [facility] BLOOD ORDERABLES Final Result Performing Organization Address [facility] de Phone Number [address] [address] * Ethanol (08/31/2024 9:43 AM CDT) [facility] Ethanol <10 <=10 mg/dL Comment: Interpretive Data Legal limit of intoxication > or = 80 mg/dL Levels > or = 400 mg/dL are potentially TOXIC. Current interpretive data was last revised on 2018. Blood 08/31/2024 9:43 AM CDT 08/31/2024 9:51 AM CDT Mykel Choudhury [facility] LAB BLOOD ORDERABLES Final Result [facility] [address] [facility] Department [place] [address] * (ABNORMAL) Comprehensive metabolic panel (08/31/2024 9:43 AM CDT) Sodium 138 135 - 145 mmol/L Potassium, pl 3.5 3.3 - 4.9 mmol/L [facility] Comment:Hemolyzed; Potassium value may be falsely elevated by as much as 1.0 mmol/L. Suggest redraw and reanalysis. Chloride 93(L) 97 - 110 mmol/L [facility] CO2 20(L) 22 - 32 mmol/L [facility] Anion gap 25(H) 2 - 15 mmol/L [facility] BUN 14 6 - 25 mg/dL [facility] Creatinine 0.45(L) 0.60 - 1.10 mg/dL [facility] Glucose 282(H) 70 - 199 mg/dL [facility] Comment: Interpretive Data Fasting glucose >/= 126 [...] 2022. Calcium 10.3 8.5 - 10.3 mg/dL [facility] Bilirubin, total 0.3 0.1 - 1.2 mg/dL [facility] Protein, pl 8.0 6.5 - 8.5 g/dL [facility] Albumin 4.2 3.5 - 5.0 g/dL [facility] Alk phos 124 40 - 130 Units/L [facility] ALT 37 7 - 45 Units/L [facility] AST See Comment [facility] Comment:Credited; Hemolyzed Specimen Blood 08/31/2024 9:43 AM CDT 08/31/2024 9:51 AM CDT [facility] Kei Diehl DO LAB BLOOD ORDERABLES Final Result Performing Organization Address [facility]/ZIP Co de Phone Number [address] [address] * eGFR (08/10/2024 12:13 PM CDT) eGFR [...] ORDERABLES Fi nal Result Performing Organization Address [facility] Co de Phone Number DANIELLA [address] [address] * Phosphorus (08/10/2024 12:13 PM CDT) Pathologist [facility] Phosphorus, pl 2.5 2.3 - 4.5 mg/dL Blood 08/10/2024 12:1 3 PM CDT 08/10/2024 12:25 PM CDT Mykel [facility] LAB BLOOD ORDERABLES Fi nal Result Performing Organization Address City/[facility]/ZIP Co de Phone Number [address] [address] * Magnesium (08/10/2024 12:13 PM CDT) [facility] Magnesium 1.7 1.4 - 2.5 mg/dL Blood 08/10/2024 12:1 3 PM CDT 08/10/2024 12:25 PM CDT Mykel [facility] LAB BLOOD ORDERABLES Fi nal Result Performing Organization Address [facility] Co de Phone Number [address] [address] * (ABNORMAL) Basic metabolic panel (08/10/2024 12:13 PM CDT) [facility] Sodium 136 135 - 145 mmol/L Potassium, pl 3.4 3.3 - 4.9 mmol/L [facility] Chloride 105 97 - 110 mmol/L [facility] CO2 21(L) 22 - 32 mmol/L [facility] Anion gap 10 2 - 15 mmol/L [facility] BUN 9 6 - 25 mg/dL [facility] Creatinine 0.38(L) 0.60 - 1.10 mg/dL [facility] Glucose 262(H) 70 - 199 mg/dL [facility] Comment: Interpretive Data Fasting glucose >/= 126 [...] 2022. Calcium 9.0 8.5 - 10.3 mg/dL [facility] Blood 08/10/2024 12:1 3 PM CDT 08/10/2024 12:25 PM CDT Mykel [facility] LAB BLOOD ORDERABLES Fi nal Result Performing Organization Address [facility] Co de Phone Number [address] [address] * (ABNORMAL) POCT glucose (08/10/2024 11:00 AM CDT) Pathologist [facility] Glucose, POC 237(H) 70 - 199 mg/dL Glucose comment 1 Use This Result [facility] Glucose comment 2 RN/MD Notified [facility] Blood 08/10/2024 11:0 0 AM CDT 08/10/2024 11:00 AM CDT Carroll Tony MD LAB POCT ORDERABLES - DEVICE Final Result Performing Organization Address [facility] de Phone Number [address] [address] [address] * POCT glucose (08/10/2024 7:57 AM CDT) [facility] Glucose, POC 170 70 - 199 mg/dL Glucose comment 1 Use This Result [facility] Glucose comment 2 RN/MD Notified [facility] Blood 08/10/2024 7:57 AM CDT 08/10/2024 7:57 AM CDT Carroll Tony MD LAB POCT ORDERABLES - DEVICE Final Result Performing Organization Address [facility] Co de Phone Number [address] [address] * eGFR (08/10/2024 7:46 AM CDT) Pathologist [...] ORDERABLES Fi nal Result Performing Organization Address [facility] de Phone Number [address] [place] [address] * Phosphorus (08/10/2024 7:46 AM CDT) Phosphorus, pl 2.4 2.3 - 4.5 mg/dL Blood 08/10/2024 7:46 AM CDT 08/10/2024 7:52 AM CDT Mykel BEAVERS LAB BLOOD ORDERABLES Fi nal Result Performing Organization Address [facility] de Phone Number [address] [address] * Magnesium (08/10/2024 7:46 AM CDT) Magnesium 1.7 1.4 - 2.5 mg/dL Blood 08/10/2024 7:46 AM CDT 08/10/2024 7:52 AM CDT Mykel BEAVERS LAB BLOOD ORDERABLES Fi nal Result Performing Organization Address [facility]/ZIP Co de Phone Number [place] [id number] [facility] [place] [address] * (ABNORMAL) Basic metabolic panel (08/10/2024 7:46 AM CDT) [facility] Sodium 137 135 - 145 mmol/L Potassium, pl 3.6 3.3 - 4.9 mmol/L [facility] Chloride 107 97 - 110 mmol/L [facility] CO2 21(L) 22 - 32 mmol/L [facility] Anion gap 9 2 - 15 mmol/L [facility] BUN 8 6 - 25 mg/dL [facility] Creatinine 0.37(L) 0.60 - 1.10 mg/dL [facility] Glucose 185 70 - 199 mg/dL [facility] Comment: Interpretive Data Fasting glucose >/= 126 [...] 2022. Calcium 8.9 8.5 - 10.3 mg/dL [facility] Blood 08/10/2024 7:46 AM CDT 08/10/2024 7:52 AM CDT Mykel BEAVERS LAB BLOOD ORDERABLES Fi nal Result Performing Organization Address [facility]/ZIP Co de Phone Number [place] [id number] [facility] [place] [address] * eGFR (08/10/2024 4:14 AM CDT) [facility] eGFR >90 >=60 mL/min/1. 73 m2 Comment: [...] MD LAB BLOOD ORDERABLES Final R esult [place] [id number] [facility] Department [place] [address] * Differential, auto (08/10/2024 4:14 AM CDT) Pathologist [facility] Neutrophil abs 2.31 1.50 - 6.50 K/cumm Imm gran abs 0.01 0.00 - 0.10 K/cumm [facility] Lymphocyte abs 1.70 0.80 - 3.30 K/cumm [facility] Monocyte abs 0.45 0.20 - 0.80 K/cumm [facility] Eosinophil abs 0.08 0.00 - 0.50 K/cumm [facility] Basophil abs 0.02 0.00 - 0.10 K/cumm [facility] Neutrophil pct 50.6 % [facility] Comment: Interpretive Data Percent cell count reference ranges are not reported, since discordance with absolute values may lead to misinterpretation of CBC data. Current Interpretive Data was last revised on 2017. Imm gran pct 0.2 % [facility] Comment: Interpretive Data Percent cell count reference ranges are not reported, since discordance with absolute values may lead to misinterpretation of CBC data. Current Interpretive Data was last revised on 2017. Lymphocyte pct 37.2 % [facility] Comment: Interpretive Data Percent cell count reference ranges are not reported, since discordance with absolute values may lead to misinterpretation of CBC data. Current Interpretive Data was last revised on 2017. Monocyte pct 9.8 % [facility] Comment: Interpretive Data Percent cell count reference ranges are not reported, since discordance with absolute values may lead to misinterpretation of CBC data. Current Interpretive Data was last revised on 2017. Eosinophil pct 1.8 % [facility] Comment: Interpretive Data Percent cell count reference ranges are not reported, since discordance with absolute values may lead to misinterpretation of CBC data. Current Interpretive Data was last revised on 2017. Basophil pct 0.4 % [facility] Comment: Interpretive Data Percent cell count reference ranges are not reported, since discordance with absolute values may lead to misinterpretation of CBC data. Current Interpretive Data was last revised on 2017. Blood 08/10/2024 4:14 AM CDT 08/10/2024 4:50 AM CDT us Mykel BEAVERS LAB BLOOD ORDERABLES Fi nal Result [address] [place] [address] * Thyroid Function [place] (08/10/2024 4:14 AM CDT) TSH 1.66 0.30 - 4.20 mcIUnit/mL Blood 08/10/2024 4:14 AM CDT 08/10/2024 4:50 AM CDT Carroll Tony MD LAB BLOOD ORDERABLES Final Result [address] [place] [address] * Calcium, ionized (08/10/2024 4:14 AM CDT) Calcium, Ionized 4.85 4.50 - 5.10 mg/dL Blood 08/10/2024 4:14 AM CDT 08/10/2024 4:50 AM CDT Mykel BEAVERS LAB BLOOD ORDERABLES Fi nal Result Performing Organization Address [facility] Co de Phone Number DANIELLA [address] [place] [address] * (ABNORMAL) CBC with auto differential (08/10/2024 4:14 AM CDT) [facility] WBC 4.57 3.80 - 9.90 K/cumm Hgb 11.9 11.9 - 15.5 g/dL [facility] Comment:This result has been called to [place] [address] by [email or web address] on 08/10/2024 05:08:04. Results Called. Hct 37.4 35.6 - 45.5 % [facility] Plt 260 150 - 400 K/cumm [facility] MPV 11.0 9.1 - 12.3 fL [facility] RBC 4.47 3.90 - 5.20 M/cumm [facility] MCV 83.7 81.3 - 96.4 fL [facility] MCH 26.6(L) 27.1 - 33.3 pg [facility] MCHC 31.8(L) 32.3 - 35.7 g/dL [facility] RDW CV 14.2 11.1 - 14.9 % [facility] RDW SD 43.1 35.7 - 48.1 fL [facility] NRBC abs 0.00 0.00 - 0.01 K/cumm [facility] Blood 08/10/2024 4:14 AM CDT 08/10/2024 4:50 AM CDT Mykel BEAVERS LAB BLOOD ORDERABLES Fi nal Result Performing Organization Address [facility] Co de Phone Number DANIELLA [address] [address] * Phosphorus (08/10/2024 4:14 AM CDT) [facility] Phosphorus, pl 2.4 2.3 - 4.5 mg/dL Blood 08/10/2024 4:14 AM CDT 08/10/2024 4:50 AM CDT Mykel Manning RI LAB BLOOD ORDERABLES Fi nal Result Performing Organization Address [facility] Co de Phone Number [address] [place] [address] * Magnesium (08/10/2024 4:14 AM CDT) [facility] Magnesium 1.7 1.4 - 2.5 mg/dL Blood 08/10/2024 4:14 AM CDT 08/10/2024 4:50 AM CDT Mykel Mannnig RI LAB BLOOD ORDERABLES Fi nal Result Performing Organization Address [facility] de Phone Number [address] [address] * (ABNORMAL) Basic metabolic panel (08/10/2024 4:14 AM CDT) [facility] Sodium 135 135 - 145 mmol/L Potassium, pl 3.8 3.3 - 4.9 mmol/L [facility] Chloride 106 97 - 110 mmol/L [facility] CO2 19(L) 22 - 32 mmol/L [facility] Anion gap 10 2 - 15 mmol/L [facility] BUN 10 6 - 25 mg/dL [facility] Creatinine 0.39(L) 0.60 - 1.10 mg/dL [facility] Glucose 233(H) 70 - 199 mg/dL [facility] Comment: Interpretive Data Fasting glucose >/= 126 [...] 2022. Calcium 8.7 8.5 - 10.3 mg/dL [facility] Blood 08/10/2024 4:14 AM CDT 08/10/2024 4:50 AM CDT Mykel BEAVERS LAB BLOOD ORDERABLES Fi nal Result Performing Organization Address [facility] Co de Phone Number DANIELLA [address] [place] [address] * eGFR (08/09/2024 11:46 PM CDT) eGFR [...] ORDERABLES Final R esult Performing Organization Address [facility] Co de [facility] [address] [place] [address] [place] [address] * Phosphorus (08/09/2024 11:46 PM CDT) [facility] Phosphorus, pl 2.8 2.3 - 4.5 mg/dL Blood 08/09/2024 11:4 6 PM CDT 08/09/2024 11:58 PM CDT Mykel BEAVERS LAB BLOOD ORDERABLES Fi nal Result Performing Organization Address [facility] Co de Phone Number [address] [place] [address] * Magnesium (08/09/2024 11:46 PM CDT) [facility] Magnesium 1.9 1.4 - 2.5 mg/dL Blood 08/09/2024 11:4 6 PM CDT 08/09/2024 11:58 PM CDT Mykel BEAVERS LAB BLOOD ORDERABLES Fi nal Result Performing Organization Address [facility] de Phone Number [address] [address] * (ABNORMAL) Basic metabolic panel (08/09/2024 11:46 PM CDT) [facility] Sodium 135 135 - 145 mmol/L Potassium, pl 4.2 3.3 - 4.9 mmol/L [facility] Chloride 106 97 - 110 mmol/L [facility] CO2 19(L) 22 - 32 mmol/L [facility] Anion gap 10 2 - 15 mmol/L [facility] BUN 10 6 - 25 mg/dL [facility] Creatinine 0.47(L) 0.60 - 1.10 mg/dL [facility] Glucose 270(H) 70 - 199 mg/dL [facility] Comment: Delta - Results Reviewed Interpretive Data [...] 2022. Calcium 8.8 8.5 - 10.3 mg/dL DAN[facility] Blood 08/09/2024 11:4 6 PM CDT 08/09/2024 11:58 PM CDT Mykel BEAVERS LAB BLOOD ORDERABLES Fi nal Result Performing Organization Address [facility] Co de Phone Number [address] [place] [address] * eGFR (08/09/2024 9:11 PM CDT) eGFR [...] ORDERABLES Final R esult Performing Organization Address City/[facility]/ZIP Co de Phone Number [facility] [address] [place] [address] * Phosphorus (08/09/2024 9:11 PM CDT) [facility] Phosphorus, pl 2.6 2.3 - 4.5 mg/dL Blood 08/09/2024 9:11 PM CDT 08/09/2024 9:18 PM CDT Mykel BEAVERS LAB BLOOD ORDERABLES Fi nal Result [address] [address] * Magnesium (08/09/2024 9:11 PM CDT) [facility] Magnesium 1.8 1.4 - 2.5 mg/dL Blood 08/09/2024 9:11 PM CDT 08/09/2024 9:18 PM CDT Mykel BEAVERS LAB BLOOD ORDERABLES Fi nal Result [address] [address] * (ABNORMAL) Basic metabolic panel (08/09/2024 9:11 PM CDT) [facility] Sodium 137 135 - 145 mmol/L Potassium, pl 4.3 3.3 - 4.9 mmol/L [facility] Chloride 108 97 - 110 mmol/L [facility] CO2 17(L) 22 - 32 mmol/L [facility] Anion gap 12 2 - 15 mmol/L [facility] BUN 9 6 - 25 mg/dL [facility] Creatinine 0.51(L) 0.60 - 1.10 mg/dL [facility] Glucose 164 70 - 199 mg/dL [facility] Comment: Interpretive Data Fasting glucose >/= 126 [...] 2022. Calcium 8.6 8.5 - 10.3 mg/dL [facility] Blood 08/09/2024 9:11 PM CDT 08/09/2024 9:18 PM CDT Mykel BEAVERS LAB BLOOD ORDERABLES Fi nal Result Performing Organization Address City/[facility] Co de Phone Number [address] [place] [address] * POCT glucose (08/09/2024 7:45 PM CDT) Glucose, POC 171 70 - 199 mg/dL Glucose comment 1 Use This Result [facility] Glucose comment 2 RN/MD Notified [facility] Blood 08/09/2024 7:45 PM CDT 08/09/2024 7:45 PM CDT Kinga Hayes MD LAB POCT ORDERABLES - DEV ICE Final Result Performing Organization Address [facility] Co de Phone Number [address] [place] [address] * (ABNORMAL) POCT glucose (08/09/2024 6:04 PM CDT) Glucose, POC 203(H) 70 - 199 mg/dL Glucose comment 1 RN/MD Notified [facility] Blood 08/09/2024 6:04 PM CDT 08/09/2024 6:04 PM CDT Mykel Alvarez MD LAB POCT ORDERABLES - DEVICE Fi nal Result Performing Organization Address [facility] Co de Phone Number [address] [place] [address] * eGFR (08/09/2024 4:04 PM CDT) eGFR [...] 4:04 PM CDT 08/09/2024 4:17 PM CDT Demetrio Nichols MD LAB BLOOD ORDERABLES Final R esult DANIELLA [address] [place] [employer] [address] * (ABNORMAL) Phosphorus (08/09/2024 4:04 PM CDT) Pathologist [facility] Phosphorus, pl 1.9(L) 2.3 - 4.5 mg/dL Blood 08/09/2024 4:04 PM CDT 08/09/2024 4:17 PM CDT Mykel BEAVERS LAB BLOOD ORDERABLES Fi nal Result DANIELLA [address] [place] [address] * Magnesium (08/09/2024 4:04 PM CDT) [facility] Magnesium 2.1 1.4 - 2.5 mg/dL Blood 08/09/2024 4:04 PM CDT 08/09/2024 4:17 PM CDT Mykel BEAVERS LAB BLOOD ORDERABLES Fi nal Result Performing Organization Address [facility] Co de Phone Number [facility] [address] [facility] Department [place] [address] * (ABNORMAL) Basic metabolic panel (08/09/2024 4:04 PM CDT) [facility] Sodium 133(L) 135 - 145 mmol/L Potassium, pl 3.4 3.3 - 4.9 mmol/L [facility] Chloride 108 97 - 110 mmol/L [facility] CO2 17(L) 22 - 32 mmol/L [facility] Anion gap 8 2 - 15 mmol/L [facility] BUN 6 6 - 25 mg/dL [facility] Creatinine 0.42(L) 0.60 - 1.10 mg/dL [facility] Glucose 110 70 - 199 mg/dL [facility] Comment: Interpretive Data Fasting glucose >/= 126 [...] 2022. Calcium 8.7 8.5 - 10.3 mg/dL [facility] Blood 08/09/2024 4:04 PM CDT 08/09/2024 4:17 PM CDT Mykel BEAVERS LAB BLOOD ORDERABLES Fi nal Result Performing Organization Address City/[facility] Co de Phone Number DANIELLA [facility] [place] [address] * POCT glucose (08/09/2024 4:01 PM CDT) Pathologist [facility] Glucose, POC 128 70 - 199 mg/dL Glucose comment 1 Will Repeat Test [facility] Blood 08/09/2024 4:01 PM CDT 08/09/2024 4:01 PM CDT Mykel Alvarez MD LAB POCT ORDERABLES - DEVICE Fi nal Result Performing Organization Address City/[facility]/ZIP Co de Phone Number [address] [address] * N. gonorrhoeae/C. trachomatis Amplification Urine (08/09/2024 1:45 PM CDT) [facility] C. trachomatis Not Detected Not Detected N. gonorrhoeae Not Detected Not Detected [facility] Comment: Interpretive Data This assay detects Chlamydia trachomatis and Neisseria gonorrhoeae by nucleic acid amplification testing (NAAT). This assay has been cleared by the [place] Food and Drug administration. The performance characteristics of this test have been verified by the [facility]. The performance characteristics of this test have not been evaluated in individuals less than 14 years of age. Current Interpretive Data last revised 2023. Urine (None) 08/09/2024 1:45 PM CDT 08/09/2024 2:22 PM CDT Mykel BEAVERS LAB MICROBIOLOGY - GENE RAL ORDERABLES Final Result [address] [address] * Trichomonas vaginalis PCR Urine (08/09/2024 1:45 PM CDT) [facility] Trichomonas DNA Not Detected Not Detected Urine 08/09/2024 1:45 PM CDT 08/09/2024 2:22 PM CDT Narrative DANIELLA - 08/09/2024 3:35 PM CDT Interpretive Data: This assay detects Trichomonas vaginalis by nucleic acid amplification testing (NAAT). This assay has been cleared by the [place] Food and Drug administration. The performance characteristics of this test have been verified by the [facility]. Excess blood in specimens may be inhibitory and result in false negative results. The performance of this test has not been evaluated in women or individuals less than 18 years of age. Mykel BEAVERS LAB MICROBIOLOGY - GENE RAL ORDERABLES Final Result Performing Organization Address City/[facility]/ZIP Co de Phone Number [address] [address] * POCT glucose (08/09/2024 1:06 PM CDT) Glucose, POC 176 70 - 199 mg/dL Blood 08/09/2024 1:06 PM CDT 08/09/2024 1:06 PM CDT Mykel Alvarez MD LAB POCT ORDERABLES - DEVICE Fi nal Result Performing Organization Address [facility]/ZIP Co de Phone Number [address] [address] * eGFR (08/09/2024 12:00 PM CDT) eGFR >90 >=60 mL/min/1. 73 [...] ORDERABLES Final R esult Performing Organization Address City/[facility] Co de Phone Number [address] [place] [address] * (ABNORMAL) Phosphorus (08/09/2024 12:00 PM CDT) Pathologist [facility] Phosphorus, pl 1.5(L) 2.3 - 4.5 mg/dL Blood 08/09/2024 12:0 0 PM CDT 08/09/2024 12:05 PM CDT Mykel BEAVERS LAB BLOOD ORDERABLES Fi nal Result Performing Organization Address [facility] Co de Phone Number [address] [place] [employer] [address] * Magnesium (08/09/2024 12:00 PM CDT) Pathologist [facility] Magnesium 1.7 1.4 - 2.5 mg/dL Blood 08/09/2024 12:0 0 PM CDT 08/09/2024 12:05 PM CDT Mykel BEAVERS LAB BLOOD ORDERABLES Fi nal Result Performing Organization Address [facility] Co de Phone Number [address] [place] [address] * (ABNORMAL) Basic metabolic panel (08/09/2024 12:00 PM CDT) Pathologist [facility] Sodium 131(L) 135 - 145 mmol/L Potassium, pl 3.4 3.3 - 4.9 mmol/L [facility] Chloride 104 97 - 110 mmol/L [facility] CO2 14(L) 22 - 32 mmol/L [facility] Anion gap 13 2 - 15 mmol/L [facility] BUN 6 6 - 25 mg/dL [facility] Creatinine 0.32(L) 0.60 - 1.10 mg/dL [facility] Glucose 204(H) 70 - 199 mg/dL [facility] Comment: Interpretive Data Fasting glucose >/= 126 [...] 2022. Calcium 7.7(L) 8.5 - 10.3 mg/dL [facility] Blood 08/09/2024 12:0 0 PM CDT 08/09/2024 12:05 PM CDT Mykel BEAVERS LAB BLOOD ORDERABLES Fi nal Result Performing Organization Address [facility] Co de Phone Number [address] [place] [address] * POCT glucose (08/09/2024 11:56 AM CDT) [facility] Glucose, POC 182 70 - 199 mg/dL Glucose comment 1 Will Repeat Test [facility] Blood 08/09/2024 11:5 6 AM CDT 08/09/2024 11:56 AM CDT yMkel Alvarez MD LAB POCT ORDERABLES - DEVICE Fi nal Result Performing Organization Address City/[facility]/ZIP Co de Phone Number [address] [place] [address] * POCT glucose (08/09/2024 11:05 AM CDT) Glucose, POC 198 70 - 199 mg/dL Glucose comment 1 Will Repeat Test [facility] Blood 08/09/2024 11:0 5 AM CDT 08/09/2024 11:05 AM CDT Mykel Alvarez MD LAB POCT ORDERABLES - DEVICE Fi nal Result Performing Organization Address City/[facility] Co de Phone Number [address] [place] [address] * (ABNORMAL) POCT glucose (08/09/2024 10:10 AM CDT) Glucose, POC 209(H) 70 - 199 mg/dL Glucose comment 1 Will Repeat Test [facility] Blood 08/09/2024 10:1 0 AM CDT 08/09/2024 10:10 AM CDT us Mykel Alvarez MD LAB POCT ORDERABLES - DEVICE Fi nal Result Performing Organization Address [facility] Co de Phone Number [address] [place] [address] * POCT glucose (08/09/2024 9:04 AM CDT) Glucose, POC 133 70 - 199 mg/dL Glucose comment 1 Will Repeat Test [facility] Blood 08/09/2024 9:04 AM CDT 08/09/2024 9:04 AM CDT us Mykel Alvarez MD LAB POCT ORDERABLES - DEVICE Fi nal Result Performing Organization Address City/[facility] Co de Phone Number [address] [place] [address] * POCT glucose (08/09/2024 8:07 AM CDT) Glucose, POC 158 70 - 199 mg/dL Blood 08/09/2024 8:07 AM CDT 08/09/2024 8:07 AM CDT Mykel Alvarez MD LAB POCT ORDERABLES - DEVICE Fi nal Result Performing Organization Address [facility] de Phone Number MICHEL[address] [place] [employer] [address] * eGFR (08/09/2024 7:44 AM CDT) [facility] eGFR >90 >=60 mL/min/1. 73 m2 Comment: [...] 7:44 AM CDT 08/09/2024 7:55 AM CDT Demetrio Nichols MD LAB BLOOD ORDERABLES Final R esult Performing Organization Address [facility] Co de Phone Number MICHEL[address] [place] [address] * Phosphorus (08/09/2024 7:44 AM CDT) [facility] Phosphorus, pl 3.0 2.3 - 4.5 mg/dL Blood 08/09/2024 7:44 AM CDT 08/09/2024 7:55 AM CDT Mykel BEAVERS LAB BLOOD ORDERABLES Fi nal Result Performing Organization Address City/[facility] Co de Phone Number [address] [address] * Magnesium (08/09/2024 7:44 AM CDT) [facility] Magnesium 2.3 1.4 - 2.5 mg/dL Blood 08/09/2024 7:44 AM CDT 08/09/2024 7:55 AM CDT Mykel Philippe Manning RI LAB BLOOD ORDERABLES Fi nal Result Performing Organization Address [facility] de Phone Number [address] [address] * (ABNORMAL) Basic metabolic panel (08/09/2024 7:44 AM CDT) Pathologist [facility] Sodium 135 135 - 145 mmol/L Potassium, pl 4.1 3.3 - 4.9 mmol/L [facility] Chloride 106 97 - 110 mmol/L [facility] CO2 6(L) 22 - 32 mmol/L [facility] Anion gap 23(H) 2 - 15 mmol/L [facility] BUN 11 6 - 25 mg/dL [facility] Creatinine 0.42(L) 0.60 - 1.10 mg/dL [facility] Glucose 170 70 - 199 mg/dL [facility] Comment: Interpretive Data Fasting glucose >/= 126 [...] LAB BLOOD ORDERABLES Fi nal Result DANIELLA [address] [facility] Department [place] [address] * Critical Care (08/09/2024 7:42 AM CDT) Narrative Mykel Alvarez MD - 08/09/2024 7:42 AM CDT Mykel Alvarez MD 08/09/2024 6:10 PM Critical Care Performed by: Mykel Manning PA Authorized by: Mykel Manning PA CRITICAL CARE: Team: [facility] Shift: AM Level of Billing: Critical [...] plan with the ICU team and other medical/funeral pre need consultant staff, making frequent assessments and decisions [...] DEVICE Fi nal Result Performing Organization Address [facility]/ZIP Co de Phone Number [address] [place] [employer] [place] [address] * POCT glucose (08/09/2024 6:07 AM CDT) Pathologist [facility] Glucose, POC 159 70 - 199 mg/dL Glucose comment 1 RN/MD Notified [facility] Blood 08/09/2024 6:07 AM CDT 08/09/2024 6:07 AM CDT Demetrio Nichols MD LAB POCT ORDERABLES - DEVICE Final Result Performing Organization Address [facility] de Phone Number [place] [id number] [place] [address] * ECG 12 lead (08/09/2024 6:01 AM CDT) [facility] Ventricular Rate EKG/Min 112 BPM [facility] Atrial Rate 112 BPM [facility] OR-Interval (MSEC) 128 ms [facility] QRS-Interval (MSEC) 80 ms [facility] QT-Interval (MSEC) 370 ms [facility] QTc 505 ms [facility] P [place] 65 degrees [facility] R [place] 20 degrees [facility] T [place] 66 degrees [facility] Diagnosis Sinus tachycardia Otherwise normal ECG When compared with ECG of 02-JUN-2024 21:45, No significant change was found Confirmed by NICHOLAS SCHWARTZ M.D. ([id number]) on 08/09/2024 11:14:19 AM [facility] 08/09/2024 6:01 AM CDT 08/09/2024 11:14 AM CDT Demetrio Nichols MD ECG ORDERABLES Final Result Performing Organization Address [facility] Co de Phone Number [facility] * Infection Prevention MRSA Only (Staphylococcus aureus) PCR Nasal (08/09/2024 5:27 AM CDT) PCR Scrn, Methicillin resistant Staphylococcus aureus (MRSA) Not Detected Not Detected Comment: Interpretive Data Testing performed using Nucleic Acid Amplification with the [employer] Xpert MRSA NxG Assay. This assay detects target DNA from mecA, mecC and the SCCmec insertion site of Staphylococcus aureus using Real-Time PCR and has been cleared by the FDA. Performance characteristics have been verified by the [facility]. Current Interpretive Data was last revised on 2022 Nasal 08/09/2024 5:27 AM CDT 08/09/2024 5:29 AM CDT Demetrio Nichols MD LAB MICROBIOLOGY - GENERAL O RDERABLES Final Result Performing Organization Address City/[facility]/ZIP Co de Phone Number [address] [place] [employer] [place] [address] * (ABNORMAL) POCT glucose (08/09/2024 4:58 AM CDT) [facility] Glucose, POC 213(H) 70 - 199 mg/dL Glucose comment 1 RN/MD Notified [facility] Blood 08/09/2024 4:58 AM CDT 08/09/2024 4:58 AM CDT Demetrio Nichols MD LAB POCT ORDERABLES - DEVICE Final Result Performing Organization Address City/[facility]/ZIP Co de Phone Number [address] [place] [address] * Critical Care (08/09/2024 4:57 AM CDT) Narrative Demetrio Nichols MD - 08/09/2024 4:57 AM CDT Demetrio Nichols MD 08/09/2024 5:44 AM Critical Care Performed by: Demetrio Nichols MD Authorized by: Demetrio Nichols MD CRITICAL CARE: Team: [facility] Shift: PM Level of Billing: Critical [...] plan with the ICU team and other medical/funeral pre need consultant staff, making frequent assessments and decisions [...] Result * eGFR (08/09/2024 4:08 AM CDT) [facility]ologist [facility] [...] ORDERABLES Final R esult Performing Organization Address [facility]/ZIP Co de Phone Number DANIELLA [address] [facility] Department [place] [address] * (ABNORMAL) Urinalysis reflex to microscopic and culture Urine (08/09/2024 4:08 AM CDT) Color, ur Yellow Yellow Clarity, ur Clear Clear [facility] Specific gravity, ur 1.026 1.003 - 1.030 [facility] pH, urine 5.5 [facility] Comment: Interpretive Data U rine pH is affected by diet, medications, systemic acid-base disturbances, and renal tubular function. pH may affect urinary stone formation. For example, urine pH below 6.0 may help reduce the tendency for calcium phosphate stones and pH greater than 6.0 may reduce the tendency for uric acid stone formation. Source: [facility] Current Interpretive Data was last revised on 2017 Protein, ur ql 2+(A) Negative [facility] Glucose, ur ql 4+(A) Negative [facility] Ketones, ur 4+(A) Negative [facility] Bilirubin, ur Negative Negative [facility] Blood, ur Negative Negative [facility] Urobilinogen, ur <2.0 <2.0 mg/dL [facility] Nitrite, ur Negative Negative [facility] Leukocyte esterase, ur Negative Negative [facility] UA reflex comment Reflex to microscopic UA will be performed. [facility] Urine 08/09/2024 4:08 AM CDT 08/09/2024 4:14 AM CDT Demetrio Nichols MD LAB MICROBIOLOGY - GENERAL O RDERABLES Final Result Performing Organization Address City/[facility] Co de Phone Number DANIELLA [address] [facility] Department [place] [address] * (ABNORMAL) Drugs of Abuse Screen, Urine [...] 2022. Barbiturates, ur Not Detected CutOff 200ng/mL [facility] Comment: Interpretive Data - Barbiturates: Samples containing greater than 200 ng/mL secobarbital or other cross-reacting barbiturate compounds are reported as positive. False positive and false negative results are possible. Confirmatory testing required for definitive results. Current Interpretive Data was last reviewed 2022. Benzodiazepines, ur Not Detected CutOff 100ng/mL [facility] Comment: Interpretive Data - Benzodiazepines: Samples containing greater than 100 ng/mL nordiazepam or other cross-reacting compounds are reported as positive. False positive and false negative results are possible. Confirmatory testing required for definitive results. Current Interpretive Data was last reviewed 2022. Cannabinoids, ur Screen Positive, presumptive (A) CutOff 50 ng/mL [facility] Comment: Interpretive Data - Cannabinoids: Samples containing greater than 50 ng/mL delta-9 THC -COOH or other cross- reacting compounds are reported as positive. False positive and false negative results are possible. Confirmatory testing required for definitive results. Current Interpretive Data was last reviewed 2022. Cocaine, ur Screen Positive, presumptive (A) CutOff 150ng/mL [facility] Comment: Interpretive Data - Cocaine: Samples containing greater than 150 ng/mL benzoylecgonine or other cross- reacting compounds are reported as positive. False positive and false negative results are possible. Confirmatory testing required for definitive results. Current Interpretive Data was last reviewed 2022. Fentanyl, Ur Not Detected CutOff 5 ng/mL [facility] Comment: Interpretive Data - Fentanyl: Samples containing greater than 5 ng/mL norfentanyl, fentanyl, or other cross-reacting fentanyl compounds are reported as positive. False positive and false negative results are possible. Confirmatory testing required for definitive results. Current Interpretive Data was last reviewed 2023. Methadone, ur Not Detected CutOff 300ng/mL [facility] Comment: Interpretive Data - Methadone: Samples containing [...] 2022. Oxycodone, ur Not Detected CutOff 100ng/mL DANIELLA Comment: Interpretive Data - Oxycodone: Samples containing [...] AM CDT 08/09/2024 4:14 AM CDT Narrative DANIELLA - 08/09/2024 4:49 AM CDT Drug of Abuse screening is performed by immunoassay for medical purposes only. This is not to be used for Pain Management purposes. us [facility] LAB URINE ORDERABLES Final R esult DANIELLA [address] [facility] Department [place] [address] * (ABNORMAL) Urinalysis, microscopic only (08/09/2024 4:08 AM CDT) WBC, ur 0-5 0 - 5 /HPF RBC, ur 0-2 0 - 2 /HPF [facility] Epithelial cells, squamous, ur 1-5 0 - 5 /HPF [facility] Mucous, ur Present(A) [facility] Hyaline casts, ur 1-5 0 - 10 /LPF [facility] Culture Reflex Comment Reflex conditions for urine culture (WBC >10) not met. [facility] Urine 08/09/2024 4:08 AM CDT 08/09/2024 4:15 AM CDT Arvin Iglesias Jr., MD LAB URINE ORDERABLES Fi nal Result Performing Organization Address [facility] de Phone Number [address] [address] * hCG, blood, quantitative (08/09/2024 4:08 AM [...] ORDERABLES Final R esult Performing Organization Address [facility] Co de Phone Number [address] [place] [address] * Phosphorus (08/09/2024 4:08 AM CDT) Phosphorus, pl 3.1 2.3 - 4.5 mg/dL Blood 08/09/2024 4:08 AM CDT 08/09/2024 4:14 AM CDT [facility] LAB BLOOD ORDERABLES Final R esult Performing Organization Address City/[facility]/ZIP Co de Phone Number [place] [id number] [place] [address] * (ABNORMAL) Magnesium (08/09/2024 4:08 AM CDT) [facility] Magnesium 3.0(H) 1.4 - 2.5 mg/dL Blood 08/09/2024 4:08 AM CDT 08/09/2024 4:14 AM CDT [facility] LAB BLOOD ORDERABLES Final R [facility] Performing Organization Address [facility] Co de Phone Number [address] [address] * (ABNORMAL) Basic metabolic panel (08/09/2024 4:08 AM CDT) [facility] Sodium 135 135 - 145 mmol/L Potassium, pl 3.8 3.3 - 4.9 mmol/L [facility] Chloride 105 97 - 110 mmol/L [facility] CO2 6(L) 22 - 32 mmol/L [facility] Anion gap 24(H) 2 - 15 mmol/L [facility] BUN 12 6 - 25 mg/dL [facility] Creatinine 0.46(L) 0.60 - 1.10 mg/dL [facility] Glucose 252(H) 70 - 199 mg/dL [facility] Comment: Delta - Results Reviewed Interpretive Data [...] 2022. Calcium 8.3(L) 8.5 - 10.3 mg/dL [facility] Blood 08/09/2024 4:08 AM CDT 08/09/2024 4:14 AM CDT us [facility] LAB BLOOD ORDERABLES Final R esult DANIELLA MH [address] [facility] Department [place] [address] * XR Chest 1 Vw Portable (08/09/2024 [...] a.m.. Patient states she was at a democr[employer] last night and was not feeling well. [...] Shu Gong M.D. SN T: Report ID: [id number] Reading Location: [id number] Procedure Note Shu Gong MD - 08/09/2024 [...] Shu Gong M.D. SN T: Report ID: [id number] Reading Location: [place] [address] [facility] IMG XR PROCEDURES Final Resu lt * (ABNORMAL) POCT glucose (08/09/2024 3:27 AM CDT) Glucose, POC 349(H) 70 - 199 mg/dL Glucose comment 1 Use This Result DANIELLA RDZ Glucose comment 2 RN/MD Notified DANIELLA RDZ Glucose comment 3 Follow Protocol DANIELLA RDZ Blood 08/09/2024 3:27 AM CDT 08/09/2024 3:27 AM CDT Notinfile Unknown LAB POCT ORDERABLES - DEVICE F inal Result DANIELLA [address] [facility] Department [place] [address] * (ABNORMAL) POC Blood Gas and Chemistries, Venous - (08/09/2024 2:29 AM CDT) pH,nas POC 7.02(C) 7.32 - 7.43 pCO2, nas POC 23(L) 40 - 50 mmHg [address]IELLA RDZ pO2,nas POC 27 mmHg DANIELLA Comment: Interpretive Data No reference range established. Current interpretive data was last revised 2019. HCO3, nas (Calc) POC 6(C) 20 - 30 mmol/L [facility] Base excess, nas POC -24 mmol/L [facility] Comment: Interpretive Data No reference range established. Current interpretive data was last revised 2019. Oxy Hgb, nas POC 39.7(L) 90.0 - 95.0 % [facility] Met Hgb, nas POC 0.9 0.0 - 1.9 % [facility] Carboxy Hgb, nas POC 0.3 0.0 - 2.9 % [facility] Hemoglobin, nas POC 16.3(H) 11.9 - 15.5 g/dL [facility] Sodium, nas POC 130(L) 135 - 145 mmol/L [facility] Potassium, nas POC 5.2(H) 3.3 - 4.9 mmol/L [facility] Comment: Interpretive Data This method is not able to assess for hemolysis, which may falsely increase potassium concentrations. If further testing is needed to evaluate this result, consider in-laboratory plasma potassium. Current Interpretive Data was last revised on 2022. Glucose, nas POC Incalculable 70 - 199 mg/dL [facility] Ionized Calcium, nas POC 4.82 4.50 - 5.10 mg/dL [facility] Lactate, nas POC 1.8 0.7 - 2.0 mmol/L [facility] Blood 08/09/2024 2:29 AM CDT 08/09/2024 2:29 AM CDT us Notinfile Unknown LAB POCT ORDERABLES - DEVICE F inal Result DANIELLA [address] [facility] Department [place] [address] * Sepsis Lactate w/ Reflex (08/09/2024 2:24 AM CDT) Sepsis Lactate 1.7 0.7 - 2.0 mmol/L Blood 08/09/2024 2:24 AM CDT 08/09/2024 2:35 AM CDT us Demetrio C. Niziolek MD LAB BLOOD ORDERABLES Final R esult DANIELLA [address] [place] [employer] [place] [address] * eGFR (08/09/2024 2:24 AM CDT) Pathologist [...] LAB BLOOD ORDERABLES Final R esult DANIELLA [address] [place] [address] * Differential, auto (08/09/2024 2:24 AM CDT) Pathologist [facility] Neutrophil abs 5.48 1.50 - 6.50 K/cumm Imm gran abs 0.07 0.00 - 0.10 K/cumm [facility] Lymphocyte abs 0.91 0.80 - 3.30 K/cumm [facility] Monocyte abs 0.31 0.20 - 0.80 K/cumm [facility] Eosinophil abs 0.01 0.00 - 0.50 K/cumm [facility] Basophil abs 0.04 0.00 - 0.10 K/cumm [facility] Neutrophil pct 80.5 % [facility] Comment: Interpretive Data Percent cell count reference ranges are not reported, since discordance with absolute values may lead to misinterpretation of CBC data. Current Interpretive Data was last revised on 2017. Imm gran pct 1.0 % [facility] Comment: Interpretive Data Percent cell count reference ranges are not reported, since discordance with absolute values may lead to misinterpretation of CBC data. Current Interpretive Data was last revised on 2017. Lymphocyte pct 13.3 % [facility] Comment: Interpretive Data Percent cell count reference ranges are not reported, since discordance with absolute values may lead to misinterpretation of CBC data. Current Interpretive Data was last revised on 2017. Monocyte pct 4.5 % [facility] Comment: Interpretive Data Percent cell count reference ranges are not reported, since discordance with absolute values may lead to misinterpretation of CBC data. Current Interpretive Data was last revised on 2017. Eosinophil pct 0.1 % [facility] Comment: Interpretive Data Percent cell count reference ranges are not reported, since discordance with absolute values may lead to misinterpretation of CBC data. Current Interpretive Data was last revised on 2017. Basophil pct 0.6 % [facility] Comment: Interpretive Data Percent cell count reference ranges are not reported, since discordance with absolute values may lead to misinterpretation of CBC data. Current Interpretive Data was last revised on 2017. Blood 08/09/2024 2:24 AM CDT 08/09/2024 2:35 AM CDT us [facility] LAB BLOOD ORDERABLES Final R esult DANIELLA [address] [facility] Department [place] [address] * Beta-hydroxybutyrate (08/09/2024 2:24 AM CDT) Beta-Hydroxybut yrate 10.02 <=0.5 mmol/L Comment: Dilution of 1:6 08/09/2024 04:08:03 CDT by [id number] Blood 08/09/2024 2:24 AM CDT 08/09/2024 2:35 AM CDT [facility] LAB BLOOD ORDERABLES Final R esult Performing Organization Address City/[facility]/ZIP Co de Phone Number [address] [place] [employer] [place] [address] * (ABNORMAL) CBC with auto differential (08/09/2024 2:24 AM CDT) [facility] WBC 6.82 3.80 - 9.90 K/cumm Hgb 15.7(H) 11.9 - 15.5 g/dL [facility] Hct 53.0(H) 35.6 - 45.5 % [facility] Plt 507(H) 150 - 400 K/cumm [facility] MPV 10.9 9.1 - 12.3 fL [facility] RBC 6.04(H) 3.90 - 5.20 M/cumm [facility] MCV 87.7 81.3 - 96.4 fL [facility] MCH 26.0(L) 27.1 - 33.3 pg [facility] MCHC 29.6(L) 32.3 - 35.7 g/dL [facility] RDW CV 14.3 11.1 - 14.9 % [facility] RDW SD 45.3 35.7 - 48.1 fL [facility] NRBC abs 0.00 0.00 - 0.01 K/cumm [facility] Blood 08/09/2024 2:24 AM CDT 08/09/2024 2:35 AM CDT [facility] LAB BLOOD ORDERABLES Final R esult Performing Organization Address City/[facility]/ZIP Co de Phone Number [address] [address] * (ABNORMAL) Phosphorus (08/09/2024 2:24 AM CDT) [facility] Phosphorus, pl 5.1(H) 2.3 - 4.5 mg/dL Blood 08/09/2024 2:24 AM CDT 08/09/2024 2:35 AM CDT [facility] LAB BLOOD ORDERABLES Final R esult Performing Organization Address [facility] Co de Phone Number [address] [place] [employer] [place] [address] * Magnesium (08/09/2024 2:24 AM CDT) [facility] Magnesium 1.9 1.4 - 2.5 mg/dL Blood 08/09/2024 2:24 AM CDT 08/09/2024 2:35 AM CDT [facility] LAB BLOOD ORDERABLES [facility] Performing Organization Address [facility] de Phone Number [address] [place] [employer] [place] [address] * Lipase (08/09/2024 2:24 AM CDT) [facility] Lipase 13 10 - 99 Units/L Blood 08/09/2024 2:24 AM CDT 08/09/2024 2:35 AM CDT [facility] LAB BLOOD ORDERABLES Final [facility] Performing Organization Address [facility] de Phone Number [address] [place] [employer] [place] [address] * (ABNORMAL) Hemoglobin A1c (08/09/2024 2:24 AM CDT) [facility] Hgb A1C 13.5(H) 4.0 - 5.6 % Estimated Average Glucose 341 mg/dL [facility] Comment: The ADA recommends reporting an estimated Average Glucose (eAG) with all Hemoglobin A1c results using the equation derived from a study of 507 normal and diabetic adults. Minority populations were underrepresented and children were not included. (Diabetes Care 31:2455-8877, 2008). The eAG is not equivalent to a fasting glucose. Blood 08/09/2024 2:24 AM CDT 08/09/2024 2:40 AM CDT [facility] LAB BLOOD ORDERABLES Final R [facility] Performing Organization Address [facility] Co de Phone Number MICHEL[address] [address] * Ethanol (08/09/2024 2:24 AM CDT) Ethanol <10 <=10 mg/dL Comment: Interpretive Data Legal limit of intoxication > or = 80 mg/dL Levels > or = 400 mg/dL are potentially TOXIC. Current interpretive data was last revised on 2018. Blood 08/09/2024 2:24 AM CDT 08/09/2024 3:07 AM CDT [facility] LAB BLOOD ORDERABLES Final [facility] Performing Organization Address [facility] Co de Phone Number MICHEL[address] [address] * (ABNORMAL) Comprehensive metabolic panel (08/09/2024 2:24 AM CDT) Sodium 131(L) 135 - 145 mmol/L Potassium, pl 5.2(H) 3.3 - 4.9 mmol/L [facility] Chloride 93(L) 97 - 110 mmol/L [facility] CO2 5(C) 22 - 32 mmol/L [facility] Comment:Critical Result call ed to and read back by [id number], DATE: 2024-08-09 04:06:30 BY: [email or web address] Anion gap 33(H) 2 - 15 mmol/L [facility] BUN 12 6 - 25 mg/dL [facility] Creatinine 0.57(L) 0.60 - 1.10 mg/dL [facility] Glucose 502(C) 70 - 199 mg/dL [facility] Comment: Critical Result called to and read back by [email or web address], DATE: 2024-08-09 04:06:30 BY: [email or web address] Interpretive Data Fasting glucose >/= 126 mg/dl [...] 2022. Calcium 9.8 8.5 - 10.3 mg/dL [facility] Bilirubin, total 0.4 0.1 - 1.2 mg/dL [facility] Protein, pl 9.9(H) 6.5 - 8.5 g/dL [facility] Albumin 5.0 3.5 - 5.0 g/dL [facility] Alk phos 190(H) 40 - 130 Units/L [facility] ALT 27 7 - 45 Units/L [facility] AST 30 10 - 45 Units/L [facility] Blood 08/09/2024 2:24 AM CDT 08/09/2024 2:35 AM CDT us [facility] LAB BLOOD ORDERABLES Final R esult Performing Organization Address City/[facility]/ZIP Co de Phone Number [address] Department [place] [address] * (ABNORMAL) POCT glucose (08/09/2024 2:11 AM CDT) [facility] Signature Glucose, POC 436(H) 70 - 199 mg/dL Glucose comment 1 RN/MD Notified [facility] Glucose comment 2 Will Repeat Test [facility] Blood 08/09/2024 2:11 AM CDT 08/09/2024 2:11 AM CDT us Notinfile Unknown LAB POCT ORDERABLES - DEVICE F inal Result Performing Organization Address City/[facility]/ZIP Co de Phone Number [address] Department [place] [address] * Hepatitis C antibody Blood (12/27/2023 3:46 [...] LAB MICROBIOLOGY - GENERAL ORDERABLES Final Result DANIELLA [address] [facility] [place] [employer] [place] [address] * Lipid panel (12/16/2023 9:33 PM CDT) [...] on 2017. Triglycerides 75 <=149 mg/dL DANIELLA [facility] Comment: Interpretive Data Ages < [...] revised on 2017. HDL 51 >=40 mg/dL [facility] Comment: Interpretive Data Ages < or = [...] on 2017. LDL, calculated 108 <=129 mg/dL [facility] Comment: Interpretive Data Ages < or = [...] revised on 2023. Non-HDL Cholesterol 122 mg/dL [facility] Comment: Interpretive Data Ages < or = [...] last revised on 2017. Chol/HDL ratio 3 [facility] Blood 12/16/2023 9:33 PM CDT 12/16/2023 9:45 PM CDT Narrative DANIELLA [facility] - 12/17/2023 8:09 AM CDT Reflex us Yoli Christensen MD LAB BLOOD ORDERABLES Fin al Result [facility] Department [place] [address] from Last 3 Months or Most Recently Relevant to Health Maintenance Insurance [employer] OPEN ACCESS [facility] Member Subscriber Plan / Payer (Ef fective 2022-Present) Name:Luciana Holloway Relation to Subscriber:Self Name:Luciana Holloway Payer ID:[id number] (NAIC) Group ID:Not on file Type:MEDICAID RISK OTHER Address: ATTN: CLAIMS DEPT [address] [place] [id number] [employer] OPEN ACCESS [employer] OPEN ACCESS Member Subscriber Plan / Payer (Ef fective 2021-Present) Name:Luciana Holloway Relation to Subscriber:Child Name:JEWELJAREK Date of :[birth year]99 (Home) Address: [address] [place], [place] [id number] Payer ID:[id number] Type:[employer] HMO/PPO Address: [address] [place] [address] Advance Directives For more information, please contact: [phone] * Full Code (Latest Code Status on [...] 3:24 PM 12/28/2023 6:16 PM Care Teams Sales And Marketing Specialist Relationship Specialty Start Date End Date Vianca Rosario NP [address] [facility] [place] [address] PCP - General Family Medicine 08/29/24 Rolan Mello MD [address] [place] [address] [place] [address] Consulting Physician Endocrinology Diabetes & Metabolism 06/20/22 Philly Calderon MD [address], [address] [place] [address] Consulting Physician Endocrinology Diabetes & Metabolism 09/06/24
--- OUTSIDE RECORDS SUMMARY | 2024-09-21 14:25 | XMS_ITS | Encounter Summary ---
Author Organization [facility] Address [address] [place] [address] Care Team Providers Care Insurance Counsel Name Role Phone Cee Sharpe MD Primary Care Provider Frances Vazquez Primary Care Provider Cee Sharpe MD Primary Care Provider Frances Vazquez Primary Care Provider Graciela Marin MD Primary Care Provider Quyen Vance MD Primary Care Provider [phone]- [phone] Graciela Marin MD Unavailable [phone] Reason for Visit * Reason Onset Date Comments MEDICATION REFILL 12/28/2016 Encounter Details Date Type Department Care Team (Late st Contact Info) Description 12/28/2016 Refill [facility] Pediatrics - Endocrinology [address] [place] [address] Rosalie Dozier MD [address] [place] [id number] MEDICATION REFILL Social History Tobacco Use Types Packs/Day Years Used Date Smoking Tobacco: Passive Smo ke Exposure - Never Smoker Alcohol Use Standard Drinks/Week Comments No 0 (1 standard drink = 0.6 oz pur e alcohol) Comments No Sex and Gender Information Value Date Recorded Sex Assigned at Not on file Legal Sex Female 5:42 AM REIMBURSEMENT COUNSELOR Gender Identity Not on file Sexual Orientation [...] documented as of this encounter Visit Diagnoses Diagnosis Type 1 diabetes mellitus without complication (HCC) Type I (juvenile type) diabetes mellitus without mention of complication, not stated as uncontrolled documented in this encounter Additional Health Concerns Infection Onset Date Last Indicated Resolved Time COVID-19 Under Investigation 03/02/2024 03/03/2024 03/03/2024 1:53 AM REIMBURSEMENT COUNSELOR COVID-19 Under Investigation 03/03/2024 03/03/2024 03/03/2024 2:08 PM REIMBURSEMENT COUNSELOR documented as of this encounter Care Teams Insurance Counsel Relationship Specialty Start Date End Date Cee Sharpe MD [facility] [place] [address] PCP - General Pediatrics 01/24/12 07/31/19 Frances Vazquez APRN-EXIT BOOTH AGENT [address] [phone] PCP - General Nurse Practitioner Family 08/01/1909/11 Cee Sharpe MD [address] [place] [address] PCP - General 08/09/19 09/09/19 Frances Vazquez APRN-EXIT BOOTH AGENT [address] [place] [phone] PCP - General 07/06/22 11/21/23 Graceila Marin MD [address] [place] [phone] PCP - General Internal Medicine 11/22/23 01/09/24 Quyen Vance MD [address] DIV OF INT MED [address] [place] [phone] PCP - General Internal Medicine 01/10/24 Graciela Marin MD [address] [place] [phone] Physician Internal Medicine 01/10/24 documented as of this encounter
--- OUTSIDE RECORDS SUMMARY | 2024-09-21 14:25 | XMS_ITS | Encounter Summary ---
Author Organization [facility] Address [address] [place] [address] Care Team Providers Care Template Cutter Name Role Phone George Frances KARISHMA-MEENAKSHI Primary Care Provider Graciela Marin MD Primary Care Provider [phone] Quyen Vance MD Primary Care Provider [phone]- [phone] Graciela Marin MD Unavailable [phone] Encounter Details Date Type Department Care Team (Late st Contact Info) Description 05/01/2020 Telephone [facility] Pediatrics - Endocrinology [address] [place] [address] Olivia Van, DO [address] [place] [address] Social History Tobacco Use Types Packs/Day Years Used Date Smoking Tobacco: Passive Smo ke Exposure - Never Smoker Smokeless Tobacco: Never Alcohol Use Standard Drinks/Week Comments No 0 (1 standard drink = 0.6 oz pur e alcohol) Comments No Sex and Gender Information Value Date Recorded Sex Assigned at Not on file Legal Sex Female 5:42 AM GROUT WORKER Gender Identity Not on file Sexual Orientation Not on file documented as of this encounter Functional Status * Is person deaf or have serious hearing difficulty? Answer Date of Assessment Author No 03/04/2020 4:19 PM Tracey Gonzalez RN * Is person blind or have serious difficulty seeing? Answer Date of Assessment Author No 03/04/2020 4:19 PM Tracey Gonzalez RN * Does person have serious difficulty walking/climbing stairs? Answer Date of Assessment Author No 03/04/2020 4:19 PM GROUT WORKER Tracey Mac, LUTHER * Does person have difficulty dressing/bathing? Answer Date of Assessment Author No 03/04/2020 4:19 PM GROUT WORKER Tracey Mac RN * Does person have difficulty doing errands alone? Answer Date of Assessment Author No 03/04/2020 4:19 PM Tracey Gonzalez RN documented as of this encounter Mental Status * Does person have difficulty concentrating/remembering/making decisions? Answer Entry Date Author No 03/04/2020 4:19 PM Tracey Gonzalez, LUTHER documented in this encounter Progress Notes * Olivia Van DO - 05/01/2020 10:22 PM CST Luciana is followed by our service for type 1 diabetes managed with multiple daily injection insulin regimen. Luciana called through the after hours exchange. Reason for Call: Unable to keep anything down Information provided: I attempted to return call at number provided: [phone], which was a [employer] park. I attempted to call primary number in chart. No answer Assessment: Concern for developing DKA. Plan: Called answering service to ask for number again. Dispatcher listened to recording, no number given. I attempted both main numbers listed in chart again without success. T WORKER T WORKER documented in this encounter Plan of Treatment Not on file documented as of this encounter Visit Diagnoses Not on filedocumented in this encounter Additional Health Concerns Infection Onset Date Last Indicated Resolved Time COVID-19 Under Investigation 03/02/2024 03/03/2024 03/03/2024 1:53 AM GROUT WORKER COVID-19 Under Investigation 03/03/2024 03/03/2024 03/03/2024 2:08 PM GROUT WORKER documented as of this encounter Care Teams Template Cutter Relationship Specialty Start Date End Date Frances Vazquez APRN-CNP [address] [phone] PCP - General 07/06/22 11/21/23 Graciela Marin MD [address] [place] [phone] PCP - General Internal Medicine 11/22/23 01/09/24 Quyen Vance MD [address] [facility] [address] DIV OF [address] [phone] PCP - General Internal Medicine 01/10/24 Graciela Marin MD [address] DIV OF [facility] [place] [phone] Physician Internal Medicine 01/10/24 documented as of this encounter
--- OUTSIDE RECORDS SUMMARY | 2024-09-21 14:25 | XMS_ITS | Encounter Summary ---
Author Organization [facility] Address [address] [place] [address] Care Team Providers Care Accounting Professional Name Role Phone Cee Sharpe MD Primary Care Provider Frances Vazquez Primary Care Provider Cee Sharpe MD Primary Care Provider Frances Vazquez Primary Care Provider Graciela Marin MD Primary Care Provider Quyen Vance MD Primary Care Provider [phone] Graciela Marin MD Unavailable [phone] Reason for Visit * Reason Onset Date Comments LOW BLOOD SUGAR 08/07/2015 Encounter Details Date Type Department Care Team (Late st Contact Info) Description 08/07/2015 Telephone [facility] Pediatrics - Diabetes [id number] [place] [address] Demetri Longo APRN-CNP [address] [place] [address] LOW BLOOD SUGAR Social History Tobacco Use Types Packs/Day Years Used Date Smoking Tobacco: Passive Smo ke Exposure - Never Smoker Alcohol Use Standard Drinks/Week Comments No 0 (1 standard drink = 0.6 oz pur e alcohol) Comments No Sex and Gender Information Value Date Recorded Sex Assigned at Not on file Legal Sex Female 5:42 AM VAT WASHER Gender Identity Not on file Sexual Orientation [...] Assessment Author No 07/21/2015 8:00 PM LAMONTT Manasa [place] RN documented as of this encounter Mental Status * Does person have difficulty concentrating/remembering/making decisions? Answer Entry Date Author No 07/21/2015 8:00 PM LAMONTT Andria [place] RN documented in this encounter Miscellaneous Notes * Telephone Encounter - Barbara Mas RN - 08/12/2015 10:32 AM CDT Mother called to review bgs. Returned call. Unable to leave DRB Systemsm[employer] d/t mailbox full. Mother returned call at 1150. Reviewed bgs. No notable pattern. Mother reported bedtime low was from playing basketball for 2 hours. Reviewed insulin and exercise with mother and discussed having 15gm of carbs for free with every 30 minutes of vigorous activity or decreasing meal dose of insulin by10% prior to vigorous activity. Mother verbalized understanding. * Telephone Encounter - Amadou Herzog RN - 08/07/2015 4:21 PM CDT Mom called, Luciana's bg came back down to 67 after going up to 119 following hypoglycemia of 40mg/dl at school today (see previous note). Mom wanted to review how to treat lows, which I did. Reviewed the rule of 15 and how to treat lows.Call office/exchange if 2-3 treatments do not resolve hypoglycemia. They are currently treating with gatorade and goldfish crackers (15g) This is the first time Luciana has experienced hypoglycemia. I reminded mom, make sure bedtime bg is at least 100, test bg at 0200 tonight. Mom reports the nurse thinks the carb count may have been wrong at lunch today, as another student with diabetes also dropped low post-lunch. Mom verbalized understanding, just wanted to double check that she is doing things right. documented in this encounter Plan of Treatment Not on file documented as of this encounter Visit Diagnoses Not on filedocumented in this encounter Additional Health Concerns Infection Onset Date Last Indicated Resolved Time COVID-19 Under Investigation 03/02/2024 03/03/2024 03/03/2024 1:53 AM VAT WASHER COVID-19 Under Investigation 03/03/2024 03/03/2024 03/03/2024 2:08 PM VAT WASHER documented as of this encounter Care Teams Accounting Professional Relationship Specialty Start Date End Date Cee Sahrpe MD [address] [place] [address] PCP - General Pediatrics 01/24/12 07/31/19 Frances Vazquez APRN-METAPHYSICS TEACHER [address] [place] [phone] PCP - General Nurse Practitioner Family 08/01/1907/24 Cee Sharpe MD [address] [place] [address] PCP - General 08/09/19 09/09/19 Frances Vazquez APRN-METAPHYSICS TEACHER [address] [place] [phone] PCP - General 07/06/22 11/21/23 Graciela Marin MD [address] DIV [place] [phone] PCP - General Internal Medicine 11/22/23 01/09/24 Quyen Vance MD [address] DIV OF INT MED [address] [place] [phone] PCP - General Internal Medicine 01/10/24 Graciela Marin MD [address] DIV [place] [phone] Physician Internal Medicine 01/10/24 documented as of this encounter
--- NOTE | 2024-09-21 14:29 | ED_ITS ---
HPI - Female Genitourinary General Chief complaint: Urogenital-Female Stated complaint: irritating genitalia Time Seen by Provider: 09/21/24 14:50 Source: patient, RN notes reviewed and old records reviewed Mode of arrival: ambulatory Limitations: no limitations History of Present Illness HPI Narrative: 24-year-old female with a history of type 1 diabetes, noncompliance presents with 3 day history vaginal pain, redness and swelling. Patient states that she developed sores this morning. Patient is reporting 10 at the 10 pain, not a very good historian Related Data Home Medications ?Medication ?Instructions ?Recorded ?Confirmed ?Last Taken ?Type blood-glucose sensor (Dexcom G6 02/28/23 02/28/23 Unknown History Sensor device) blood-glucose transmitter (Dexcom 02/28/23 02/28/23 Unknown History G6 Transmitter device) glucagon 1 mg/0.2 mL subcutaneous 1 mg subcut DIRECTED 02/28/23 02/28/23 Unknown History auto-injector (Gvoke HypoPen 1-Pack) insulin glargine 100 unit/mL 45 unit subcut DIRECTED 02/28/23 02/28/23 Unknown History subcutaneous solution (Lantus U-100 Insulin) insulin pump cart,automated,BT 02/28/23 02/28/23 Unknown History (Omnipod 5 G6 Pods (Gen 5) subcutaneous cartridge) aripiprazole 10 mg tablet mg 09/21/24 Unknown History Allergies Allergy/AdvReac Type Severity Reaction Status Date / Time amoxicillin Allergy Mild Hives Verified 09/21/24 14:24 Review of Systems Review of Systems: All systems reviewed & are unremarkable except as noted in HPI and below Constitutional: Constitutional: Reports no additional constitutional complaints ENT: Reports system reviewed and no additional complaints, except as documented Cardiovascular: Cardiovascular: Reports no additional cardiovascular complaints, Denies chest pain and Denies dyspnea Respiratory: Respiratory: Reports no additional respiratory complaints, Denies chest congestion, Denies cough and Denies dyspnea Genitourinary: Genitourinary: Reports as per HPI and Reports genital lesions Musculoskeletal: Musculoskeletal: Reports no additional musculoskeletal complaints Integumentary/Breasts: Skin/Breast: Reports system reviewed and no additional complaints, except as docu [facility] Past Medical History Medical History Type 1 diabetes mellitus Comments At the time of my signature, I reviewed and agree with the nursing past medical, surgical, social, and family history. There is no relevant family history pertinent to the patient complaint. Exam Const: General: well developed, alert, acute distress moderate, anxious, uncomfortable and thin Orientation/consciousness: patient oriented x3 Limitations: no limitations HENMT: Head: normal to inspection Eyes: General: appearance normal, both eyes and all related structures Alignment and Position: alignment normal Neck: Neck: normal visual inspection, full ROM, no lymphadenopathy and no meningeal signs Chest: Chest palpation & inspection: normal inspection of the chest Resp: Effort & Inspection: normal respiratory effort and able to speak in c omplete sentences Cardio: Rate: tachycardic : External Female Exam: erythema, externally tender, external swelling, lesion, No laceration and No External ecchymosis (female) Other: Significant swelling to the vaginal area, periarea with multiple lesions Chaperoned by Deloris SLOAN Neuro: General: patient oriented x3, moves all extremities and no meningeal signs Cognition (Neuro): normal cognition Speech: normal speech Extrem: General: normal to inspection, full ROM, capillary refill normal and normal gait Psych: Appearance: grossly normal Mental Status: mental status grossly normal Speech and movement: Normal speech and movement present and Clear speech present Affect: normal affect Attitude: cooperative Course Course Level of Care: Express Care Visit Vital Signs Vital signs: Vital Signs Temperature 98.1 F 09/21/24 14:32 Pulse Rate 130 H 09/21/24 14:32 Respiratory Rate 20 09/21/24 14:32 Blood Pressure 125/94 H 09/21/24 14:32 Pulse Oximetry 100 09/21/24 14:32 Oxygen Delivery Room Air 09/21/24 14:32 Temperature 98.1 F 09/21/24 14:32 Pulse Rate 130 H 09/21/24 14:32 Respiratory Rate 20 09/21/24 14:32 Blood Pressure 125/94 H 09/21/24 14:32 Pulse Oximetry 100 09/21/24 14:32 Oxygen Delivery Room Air 09/21/24 14:32 Reviewed Transfer Transfered to: [facility] (per patient request) Transportation: BLS (Ambulance per patient request) Transfer rationale: Patient with extremely high blood sugar, sores, pain 10/10 in the periarea sending for higher level of care to rule out cellulitis, DKA Accepting physician: Spoke with Vishal RN, Dr. Cooper MDM - Female Genitourinary MDM Narrative Medical decision making narrative: Patient sitting in exam room. Patient appears in extreme pain, reports 10/10 in the vaginal area. Blood sugar over 500, 558. Due to the amount of swelling, lesions, redness in the periarea sending for higher level care, Transfer instructions reviewed with patient to go directly to the ER. Patient chose [facility], would prefer to go by ambulance. All questions have been answered, and the patient deny any further questions Some parts of this dictation were generated by voice recognition software and may contain typographical and/or grammatical inaccuracies. Differential Diagnosis Differential diagnosis: Likely urinary tract infection, bacterial vaginosis, t richomoniasis, vaginitis and other (Syphilis, cellulitis, herpes, chlamydia, gonorrhea, yeast infection) Lab Data Labs: Lab Results 09/21/24 09/21/24 09/21/24 Range/Units 14:42 14:44 14:48 POC Capillary Glucose > 500 H* (65-105) mg/dl POC Urine Color Light/pale POC Urine Clarity Clear POC Urine pH 6.0 POC Ur Specif Rowley 1.010 POC Urine Protein Negative (Negative) POC Ur Glucose (UA) 2+ (Negative) POC Urine Ketones 2+ (Negative) POC Urine Blood Negative (Negative) POC Urine Nitrite Negative (Negative) POC Urine Bilirubin Negative (Negative) POC Urine Urobilinogen 0.2 POC U Leukocyte Esteras Negative (Negative) POC Urine HCG, Qual Negative (Negative) Critical Care Time Critical Care Time Critical Care Time: No Discharge Plan Discharge Clinical Impression: Elevated blood sugar, Infection of perianal area Patient Disposition: Acute Care Hospital Condition: Stable Patient Language: Vietnamese Prescriptions: No Action aripiprazole 10 mg tablet insulin glargine [Lantus U-100 Insulin] 100 unit/mL solution 45 unit SUBCUT DIRECTED (DME) Dexcom G6 Sensor Device MISCELLANEOUS (DME) Dexcom G6 Transmitter Device MISCELLANEOUS Gvoke HypoPen 1-Pack 1 mg/0.2 mL auto-injector 1 mg SUBCUT DIRECTED (DME) Omnipod 5 G6 Pods (Gen 5) Cartridge SUBCUT fluconazole 150 mg tablet 150 mg PO ONCE Qty: 2 0RF Rx Instructions: as a single dose, a second dose 3 days later nitrofurantoin macrocrystal 100 mg capsule 100 mg PO Q12H 5 Days Qty: 10 5RF Rx Instructions: must administer with a meal/food insulin lispro [Humalog U-100 Insulin] 100 unit/mL solution 1 sliding scale dose subcut USEASDIRECTD Qty: 10 0RF Rx Instructions: For use with your insulin pump Follow-up/Referrals: UNKNOWN,DOCTOR [Primary Care Provider] -
[2024-09-21 14:32] VITALS: BP 125/94; PULSE 130; RESP 20; TEMP 36.7; O2SAT 100
[2024-09-21 14:45] LABS: EDUAAPPEAR Clear; EDUABILI Negative (Negative); EDUABLOOD Negative (Negative); EDUACOLOR1 Light/Pale; EDUAGLUCOSE 2+ (Negative); EDUAKETONE 2+ (Negative); EDUALEUKO Negative (Negative); EDUANITRATE Negative (Negative); EDUAPROTEIN Negative (Negative); EDUAUROBILI 0.2
[2024-09-21 14:47] LABS: Glucose Point of Care > 500 mg/dl (65-105)
[2024-09-21 14:50] LABS: BEDSIDEPREGUCG Negative (Negative)
== END 2024-09-21 15:06 | disposition short-term general hospital (02) ==
PROVIDERS: Emergency Provider Nurse Practitioner
DX: E10.65 Type 1 diabetes mellitus with hyperglycemia (principal); Z79.4 Long term (current) use of insulin; K62.89 Other specified diseases of anus and rectum
CPT/HCPCS: 81003; 81025; 82948; 99215; G0463